=== PATIENT | male | born 1945 | race Caucasian/White ===

== ENCOUNTER 2016-10-21 06:06 | Day surgery (SDC) | payer OTHER ==
[2016-10-13 12:06] VITALS: BMI 34.4
[2016-10-21] MEDS ORDERED: BUPIVACAINE HCL/PF 2.5 MG/ML - 30 ML VIAL IJ ONE (07:03)
[2016-10-21] MEDS ORDERED: LIDOCAINE 1%/EPI 1:100000 (20 ML MULTI DOSE VIAL) ONE (07:03)
[2016-10-21] MEDS ORDERED: MIDAZOLAM HCL 2 MG/2 ML SINGLE DOSE VIAL ONE (07:53)
[2016-10-21] MEDS ORDERED: PROPOFOL 20 ML ONE (07:53)
[2016-10-21] MEDS ORDERED: LIDOCAINE HCL/PF 2% SDV 5ML VIAL ONE (07:55)
--- NOTE | 2016-10-21 07:58 | HP ---
Satellite [facility] - Chief Complaint Chief Complaint: right knee pain - Past Medical History Allergies/Adverse Reactions: Allergies Allergy/AdvReac Type Severity Reaction Status Date / Time No Known Allergies Allergy Verified 10/13/16 11:40 - Current Medications Current Medications: Home Medications Medication Instructions Recorded Gabapentin [Neurontin] 600 mg PO DAILY 10/13/16 Pregabalin [Lyrica -] 150 mg PO TID 10/13/16 Warfarin Sodium [Coumadin] 7 mg PO DAILY 10/13/16 Oxycodone HCl/Acetaminophen 2 tab PO Q8H #40 tab MDD 6 10/21/16 [Percocet 5-325 mg Tablet] Satellite Physical Exam - Physical Examination Vital Signs: Vital Signs Period Temp Pulse Resp BP Sys/Carr Pulse Ox Last 24 Hr 97.9 F 60 18 129/71 97 General Appearance: Well Nourished, Well Developed, Alert & Oriented x3 ENT: Clear Lung: Normal air movement Heart: Regular rate & rhythm Extremities: Other (right knee- + swelling, + ttp, decr rom, nvi MRI + plica, mmt) Neurological: Intact, Alert, Oriented Satellite Impression/Plan - Impression/Plan Impression: right knee internal derangement Operative Procedure: right knee arthroscopy Date to be Performed: 10/21/16
[2016-10-21] MEDS ORDERED: LIDOCAINE 1%/EPI 1:100000 (50 ML MULTI DOSE VIAL) INF ONE (08:14)
[2016-10-21] MEDS ORDERED: DEXAMETHASONE SOD PHOSPHATE 4 MG/1 ML VIAL ONE (08:19)
[2016-10-21] MEDS ORDERED: ONDANSETRON 4 MG/2 ML VIAL ONE ×2 (08:19→09:05)
[2016-10-21] MEDS ORDERED: BUPIVACAINE HCL/PF 0.25% (2.5MG/ML) 10 ML VIAL IJ ONE (08:23)
[2016-10-21] MEDS ORDERED: KETOROLAC TROMETHAMINE 30 MG/1 ML VIAL ONE (08:30)
[2016-10-21] MEDS ORDERED: LACTATED RINGERS SOLUTION 1,000 ML IV SCH (08:45)
[2016-10-21] MEDS ORDERED: PROMETHAZINE HCL 25 MG/1 ML VIAL IVPUSH PRN (08:45)
[2016-10-21] MEDS ORDERED: oxyCODONE HCL 5 MG TABLET PO PRN (08:45)
[2016-10-21] MEDS ORDERED: oxyCODONE HCL 5 MG TABLET ONE (09:56)
--- NOTE | 2016-10-21 10:25 | OP ---
Operative Note - Note: Operative Date: 10/21/16 (blaine) Pre-Operative Diagnosis: right knee internal derangement Operation: right knee arthroscopy with PMM, PLM Post-Operative Diagnosis: Same as Pre-op Surgeon: Hayder Peñaloza Anesthesiologist/SENSITIZED PAPER TESTER: Tereso Hamilton Anesthesia: General, Local Specimens Removed: shavings Estimated Blood Loss (mls): 5 Operative Report Dictated: Yes
[2016-10-21 12:06] VITALS: BP 118/78; PULSE 79; TEMP 98
--- NOTE | 2016-10-21 15:23 | OP ---
DATE OF OPERATION: 10/21/2016 PREOPERATIVE DIAGNOSIS: Internal derangement, right knee. POSTOPERATIVE DIAGNOSIS: Internal derangement, right knee. PROCEDURE: Arthroscopy, right knee, partial medial and lateral meniscectomy. SURGICAL ATTENDING: Hayder Peñaloza MD CLOSURE: Nylon 4-0. COMPLICATIONS: None. CONDITION: To recovery room in stable condition. DESCRIPTION OF OPERATIVE PROCEDURE: Patient taken to the operating room on October 21, 2016. General anesthesia with LMA was administered by the anesthesiologist. Right lower extremity was prepped and draped in the usual sterile fashion. The superolateral, medial lateral, and infrapatellar portal sites were infiltrated with 1% Xylocaine with epinephrine. Superolateral portal was made with a 15 blade followed by blunt trocar. The knee was aspirated, inflated with cocktail of 10 mL of 1% Xylocaine, 10 mL of 0.5% Marcaine, 20 mL of arthroscopic saline. Medial and lateral infrapatellar portals were then made with a 15 blade followed by a blunt trocar. Scope was placed in the lateral infrapatellar portal and up into the suprapatellar pouch. Pouch was visualized to be clean. The medial and lateral gutters were visualized to be clean. The undersurface of the patella and trochlea were visualized to be intact. With valgus stress on the knee, the medial compartment was entered and medial meniscus was visualized, probed, and found to have a complex tear of its posterior horn. This was debrided back to smooth and stable meniscal tissue using meniscal biter and arthroscopic shaver. The medial femoral condyle was found to have some changes as did the tibial plateau which were debrided using the shaver. At 90 degrees, the ACL was visualized, probed and found to be intact. In the figure 4 position, the lateral compartment was entered. Lateral meniscus was found to have a flap tear of its posterior horn. This was debrided back to smooth stable meniscal tissue using meniscal biter and arthroscopic shaver. The lateral femoral condyle was run and found to be intact as was the lateral tibial plateau. The knee was irrigated with copious amounts of irrigation. The portals were closed with 4-0 nylon. Prior to closure, 20 mL of 0.5% Marcaine was infused into the knee for postoperative analgesia. Sterile pressure dressing was placed over the knee and the patient was awakened from anesthesia and transferred to recovery room in stable condition. No complications. Estimated blood loss was negligible. Anthony BHATIA/[id number]
--- NOTE | 2016-10-24 11:37 | PATH ---
Surgical Pathology Report Patient Name: SHANNON KAUR [facility]. Rec. #: [id number] /Age/Gender: 1945 (Age: 71) / M Account: [id number] [facility] Taken: 10/21/2016 Received: 10/21/2016 Reported: 10/24/2016 Physicians: Hayder Peñaloza M.D. Specimen(s) Received RIGHT KNEE SHAVINGS Clinical History Right knee derangement Final Diagnosis KNEE, RIGHT, ARTHROSCOPIC SHAVING: FIBROCARTILAGE WITH MYXOID DEGENERATIVE CHANGES, ALONG WITH PORTIONS OF SYNOVIUM AND HYALINE CARTILAGE. Electronically Signed Madhu Clark M.D. Gross Description Received in formalin, labeled "right knee shavings," is a 4.3 x 3.5 x 0.4 cm. aggregate of you-yellow soft tissue fragments. A sales representative gas service portion is submitted in one cassette. /10/21/2016 saudi/10/21/2016
== END 2016-10-21 12:00 | disposition home or self-care (01) ==
LOC: FASU 06:06
PROVIDERS: ATTEND Orthopaedic Surgery
PROC: 0SBC4ZZ Excision of Right Knee Joint, Percutaneous Endoscopic Approach (ICD-10-PCS; 2016-10-21)
PROC: 0SBC4ZZ Excision of Right Knee Joint, Percutaneous Endoscopic Approach (ICD-10-PCS; principal; 2016-10-21 08:00)
DX: M23.91 Unspecified internal derangement of right knee (principal); M23.221 Derangement of posterior horn of medial meniscus due to old tear or injury, right knee; M23.251 Derangement of posterior horn of lateral meniscus due to old tear or injury, right knee
CPT/HCPCS: 88304-TC; 94760

== ENCOUNTER 2017-05-31 17:00 | Inpatient (IN) | payer OTHER ==
--- NOTE | 2017-05-31 17:09 | PDOC ---
History of Present Illness - General Stated Complaint: BACK PAIN Past History - Past Medical History Allergies/Adverse Reactions: Allergies Allergy/AdvReac Type Severity Reaction Status Date / Time No Known Allergies Allergy Verified 10/13/16 11:40 Home Medications: Ambulatory Orders Gabapentin [Neurontin] 600 mg PO DAILY 10/13/16 Pregabalin [Lyrica -] 150 mg PO TID 10/13/16 Warfarin Sodium [Coumadin] 7 mg PO DAILY 10/13/16 Oxycodone HCl/Acetaminophen [Percocet 5-325 mg Tablet] 2 tab PO Q8H #40 tab MDD 6 10/21/16 Anemia: No Asthma: No Cancer: No Cardiac Disorders: No CVA: No COPD: No CHF: No Dementia: No Diabetes: No GI Disorders: No Disorders: No HTN: No Hypercholesterolemia: No Liver Disease: No Seizures: No Thyroid Disease: No - Surgical History Abdominal Surgery: No Appendectomy: No Cardiac Surgery: No Cholecystectomy: No Lung Surgery: No Neurologic Surgery: No Orthopedic Surgery: Yes (Spinal Fusion with Instumentation 01/2016-developed DVT RLE post op) - Suicide/Smoking/Psychosocial Hx Smoking History: Never smoked Hx Alcohol Use: Yes Drug/Substance Use Hx: No Substance Use Type: Alcohol Hx Substance Use Treatment: No
--- NOTE | 2017-05-31 19:30 | PDOC ---
History of Present Illness - General Chief Complaint: Back Pain Stated Complaint: BACK PAIN Time Seen by Provider: 05/31/17 19:22 - History of Present Illness Initial Comments: 05/31/17 19:29 72 yo M with h/o spinal stensois s/p lumbar and thoracic laminectomy ( 05/26/2016 ) who arrives from outside assisted living facility with back pain. Patient reports mid spasmodic back pain lasting for seconds and aggravated with movement , transfers into and out of bed, and leg raising. Patient reports back pain following fall Monday when attempting transfer from walker to wheelchair and back hit his lower back( sacum) buttocks on chair and then slid onto floor. He has multiple falls following Monday (05/28/2016) and denies head/neck trauma. Has regressed from cane to walker to wheelchair. He endorses increased urinary frequency and one episode of urinary incontinence 24 hours ago. Denies heamturia , flank pain, or stool incontinence. Back pain mildly improved witch oxycodone. On Warfarin for DVT ppx following R leg DVT 1 year ago. + chronic right lower ext neuropathic pain improved following procedure Patient Denies N/V, F/C, CP, SOB, diarrhea, lightheadedness, vertigo. Denies h/o CAD/NV, stent placement, CABG, TIA/CVA. Denies IV drug use. Tobacco cessation 10 years ago. Denies alcohol use this week ( 1 drink per night on average) MRI ( 02/09/2016) Lumbar spinal stenosis s/p laminectomy with multiple screws in place. [facility] Laminectomy Dr. Long. Patient reports multiple normal spinal plain films done at outpatient facility today. . Past History - Past Medical History Allergies/Adverse Reactions: Allergies Allergy/AdvReac Type Severity Reaction Status Date / Time No Known Allergies Allergy Verified 10/13/16 11:40 Home Medications: Ambulatory Orders Pregabalin [Lyrica -] 200 mg PO TID 10/13/16 Warfarin Sodium [Coumadin] 7 mg PO DAILY 10/13/16 Oxycodone HCl/Acetaminophen [Percocet 5-325 mg Tablet] 2 tab PO Q8H #40 tab MDD 6 10/21/16 Cyclobenzaprine HCl [Flexeril 10 mg] 10 mg PO TID 05/31/17 Meloxicam 7.5 mg PO QID 05/31/17 Nortriptyline HCl [Pamelor -] 100 mg PO HS 05/31/17 Anemia: No Asthma: No Cancer: No Cardiac Disorders: No CVA: No COPD: No CHF: No Dementia: No Diabetes: No GI Disorders: No Disorders: No HTN: No Hypercholesterolemia: No Liver Disease: No Seizures: No Thyroid Disease: No - Surgical History Abdominal Surgery: No Appendectomy: No Cardiac Surgery: No Cholecystectomy: No Lung Surgery: No Neurologic Surgery: No Orthopedic Surgery: Yes (Spinal Fusion with Instumentation 01/2016-developed DVT RLE post op) - Suicide/Smoking/Psychosocial Hx Smoking History: Unknown if ever smoked Hx Alcohol Use: No Drug/Substance Use Hx: No Substance Use Type: Alcohol Hx Substance Use Treatment: No Review of Systems - Review of Systems Comments:: 05/31/17 19:28 GENERAL/CONSTITUTIONAL: No fever or chills. No weakness. HEAD, EYES, EARS, NOSE AND THROAT: No change in vision. No ear pain or discharge. No sore throat.- CARDIOVASCULAR: No chest pain or shortness of breath RESPIRATORY: No cough, wheezing, or hemoptysis. GASTROINTESTINAL: No nausea, vomiting, diarrhea or constipation. GENITOURINARY: No dysuria, frequency, or change in urination. MUSCULOSKELETAL: + Back Pain. No joint or muscle swelling or pain. SKIN: No rash NEUROLOGIC: No headache, vertigo, loss of consciousness, or change in strength/ sensation. ENDOCRINE: No increased thirst. No abnormal weight change HEMATOLOGIC/LYMPHATIC: No anemia, easy bleeding, or history of blood clots. ALLERGIC/IMMUNOLOGIC: No hives or skin allergy. *Physical Exam - Vital Signs Last Vital Signs Temp Pulse Resp BP Pulse Ox 98.8 F 81 16 109/61 97 05/31/17 17:19 05/31/17 17:19 05/31/17 17:19 05/31/17 17:19 05/31/17 17:19 - Physical Exam Comments: 05/31/17 19:28 GENERAL: Awake, alert, and fully oriented, in no acute distress HEAD: No signs of trauma, normocephalic, atraumatic EYES: PERRLA, EOMI, sclera anicteric, conjunctiva clear ENT: Hearing grossly normal, nares patent, oropharynx clear without exudates. Moist mucosa NECK: Normal ROM, no JVD, or masses LUNGS: No distress, speaks full sentences, clear to auscultation bilaterally HEART: Regular rate and rhythm, normal S1 and S2, no murmurs, rubs or gallops, peripheral pulses normal and equal bilaterally. EXTREMITIES : LLE w/ increased circumference BTK. Normal range of motion, no edema. No clubbing or cyanosis. NEUROLOGICAL: Cranial nerves II through XII grossly intact. Normal speech, normal gait, no focal sensorimotor deficits. Normal SAMI. Absent dysmetria on FTN. Back: 8 cm mid thoracic incision site, warm, blanching, erythematous, indurated , non fluctuant, non draining, firm and tender. Sutures intact. No dressing applied. SKIN: Warm, Dry, normal turgor, no rashes or lesions noted. ED Treatment Course - LABORATORY CBC & Chemistry Diagram: 05/31/17 20:00 05/31/17 22:00 Medical Decision Making - Medical Decision Making 05/31/17 20:37 72 yo M with h/o spinal stensois s/p lumbar and thoracic laminectomy ( 05/26/2016 ) who arrives from outside assisted living facility with back mid thoracic, spasmodic back pain lasting for seconds and aggravated with movement. Back pain following fall Monday when attempting transfer from walker to wheelchair. Endorses multiple falls following Monday (05/28/2016) and denies head/neck trauma. + Increased urinary frequency and one episode of urinary incontinence 24 hours ago. Denies hematuria, flank pain, or stool incontinence. On Warfarin for DVT ppx following R leg DVT 1 year ago. Denies N/V, F/C, CP, SOB, diarrhea, lightheadedness, vertigo. Denies h/o CAD/NV, stent placement, CABG, TIA/CVA. Denies IV drug use. Tobacco cessation 10 years ago. Denies alcohol use this week ( 1 drink per night on average). MRI ( 02/09/2016) Lumbar spinal stenosis s/p laminectomy with multiple screws in place. [facility] Laminectomy Dr. Long. Patient reports multiple normal spinal plain films done at outpatient facility today. Physical today reveals 8 cm mid thoracic incision site, that appears to be warm, firm, erythematous, and indurated. No active draining. Patient with LLE/RLE swelling BTK. HDS. Urinary symptoms in setting of recent back srugery and trauma concerning for cauda equina, although pt. without urinary retention or neruo deficits on physical exam. Also will obtain imaging to r/o epidural abscess. DDx: UTI, epidural cellulitis/acbcess, cauda equina, DVT left ED Course: CBC, CMP, UA Duplex Vasc LLE, CXR, EKG CT T SPINE W/CONTRAST EKG: NSR with absent STD/PARVEZ, or TWI. Normal interval duration with normal axis. 05/31/17 21:53 CXR: right basilar atelectasis CBC: Unremarkable. UA: Negative 05/31/17 22:13 Valium 10 mg 05/31/17 23:26 CMP: Unremarkable. 06/01/17 02:04 Dilaudid 0.5mg Baclofen Radiology has attempted to send CT to imaging supervisor electronics inspection x 4 times, but imaging supervisor electronics inspection having technical difficulties. Spoke to Maryanne PERSON for admission to med/surg Dr. Fatima. 06/01/17 04:23 CT T SPINE: Postop fluid collection likely seroma. No evidence of abscess or epidural fluid collection. *DC/Admit/Observation/Transfer Diagnosis at time of Disposition: Back pain Qualifiers: Back pain location: thoracic back pain Chronicity: acute Back pain laterality: midline Qualified Code(s): M54.6 - Pain in thoracic spine - Discharge Dispostion Admit: Yes - Referrals Referrals: Ronaldo Sanabria [Primary Care Provider] - - Patient Instructions - Post Discharge Activity
--- NOTE | 2017-05-31 19:41 | PDOC ---
Attending Attestation - HPI HPI: 05/31/17 20:14 Patient is a 72 M with PMHx of spinal stenosis and thoracic laminectomy on who was brought in by EMS from assisted living facility for back pain s/p fall on 05/28/17. Patient states that he fell on his buttox 3 days ago as he was transferring from his walker to his wheelchair. Patient states he has a history of falls. Patient describes his pain as spasmodic and aggravated with movement. Patient states his back pain was improved with oxy. He denies head or neck pain. Patient states he usually ambulates with walker but has regressed to wheelchair. Patient also reports one episode of urinary incontinence as well as urinary frequency but denies any other urinary issues. He denies fever, chills, lightheadedness. Denies history of heart issues. Social Hx; 1 drink daily (denies alcohol use for the past week) <Diana Hurst - Last Filed: 05/31/17 20:14> - Resident Resident Name: Brandon Camarillo - ED Attending Attestation I have performed the following: I have examined & evaluated the patient, The case was reviewed & discussed with the resident, I agree w/resident's findings & plan, Exceptions are as noted - Physicial Exam PE: 05/31/17 20:06 *Physical Exam General Appearance: Yes: Appropriately Dressed. No: Apparent Distress, Intoxicated HEENT: positive: EOMI, MARYJO, Normal ENT Inspection, Normal Voice, TMs Normal, Pharynx Normal. negative: Pale Conjunctivae, Photophobia, Scleral Icterus (R), Scleral Icterus (L) Neck: positive: Trachea midline, Normal Thyroid, Supple. negative: Tender, Rigid, Carotid bruit, Stridor, Lymphadenopathy (R), Lymphadenopathy (L), Thyromegaly Respiratory/Chest: positive: Lungs Clear, Normal Breath Sounds. negative: Chest Tender, Respiratory Distress, Accessory Muscle Use, Labored Respiration, RES, Crackles, Rales, Rhonchi, Stridor, Wheezing, Dullness Cardiovascular: positive: Regular Rhythm, Regular Rate, S1, S2. negative: Edema , JVD, Murmur, Bradycardia, Tachycardia Vascular Pulses: Dorsalis-Pedis (R): 2+, Doralis-Pedis (L): 2+ Gastrointestinal/Abdominal: positive: Normal Bowel Sounds, Flat, Soft. negative : Tender, Organomegaly, Pulsatile Mass, Increased Bowel Sounds, Decreased BS, Distended, Guarding, Rebound, Hernia, Hepatomegaly, Spleenomegaly Lymphatic: negative: Adenopathy, Tenderness Musculoskeletal: positive: Normal Inspection. healing wound to thoracic spine at midline.mildly indurated, slight erythema. negative: CVA Tenderness, Decreased Range of Motion Extremity: positive: Normal Capillary Refill, Normal Inspection, Normal Range of Motion, Pelvis Stable. negative: Tender, Pedal Edema, Swelling, Erythema Integumentary: positive: Normal Color, Dry, Warm. negative: Cyanotic, Erythema , Jaundice, Rash Neurologic: positive: parachute crown sewer II-XII NML intact, Fully Oriented, Alert, Normal Mood/ Affect, Motor Strength 5/5. negative: EOM Palsy, Facial Droop, Sensory Deficit - Medical Decision Making 06/01/17 19:32 Pt was admitted for further medical care. <Osito Hackett - Last Filed: 06/01/17 19:33>
[2017-05-31 20:09] LABS: URINE APPEARANCE CLEAR; URINE BILIRUBIN NEGATIVE (NEGATIVE); URINE BLOOD NEGATIVE (NEGATIVE); URINE COLOR YELLOW; URINE GLUCOSE (UA) NEGATIVE (NEGATIVE); URINE KETONE NEGATIVE (NEGATIVE); URINE LEUK ESTERASE NEGATIVE (NEGATIVE); URINE NITRITE NEGATIVE (NEGATIVE); URINE PROTEIN NEGATIVE (NEGATIVE); URINE UROBILINOGEN NEGATIVE mg/dL (0.2-1.0)
[2017-05-31] MEDS ORDERED: METHOCARBAMOL 500 MG TABLET PO ONE (20:13)
[2017-05-31 20:32] LABS: BASO % 0.6 % (0-2.0); EOS % 1.5 % (0-4.5); HEMATOCRIT 38.6 % (35.4-49); HEMOGLOBIN 13.2 GM/dL (11.7-16.9); LYMPH % 21.3 % (8-40); MCHC 34.3 g/dl (32.0-35.9); MEAN CELL VOLUME 93.4 fl (80-96); MEAN PLT VOLUME 7.5 fl (7.5-11.1); NEUT % 65.6 % (42.8-82.8); PLATELET COUNT 255 K/MM3 (134-434); RBC 4.13 M/mm3 (4.00-5.60); RDW 13.3 % (11.9-15.9); WHITE BLOOD COUNT 6.8 K/mm3 (4.0-10.0)
[2017-05-31] MEDS ORDERED: METHOCARBAMOL 500 MG TABLET ONE (20:39)
[2017-05-31] MEDS ORDERED: diazePAM 5 MG TABLET PO ONE (22:11)
[2017-05-31] MEDS: diazePAM CARPU-JECT 10 MG/2 ML DISP.SYRIN IVPUSH ONE ×2 (22:18→22:38)
[2017-05-31] MEDS ORDERED: diazePAM 5 MG TABLET ONE (22:20)
[2017-05-31 22:45] LABS: INR 1.29 (0.82-1.09); PROTHROMBIN TIME (PATIENT) 14.6 SEC (9.98-11.88)
[2017-05-31 23:11] LABS: ALBUMIN 3.3 g/dl (3.4-5.0); ALK PHOS 80 U/L (45-117); ANION GAP 9 (8-16); BILIRUBIN,TOTAL 0.6 mg/dL (0.2-1.0); BLOOD UREA NITROGEN 15 mg/dL (7-18); CALCIUM 8.3 mg/dL (8.5-10.1); CHLORIDE 100 mmol/L (98-107); CO2 26 mmol/L (21-32); CREATININE 1.1 mg/dL (0.7-1.3); GLUCOSE,RANDOM 116 mg/dL (74-106); POTASSIUM 4.3 mmol/L (3.5-5.1); SGOT/AST 24 U/L (15-37); SGPT/ALT 29 U/L (12-78); SODIUM 135 mmol/L (136-145)
[2017-06-01] MEDS ORDERED: BACLOFEN 10 MG TABLET (FP) PO ONE (00:24)
[2017-06-01] MEDS ORDERED: BACLOFEN 10 MG TABLET (FP) ONE (00:39)
[2017-06-01] MEDS ORDERED: HYDROmorphone HCL CARPU-JECT 1 MG/1 ML DISP.SYRIN IVPUSH ONE (00:55)
[2017-06-01] MEDS ORDERED: HYDROmorphone HCL CARPU-JECT 2 MG/1 ML DISP.SYRIN ONE ×2 (01:59→08:58)
--- NOTE | 2017-06-01 03:51 | HP ---
CHIEF COMPLAINT: Back Pain PCP: Dr. Ronaldo Sanabria HISTORY OF PRESENT ILLNESS: 72 y/o man with a PMHx of Spinal Stenosis, Multiple Lumbar Surgeries. Who presents from an Assisted Living Facility for back pain s/p Laminectomy (05/26/17 , [place]), s/p falls x3. Patient reports having spasms to his back worsened with movement. Patient reports the falls occurred when attempting transfer from walker to wheelchair and back hit his lower back( sacrum) buttocks on the chair and then slid onto a wooden floor. He has had multiple falls following Monday (05/28/2016 ) and denies head/neck trauma. He Has regressed from a cane to walker to wheelchair. Patient reports having an episode of urinary incontinence- now resolved, patient is using the urinal and requesting a bedpan for a bowel movement. Patient denies fever, chills, cough, SOB, dizziness, CP, AP, N/V/D, constipation. ER course was notable for: (1) Chest Xray- R Basilar Atelectasis (2) LLE Doppler - neg DVT (3) Recent Travel: None PAST MEDICAL HISTORY: Spinal Stenosis HLD R- leg DVT PAST SURGICAL HISTORY: s/p Laminectomy 05/26/17 Laminectomy 01 Posterior Spinal Fusion Surgical Reconstruction spinal stenosis R- knee arthroscopy Social History: Smoking: Never Alcohol: None Drugs: None Resides at an Assisted Living Facility Family History: Non-contributory Allergies No Known Allergies Allergy (Verified 10/13/16 11:40) HOME MEDICATIONS: Home Medications Medication Instructions Recorded Pregabalin [Lyrica -] 200 mg PO TID 10/13/16 Warfarin Sodium [Coumadin] 7 mg PO DAILY 10/13/16 Oxycodone HCl/Acetaminophen 2 tab PO Q8H #40 tab MDD 6 10/21/16 [Percocet 5-325 mg Tablet] Cyclobenzaprine HCl [Flexeril 10 10 mg PO TID 05/31/17 mg] Meloxicam 7.5 mg PO QID 05/31/17 Nortriptyline HCl [Pamelor -] 100 mg PO HS 05/31/17 REVIEW OF SYSTEMS CONSTITUTIONAL: Absent: fever, chills, diaphoresis, generalized weakness, malaise, loss of appetite, weight change HEENT: Absent: rhinorrhea, nasal congestion, throat pain, throat swelling, difficulty swallowing, mouth swelling, ear pain, eye pain, visual changes CARDIOVASCULAR: Absent: chest pain, syncope, palpitations, irregular heart rate, lightheadedness , peripheral edema RESPIRATORY: Absent: cough, shortness of breath, dyspnea with exertion, orthopnea, wheezing, stridor, hemoptysis GASTROINTESTINAL: Absent: abdominal pain, abdominal distension, nausea, vomiting, diarrhea, constipation, melena, hematochezia GENITOURINARY: Absent: dysuria, frequency, urgency, hesitancy, hematuria, flank pain, genital pain MUSCULOSKELETAL: back pain Absent: myalgia, arthralgia, joint swelling, neck pain SKIN: Absent: rash, itching, pallor HEMATOLOGIC/IMMUNOLOGIC: Absent: easy bleeding, easy bruising, lymphadenopathy, frequent infections ENDOCRINE: Absent: unexplained weight gain, unexplained weight loss, heat intolerance, cold intolerance NEUROLOGIC: unsteady gait, bladder incontinence Absent: headache, focal weakness or paresthesias, dizziness, seizure, mental status changes, bowel incontinence PSYCHIATRIC: Absent: anxiety, depression, suicidal or homicidal ideation, hallucinations. PHYSICAL EXAMINATION Vital Signs - 24 hr 05/31/17 05/31/17 17:19 19:38 Temperature 98.8 F Pulse Rate 81 Respiratory 16 Rate Blood Pressure 109/61 O2 Sat by Pulse 97 99 Oximetry (%) GENERAL: Awake, alert, and fully oriented, in no acute distress. HEAD: Normal with no signs of trauma. EYES: Pupils equal, round and reactive to light, extraocular movements intact, sclera anicteric, conjunctiva clear. No lid lag. EARS, NOSE, THROAT: Ears normal, nares patent, oropharynx clear without exudates. Dry mucous membranes. NECK: Normal range of motion, supple without lymphadenopathy, JVD, or masses. LUNGS: Breath sounds equal, clear to auscultation bilaterally. No wheezes, and no crackles. No accessory muscle use. HEART: Regular rate and rhythm, normal S1 and S2 without murmur, rub or gallop. ABDOMEN: Soft, nontender, not distended, normoactive bowel sounds, no guarding, no rebound, no masses. No hepatomegaly or splenomegaly. MUSCULOSKELETAL: Full range of motion at all joints. No bony deformities. No CVA tenderness. Lumbar tenderness UPPER EXTREMITIES: 2+ pulses, warm, well-perfused. No cyanosis. No clubbing. No peripheral edema. LOWER EXTREMITIES: 2+ pulses, warm, well-perfused. No calf tenderness. L>R, BTK , peripheral edema. NEUROLOGICAL: Cranial nerves II-XII intact. Normal speech. Gait not observed. PSYCHIATRIC: Cooperative. Good eye contact. Appropriate mood and affect. SKIN: Warm, dry, normal turgor, no rashes. normal capillary refill. 8 cm mid thoracic incision site, warm, blanching, erythematous, indurated, non fluctuant , non draining, firm and tender. Sutures intact. No dressing applied. Laboratory Results - last 24 hr 05/31/17 05/31/17 05/31/17 20:00 20:00 22:00 WBC 6.8 RBC 4.13 Hgb 13.2 Hct 38.6 MCV 93.4 MCH 32.0 MCHC 34.3 RDW 13.3 Plt Count 255 MPV 7.5 Neutrophils % 65.6 Lymphocytes % 21.3 Monocytes % 11.0 H Eosinophils % 1.5 Basophils % 0.6 PT with INR 14.60 H INR 1.29 H Sodium Potassium Chloride Carbon Dioxide Anion Gap BUN Creatinine Creat Clearance w eGFR Random Glucose Calcium Total Bilirubin AST ALT Alkaline Phosphatase Total Protein Albumin Urine Color Yellow Urine Appearance Clear Urine pH 7.0 Ur Specific [place] 1.016 Urine Protein Negative Urine Glucose (UA) Negative Urine Ketones Negative Urine Blood Negative Urine Nitrite Negative Urine Bilirubin Negative Urine Urobilinogen Negative Ur Leukocyte Esterase Negative 05/31/17 22:00 WBC RBC Hgb Hct MCV MCH MCHC RDW Plt Count MPV Neutrophils % Lymphocytes % Monocytes % Eosinophils % Basophils % PT with INR INR Sodium 135 L Potassium 4.3 Chloride 100 Carbon Dioxide 26 Anion Gap 9 BUN 15 Creatinine 1.1 Creat Clearance w eGFR > 60 Random Glucose 116 H Calcium 8.3 L Total Bilirubin 0.6 AST 24 ALT 29 Alkaline Phosphatase 80 Total Protein 7.0 Albumin 3.3 L Urine Color Urine Appearance Urine pH Ur Specific [place] Urine Protein Urine Glucose (UA) Urine Ketones Urine Blood Urine Nitrite Urine Bilirubin Urine Urobilinogen Ur Leukocyte Esterase ASSESSMENT/PLAN: 72 y/o man with a PMHx of: HLD, Spinal Stenosis, Multiple spinal surgeries, DVT R-leg, s/p Laminectomy 05/26/17. Admitted for Intractable Back Pain secondary to Fall, s/p Laminectomy. FEN - Po Fluids - Replete lytes prn - Low Cholesterol Diet Code Status: DNI, Living Will Dispo: Requires Inpatient Care Problem List - Problem (1) Intractable back pain Assessment/Plan: - Likely secondary to abscess vs cellulitis vs Falls - s/p Laminectomy - CT Thoracic Spine- r/o epidural abscess - Dilaudid prn - Continue flexeril - Valium, Robaxin, Dilaudid given in ED - Consider PT for ambulation, gait strengthening - Consider Social Work, Case Management for Short Term Rehab - Consider Pain Management Consult - Fall Precautions - Monitor vitals Code(s): M54.9 - DORSALGIA, UNSPECIFIED (2) S/P lumbar laminectomy Assessment/Plan: - Code(s): Z98.890 - OTHER SPECIFIED POSTPROCEDURAL STATES (3) HLD (hyperlipidemia) Assessment/Plan: - Low Cholesterol Diet Code(s): E78.5 - HYPERLIPIDEMIA, UNSPECIFIED (4) DVT prophylaxis Assessment/Plan: - OOB - SCD- LLE - Verify with Ortho to resume AC Code(s): [id number] - Visit type - Emergency Visit Emergency Visit: Yes ED Registration Date: 05/31/17 Care time: The patient presented to the Emergency Department on the above date and was hospitalized for further evaluation of their emergent condition. - New Patient This patient is new to me today: Yes Date on this admission: 06/01/17 - Critical Care Critical Care patient: No
[2017-06-01] MEDS: CYCLOBENZAPRINE HCL 10 MG TABLET (FP) PO SCH ×3 (07:25→23:04)
[2017-06-01 08:09] LABS: ANION GAP 11 (8-16); BLOOD UREA NITROGEN 16 mg/dL (7-18); CALCIUM 8.7 mg/dL (8.5-10.1); CHLORIDE 102 mmol/L (98-107); CO2 23 mmol/L (21-32); CREATININE 1.1 mg/dL (0.7-1.3); GLUCOSE,RANDOM 128 mg/dL (74-106); POTASSIUM 4.5 mmol/L (3.5-5.1); SODIUM 136 mmol/L (136-145)
[2017-06-01 08:13] LABS: BASO % 0.3 % (0-2.0); EOS % 0.3 % (0-4.5); HEMATOCRIT 40.5 % (35.4-49); HEMOGLOBIN 13.7 GM/dL (11.7-16.9); LYMPH % 10.7 % (8-40); MCH 31.9 pg (25.7-33.7); MCHC 33.9 g/dl (32.0-35.9); MEAN PLT VOLUME 7.3 fl (7.5-11.1); MONO % 11.5 % (3.8-10.2); NEUT % 77.2 % (42.8-82.8); PLATELET COUNT 253 K/MM3 (134-434); RBC 4.31 M/mm3 (4.00-5.60); RDW 13.3 % (11.9-15.9); WHITE BLOOD COUNT 7.8 K/mm3 (4.0-10.0)
--- NOTE | 2017-06-01 10:33 | EKG ---
Test Reason : Blood Pressure : / mmHG Vent. Rate : 071 BPM Atrial Rate : 071 BPM P-R Int : 172 ms QRS Dur : 110 ms QT Int : 406 ms P-R-T Axes : 052 -09 022 degrees QTc Int : 441 ms NORMAL SINUS RHYTHM NORMAL ECG NO PREVIOUS ECGS AVAILABLE Confirmed by CHAVA REECE MD ([id number]) on 06/01/2017 10:33:03 AM Referred By: Confirmed By:CHAVA REECE MD
--- NOTE | 2017-06-01 13:58 | PN ---
Progress Note (short form) - Note Progress Note: HISTORY OF PRESENT ILLNESS: 72 y/o man with a PMHx of Spinal Stenosis, Multiple Lumbar Surgeries. He presents from an Assisted Living Facility for back pain s/p Laminectomy (05/26/17 , [place]), s/p falls x3. Patient reports having back spasms worsened with movement. 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 Pt rates back pain as a 3/10 on pain scale, described as throbbing. Vital Signs Period Temp Pulse Resp BP Sys/Carr Pulse Ox Last 24 Hr 97.9 F-98.9 F 73-96 16-20 109-157/61-86 96-99 HEENT- NL Neck- Supple Lungs- CTAB Heart- RRR Abd- Soft, NT, Pos BS x 4 Skin- 2 surgical sites noted on spine. Lower site healed. Thoracic site has Erythema/ Induration. No warmth. Ext- 1 + pitting edema b/l CBC, BMP 06/01/17 06:20 06/01/17 06:20 Current Medications Generic Name Dose Route Start Last Admin Trade Name Freq PRN Reason Stop Dose Admin Cyclobenzaprine HCl 10 mg 06/01/17 07:00 06/01/17 07:25 Flexeril - PO 10 mg TID AIYANA Administration Hydromorphone HCl 0.5 mg 06/01/17 06:52 Dilaudid Injection - IVPUSH Q6H PRN PAIN LEVEL 6-10 Nortriptyline HCl 100 mg 06/01/17 22:00 Pamelor - PO HS AIYANA Warfarin Sodium 5 mg/ Warfarin 7 mg 06/01/17 18:00 Sodium 2 mg PO DAILY@1800 [facility] Plan # S/P Lumbar and Thoracic Laminectomy Flexeril 10 mg TID Dilaudid injection 0.5 mg q 6 hrs PRN Nortriptyline 100 mg PO q hs Assess Thoracic surgical site # DVT Prophylaxis Warfarin 7 mg QD
[2017-06-01 14:43] VITALS: BMI 35.8
[2017-06-01] MEDS: HYDROmorphone HCL CARPU-JECT 1 MG/1 ML DISP.SYRIN IVPUSH PRN (16:06)
[2017-06-01] MEDS ORDERED: WARFARIN NA 5 MG TABLET (UD) ONE (17:32)
[2017-06-01] MEDS ORDERED: WARFARIN NA 2 MG TABLET (UD) ONE (17:32)
[2017-06-01] MEDS: WARFARIN NA 5 MG, WARFARIN NA 2 MG PO SCH (17:33)
[2017-06-01] MEDS ORDERED: WARFARIN NA 7.5 MG TABLET (FP) PO SCH (18:00)
[2017-06-01] MEDS ORDERED: PT OWN MED DRAWER 7, Y5N ONE (21:32)
[2017-06-01] MEDS ORDERED: NORTRIPTYLINE HCL 50 MG CAPSULE PO SCH (22:00)
[2017-06-01] MEDS: NORTRIPTYLINE HCL 25 MG CAPSULE PO SCH (23:04)
[2017-06-02] MEDS: CYCLOBENZAPRINE HCL 10 MG TABLET (FP) PO SCH ×3 (06:44→22:40)
[2017-06-02 08:44] LABS: BASO % 0.4 % (0-2.0); EOS % 0.1 % (0-4.5); HEMATOCRIT 42.2 % (35.4-49); HEMOGLOBIN 14.2 GM/dL (11.7-16.9); LYMPH % 9.4 % (8-40); MCH 31.4 pg (25.7-33.7); MCHC 33.5 g/dl (32.0-35.9); MEAN CELL VOLUME 93.5 fl (80-96); MEAN PLT VOLUME 7.2 fl (7.5-11.1); MONO % 9.6 % (3.8-10.2); NEUT % 80.5 % (42.8-82.8); PLATELET COUNT 326 K/MM3 (134-434); RBC 4.51 M/mm3 (4.00-5.60); RDW 13.7 % (11.9-15.9); WHITE BLOOD COUNT 10.6 K/mm3 (4.0-10.0)
[2017-06-02 09:04] LABS: INR 1.4 (0.82-1.09); PROTHROMBIN TIME (PATIENT) 15.8 SEC (9.98-11.88)
[2017-06-02 09:05] LABS: BLOOD UREA NITROGEN 25 mg/dL (7-18); CHLORIDE 102 mmol/L (98-107); GLUCOSE,RANDOM 156 mg/dL (74-106); POTASSIUM 4.3 mmol/L (3.5-5.1); SODIUM 138 mmol/L (136-145)
[2017-06-02 09:12] LABS: ANION GAP 13 (8-16); CALCIUM 9.1 mg/dL (8.5-10.1); CO2 23 mmol/L (21-32); CREATININE 2.3 mg/dL (0.7-1.3)
[2017-06-02] MEDS ORDERED: DEXTROSE 5%-0.45% SALINE 1,000 ML IV SCH (11:15)
[2017-06-02] MEDS: HYDROmorphone HCL CARPU-JECT 1 MG/1 ML DISP.SYRIN IVPUSH PRN (11:54)
[2017-06-02] MEDS: TAMSULOSIN HCL 0.4 MG CAP.ER.24H (FP) PO SCH (12:06)
--- NOTE | 2017-06-02 14:22 | PN ---
Progress Note (short form) - Note Progress Note: states having painful urination however u/a clean unstable gait -- states recurrence of neuropathic pain to right LE Vital Signs Period Temp Pulse Resp BP Sys/Carr Pulse Ox Last 24 Hr 98.1 F 84 20-20 158/74 96-96 neck supple heart S1/S2 lungs clear bilat abd obese / soft ?? pelvic distension back examine surgical site mildly erythematous no evidence of infection CBC, BMP 06/02/17 08:18 06/02/17 08:18 # multiple falls will benefit from STR fall precautions reoccuarnce of radiculopathy as per patient neurology consult # elevated renal function dysuria yet u/a negative possible bladder distension straight cath and repeat c/s if large volume will keep spence start flomax # s/p thoracic laminectomy with removal of "collection" post op chronic back pain arrange for PT / STR pain management Problem List - Problems (1) Multiple falls Code(s): R29.6 - REPEATED FALLS (2) S/P lumbar laminectomy Code(s): Z98.890 - OTHER SPECIFIED POSTPROCEDURAL STATES (3) Intractable back pain Code(s): M54.9 - DORSALGIA, UNSPECIFIED (4) DVT prophylaxis Code(s): [id number] - (5) HLD (hyperlipidemia) Code(s): E78.5 - HYPERLIPIDEMIA, UNSPECIFIED (6) Unstable balance Code(s): R26.89 - OTHER ABNORMALITIES OF GAIT AND MOBILITY (7) Obstructive uropathy Code(s): N13.9 - OBSTRUCTIVE AND REFLUX UROPATHY, UNSPECIFIED
[2017-06-02] MEDS: DEXTROSE 5%-0.45% SALINE 1,000 ML IV SCH (15:08)
[2017-06-02] MEDS ORDERED: WARFARIN NA 5 MG TABLET (UD) ONE (18:08)
[2017-06-02] MEDS ORDERED: WARFARIN NA 2 MG TABLET (UD) ONE (18:08)
[2017-06-02] MEDS: WARFARIN NA 5 MG, WARFARIN NA 2 MG PO SCH (18:13)
[2017-06-02] MEDS ORDERED: PT OWN MED DRAWER 7, Y5N ONE (22:38)
[2017-06-02] MEDS: NORTRIPTYLINE HCL 25 MG CAPSULE PO SCH (22:40)
[2017-06-03] MEDS: DEXTROSE 5%-0.45% SALINE 1,000 ML IV SCH ×2 (00:51→14:48)
[2017-06-03] MEDS: CYCLOBENZAPRINE HCL 10 MG TABLET (FP) PO SCH ×3 (06:00→21:25)
[2017-06-03] MEDS: TAMSULOSIN HCL 0.4 MG CAP.ER.24H (FP) PO SCH (08:51)
[2017-06-03 09:21] LABS: INR 1.62 (0.82-1.09); PROTHROMBIN TIME (PATIENT) 18.3 SEC (9.98-11.88)
[2017-06-03] MEDS: HYDROmorphone HCL CARPU-JECT 1 MG/1 ML DISP.SYRIN IVPUSH PRN ×2 (16:32→21:33)
[2017-06-03] MEDS ORDERED: WARFARIN NA 2 MG TABLET (UD) ONE (17:32)
[2017-06-03] MEDS ORDERED: WARFARIN NA 5 MG TABLET (UD) ONE (17:33)
[2017-06-03] MEDS: WARFARIN NA 5 MG, WARFARIN NA 2 MG PO SCH (17:34)
--- NOTE | 2017-06-03 17:35 | PN ---
Progress Note (short form) - Note Progress Note: s/p spence insertion yesterday with 1500cc retention feeling more comfortable started on flomax yesterday no PT today Vital Signs Period Temp Pulse Resp BP Sys/Carr Pulse Ox Last 24 Hr 98.1 F 84 20-20 158/74 96-96 neck supple heart S1/S2 lungs clear bilat abd soft obese back examine surgical site mildly erythematous no evidence of infection ext scd in place no edema CBC, BMP 06/02/17 08:18 06/02/17 08:18 # multiple falls will benefit from STR fall precautions reoccuarnce of radiculopathy as per patient neurology consult # obstructive uropathy spence in place flomax started 06/02 Gu consult # elevated renal function 2/2 obstructive uropathy follow renal function # s/p thoracic laminectomy with removal of "collection" post op chronic back pain arrange for PT / STR pain management Problem List - Problems (1) Multiple falls Code(s): R29.6 - REPEATED FALLS (2) S/P lumbar laminectomy Code(s): Z98.890 - OTHER SPECIFIED POSTPROCEDURAL STATES (3) Intractable back pain Code(s): M54.9 - DORSALGIA, UNSPECIFIED (4) DVT prophylaxis Code(s): [id number] - (5) HLD (hyperlipidemia) Code(s): E78.5 - HYPERLIPIDEMIA, UNSPECIFIED (6) Unstable balance Code(s): R26.89 - OTHER ABNORMALITIES OF GAIT AND MOBILITY (7) Obstructive uropathy Code(s): N13.9 - OBSTRUCTIVE AND REFLUX UROPATHY, UNSPECIFIED
--- NOTE | 2017-06-03 18:08 | CON.NEURO ---
Consult Consult Specialty:: NEUROLOGY- ZOFIA MERCADO - History of Present Illness History of Present Illness: 72 y/o man with a PMHx of Spinal Stenosis, Multiple Lumbar Surgeries. Who presents from an Assisted Living Facility for back pain s/p Laminectomy (05/26/17 , [place]), s/p falls x3. Patient reports having spasms to his back worsened with movement. Patient reports the falls occurred when attempting transfer from walker to wheelchair and back hit his lower back( sacrum) buttocks on the chair and then slid onto a wooden floor. He has had multiple falls following Monday (05/28/2016 ) and denies head/neck trauma. He Has regressed from a cane to walker to wheelchair. Patient reports having an episode of urinary incontinence- now resolved, patient is using the urinal and requesting a bedpan for a bowel movement. Patient denies fever, chills, cough, SOB, dizziness, CP, AP, N/V/D, constipation. Pt. reports right l5/S1 distribution radicular pain since fall leading to admission in addition to local spasms of pain at surgical site. x 2 days reports right leg/back pain has resolved completely. He has had left foot weakness since prior to surgery he says, today also reports some word finding difficulty since last operation"I can't finish sentences".Denies all other neurologic complaints. - Alcohol/Substance Use Hx Alcohol Use: No - Smoking History Smoking history: Unknown if ever smoked Home Medications - Allergies Allergies/Adverse Reactions: Allergies Allergy/AdvReac Type Severity Reaction Status Date / Time No Known Allergies Allergy Verified 10/13/16 11:40 - Home Medications Home Medications: Ambulatory Orders Pregabalin [Lyrica -] 200 mg PO TID 10/13/16 Warfarin Sodium [Coumadin] 7 mg PO DAILY 10/13/16 Oxycodone HCl/Acetaminophen [Percocet 5-325 mg Tablet] 2 tab PO Q8H #40 tab MDD 6 10/21/16 Cyclobenzaprine HCl [Flexeril 10 mg] 10 mg PO TID 05/31/17 Meloxicam 7.5 mg PO QID 05/31/17 Nortriptyline HCl [Pamelor -] 100 mg PO HS 05/31/17 Physical Exam-Neuro Vital Signs: Vital Signs Temperature 98.0 F 06/03/17 14:59 Pulse Rate 84 01/27/18 14:59 Respiratory Rate 20 06/03/17 14:59 Blood Pressure 121/54 06/03/17 14:59 O2 Sat by Pulse Oximetry (%) 96 06/02/17 21:00 Labs: CBC, BMP 06/02/17 08:18 06/02/17 08:18 INR, PTT INR 1.62 (0.82-1.09) H 06/03/17 08:30 - Neuro Exam Level Of Consciousness: Yes: Alert, Oriented to Person, Oriented to Place, Oriented to Time Eyes: Yes: PERRL Speech: Other (+ mild dysfluency of speech) Dominant Hand: Right Mini Mental Exam: Normal Gag: Present DTR's: 0 Left Achilles, 0 Right Achilles, 1+ Right Tricep, 1+ Left Brachioradialis, 1+ Right Brachioradialis, 2+ Left Bicep, 2+ Right Bicep, 2+ Left Tricep Babinski: Absent Response to light touch: Normal Response to pain prick: Normal Response to temperature: Normal Response to vibration: Normal Coordination: Normal: Finger to Nose (Nl F-N) Motor Strength: 4/5: Right Leg (left ankle dorsiflexion is 4/5, rest 5/5), 5/5: Left Arm, Right Arm, Right Leg Gait: Deferred Imaging - Results Cat Scan: Report Reviewed (CT T spine- s/p right T9 laminectomy with superficial soft tissue edema and nonencapsulated fluid, no hematoma in soft tissues, limited view of intraspinal contents due to hard barajas.) Assessment/Plan Pt. s/p laminectomy and falls. The lumbar pain that he had on the right side in L5/S1 distribution has resolved x 2 days, likely was a result of prexisting lumbar spondylosis wotrsened by fall/mechanical injury causing perinerve root edema-it has subsided, would not treat/image unless pain recurs. Can obtain MRI L/S spine with titanium screws if needed. -Dysfluency of speech- ?? mild motor aphasia after anesthesia-there is no other neurologic deficit and it is a mild deficit-if it persists would image brain. Thank you, Apolinar Goldman MD.
[2017-06-03 19:21] LABS: BASO % 0.4 % (0-2.0); HEMATOCRIT 35.3 % (35.4-49); HEMOGLOBIN 11.9 GM/dL (11.7-16.9); LYMPH % 22.8 % (8-40); MCH 31.9 pg (25.7-33.7); MCHC 33.7 g/dl (32.0-35.9); MEAN CELL VOLUME 94.7 fl (80-96); MEAN PLT VOLUME 7.4 fl (7.5-11.1); MONO % 8.8 % (3.8-10.2); PLATELET COUNT 263 K/MM3 (134-434); RBC 3.73 M/mm3 (4.00-5.60); RDW 13.5 % (11.9-15.9); WHITE BLOOD COUNT 6.9 K/mm3 (4.0-10.0)
[2017-06-03 19:56] LABS: ANION GAP 10 (8-16); BLOOD UREA NITROGEN 17 mg/dL (7-18); CALCIUM 8.1 mg/dL (8.5-10.1); CHLORIDE 103 mmol/L (98-107); CO2 24 mmol/L (21-32); CREATININE 1.1 mg/dL (0.7-1.3); GLUCOSE,RANDOM 133 mg/dL (74-106); SODIUM 137 mmol/L (136-145)
[2017-06-03] MEDS ORDERED: PT OWN MED DRAWER 7, Y5N ONE (21:16)
[2017-06-03] MEDS: NORTRIPTYLINE HCL 25 MG CAPSULE PO SCH (21:25)
[2017-06-04] MEDS: CYCLOBENZAPRINE HCL 10 MG TABLET (FP) PO SCH ×3 (05:47→21:12)
[2017-06-04] MEDS: DEXTROSE 5%-0.45% SALINE 1,000 ML IV SCH ×2 (05:47→17:28)
[2017-06-04] MEDS: TAMSULOSIN HCL 0.4 MG CAP.ER.24H (FP) PO SCH (08:15)
--- NOTE | 2017-06-04 14:42 | PN ---
Progress Note (short form) - Note Progress Note: seen and examined in room case discussed with neurology patient reports ward pain / radiculopathy resolved possibly aggravated by urinary obstruction ( retaining 1500cc) Vital Signs Period Temp Pulse Resp BP Sys/Carr Pulse Ox Last 24 Hr 98.1 F 84 20-20 158/74 96-96 neck supple heart S1/S2 lungs clear bilat abd obese/ soft non tender back examine surgical site mildly erythematous no evidence of infection ext no edema CBC, BMP 06/03/17 19:00 06/03/17 19:00 # multiple falls will benefit from STR fall precautions reoccurrence of radiculopathy as per patient now resolved neurology consult appreciated # elevated renal function / resolved after spence continue flomax Urology consult # s/p thoracic laminectomy with removal of "collection" post op chronic back pain arrange for PT / STR pain management Problem List - Problems (1) Multiple falls Code(s): R29.6 - REPEATED FALLS (2) S/P lumbar laminectomy Code(s): Z98.890 - OTHER SPECIFIED POSTPROCEDURAL STATES (3) Intractable back pain Code(s): M54.9 - DORSALGIA, UNSPECIFIED (4) DVT prophylaxis Code(s): [id number] - (5) HLD (hyperlipidemia) Code(s): E78.5 - HYPERLIPIDEMIA, UNSPECIFIED (6) Unstable balance Code(s): R26.89 - OTHER ABNORMALITIES OF GAIT AND MOBILITY (7) Obstructive uropathy Code(s): N13.9 - OBSTRUCTIVE AND REFLUX UROPATHY, UNSPECIFIED
[2017-06-04] MEDS ORDERED: WARFARIN NA 2 MG TABLET (UD) ONE (17:26)
[2017-06-04] MEDS ORDERED: WARFARIN NA 5 MG TABLET (UD) ONE (17:26)
[2017-06-04] MEDS: WARFARIN NA 5 MG, WARFARIN NA 2 MG PO SCH (17:28)
[2017-06-04 17:35] LABS: BASO % 0.8 % (0-2.0); HEMATOCRIT 38.3 % (35.4-49); HEMOGLOBIN 12.9 GM/dL (11.7-16.9); LYMPH % 21.2 % (8-40); MCH 31.6 pg (25.7-33.7); MCHC 33.7 g/dl (32.0-35.9); MEAN CELL VOLUME 93.7 fl (80-96); MEAN PLT VOLUME 7.4 fl (7.5-11.1); MONO % 8.2 % (3.8-10.2); NEUT % 67.8 % (42.8-82.8); PLATELET COUNT 307 K/MM3 (134-434); RBC 4.09 M/mm3 (4.00-5.60); RDW 13.5 % (11.9-15.9); WHITE BLOOD COUNT 7.6 K/mm3 (4.0-10.0)
[2017-06-04 18:03] LABS: ANION GAP 9 (8-16); BLOOD UREA NITROGEN 15 mg/dL (7-18); CALCIUM 8.5 mg/dL (8.5-10.1); CHLORIDE 104 mmol/L (98-107); CO2 24 mmol/L (21-32); CREATININE 0.9 mg/dL (0.7-1.3); GLUCOSE,RANDOM 102 mg/dL (74-106); POTASSIUM 4.3 mmol/L (3.5-5.1); SODIUM 137 mmol/L (136-145)
[2017-06-04] MEDS ORDERED: PT OWN MED DRAWER 7, Y5N ONE (21:04)
[2017-06-04] MEDS: NORTRIPTYLINE HCL 25 MG CAPSULE PO SCH (21:12)
[2017-06-05] MEDS: HYDROmorphone HCL CARPU-JECT 1 MG/1 ML DISP.SYRIN IVPUSH PRN ×2 (04:53→11:45)
[2017-06-05] MEDS: CYCLOBENZAPRINE HCL 10 MG TABLET (FP) PO SCH ×3 (05:27→21:20)
[2017-06-05] MEDS: DEXTROSE 5%-0.45% SALINE 1,000 ML IV SCH ×3 (05:30→21:20)
[2017-06-05] MEDS: TAMSULOSIN HCL 0.4 MG CAP.ER.24H (FP) PO SCH (10:12)
[2017-06-05 11:02] LABS: INR 1.8 (0.82-1.09); PROTHROMBIN TIME (PATIENT) 20.3 SEC (9.98-11.88)
[2017-06-05] MEDS ORDERED: WARFARIN NA 2 MG TABLET (UD) ONE (17:16)
[2017-06-05] MEDS ORDERED: WARFARIN NA 5 MG TABLET (UD) ONE (17:17)
[2017-06-05] MEDS: WARFARIN NA 5 MG, WARFARIN NA 2 MG PO SCH (17:18)
[2017-06-05 17:42] LABS: BASO % 0.3 % (0-2.0); EOS % 1.5 % (0-4.5); HEMATOCRIT 38.1 % (35.4-49); LYMPH % 22.9 % (8-40); MCH 31.8 pg (25.7-33.7); MCHC 34.1 g/dl (32.0-35.9); MEAN CELL VOLUME 93.1 fl (80-96); MEAN PLT VOLUME 7.5 fl (7.5-11.1); MONO % 7.7 % (3.8-10.2); NEUT % 67.6 % (42.8-82.8); PLATELET COUNT 337 K/MM3 (134-434); RBC 4.09 M/mm3 (4.00-5.60); RDW 13.5 % (11.9-15.9); WHITE BLOOD COUNT 7.8 K/mm3 (4.0-10.0)
[2017-06-05 18:23] LABS: ANION GAP 9 (8-16); BLOOD UREA NITROGEN 16 mg/dL (7-18); CALCIUM 8.6 mg/dL (8.5-10.1); CHLORIDE 103 mmol/L (98-107); CO2 24 mmol/L (21-32); CREATININE 1.1 mg/dL (0.7-1.3); GLUCOSE,RANDOM 131 mg/dL (74-106); SODIUM 136 mmol/L (136-145)
--- NOTE | 2017-06-05 18:33 | PN ---
Progress Note (short form) - Note Progress Note: seen and examined in room spence remains in place / comfortable Vital Signs Period Temp Pulse Resp BP Sys/Carr Pulse Ox Last 24 Hr 98.1 F 84 20-20 158/74 96-96 neck supple heart S1/S2 lungs clear bilat abd obese/ soft non tender spence bag with clear urine back examine surgical site mildly erythematous no evidence of infection ext no edema CBC, BMP 06/05/17 17:00 Microbiology 06/02/17 13:45 Urine - Urine - Catheterized Urine Culture - Final NO GROWTH OBTAINED Active Medications Cyclobenzaprine HCl (Flexeril -) 10 mg PO TID [facility] Last Admin: 06/05/17 14:12 Dose: 10 mg Hydromorphone HCl (Dilaudid Injection -) 0.5 mg IVPUSH Q6H PRN PRN Reason: PAIN LEVEL 6-10 Last Admin: 06/05/17 11:45 Dose: 0.5 mg Dextrose/Sodium Chloride (D5-1/2ns -) 1,000 mls @ 75 mls/hr IV ASDIR [facility] Last Admin: 06/05/17 14:09 Dose: Not Given Nortriptyline HCl (Pamelor -) 100 mg PO HS [facility] Last Admin: 06/04/17 21:12 Dose: 100 mg Tamsulosin HCl (Flomax -) 0.4 mg PO DAILY@0830 [facility] Last Admin: 06/05/17 10:12 Dose: 0.4 mg Warfarin Sodium 5 mg/ Warfarin (Sodium 2 mg) 7 mg PO DAILY@1800 [facility] Last Admin: 06/05/17 17:18 Dose: 7 mg # obstructive uropathy spence in place on flomax await consult trial of d/c spence in am # multiple falls will benefit from STR fall precautions reoccurrence of radiculopathy as per patient now resolved neurology consult appreciated # elevated renal function / resolved after spence continue flomax Urology consult # s/p thoracic laminectomy with removal of "collection" post op chronic back pain arrange for PT / STR pain management # Hx of DVT on coumadin follow INR Problem List - Problems (1) Multiple falls Code(s): R29.6 - REPEATED FALLS (2) S/P lumbar laminectomy Code(s): Z98.890 - OTHER SPECIFIED POSTPROCEDURAL STATES (3) Intractable back pain Code(s): M54.9 - DORSALGIA, UNSPECIFIED (4) DVT prophylaxis Code(s): [id number] - (5) HLD (hyperlipidemia) Code(s): E78.5 - HYPERLIPIDEMIA, UNSPECIFIED (6) Unstable balance Code(s): R26.89 - OTHER ABNORMALITIES OF GAIT AND MOBILITY (7) Obstructive uropathy Code(s): N13.9 - OBSTRUCTIVE AND REFLUX UROPATHY, UNSPECIFIED
[2017-06-05] MEDS ORDERED: PT OWN MED DRAWER 7, Y5N ONE (21:19)
[2017-06-05] MEDS: NORTRIPTYLINE HCL 25 MG CAPSULE PO SCH (21:20)
[2017-06-06] MEDS: CYCLOBENZAPRINE HCL 10 MG TABLET (FP) PO SCH ×3 (06:21→22:06)
[2017-06-06] MEDS: TAMSULOSIN HCL 0.4 MG CAP.ER.24H (FP) PO SCH (09:34)
[2017-06-06 10:44] LABS: INR 1.94 (0.82-1.09); PROTHROMBIN TIME (PATIENT) 21.9 SEC (9.98-11.88)
[2017-06-06] MEDS: DEXTROSE 5%-0.45% SALINE 1,000 ML IV SCH ×2 (10:52→13:05)
--- NOTE | 2017-06-06 13:48 | CON.GU ---
Consult Consult Specialty:: Referred by:: Lupe Reason for Consultation:: urinary retention - History of Present Illness Chief Complaint: BpH History of Present Illness: 72 year old male with a fall. He denies any previous history or symptoms. He was admitted after a fall and was noted to be in urinary retention. - History Source History Provided By: Patient, Medical Record Limitations to Obtaining History: No Limitations - Past Medical History Renal/: No: Renal Failure, Renal Inusuff, BPH, Cancer, Hematuria, Hemodialysis , Neurogenic Bladder, Renal Calculi, UTI, Other - Alcohol/Substance Use Hx Alcohol Use: No - Smoking History Smoking history: Unknown if ever smoked Home Medications - Allergies Allergies/Adverse Reactions: Allergies Allergy/AdvReac Type Severity Reaction Status Date / Time No Known Allergies Allergy Verified 10/13/16 11:40 - Home Medications Home Medications: Ambulatory Orders Pregabalin [Lyrica -] 200 mg PO TID 10/13/16 Warfarin Sodium [Coumadin] 7 mg PO DAILY 10/13/16 Oxycodone HCl/Acetaminophen [Percocet 5-325 mg Tablet] 2 tab PO Q8H #40 tab MDD 6 10/21/16 Cyclobenzaprine HCl [Flexeril 10 mg] 10 mg PO TID 05/31/17 Meloxicam 7.5 mg PO QID 05/31/17 Nortriptyline HCl [Pamelor -] 100 mg PO HS 05/31/17 Review of Systems - Review of Systems Genitourinary: reports: Frequency, Incontinence, Pain Physical Exam- Vital Signs: Vital Signs Temperature 98.0 F 06/06/17 08:00 Pulse Rate 75 06/06/17 08:00 Respiratory Rate 20 06/06/17 08:00 Blood Pressure 127/61 06/06/17 08:00 O2 Sat by Pulse Oximetry (%) 95 06/06/17 08:00 Gastrointestinal: Yes: Soft Renal/: Yes: Polyuria. No: Bladder Distention, CVA Tenderness - Left, CVA Tenderness - Right, Hodge Present, Hematuria Kidneys: No: Flank Pain Left, FLank Pain Right Labs: CBC, BMP 06/05/17 17:00 06/05/17 17:00 Problem List - Problems (1) Obstructive uropathy Assessment/Plan: flomax and proscar and trial of void. Follow up for cystoscopy. there may be a neurogenic component as well. will follow Code(s): N13.9 - OBSTRUCTIVE AND REFLUX UROPATHY, UNSPECIFIED
[2017-06-06] MEDS: FINASTERIDE 5 MG TABLET (FP) PO SCH (15:24)
--- NOTE | 2017-06-06 17:45 | PN ---
Progress Note (short form) - Note Progress Note: seen and examined in room sitting in wheelchair spence remains in place / voiding clear urine comfortable Vital Signs Period Temp Pulse Resp BP Sys/Carr Pulse Ox Last 24 Hr 98.1 F 84 20-20 158/74 96-96 neck supple heart S1/S2 lungs clear bilat abd obese/ soft non tender spence bag with clear urine back examine surgical site mildly erythematous no evidence of infection ext no edema CBC, BMP 06/05/17 17:00 06/05/17 17:00 Microbiology 06/02/17 13:45 Urine - Urine - Catheterized Urine Culture - Final NO GROWTH OBTAINED Active Medications Cyclobenzaprine HCl (Flexeril -) 10 mg PO TID [facility] Last Admin: 06/06/17 13:33 Dose: 10 mg Finasteride (Proscar -) 5 mg PO DAILY [facility] Last Admin: 06/06/17 15:24 Dose: 5 mg Hydromorphone HCl (Dilaudid Injection -) 0.5 mg IVPUSH Q6H PRN PRN Reason: PAIN LEVEL 6-10 Last Admin: 06/05/17 11:45 Dose: 0.5 mg Dextrose/Sodium Chloride (D5-1/2ns -) 1,000 mls @ 75 mls/hr IV ASDIR [facility] Last Admin: 06/06/17 13:05 Dose: Not Given Nortriptyline HCl (Pamelor -) 100 mg PO [facility] Last Admin: 06/05/17 21:20 Dose: 100 mg Tamsulosin HCl (Flomax -) 0.4 mg PO DAILY@0830 [facility] Last Admin: 06/06/17 09:34 Dose: 0.4 mg Warfarin Sodium 5 mg/ Warfarin (Sodium 2 mg) 7 mg PO DAILY@1800 [facility] Last Admin: 06/05/17 17:18 Dose: 7 mg # obstructive uropathy spence in place on flomax await consult trial of d/c spence today if voiding freely - cancel consult probable D/C late afternoon or am # multiple falls will benefit from STR fall precautions reoccurrence of radiculopathy as per patient now resolved neurology consult appreciated accepted at [facility] for STR # elevated renal function / resolved after spence continue flomax trial of voiding today d/c spence # s/p thoracic laminectomy with removal of "collection" post op chronic back pain arrange for PT / STR # 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
[2017-06-06] MEDS ORDERED: WARFARIN NA 7.5 MG TABLET (FP) PO SCH (20:00)
[2017-06-06] MEDS: HYDROmorphone HCL 2 MG TABLET PO PRN (20:28)
[2017-06-06] MEDS ORDERED: TAMSULOSIN HCL 0.4 MG CAP.ER.24H (FP) PO ONE (21:18)
[2017-06-06] MEDS ORDERED: PT OWN MED DRAWER 7, Y5N ONE (21:59)
[2017-06-06] MEDS: NORTRIPTYLINE HCL 25 MG CAPSULE PO SCH (22:06)
[2017-06-07] MEDS: CYCLOBENZAPRINE HCL 10 MG TABLET (FP) PO SCH (06:06)
[2017-06-07] MEDS: HYDROmorphone HCL 2 MG TABLET PO PRN (06:09)
[2017-06-07] MEDS ORDERED: TAMSULOSIN HCL 0.4 MG CAP.ER.24H (FP) PO SCH (08:30)
[2017-06-07 09:00] VITALS: BP 120/67; PULSE 81; TEMP 97.8
[2017-06-07] MEDS: FINASTERIDE 5 MG TABLET (FP) PO SCH (09:30)
--- NOTE | 2017-06-07 10:26 | DS ---
Physical Examination Vital Signs: Vital Signs Temperature 97.8 F 06/07/17 08:59 Pulse Rate 81 06/07/17 08:59 Respiratory Rate 20 06/07/17 08:59 Blood Pressure 120/67 06/07/17 08:59 O2 Sat by Pulse Oximetry (%) 96 06/06/17 21:00 Findings/Remarks: Patient is a 72 M with PMHx of spinal stenosis and thoracic laminectomy on who was brought in by EMS from assisted living facility for back pain s/p fall on 05/28/17. Patient states that he fell on his buttox 3 days ago as he was transferring from his walker to his wheelchair. Patient states he has a history of falls. He reported 3 recent falls and reoccurance of right leg radiculopathy. Patient describes his pain as spasmodic and aggravated with movement, has been treated with narcotics with good results. He denies head or neck pain. Patient states he usually ambulates with walker but has regressed to wheelchair. Patient reported episodes of urinary incontinence and frequency at time of admission. Morning after admission was c/o increased right leg pain and "some abdominal discomfort", on exam appeared to have distended bladder -- spence was inserted and 1500cc obtained. He was started on flomax and spence continued, this resulted in resolution of radiculopathy. Trial of voiding was done on day #4 to flomax --unsuccessfully -he had 900cc retention. Spence replace along with increase Flomax and addition of Proscar. He will be discharged with spence and medications, and will be following as out patient. Would consider trial of voiding again in 4-5 days. Patient to be transfered to [facility] for STR. Constitutional: Yes: Well Nourished, No Distress, Calm Eyes: Yes: Conjunctiva Clear, EOM Intact HENT: Yes: Atraumatic, Normocephalic Neck: Yes: Supple, Trachea Midline Cardiovascular: Yes: Regular Rate and Rhythm Respiratory: Yes: Regular, CTA Bilaterally Gastrointestinal: Yes: Normal Bowel Sounds, Soft, Abdomen, Obese ...Rectal Exam: Yes: WNL Renal/: Yes: Spence Present, Other (clear yellow urine in bag urine C/S No Growth) Breast(s): Yes: WNL Musculoskeletal: Yes: Muscle Weakness Extremities: Yes: WNL Edema: No Peripheral Pulses: Left Radial: 2+, Right Radial: 2+, Left Doralis Pedis: 2+, Right Dorsalis Pedis: 2+, Left Femoral: 2+, Right Femoral: 2+ Integumentary: Yes: WNL Wound/Incision: Yes: Clean/Dry, Well Approximated Neurological: Yes: Alert, Oriented Psychiatric: Yes: Alert, Oriented Labs: CBC, BMP 06/05/17 17:00 06/05/17 17:00 Discharge Summary Reason For Visit: INTRACTABLE BACK PAIN Current Active Problems Back pain (Acute) DVT prophylaxis (Acute) HLD (hyperlipidemia) (Acute) Intractable back pain (Acute) Multiple falls (Acute) Obstructive uropathy (Acute) S/P lumbar laminectomy (Acute) Unstable balance (Acute) Hospital Course: continued on Coumadin last INR 1.9 06/06/17 Condition: Good - Instructions Referrals: Ronaldo Sanabria [Primary Care Provider] - [facility] - Home Medications Comprehensive Discharge Medication List: Ambulatory Orders Pregabalin [Lyrica -] 200 mg PO TID 10/13/16 Warfarin Sodium [Coumadin] 7 mg PO DAILY 10/13/16 Cyclobenzaprine HCl [Flexeril 10 mg] 10 mg PO TID 05/31/17 flomax 0.8mg q day proscar 5 mg PO q day
[2017-06-07 10:39] LABS: INR 1.98 (0.82-1.09); PROTHROMBIN TIME (PATIENT) 22.4 SEC (9.98-11.88)
== END 2017-06-07 13:05 | DRG 74 ==
LOC: JER 17:00 → JERBED 06-01 03:48 → UNDOADMIN 06-01 04:05 → J6S 06-01 14:30
PROVIDERS: ADMIT Internal Medicine; ATTEND Family Medicine
DX: S24.8XXA Injury of other specified nerves of thorax, initial encounter (principal); R47.01 Aphasia; G97.82 Other postprocedural complications and disorders of nervous system; E78.5 Hyperlipidemia, unspecified; R29.6 Repeated falls; N13.9 Obstructive and reflux uropathy, unspecified; R33.8 Other retention of urine; W17.89XA Other fall from one level to another, initial encounter; Y93.89 Activity, other specified; Y92.89 Other specified places as the place of occurrence of the external cause; Y99.8 Other external cause status; T81.89XA Other complications of procedures, not elsewhere classified, initial encounter; Y83.8 Other surgical procedures as the cause of abnormal reaction of the patient, or of later complication, without mention of misadventure at the time of the procedure; M54.17 Radiculopathy, lumbosacral region
CPT/HCPCS: 36415; 71045-TC-FY; 72129-TC; 76775-TC; 76856-TC; 80048; 80053; 81003; 85025; 85610; 87086; 93005; 93010; 93971-TC; 97116-GP; 97161-GP; 97164-GP; 99284-25; J0475

== ENCOUNTER 2017-06-13 18:35 | Inpatient (IN) | payer OTHER ==
[2017-06-13 18:49] VITALS: BMI 36.1
--- NOTE | 2017-06-13 19:28 | PDOC ---
History of Present Illness - General History Source: Patient, EMS, Old Records Exam Limitations: No Limitations - History of Present Illness Initial Comments: 06/13/17 19:45 The patient is a 72 year old male brought via EMS from [facility], with a significant past medical history of BPH and DVT, who presents to the emergency department with chills, cough, shaking and nasal congestion since yesterday. He reports that he recently had lumbar back surgery on 05/20/2017, since he has developed a rash on his left side that is painful on certain movements. On presentation the patient currently has a spence catheter. The patient denies chest pain, shortness of breath, headache and dizziness. Denies nausea, vomit, diarrhea and constipation. Denies dysuria, frequency, urgency and hematuria. Allergies: None Past surgical history: Spinal Fusion with Instumentation 01/2016-developed DVT RLE post op Social history: (+) Alcohol. No tobacco or drug use reported <Osito Ramirez - Last Filed: 06/13/17 20:09> <Maryanne Lazcano - Last Filed: 06/14/17 01:24> - General Chief Complaint: SIRS, Suspected/Possible Stated Complaint: WEAKNESS Time Seen by Provider: 06/13/17 18:49 Past History <Osito Ramirez - Last Filed: 06/13/17 20:09> - Past Medical History Anemia: No Asthma: No Cancer: No Cardiac Disorders: No CVA: No COPD: No CHF: No Dementia: No Diabetes: No GI Disorders: No Disorders: No HTN: No Hypercholesterolemia: No Liver Disease: No Seizures: No Thyroid Disease: No Other medical history: BPH DVT - Surgical History Abdominal Surgery: No Appendectomy: No Cardiac Surgery: No Cholecystectomy: No Lung Surgery: No Neurologic Surgery: Yes (lunbar back) Orthopedic Surgery: Yes (Spinal Fusion with Instumentation 01/2016-developed DVT RLE post op) - Suicide/Smoking/Psychosocial Hx Smoking History: Unknown if ever smoked Have you smoked in the past 12 months: No Information on smoking cessation initiated: No Hx Alcohol Use: No Drug/Substance Use Hx: No Substance Use Type: Alcohol Hx Substance Use Treatment: No <Maryanne Lazcano - Last Filed: 06/14/17 01:24> - Past Medical History Allergies/Adverse Reactions: Allergies Allergy/AdvReac Type Severity Reaction Status Date / Time No Known Allergies Allergy Verified 06/13/17 18:45 Home Medications: Ambulatory Orders Pregabalin [Lyrica -] 200 mg PO TID 10/13/16 Cyclobenzaprine HCl [Flexeril 10 mg] 10 mg PO TID 05/31/17 Nortriptyline HCl [Pamelor -] 100 mg PO HS 05/31/17 Finasteride [Proscar -] 5 mg PO DAILY 30 Days #30 tablet 06/07/17 Tamsulosin HCl [Flomax -] 0.8 mg PO DAILY@30 30 Days #30 cap.er.24h 06/07/17 Warfarin Na [Coumadin -] 7 mg PO DAILY@1800 tablet 06/07/17 Warfarin Na [Coumadin -] 7 mg PO DAILY@1800 tablet 06/07/17 Review of Systems - Review of Systems Able to Perform ROS?: Yes Comments:: 06/13/17 19:45 GENERAL/CONSTITUTIONAL: (+) fever and chills (shaking). No weakness. HEAD, EYES, EARS, NOSE AND THROAT: (+) Nasal congestion. No change in vision. No ear pain or discharge. No sore throat. CARDIOVASCULAR: No chest pain or shortness of breath RESPIRATORY: (+) Cough. No wheezing, or hemoptysis. GASTROINTESTINAL: No nausea, vomiting, diarrhea or constipation. GENITOURINARY: No dysuria, frequency, or change in urination. MUSCULOSKELETAL: No joint or muscle swelling or pain. No neck or back pain. SKIN: (+) Left sided rash. NEUROLOGIC: No headache, vertigo, loss of consciousness, or change in strength/ sensation. ENDOCRINE: No increased thirst. No abnormal weight change HEMATOLOGIC/LYMPHATIC: No anemia, easy bleeding, or history of blood clots. ALLERGIC/IMMUNOLOGIC: No hives or skin allergy. <Osito Ramirez - Last Filed: 06/13/17 20:09> *Physical Exam - Vital Signs Last Vital Signs Temp Pulse Resp BP Pulse Ox 103.3 F H 120 H 20 132/96 98 06/13/17 18:45 06/13/17 18:45 06/13/17 18:45 06/13/17 18:45 06/13/17 18:45 - Physical Exam Comments: 06/13/17 19:45 GENERAL: Awake, alert, and fully oriented, in no acute distress HEAD: No signs of trauma, normocephalic, atraumatic EYES: PERRLA, EOMI, sclera anicteric, conjunctiva clear ENT: Auricles normal inspection, hearing grossly normal, nares patent, oropharynx clear without exudates. Moist mucosa NECK: Normal ROM, supple, no lymphadenopathy, JVD, or masses LUNGS: No distress, speaks full sentences, clear to auscultation bilaterally HEART: Regular rate and rhythm, normal S1 and S2, no murmurs, rubs or gallops, peripheral pulses normal and equal bilaterally. ABDOMEN: Soft, nontender, normoactive bowel sounds. No guarding, no rebound. No masses EXTREMITIES : Normal inspection, Normal range of motion, no edema. No clubbing or cyanosis. NEUROLOGICAL: Cranial nerves II through XII grossly intact. Normal speech, no focal sensorimotor deficits SKIN: (+) Midline surgical incision 10 cm on his back, no purelence, no erythema (+) Stage 2 ulcer on buttocks <Osito Ramirez - Last Filed: 06/13/17 20:09> - Vital Signs Last Vital Signs Temp Pulse Resp BP Pulse Ox 103.3 F H 120 H 20 132/96 98 06/13/17 18:45 06/13/17 18:45 06/13/17 18:45 06/13/17 18:45 06/13/17 18:45 <Maryanne Lazcano - Last Filed: 06/14/17 01:24> ED Treatment Course - LABORATORY CBC & Chemistry Diagram: 06/13/17 21:40 06/13/17 21:40 - RADIOLOGY Radiology Studies Ordered: Category Date Time Status CHEST X-RAY PORTABLE* [RAD] Stat Radiology 06/13/17 18:52 Taken <Maryanne Lazcano - Last Filed: 06/14/17 01:24> *DC/Admit/Observation/Transfer - Attestations Scribe Attestion: 06/13/17 19:46 Documentation prepared by Osito Ramirez, acting as medical orderly for Maryanne Lazcano MD <Osito Ramirez - Last Filed: 06/13/17 20:09> - Discharge Dispostion Admit: Yes <Maryanne Lazcano - Last Filed: 06/14/17 01:24> Diagnosis at time of Disposition: Sepsis Qualifiers: Sepsis type: sepsis due to unspecified organism Qualified Code(s): A41.9 - Sepsis, unspecified organism UTI (urinary tract infection) Qualifiers: Urinary tract infection type: site unspecified Hematuria presence: with hematuria Qualified Code(s): N39.0 - Urinary tract infection, site not specified ; R31.9 - Hematuria, unspecified; R31.9 - Hematuria, unspecified - Referrals Referrals: Jeremiah Monk MD [Primary Care Provider] - - Patient Instructions - Post Discharge Activity
[2017-06-13 20:42] LABS: VENOUS PC02 37.8 mmHg (38-52); VENOUS PH 7.42 (7.32-7.42)
[2017-06-13 20:43] LABS: VENOUS PO2 32.7 mmHg (28-48)
[2017-06-13] MEDS ORDERED: ACETAMINOPHEN 1000 MG/100 ML VIAL (NON FORMULARY) IVPB ONE (20:45)
[2017-06-13] MEDS ORDERED: ACETAMINOPHEN INJECTION 100 ML IVPB ONE (20:53)
[2017-06-13 21:16] LABS: INR 2.44 (0.82-1.09); PROTHROMBIN TIME (PATIENT) 27.6 SEC (9.98-11.88)
[2017-06-13 21:17] LABS: BASO % 0.3 % (0-2.0); HEMATOCRIT 42.3 % (35.4-49); HEMOGLOBIN 14.7 GM/dL (11.7-16.9); LYMPH % 3.7 % (8-40); MCHC 34.7 g/dl (32.0-35.9); MEAN CELL VOLUME 92.3 fl (80-96); MEAN PLT VOLUME 7.5 fl (7.5-11.1); PLATELET COUNT 267 K/MM3 (134-434); RBC 4.59 M/mm3 (4.00-5.60); RDW 13.3 % (11.9-15.9)
[2017-06-13 21:51] LABS: URINE APPEARANCE CLOUDY; URINE BILIRUBIN NEGATIVE (NEGATIVE); URINE BLOOD 3+ (NEGATIVE); URINE COLOR YELLOW; URINE GLUCOSE (UA) NEGATIVE (NEGATIVE); URINE KETONE NEGATIVE (NEGATIVE); URINE NITRITE POSITIVE (NEGATIVE); URINE UROBILINOGEN NEGATIVE mg/dL (0.2-1.0)
[2017-06-13 21:52] LABS: URINE LEUK ESTERASE 3+ (NEGATIVE); URINE PROTEIN 2+ (NEGATIVE)
[2017-06-13 21:55] LABS: BASO % 0.1 % (0-2.0); HEMATOCRIT 42.2 % (35.4-49); HEMOGLOBIN 14.2 GM/dL (11.7-16.9); LYMPH % 4.1 % (8-40); MCH 31.5 pg (25.7-33.7); MCHC 33.6 g/dl (32.0-35.9); MEAN CELL VOLUME 93.6 fl (80-96); MEAN PLT VOLUME 7.3 fl (7.5-11.1); NEUT % 86.8 % (42.8-82.8); PLATELET COUNT 288 K/MM3 (134-434); RDW 13.5 % (11.9-15.9); WHITE BLOOD COUNT 14.4 K/mm3 (4.0-10.0)
[2017-06-13 22:12] LABS: URINE BACTERIA RARE /hpf (NONE SEEN); URINE MUCUS RARE
[2017-06-13 22:22] LABS: ALK PHOS 104 U/L (45-117); ANION GAP 14 (8-16); BILIRUBIN,TOTAL 0.5 mg/dL (0.2-1.0); BLOOD UREA NITROGEN 24 mg/dL (7-18); CALCIUM 8.1 mg/dL (8.5-10.1); CHLORIDE 98 mmol/L (98-107); CO2 22 mmol/L (21-32); CREATININE 1.7 mg/dL (0.7-1.3); GLUCOSE,RANDOM 184 mg/dL (74-106); SGPT/ALT 34 U/L (12-78); SODIUM 134 mmol/L (136-145); TOT PROT 7.2 g/dl (6.4-8.2)
[2017-06-13 22:23] LABS: POTASSIUM 4.3 mmol/L (3.5-5.1); SGOT/AST 29 U/L (15-37)
[2017-06-14] MEDS ORDERED: SODIUM CHLORIDE 0.9% 1000 ML INFUS.BAG IV ONE ×4 (00:24→13:35)
[2017-06-14] MEDS ORDERED: ACETAMINOPHEN INJECTION 100 ML IVPB ONE (03:57)
[2017-06-14] MEDS ORDERED: IBUPROFEN 800 MG/8 ML IJ IVPB ONE ×3 (05:33→05:39)
[2017-06-14] MEDS ORDERED: PIPERACIL/TAZOB 3.375 GM 3.375 GM/50 ML PREMIX IVPB ONE (08:04)
[2017-06-14] MEDS ORDERED: VANCOMYCIN 1 GRAM (PRE-DOCKED) 1,000 MG/250 ML BAG IVPB ONE ×2 (08:04→08:05)
[2017-06-14] MEDS ORDERED: PIPERACILLIN/TAZOB 3.375 GM 3.375 GM/50 ML BAG IVPB ONE (08:06)
[2017-06-14] MEDS ORDERED: NOREPINEPHRINE BITARTRATE 4 MG/4 ML ML IV ONE (08:13)
[2017-06-14] MEDS ORDERED: NOREPINEPHRINE BITARTRATE 8,000 MCG in DEXTROSE 5%-WATER - 492 ML IV SCH (08:15)
[2017-06-14] MEDS ORDERED: ACETAMINOPHEN 1000 MG/100 ML VIAL (NON FORMULARY) IVPB PRN ×2 (08:35→08:36)
[2017-06-14] MEDS ORDERED: PIPERACILLIN/TAZOB 3.375 GM 3.375 GM in DEXTROSE 5%-WATER - 100 ML IVPB ONE (08:45)
--- NOTE | 2017-06-14 09:02 | PDOC ---
*Physical Exam - Vital Signs Last Vital Signs Temp Pulse Resp BP Pulse Ox 102.8 F H 77 22 64/51 92 L 06/14/17 06:38 06/14/17 08:54 06/14/17 06:55 06/14/17 08:54 06/14/17 06:55 - Physical Exam Comments: 06/14/17 08:59 gen: awake, hypotensive, diaphoretic, pale heart: +s1s2 reg Lungs: diminished bs b/l bases abd: soft, nt/nd +spence in place ext: mild edema b/l le back: incision site to thoracic spine with purulent drainage, sacral wound - stage 2 ED Treatment Course - LABORATORY CBC & Chemistry Diagram: 06/13/17 21:40 06/13/17 21:40 - ADDITIONAL ORDERS Additional order review: Laboratory Results 06/13/17 06/13/17 06/13/17 21:40 21:00 21:00 PT with INR INR PTT (Actin FS) VBG pH POC VBG pCO2 POC VBG pO2 Mixed VBG HCO3 Sodium 134 L Potassium 4.3 Chloride 98 Carbon Dioxide 22 Anion Gap 14 BUN 24 H D Creatinine 1.7 H D Creat Clearance w eGFR 39.71 Random Glucose 184 H D Lactic Acid Calcium 8.1 L Total Bilirubin 0.5 AST 29 D ALT 34 Alkaline Phosphatase 104 D Creatine Kinase Troponin I Total Protein 7.2 Albumin 3.0 L Urine Color Yellow Urine Appearance Cloudy Urine pH 5.0 D Ur Specific [place] 1.014 Urine Protein 2+ H Urine Glucose (UA) Negative Urine Ketones Negative Urine Blood 3+ H Urine Nitrite Positive Urine Bilirubin Negative Urine Urobilinogen Negative Ur Leukocyte Esterase 3+ H Urine WBC (Auto) 432 Urine RBC (Auto) 124 Urine Bacteria Rare Urine Mucus Rare Blood Type O POSITIVE Antibody Screen Positive H Antibody Identification Anti-E 06/13/17 06/13/17 06/13/17 20:00 20:00 20:00 PT with INR INR PTT (Actin FS) VBG pH 7.42 POC VBG pCO2 37.8 L POC VBG pO2 32.7 Mixed VBG HCO3 24.6 Sodium Cancelled Potassium Cancelled Chloride Cancelled Carbon Dioxide Cancelled Anion Gap Cancelled BUN Cancelled Creatinine Cancelled Creat Clearance w eGFR Cancelled Random Glucose Cancelled Lactic Acid 2.1 H Calcium Cancelled Total Bilirubin Cancelled AST Cancelled ALT Cancelled Alkaline Phosphatase Cancelled Creatine Kinase Cancelled Troponin I Cancelled Total Protein Cancelled Albumin Cancelled Urine Color Urine Appearance Urine pH Ur Specific [place] Urine Protein Urine Glucose (UA) Urine Ketones Urine Blood Urine Nitrite Urine Bilirubin Urine Urobilinogen Ur Leukocyte Esterase Urine WBC (Auto) Urine RBC (Auto) Urine Bacteria Urine Mucus Blood Type Antibody Screen Antibody Identification 06/13/17 20:00 PT with INR 27.60 H INR 2.44 H PTT (Actin FS) 29.0 VBG pH POC VBG pCO2 POC VBG pO2 Mixed VBG HCO3 Sodium Potassium Chloride Carbon Dioxide Anion Gap BUN Creatinine Creat Clearance w eGFR Random Glucose Lactic Acid Calcium Total Bilirubin AST ALT Alkaline Phosphatase Creatine Kinase Troponin I Total Protein Albumin Urine Color Urine Appearance Urine pH Ur Specific [place] Urine Protein Urine Glucose (UA) Urine Ketones Urine Blood Urine Nitrite Urine Bilirubin Urine Urobilinogen Ur Leukocyte Esterase Urine WBC (Auto) Urine RBC (Auto) Urine Bacteria Urine Mucus Blood Type Antibody Screen Antibody Identification 06/13/17 20:00 Influenza Types A,B Antigen (LEONA) - Final Nasopharyngeal Swab - Final 06/13/17 06/13/17 06/13/17 21:40 21:00 20:00 RBC 4.50 4.59 Cancelled MCV 93.6 92.3 Cancelled MCHC 33.6 34.7 Cancelled RDW 13.5 13.3 Cancelled MPV 7.3 L 7.5 Cancelled Neutrophils % 86.8 H 87.0 H D Cancelled Lymphocytes % 4.1 L 3.7 L D Cancelled Monocytes % 9.0 9.0 Cancelled Eosinophils % 0.0 0.0 D Cancelled Basophils % 0.1 0.3 Cancelled - Medications Given in the ED: ED Medications Discontinued Medications Generic Name Dose Route Start Last Admin Trade Name Freq PRN Reason Stop Dose Admin Acetaminophen 1,000 mg 06/13/17 20:45 06/13/17 21:03 Ofirmev Injection - IVPB 06/13/17 20:46 1,000 mg ONCE ONE Administration Levofloxacin 750 mg in 150 mls @ 100 mls/hr 06/14/17 00:06 06/14/17 00:15 Levaquin 750 Mg Premixed Ivpb - IVPB 06/14/17 01:35 100 mls/hr ONCE ONE Administration Ibuprofen 800 mg 06/14/17 05:33 06/14/17 05:45 Caldolor Injection - IVPB 06/14/17 05:34 800 mg ONCE ONE Administration Sodium Chloride 3,837 ml 06/14/17 00:24 06/14/17 00:27 Normal Saline - 30 ml/kg (3837 ml) 06/14/17 00:25 3,837 ml IV Administration ONCE ONE Medical Decision Making - Critical Care Time Total Critical Care Time (minutes): 45 Critical Care Statement: The care of this patient involved high complexity decision making to prevent further life threatening deterioration of the patient 's condition and/or to evaluate & treat vital organ system(s) failure or risk of failure. - Medical Decision Making 06/14/17 09:01 pt with persistent fever MRI ordered central line placed levaphed ordered pt upgraded to ICU Sepsis *DC/Admit/Observation/Transfer Diagnosis at time of Disposition: Sepsis Qualifiers: Sepsis type: sepsis due to unspecified organism Qualified Code(s): A41.9 - Sepsis, unspecified organism UTI (urinary tract infection) Qualifiers: Urinary tract infection type: site unspecified Hematuria presence: with hematuria Qualified Code(s): N39.0 - Urinary tract infection, site not specified - Referrals - Patient Instructions - Post Discharge Activity
[2017-06-14 10:00] LABS: HEMATOCRIT 30.7 % (35.4-49); HEMOGLOBIN 10.2 GM/dL (11.7-16.9); MCHC 33.3 g/dl (32.0-35.9); MEAN PLT VOLUME 7.4 fl (7.5-11.1); PLATELET COUNT 176 K/MM3 (134-434); RDW 13.3 % (11.9-15.9); WHITE BLOOD COUNT 19.9 K/mm3 (4.0-10.0)
[2017-06-14 10:01] LABS: ARTERIAL BLOOD GAS PCO2 32.8 mmHg (35-45); ARTERIAL BLOOD GAS PO2 83.1 mmHg (70-100); ARTERIAL BLOOD GAS pH 7.38 (7.35-7.45)
[2017-06-14 10:02] LABS: ALLENS TEST POSITIVE; ARTERIAL BLD GAS O2 SATURATION 95.5 % (90-98.9); ARTERIAL BLOOD GAS BASE EXCESS -4.6 meq/l (-2-2)
[2017-06-14 10:37] VITALS: TEMP 99.1
[2017-06-14 11:08] LABS: ALBUMIN 2.5 g/dl (3.4-5.0); ALK PHOS 90 U/L (45-117); BILIRUBIN,TOTAL 0.5 mg/dL (0.2-1.0); BLOOD UREA NITROGEN 24 mg/dL (7-18); CREATININE 1.7 mg/dL (0.7-1.3); GLUCOSE,RANDOM 207 mg/dL (74-106); SGOT/AST 34 U/L (15-37); SGPT/ALT 33 U/L (12-78); TOT PROT 5.9 g/dl (6.4-8.2)
[2017-06-14 11:10] LABS: ANION GAP 9 (8-16); CALCIUM 7.1 mg/dL (8.5-10.1); CHLORIDE 106 mmol/L (98-107); CO2 22 mmol/L (21-32); POTASSIUM 3.8 mmol/L (3.5-5.1); SODIUM 137 mmol/L (136-145)
--- NOTE | 2017-06-14 11:28 | EKG ---
Test Reason : Blood Pressure : / mmHG Vent. Rate : 113 BPM Atrial Rate : 113 BPM P-R Int : 156 ms QRS Dur : 096 ms QT Int : 332 ms P-R-T Axes : 062 -80 055 degrees QTc Int : 455 ms SINUS TACHYCARDIA INCOMPLETE RIGHT BUNDLE BRANCH BLOCK LEFT ANTERIOR FASCICULAR BLOCK CANNOT RULE OUT INFERIOR INFARCT (MASKED BY FASCICULAR BLOCK?) , POSSIBLY ACUTE ACUTE ME / STEMI ABNORMAL ECG WHEN COMPARED WITH ECG OF 31-MAY-2017 20:23, VENT. RATE HAS INCREASED BY 42 BPM LEFT ANTERIOR FASCICULAR BLOCK IS NOW PRESENT INCOMPLETE RIGHT BUNDLE BRANCH BLOCK IS NOW PRESENT Confirmed by FELICIA MERCADO, HAY ([id number]) on 06/14/2017 11:27:48 AM Referred By: Confirmed By:HAY DUARTE MD
[2017-06-14 11:36] LABS: PLATELET ESTIMATE ADEQUATE
[2017-06-14] MEDS ORDERED: RAPID SEQUENCE INTUBATION KIT NR ONE (13:16)
[2017-06-14] MEDS ORDERED: fentaNYL CITRATE 250 MCG/5 ML VIAL ONE (13:27)
--- NOTE | 2017-06-14 13:27 | CON.ID ---
Consult Consult Specialty:: infectious disease Referred by:: katelynn Reason for Consultation:: sepsis, gram negative bacteremia - History of Present Illness Chief Complaint: chills, shaking, cough History of Present Illness: 72 year old man admitted from SNF where he was originally admitted s/p laminectomy 05/26 - T9 at [place] he had a fall and was admitted 06/01 to 06/[address] [facility]- he developed urinray retention and was discharged with a spence catheter- He developed chills on Monday- per transfer note didnot inform anyone, Monday evening he had shaking chills and fever to 100.4- he came to ED where he was foundto have fever of 103.3 he was cultured and started on Levaquin for possible UTI, he was fluid resuscitated as well this am he was noted to be lethargic and have fever of 105 with hypotension central line as placed, he was given vancomycin and zosyn and levophed was started he is now awake but extremely sleepy, following commands slowly denies any pain spenec changed in ED just intubated - History Source History Provided By: Patient, Medical Record Limitations to Obtaining History: Clinical Condition - Past Medical History 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 MASTER: Yes: Other (spinal stenosis) Renal/: Yes: BPH, Other (urinary retention) - Past Surgical History Past Surgical History: Yes: Laminectomy (T9 05/26/17) Additional Surgical History: right knee arthroscopy - Alcohol/Substance Use Hx Alcohol Use: No - Smoking History Smoking history: Unknown if ever smoked Have you smoked in the past 12 months: No - Social History Usual Living Arrangement: Alf Home Medications - Allergies Allergies/Adverse Reactions: Allergies Allergy/AdvReac Type Severity Reaction Status Date / Time No Known Allergies Allergy Verified 06/13/17 18:45 - Home Medications Home Medications: Ambulatory Orders Ascorbic Acid [Vitamin C] 500 mg PO DAILY 06/14/17 Cranberry Juice [Thickenup] 237 ml PO DAILY 06/14/17 Multivitamin,Ther and Minerals [Vitamin and Minerals] 1 each PO DAILY 06/14/17 Pregabalin [Lyrica] 100 mg PO DAILY 06/14/17 RX: Acetaminophen 325 mg PO 06/14/17 RX: Cyclobenzaprine HCl 10 mg PO DAILY 06/14/17 RX: Finasteride 5 mg PO DAILY 06/14/17 RX: Warfarin Sodium 6 mg PO DAILY 06/14/17 Tamsulosin HCl [Flomax] 0.4 mg PO DAILY 06/14/17 Warfarin Na [Coumadin] 1 mg PO DAILY 06/14/17 Zinc Sulfate [Zinc-220] 220 mg PO DAILY 06/14/17 Family Disease History - Family Disease History Family History: Unable to Obtain Review of Systems - Review of Systems Constitutional: reports: Chills Physical Exam Vital Signs: Vital Signs Temperature 99.1 F 06/14/17 10:34 Pulse Rate 68 06/14/17 12:08 Respiratory Rate 19 06/14/17 12:08 Blood Pressure 113/59 06/14/17 12:08 O2 Sat by Pulse Oximetry (%) 98 06/14/17 12:08 Constitutional: Yes: Well Nourished, Calm Eyes: Yes: Conjunctiva Clear HENT: Yes: Atraumatic, Normocephalic Neck: Yes: Supple, Trachea Midline, Other Cardiovascular: Yes: Regular Rate and Rhythm Respiratory: Yes: Regular, CTA Bilaterally Gastrointestinal: Yes: Normal Bowel Sounds, Soft ...Rectal Exam: Yes: Deferred Renal/: Yes: Spence Present Extremities: Yes: WNL, Cool Edema: No Wound/Incision: Yes: Other (laminectomy wound with erythema, some purulent drainage noted from midline by ed doc currently not draining) Labs: CBC, BMP 06/14/17 09:50 06/14/17 09:50 Microbiology 06/13/17 20:00 Blood - Peripheral Venous Blood Culture - Preliminary Pending Organism 06/13/17 20:00 Nasopharyngeal Swab Influenza Types A,B Antigen (LEONA) - Final 06/13/17 20:00 Nasopharyngeal Swab - Final Imaging - Results Chest X-ray: Report Reviewed, Image Reviewed Problem List - Problems (1) Sepsis Code(s): A41.9 - SEPSIS, UNSPECIFIED ORGANISM Qualifiers: Sepsis type: sepsis due to unspecified organism Qualified Code(s): A41.9 - Sepsis, unspecified organism (2) UTI (urinary tract infection) Code(s): N39.0 - URINARY TRACT INFECTION, SITE NOT SPECIFIED Qualifiers: Urinary tract infection type: site unspecified Hematuria presence: with hematuria Qualified Code(s): N39.0 - Urinary tract infection, site not specified; R31.9 - Hematuria, unspecified; R31.9 - Hematuria, unspecified Assessment/Plan septic shock multiorgan failure- lungs/kidney gram negative sepsis ?urinary ?laminectomy-wound infection versus deeper surgical infections-?epidural abscess vancomycin/meropenem thoracic spine imaging cultures sent ICU evaluation ivf pressors 45 minutes spent in the care of this critically ill ICU patient d/w ICU attending d/w ED attending
[2017-06-14] MEDS ORDERED: SUCCINYLCHOLINE CHLORIDE 200 MG/10 ML VIAL IVPUSH ONE (13:29)
[2017-06-14] MEDS ORDERED: ETOMIDATE 20 MG/10 ML AMPUL IVPUSH ONE (13:29)
[2017-06-14] MEDS ORDERED: FENTANYL INJECTION 500 MCG in DEXTROSE 5%-WATER - 90 ML IVPB SCH (13:30)
[2017-06-14] MEDS ORDERED: MIDAZOLAM HCL 2 MG/2 ML SINGLE DOSE VIAL IVPUSH ONE (13:37)
[2017-06-14] MEDS ORDERED: MIDAZOLAM HCL 2 MG/2 ML SINGLE DOSE VIAL ONE (13:39)
[2017-06-14] MEDS ORDERED: PROPOFOL 200 MG/20 ML VIAL IVPUSH ONE (13:42)
[2017-06-14] MEDS ORDERED: MEROPENEM 1 GM PUSH 1 GM/20 ML DISP.SYRIN IVPUSH SCH (13:45)
--- NOTE | 2017-06-14 13:45 | PDOC ---
History of Present Illness - General Chief Complaint: SIRS, Suspected/Possible Stated Complaint: WEAKNESS Time Seen by Provider: 06/13/17 18:49 Past History - Past Medical History Allergies/Adverse Reactions: Allergies Allergy/AdvReac Type Severity Reaction Status Date / Time No Known Allergies Allergy Verified 06/13/17 18:45 Home Medications: Ambulatory Orders Acetaminophen 325 mg PO 06/14/17 Ascorbic Acid [Vitamin C] 500 mg PO DAILY 06/14/17 Cranberry Juice [Thickenup] 237 ml PO DAILY 06/14/17 Cyclobenzaprine HCl 10 mg PO DAILY 06/14/17 Finasteride 5 mg PO DAILY 06/14/17 Multivitamin,Ther and Minerals [Vitamin and Minerals] 1 each PO DAILY 06/14/17 Pregabalin [Lyrica] 100 mg PO DAILY 06/14/17 Tamsulosin HCl [Flomax] 0.4 mg PO DAILY 06/14/17 Warfarin Na [Coumadin] 1 mg PO DAILY 06/14/17 Warfarin Sodium 6 mg PO DAILY 06/14/17 Zinc Sulfate [Zinc-220] 220 mg PO DAILY 06/14/17 Anemia: No Asthma: No Cancer: No Cardiac Disorders: No CVA: No COPD: No CHF: No Dementia: No Diabetes: No GI Disorders: No Disorders: No HTN: No Hypercholesterolemia: No Liver Disease: No Seizures: No Thyroid Disease: No Other medical history: BPH DVT - Surgical History Abdominal Surgery: No Appendectomy: No Cardiac Surgery: No Cholecystectomy: No Lung Surgery: No Neurologic Surgery: Yes (lunbar back) Orthopedic Surgery: Yes (Spinal Fusion with Instumentation 01/2016-developed DVT RLE post op) - Immunization History Immunization Up to Date: Yes - Suicide/Smoking/Psychosocial Hx Smoking History: Unknown if ever smoked Have you smoked in the past 12 months: No Information on smoking cessation initiated: No Hx Alcohol Use: No Drug/Substance Use Hx: No Substance Use Type: Alcohol Hx Substance Use Treatment: No *Physical Exam - Vital Signs Last Vital Signs Temp Pulse Resp BP Pulse Ox 99.1 F 63 18 124/61 98 06/14/17 10:34 06/14/17 13:33 06/14/17 13:33 06/14/17 13:33 06/14/17 13:02 Procedures - Intubation Time of Intubation: 13:43 Intubation Method: orotracheal Blade used: Mac Tube Size (Fr): 7.5 Medications: Etomidate, Succinylcholine Tube position @ lip (cm): 24 Tube position confirmed by: Direct visualization, CO2 detector, Breath sounds Breath Sounds after Intubation: equal Intubation Complications: no complications Post Intubation Xray: Yes Progress/Xray Impression: Intubation tube confirmed in place. ED Treatment Course - LABORATORY CBC & Chemistry Diagram: 06/14/17 09:50 06/14/17 09:50 - ADDITIONAL ORDERS Additional order review: Laboratory Results 06/13/17 21:40 Blood Type O POSITIVE 06/13/17 20:00 Blood Culture - Preliminary Blood - Peripheral Venous Pending Organism 06/13/17 20:00 Influenza Types A,B Antigen (LEONA) - Final Nasopharyngeal Swab - Final 06/13/17 06/13/17 06/13/17 21:40 21:00 20:00 RBC 4.50 4.59 Cancelled MCV 93.6 92.3 Cancelled MCHC 33.6 34.7 Cancelled RDW 13.5 13.3 Cancelled MPV 7.3 L 7.5 Cancelled Neutrophils % 86.8 H 87.0 H D Cancelled Lymphocytes % 4.1 L 3.7 L D Cancelled Monocytes % 9.0 9.0 Cancelled Eosinophils % 0.0 0.0 D Cancelled Basophils % 0.1 0.3 Cancelled - Medications Given in the ED: ED Medications Discontinued Medications Generic Name Dose Route Start Last Admin Trade Name Freq PRN Reason Stop Dose Admin Acetaminophen 1,000 mg 06/13/17 20:45 06/13/17 21:03 Ofirmev Injection - IVPB 06/13/17 20:46 1,000 mg ONCE ONE Administration Etomidate 20 mg 06/14/17 13:29 06/14/17 13:29 Amidate - IVPUSH 06/14/17 13:30 20 mg ONCE ONE Administration Fentanyl 50 mcg 06/14/17 13:29 06/14/17 13:32 Sublimaze Injection - IVPUSH 06/14/17 13:30 50 mcg ONCE ONE Administration Levofloxacin 750 mg in 150 mls @ 100 mls/hr 06/14/17 00:06 06/14/17 00:15 Levaquin 750 Mg Premixed Ivpb - IVPB 06/14/17 01:35 100 mls/hr ONCE ONE Administration Piperacillin Sod/Tazobactam 100 mls @ 200 mls/hr 06/14/17 08:45 06/14/17 08: 55 Sod 3.375 gm/ Dextrose IVPB 06/14/17 09:14 200 mls/hr ONCE ONE Administration Ibuprofen 800 mg 06/14/17 05:33 06/14/17 05:45 Caldolor Injection - IVPB 06/14/17 05:34 800 mg ONCE ONE Administration Sodium Chloride 3,837 ml 06/14/17 00:24 06/14/17 00:27 Normal Saline - 30 ml/kg (3837 ml) 06/14/17 00:25 3,837 ml IV Administration ONCE ONE Sodium Chloride 1,000 ml 06/14/17 07:59 06/14/17 07:30 Normal Saline - IV 06/14/17 08:00 1,000 ml ONCE ONE Administration Sodium Chloride 1,000 ml 06/14/17 13:32 06/14/17 13:35 Normal Saline - IV 06/14/17 13:33 1,000 ml ONCE ONE Administration Succinylcholine Chloride 150 mg 06/14/17 13:29 06/14/17 13:31 Quelicin - IVPUSH 06/14/17 13:30 150 mg ONCE ONE Administration Vancomycin HCl 1,000 mg 06/14/17 08:04 06/14/17 09:47 Vancomycin (Pre-Docked) IVPB 06/14/17 08:05 1,000 mg ONCE ONE Administration Protocol *DC/Admit/Observation/Transfer Diagnosis at time of Disposition: Sepsis Qualifiers: Sepsis type: sepsis due to unspecified organism Qualified Code(s): A41.9 - Sepsis, unspecified organism UTI (urinary tract infection) Qualifiers: Urinary tract infection type: site unspecified Hematuria presence: with hematuria Qualified Code(s): N39.0 - Urinary tract infection, site not specified - Referrals - Patient Instructions - Post Discharge Activity
[2017-06-14] MEDS ORDERED: PROPOFOL 1,000,000 MCG/100 ML VIAL ONE (14:25)
[2017-06-14] MEDS ORDERED: PROPOFOL 1,000,000 MCG/100 ML VIAL IVPB SCH (14:30)
--- NOTE | 2017-06-14 15:22 | CONSULT ---
Consult Consult Specialty:: PULMONARY/CCM Referred by:: Dr. Andrade Reason for Consultation:: respiratory failure/septic shock - History of Present Illness Chief Complaint: fever History of Present Illness: 72yo male with h/o BPH, recent thoracic back surgery at [facility] 05/20 with post op course significant for DVT and urinary retention who was discharged to senior care who was admitted with fevers, chills. Found to be septic with positive UA and blood cultures with gram negative bacilli. Given IVF resuscitation but required central line placement and pressors. During ER course , clinically deteriorated requiring intubation. - History Source History Provided By: Medical Record Limitations to Obtaining History: Clinical Condition - Past Medical History BONSAI TENDER: Yes: Other (spinal stenosis) Renal/: Yes: BPH, Other (urinary retention) - Past Surgical History Past Surgical History: Yes: Laminectomy (T9 05/26/17) Additional Surgical History: right knee arthroscopy - Alcohol/Substance Use Hx Alcohol Use: No - Smoking History Smoking history: Unknown if ever smoked Have you smoked in the past 12 months: No - Social History Usual Living Arrangement: [facility] Home Medications - Allergies Allergies/Adverse Reactions: Allergies Allergy/AdvReac Type Severity Reaction Status Date / Time No Known Allergies Allergy Verified 06/13/17 18:45 - Home Medications Home Medications: Ambulatory Orders Acetaminophen 325 mg PO 06/14/17 Ascorbic Acid [Vitamin C] 500 mg PO DAILY 06/14/17 Cranberry Juice [Thickenup] 237 ml PO DAILY 06/14/17 Cyclobenzaprine HCl 10 mg PO DAILY 06/14/17 Finasteride 5 mg PO DAILY 06/14/17 Multivitamin,Ther and Minerals [Vitamin and Minerals] 1 each PO DAILY 06/14/17 Pregabalin [Lyrica] 100 mg PO DAILY 06/14/17 Tamsulosin HCl [Flomax] 0.4 mg PO DAILY 06/14/17 Warfarin Na [Coumadin] 1 mg PO DAILY 06/14/17 Warfarin Sodium 6 mg PO DAILY 06/14/17 Zinc Sulfate [Zinc-220] 220 mg PO DAILY 06/14/17 Review of Systems Unable to obtain ROS, reason: pt intubated Physical Exam Vital Signs: Vital Signs Temperature 99.1 F 06/14/17 10:34 Pulse Rate 68 06/14/17 14:07 Respiratory Rate 26 H 06/14/17 14:07 Blood Pressure 116/59 06/14/17 14:07 O2 Sat by Pulse Oximetry (%) 100 06/14/17 14:07 Constitutional: Yes: Calm Eyes: Yes: Conjunctiva Clear, EOM Intact HENT: Yes: Atraumatic, Normocephalic Neck: Yes: Supple, Trachea Midline Cardiovascular: Yes: Regular Rate and Rhythm Respiratory: Yes: Regular, CTA Bilaterally Gastrointestinal: Yes: Normal Bowel Sounds, Soft. No: Tenderness Edema: No Labs: CBC, BMP 06/14/17 09:50 06/14/17 09:50 Imaging - Results Chest X-ray: Report Reviewed, Image Reviewed (no infiltrates) Assessment/Plan Acute Respiratory Failure UTI/Gram Negative Bacteremia Septic Shock Acute Kidney Injury Lactic Acidosis Recent Thoracic Back Surgery 05/20/17 BPH DVT - broad spectrum antibiotics - f/u cultures - check CVP - IVF to keep CVP 8-12 - trend lactate - monitor urine output, creatinine - titrate pressors to maintain MAP >65 - taper FiO2 to keep SpO2 >90% - contacted neurosurgery service at [facility], agrees to transfer - continue anticoagulation - ICU monitoring critical care time spent in reviewing chart, evaluating patient, discussing with HCP/coordinating transfer and formulating plan 75 min Thank you for this consult Madhu Wakefield MD
--- NOTE | 2017-06-14 15:47 | EKG ---
Test Reason : Blood Pressure : / mmHG Vent. Rate : 068 BPM Atrial Rate : 068 BPM P-R Int : 176 ms QRS Dur : 116 ms QT Int : 432 ms P-R-T Axes : 059 -15 010 degrees QTc Int : 459 ms NORMAL SINUS RHYTHM LOW VOLTAGE QRS BORDERLINE ECG WHEN COMPARED WITH ECG OF 13-JUN-2017 19:03, VENT. RATE HAS DECREASED BY 45 BPM LEFT ANTERIOR FASCICULAR BLOCK IS NO LONGER PRESENT INCOMPLETE RIGHT BUNDLE BRANCH BLOCK IS NO LONGER PRESENT Confirmed by FELICIA MERCADO, HAY ([id number]) on 06/14/2017 3:46:55 PM Referred By: Confirmed By:HAY DUARTE MD
[2017-06-14 17:14] VITALS: BP 141/73; PULSE 59
[2017-06-14] MEDS ORDERED: VANCOMYCIN 1,250 MG in DEXTROSE 5%-WATER - 250 ML IVPB SCH (22:00)
== END 2017-06-14 17:40 | disposition short-term general hospital (02) | DRG 862 ==
LOC: JER 18:35 → JERBED 06-14 01:24
PROVIDERS: ADMIT Family Medicine; ATTEND Family Medicine
PROC: 0BH17EZ Insertion of Endotracheal Airway into Trachea, Via Natural or Artificial Opening (ICD-10-PCS; principal; 2017-06-14)
PROC: 5A1935Z Respiratory Ventilation, Less than 24 Consecutive Hours (ICD-10-PCS; 2017-06-14)
PROC: 05HN33Z Insertion of Infusion Device into Left Internal Jugular Vein, Percutaneous Approach (ICD-10-PCS; 2017-06-14)
DX: T81.4XXA Infection following a procedure, initial encounter (principal); A41.59 Other Gram-negative sepsis; R65.21 Severe sepsis with septic shock; J96.00 Acute respiratory failure, unspecified whether with hypoxia or hypercapnia; E87.2 Acidosis; N39.0 Urinary tract infection, site not specified; N17.9 Acute kidney failure, unspecified; N40.0 Benign prostatic hyperplasia without lower urinary tract symptoms; R33.8 Other retention of urine; M48.04 Spinal stenosis, thoracic region; I95.89 Other hypotension; R00.1 Bradycardia, unspecified; Y83.8 Other surgical procedures as the cause of abnormal reaction of the patient, or of later complication, without mention of misadventure at the time of the procedure; Y92.098 Other place in other non-institutional residence as the place of occurrence of the external cause; Z86.718 Personal history of other venous thrombosis and embolism
CPT/HCPCS: 36415; 36600; 71045-TC-FY; 80053; 81003; 81015; 82550; 82803; 83605; 83735; 84484; 85025; 85610; 85730; 86850; 86870; 86900; 86901; 86902; 87040; 87070; 87086; 87186; 87205; 87804; 93005; 93010; 94002; 99285-25; J0131; J7030

== ENCOUNTER 2018-04-26 01:31 | Inpatient (IN) | payer OTHER ==
[2018-04-26 01:47] VITALS: BMI 31.1
--- NOTE | 2018-04-26 01:48 | PDOC ---
History of Present Illness - General Chief Complaint: SIRS, Suspected/Possible Stated Complaint: FEVER,URINARY PROBLEM Time Seen by Provider: 04/26/18 01:40 - History of Present Illness Initial Comments: 04/26/18 02:36 The patient is a 72 year old male with a history of DVT, UTI, Spinal Fusion who presents for evaluation of possible sepsis from his assisted living facility. The patient reports that he has been managed on an outpatient basis for a urinary tract infection over the past 1 week with burning with urination. He noted worsening fevers and "shaking" today prompting his presentation to the ED for further evaluation. He otherwise denies SOB, chest pain, nausea, vomiting, abdominal pain, or changes with bowel movements. Past History - Past Medical History Allergies/Adverse Reactions: Allergies Allergy/AdvReac Type Severity Reaction Status Date / Time No Known Allergies Allergy Verified 06/13/17 18:45 Home Medications: Ambulatory Orders Pregabalin [Lyrica] 250 mg PO DAILY 06/14/17 Meloxicam 15 mg PO DAILY 04/26/18 Oxycodone HCl/Acetaminophen [Percocet 10-325 mg Tablet] 1 each PO QID 04/26/18 Silodosin [Rapaflo] 8 mg PO DAILY 04/26/18 Anemia: No Asthma: No Cancer: No Cardiac Disorders: No CVA: No COPD: No CHF: No Dementia: No Diabetes: No GI Disorders: No Disorders: No HTN: No Hypercholesterolemia: No Liver Disease: No Seizures: No Thyroid Disease: No - Surgical History Abdominal Surgery: No Appendectomy: No Cardiac Surgery: No Cholecystectomy: No Lung Surgery: No Neurologic Surgery: Yes (lunbar back) Orthopedic Surgery: Yes (Spinal Fusion with Instumentation 01/2016-developed DVT RLE post op) - Immunization History Immunization Up to Date: Yes - Suicide/Smoking/Psychosocial Hx Smoking History: Never smoked Have you smoked in the past 12 months: No Information on smoking cessation initiated: No Hx Alcohol Use: No Drug/Substance Use Hx: No Substance Use Type: Alcohol Hx Substance Use Treatment: No Review of Systems - Review of Systems Comments:: 04/26/18 02:37 Constitutional: Fevers, Chills. No fatigue, malaise HEENT: No Rhinorrhea, nasal congestion, visual changes Cardiovascular: No chest pain, syncope, palpitations, lightheadedness Respiratory: No Cough, SOB, Hemoptysis, Gastrointestinal: No Abdominal pain, Nausea, Vomiting, Constipation, Diarrhea, Melena Genitourinary: Dysuria. No Frequency, Urgency, Hesitancy, Hematuria, Flank pain Musculoskeletal: No Myalgia, arthralgia Skin: No rashes, itching, bruising, pallor Neurologic: No Headache, Dizziness, Numbness, Weakness, or Tingling Psychiatric: No Hallucinations. No SI or HI *Physical Exam - Vital Signs Last Vital Signs Temp Pulse Resp BP Pulse Ox 102.4 F H 90 18 153/74 100 04/26/18 01:42 04/26/18 01:42 04/26/18 01:42 04/26/18 01:42 04/26/18 01:42 - Physical Exam Comments: 04/26/18 02:38 General Appearance: Nourished. Rigors noted on exam. Warm to the touch. In Mild Apparent Distress HEENT: No Pharyngeal Erythema, Tonsillar Exudate, Tonsillar Erythema Neck: No Cervical Lymphadenopathy Respiratory/Chest: Lungs Clear, Normal Breath Sounds. No Crackles, Rales, Rhonchi, Wheezing Cardiovascular: Regular Rhythm, Regular Rate. No Murmur, Gallops, Rubs Gastrointestinal/Abdominal: Normal Bowel Sounds, Soft. No Guarding, Rebound, Tenderness Musculoskeletal: No CVA Tenderness Extremity: 2+ pitting edema in the lower extremities bilaterally. Normal Capillary Refill Integumentary: Normal Color, Dry, Warm Neurologic: Fully Oriented, Alert, Normal Mood/Affect, Normal Response, Moderate Sedation - Procedure Monitoring Vital Signs: Procedure Monitoring Vital Signs Temperature 102.4 F H 04/26/18 01:42 Pulse Rate 90 04/26/18 01:42 Respiratory Rate 18 04/26/18 01:42 Blood Pressure 153/74 04/26/18 01:42 O2 Sat by Pulse Oximetry (%) 100 04/26/18 01:42 ED Treatment Course - LABORATORY CBC & Chemistry Diagram: 04/26/18 02:16 04/26/18 02:16 Medical Decision Making - Medical Decision Making 04/26/18 02:43 The patient is a 72 year old male with a history of DVT, UTI, Spinal Fusion who presents for evaluation of possible sepsis from his assisted living facility. Differential includes but is not limited to: Sepsis, UTI, Infectious, metabolic derangement. Given the patient's history and physical exam, it is likely the patient is septic due to a uti. We will obtain a cbc, cmp, troponin, lactate, ua, urine culture, blood culture, ekg, chest plain film to evaluate further. We will treat with iv fluids, tylenol, vanc, zosyn and continue to monitor and reassess while here in the ED. The patient will likely require admission for further management. 04/26/18 06:05 CBC demonstrates elevated wbc to 14. CMP is unremarkable. Troponin is elevated to 0.08. Lactate is elevated to 3.3. UA demonstrates positive nitrites, positive leuk esterase, with elevated wbc consistent with a UTI. Chest plain film is unremarkable. The patient is likely septic due to a UTI and will require admission for further management. We discussed the case with the admitting team who accepted the patient for admission. *DC/Admit/Observation/Transfer Diagnosis at time of Disposition: Sepsis Qualifiers: Sepsis type: sepsis due to unspecified organism Qualified Code(s): A41.9 - Sepsis, unspecified organism UTI (urinary tract infection) Qualifiers: Urinary tract infection type: site unspecified Hematuria presence: without hematuria Qualified Code(s): N39.0 - Urinary tract infection, site not specified - Discharge Dispostion Condition at time of disposition: Stable Decision to Admit order: Yes - Referrals Referrals: Ronaldo Sanabria [Primary Care Provider] - - Patient Instructions - Post Discharge Activity
[2018-04-26] MEDS ORDERED: SODIUM CHLORIDE 1,000 ML IV STA ×3 (01:49→05:23)
[2018-04-26] MEDS ORDERED: ACETAMINOPHEN 1000 MG/100 ML VIAL (NON FORMULARY) IVPB ONE ×2 (01:49→06:04)
[2018-04-26] MEDS ORDERED: ACETAMINOPHEN INJECTION 100 ML IVPB ONE ×4 (02:19→15:02)
[2018-04-26 03:04] LABS: VENOUS PC02 43.5 mmHg (38-52); VENOUS PH 7.32 (7.32-7.42); VENOUS PO2 32.3 mmHg (28-48)
[2018-04-26 03:26] LABS: BASO % 0.2 % (0-2.0); EOS % 1.4 % (0-4.5); LYMPH % 7.3 % (8-40); MCH 32.9 pg (25.7-33.7); MEAN PLT VOLUME 8.1 fl (7.5-11.1); MONO % 6.5 % (3.8-10.2); NEUT % 84.6 % (42.8-82.8); PLATELET COUNT 177 K/MM3 (134-434); RBC 4.25 M/mm3 (4.00-5.60); RDW 13.4 % (11.9-15.9)
[2018-04-26] MEDS ORDERED: VANCOMYCIN 1,500 MG in DEXTROSE 5%-WATER - 500 ML IVPB ONE (03:29)
[2018-04-26] MEDS ORDERED: PIPERACILLIN/TAZOB 4.5 GM 4.5 GM in DEXTROSE 5%-WATER 100 ML IVPB ONE (03:29)
[2018-04-26 03:39] LABS: INR 1.23 (0.83-1.09); PROTHROMBIN TIME (PATIENT) 14.6 SEC (9.7-13.0)
[2018-04-26 03:41] LABS: ACTIVATED PTT 29.3 SECONDS (25.2-36.5)
[2018-04-26] MEDS ORDERED: VANCOMYCIN 500 MG VIAL (RESTRICTED TO ID ONLY) ONE (03:43)
[2018-04-26] MEDS ORDERED: VANCOMYCIN 1 GRAM (PRE-DOCKED) 1,000 MG/250 ML BAG IVPB ONE (03:44)
[2018-04-26] MEDS ORDERED: PIPERACILLIN/TAZOB 4.5 GM 4.5 GM/100 ML BAG IVPB ONE (03:44)
[2018-04-26 03:53] LABS: ALBUMIN 3.4 g/dl (3.4-5.0); ALK PHOS 104 U/L (45-117); ANION GAP 10 MMOL/L (8-16); BILIRUBIN,TOTAL 0.4 mg/dL (0.2-1); BLOOD UREA NITROGEN 26 mg/dL (7-18); CALCIUM 8.3 mg/dL (8.5-10.1); CHLORIDE 104 mmol/L (98-107); CO2 23 mmol/L (21-32); CREATININE 1.4 mg/dL (0.55-1.3); GLUCOSE,RANDOM 117 mg/dL (74-106); SGOT/AST 26 U/L (15-37); SGPT/ALT 23 U/L (13-61); SODIUM 137 mmol/L (136-145); TOT PROT 6.9 g/dl (6.4-8.2)
--- NOTE | 2018-04-26 04:40 | PDOC ---
Attending Attestation - Resident Resident Name: Kirby Voss - ED Attending Attestation I have performed the following: I have examined & evaluated the patient, The case was reviewed & discussed with the resident, I agree w/resident's findings & plan, Exceptions are as noted - HPI HPI: 05/02/18 19:52 72M from assisted living with c/o dysuria x1week, fevers/chills and "shaking" per facility staff - Physicial Exam PE: 05/02/18 19:53 Agree with exam as documented by resident - Medical Decision Making 05/02/18 19:53 Sepsis work up, hx/pe, vs concerning for sepsis 2/2 infection abx, iv resus, f/u labs, cx likely admit
[2018-04-26 05:35] LABS: URINE APPEARANCE SLCLOUDY; URINE BILIRUBIN NEGATIVE (<2.0 mg/dL); URINE COLOR LTYELLOW; URINE GLUCOSE (UA) NEGATIVE (NEGATIVE); URINE KETONE NEGATIVE (NEGATIVE); URINE LEUK ESTERASE 3+ (NEGATIVE); URINE NITRITE POSITIVE (NEGATIVE); URINE PROTEIN NEGATIVE (NEGATIVE); URINE UROBILINOGEN NEGATIVE mg/dL (0.2-1.0)
[2018-04-26 05:47] LABS: EPI CELLS RARE /HPF (FEW); URINE BACTERIA RARE /hpf (NONE SEEN)
--- NOTE | 2018-04-26 08:16 | HP ---
Admitting History and Physical - Admission History of Present Illness: year old male with a history of DVT, UTI, Spinal Fusion who presents for evaluation of possible sepsis from his assisted living facility. Differential includes but is not limited to: Sepsis, UTI, Infectious, metabolic derangement. Given the patient's history and physical exam, it is likely the patient is septic due to a uti. We will obtain a cbc, cmp, troponin, lactate, ua, urine culture, blood culture, ekg, chest plain film to evaluate further. We will treat with iv fluids, tylenol, vanc, zosyn and continue to monitor and reassess while here in the ED. The patient will likely require admission for further management. History Source: Patient, Family Member, Medical Record, Caregiver Limitations to Obtaining History: Poor Historian - Past Medical History UPPER SHAPER: Yes: Other (spinal stenosis) Renal/: Yes: BPH, Other (urinary retention) Musculoskeletal: Yes: Chronic low back pain, Other (multiple spine surgery ( 5)) - Past Surgical History Past Surgical History: Yes: Laminectomy (T9 05/26/17 total of 5 surgical intervention) - Advance Directives Advance Directives: Yes: Living Will - Smoking History Smoking history: Never smoked Have you smoked in the past 12 months: No - Alcohol/Substance Use Hx Alcohol Use: No History of Substance Use: reports: None - Social History Usual Living Arrangement: Yes: Assisted Living ADL: Support Services History of Recent Travel: No Home Medications - Allergies Allergies/Adverse Reactions: Allergies Allergy/AdvReac Type Severity Reaction Status Date / Time No Known Allergies Allergy Verified 06/13/17 18:45 - Home Medications Home Medications: Ambulatory Orders Pregabalin [Lyrica] 250 mg PO DAILY 06/14/17 Meloxicam 15 mg PO DAILY 04/26/18 Oxycodone HCl/Acetaminophen [Percocet 10-325 mg Tablet] 1 each PO QID 04/26/18 Silodosin [Rapaflo] 8 mg PO DAILY 04/26/18 Review of Systems - Review of Systems Constitutional: reports: Chills, Fever, Weakness Eyes: reports: No Symptoms HENT: reports: No Symptoms Neck: reports: No Symptoms Cardiovascular: reports: No Symptoms. denies: Chest Pain, Palpitations Respiratory: reports: No Symptoms Gastrointestinal: reports: No Symptoms Genitourinary: reports: Dysuria, Frequency Breasts: reports: No Symptoms Reported Musculoskeletal: reports: Back Pain, Muscle Weakness Neurological: reports: Pre-Existing Deficit Endocrine: reports: Increased Thirst Hematology/Lymphatic: reports: No Symptoms Psychiatric: reports: Anxiety Physical Examination Vital Signs: Vital Signs Temperature 101 F H 04/26/18 06:10 Pulse Rate 75 04/26/18 05:51 Respiratory Rate 20 04/26/18 05:51 Blood Pressure 111/57 L 04/26/18 05:51 O2 Sat by Pulse Oximetry (%) 95 04/26/18 05:51 Constitutional: Yes: Well Nourished, No Distress, Obese Eyes: Yes: Conjunctiva Clear, EOM Intact HENT: Yes: Atraumatic, Normocephalic Neck: Yes: Supple, Trachea Midline Cardiovascular: Yes: Regular Rate and Rhythm Respiratory: Yes: Regular, CTA Bilaterally Gastrointestinal: Yes: Normal Bowel Sounds, Soft, Abdomen, Obese. No: Tenderness, Tenderness, Epigastrium, Vomiting ...Rectal Exam: Yes: Deferred Renal/: Yes: WNL Breast(s): Yes: WNL Musculoskeletal: Yes: Back Pain, Muscle Pain, Muscle Weakness (lower extremities ) Extremities: No: Deformity Edema: LLE: Trace, RLE: Trace Peripheral Pulses WNL: Yes Integumentary: Yes: WNL Neurological: Yes: Alert, Oriented, Pre-Existing Deficit, Unsteady Gait Psychiatric: Yes: Alert, Oriented Labs: CBC, BMP 04/26/18 02:16 04/26/18 02:16 Problem List - Problems (1) Sepsis Assessment/Plan: u/a - c/s ID opinion emperic treatment known to have BPH -- followed by Jose MERCADO as out patient recently treated with Cipro BID for 2 weeks resistant Code(s): A41.9 - SEPSIS, UNSPECIFIED ORGANISM Qualifiers: Sepsis type: sepsis due to unspecified organism Qualified Code(s): A41.9 - Sepsis, unspecified organism (2) UTI (urinary tract infection) Assessment/Plan: await c/s results abx per ID Code(s): N39.0 - URINARY TRACT INFECTION, SITE NOT SPECIFIED Qualifiers: Urinary tract infection type: site unspecified Hematuria presence: without hematuria Qualified Code(s): N39.0 - Urinary tract infection, site not specified (3) Obstructive uropathy Code(s): N13.9 - OBSTRUCTIVE AND REFLUX UROPATHY, UNSPECIFIED (4) Radicular pain of both lower extremities Assessment/Plan: chronic s/p multiple surgical intervention radiculopathy - requires w/c most of the day can ambulate with walker short distance Code(s): M54.10 - RADICULOPATHY, SITE UNSPECIFIED (5) Back pain Code(s): M54.9 - DORSALGIA, UNSPECIFIED (6) DVT prophylaxis Code(s): [id number] - (7) S/P lumbar laminectomy Code(s): Z98.890 - OTHER SPECIFIED POSTPROCEDURAL STATES
[2018-04-26] MEDS: DEXTROSE 5%-0.45% SALINE 1,000 ML IV SCH (08:32)
[2018-04-26] MEDS ORDERED: PANTOPRAZOLE SODIUM 40 MG/100 ML BAG IVPB ONE (09:32)
[2018-04-26] MEDS: ACETAMINOPHEN 1000 MG/100 ML VIAL (NON FORMULARY) IVPB PRN ×2 (09:33→15:00)
[2018-04-26] MEDS: PANTOPRAZOLE 40 MG TABLET (FP) PO SCH (09:33)
--- NOTE | 2018-04-26 11:20 | PN ---
Progress Note (short form) - Note Progress Note: 72 y/o male found sleeping. Appears comfortable in ER. Being admitted for UTI not improving in community. Vital Signs Period Temp Pulse Resp BP Sys/Carr Pulse Ox Last 24 Hr 98.2 F-102.4 F 62-90 18-20 110-153/45-74 94-100 CBC, BMP 04/26/18 02:16 04/26/18 02:16 HEENT-Normocephalic Neck-Supple Lungs- CTAB Heart-S1/S2 Abd-Soft, Obese, NT Ext- 3+ B/L pitting edema Active Medications Acetaminophen (Ofirmev Injection -) 1,000 mg IVPB Q6H PRN PRN Reason: PAIN Last Admin: 04/26/18 09:33 Dose: 1,000 mg Dextrose/Sodium Chloride (D5-1/2ns -) 1,000 mls @ 100 mls/hr IV ASDIR AIYANA Last Admin: 04/26/18 08:32 Dose: 100 mls/hr Pantoprazole Sodium (Protonix -) 40 mg PO DAILY AIYANA Last Admin: 04/26/18 09:33 Dose: 40 mg #B/L pitting edema Chest XRAY ordered Lasix 40 mg IV Repeat Lactic acid Repeat BMP # LBP/ S/p lumbar laminectomy Tylenol IV PRN #Sepsis/ Complicated UTI ID consult requested IV fluids Problem List - Problems (1) Sepsis Code(s): A41.9 - SEPSIS, UNSPECIFIED ORGANISM Qualifiers: Sepsis type: sepsis due to unspecified organism Qualified Code(s): A41.9 - Sepsis, unspecified organism (2) UTI (urinary tract infection) Code(s): N39.0 - URINARY TRACT INFECTION, SITE NOT SPECIFIED Qualifiers: Urinary tract infection type: site unspecified Hematuria presence: without hematuria Qualified Code(s): N39.0 - Urinary tract infection, site not specified (3) Back pain Code(s): M54.9 - DORSALGIA, UNSPECIFIED (4) DVT prophylaxis Code(s): [id number] - (5) Intractable back pain Code(s): M54.9 - DORSALGIA, UNSPECIFIED (6) Obstructive uropathy Code(s): N13.9 - OBSTRUCTIVE AND REFLUX UROPATHY, UNSPECIFIED (7) S/P lumbar laminectomy Code(s): Z98.890 - OTHER SPECIFIED POSTPROCEDURAL STATES
[2018-04-26] MEDS ORDERED: FUROSEMIDE 40 MG/4 ML INJECTABLE VIAL IVPUSH ONE (11:45)
--- NOTE | 2018-04-26 12:03 | EKG ---
Test Reason : Blood Pressure : / mmHG Vent. Rate : 095 BPM Atrial Rate : 095 BPM P-R Int : 144 ms QRS Dur : 092 ms QT Int : 340 ms P-R-T Axes : -16 -44 021 degrees QTc Int : 427 ms POOR DATA QUALITY, INTERPRETATION MAY BE ADVERSELY AFFECTED NORMAL SINUS RHYTHM LEFT AXIS DEVIATION LOW VOLTAGE QRS ABNORMAL ECG WHEN COMPARED WITH ECG OF 14-JUN-2017 13:00, QRS DURATION HAS DECREASED Confirmed by CHAVA REECE MD ([id number]) on 04/26/2018 12:02:47 PM Referred By: Confirmed By:CHAVA REECE MD
[2018-04-26] MEDS ORDERED: FUROSEMIDE 40 MG/4 ML INJECTABLE VIAL ONE (12:24)
--- NOTE | 2018-04-26 17:14 | CON.ID ---
Consult Consult Specialty:: infectious disease Referred by:: dr pace Reason for Consultation:: sepsis - History of Present Illness Chief Complaint: acute onset of fever and chills with shaking last night History of Present Illness: 72 yo lives in a senior home on treatment for uti with cipro- dr crawford is his urologise and dr pal his PMD he had increased frequency- has had iurinary ncontinence and wears a diaper for last two months also notes he was told he has urinary retention by urologist no cough no vomiting normal BM given voanc zosyn overnight now feels better elevated lactic acid improved still quite fatidgued has no appetite last episode of uti was in june when he had a pansensitive ecoli in urine and blood- he became septic and was intubated and strted on pressors and transferred to [facility] where he had recent back surgery in May 2017- he tells me the back was fine and he was treated for sepsis due to UTI he has not had another episode until now nonambulatory uses a wheelchair - History Source History Provided By: Patient, Medical Record - Past Medical History 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: Peripheral Neuropathy, Other (spinal stenosis) Renal/: Yes: BPH, Other (urinary retention) - Past Surgical History Past Surgical History: Yes: Laminectomy (T9 05/26/17) Additional Surgical History: 5 back surgeries - Alcohol/Substance Use Hx Alcohol Use: No - Smoking History Smoking history: Never smoked Have you smoked in the past 12 months: No - Social History Usual Living Arrangement: Assisted ADL: Support Services 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 Place of : [facility] History of Recent Travel: No Home Medications - Allergies Allergies/Adverse Reactions: Allergies Allergy/AdvReac Type Severity Reaction Status Date / Time No Known Allergies Allergy Verified 06/13/17 18:45 - Home Medications Home Medications: Ambulatory Orders Pregabalin [Lyrica] 250 mg PO DAILY 06/14/17 Meloxicam 15 mg PO DAILY 04/26/18 Oxycodone HCl/Acetaminophen [Percocet 10-325 mg Tablet] 1 each PO QID 04/26/18 Silodosin [Rapaflo] 8 mg PO DAILY 04/26/18 Family Disease History - Family Disease History Family History: Denies Review of Systems - Review of Systems Constitutional: reports: Chills, Fever, Lethargy, Loss of Appetite Eyes: reports: No Symptoms HENT: reports: No Symptoms Neck: reports: No Symptoms Cardiovascular: reports: No Symptoms Respiratory: reports: No Symptoms Gastrointestinal: reports: No Symptoms Genitourinary: reports: Frequency. denies: Flank Pain Musculoskeletal: reports: Other (chronic leg edema) Physical Exam Vital Signs: Vital Signs Temperature 98.4 F 04/26/18 13:00 Pulse Rate 62 04/26/18 09:24 Respiratory Rate 18 04/26/18 09:24 Blood Pressure 110/45 L 04/26/18 09:24 O2 Sat by Pulse Oximetry (%) 94 L 04/26/18 09:24 Constitutional: Yes: Well Nourished, No Distress, Calm, Obese Eyes: Yes: Conjunctiva Clear HENT: Yes: Atraumatic, Normocephalic Neck: Yes: Supple, Trachea Midline Cardiovascular: Yes: Regular Rate and Rhythm Respiratory: Yes: Regular, CTA Bilaterally Gastrointestinal: Yes: Normal Bowel Sounds, Soft ...Rectal Exam: Yes: Deferred Renal/: No: CVA Tenderness - Left, CVA Tenderness - Right Edema: LLE: Trace, RLE: Trace Integumentary: Yes: WNL Wound/Incision: Yes: Other (back incision well healed) Psychiatric: Yes: Alert, Oriented Labs: CBC, BMP 04/26/18 02:16 04/26/18 02:16 Problem List - Problems (1) Sepsis Code(s): A41.9 - SEPSIS, UNSPECIFIED ORGANISM Qualifiers: Sepsis type: sepsis due to unspecified organism Qualified Code(s): A41.9 - Sepsis, unspecified organism (2) UTI (urinary tract infection) Code(s): N39.0 - URINARY TRACT INFECTION, SITE NOT SPECIFIED Qualifiers: Urinary tract infection type: site unspecified Hematuria presence: without hematuria Qualified Code(s): N39.0 - Urinary tract infection, site not specified (3) Renal insufficiency Code(s): N28.9 - DISORDER OF KIDNEY AND URETER, UNSPECIFIED Assessment/Plan continue zosyn check vanco trough in am f/ cultures renal/bladder sonogram consider urology evaluation adjust antibiotics for renal insufficiency continue iv hydration
[2018-04-26] MEDS: PIPERACILLIN/TAZOB 3.375 GM 3.375 GM in DEXTROSE 5%-WATER - 50 ML IVPB SCH (20:33)
[2018-04-26 21:15] LABS: ANION GAP 7 MMOL/L (8-16); BLOOD UREA NITROGEN 23 mg/dL (7-18); CALCIUM 7.9 mg/dL (8.5-10.1); CHLORIDE 111 mmol/L (98-107); CO2 24 mmol/L (21-32); CREATININE 1.3 mg/dL (0.55-1.3); GLUCOSE,RANDOM 118 mg/dL (74-106); POTASSIUM 3.9 mmol/L (3.5-5.1); SODIUM 142 mmol/L (136-145)
[2018-04-26] MEDS ORDERED: PIPERACILLIN/TAZOB 3.375 GM 3.375 GM/50 ML BAG IVPB ONE (23:20)
[2018-04-27] MEDS ORDERED: PIPERACILLIN/TAZOBACTAM 3.375 GM VIAL IVPB ONE ×3 (01:29→17:41)
[2018-04-27] MEDS ORDERED: DEXTROSE 5%-WATER - 50 ML IVPB ONE ×3 (01:29→17:41)
[2018-04-27] MEDS: PIPERACILLIN/TAZOB 3.375 GM 3.375 GM in DEXTROSE 5%-WATER - 50 ML IVPB SCH ×3 (02:19→17:45)
[2018-04-27 07:20] LABS: HEMATOCRIT 37.5 % (35.4-49); HEMOGLOBIN 13.3 GM/dL (11.7-16.9); MCHC 35.4 g/dl (32.0-35.9); MEAN CELL VOLUME 93.1 fl (80-96); MEAN PLT VOLUME 8.1 fl (7.5-11.1); PLATELET COUNT 174 K/MM3 (134-434); RBC 4.03 M/mm3 (4.00-5.60); RDW 12.9 % (11.9-15.9); WHITE BLOOD COUNT 9.3 K/mm3 (4.0-10.0)
[2018-04-27 07:50] LABS: ALBUMIN 3.1 g/dl (3.4-5.0); ALK PHOS 87 U/L (45-117); ANION GAP 6 MMOL/L (8-16); BILIRUBIN,TOTAL 0.6 mg/dL (0.2-1); BLOOD UREA NITROGEN 18 mg/dL (7-18); CALCIUM 8.6 mg/dL (8.5-10.1); CHLORIDE 112 mmol/L (98-107); CO2 26 mmol/L (21-32); CREATININE 1.2 mg/dL (0.55-1.3); GLUCOSE,RANDOM 118 mg/dL (74-106); SGOT/AST 25 U/L (15-37); SGPT/ALT 21 U/L (13-61); SODIUM 144 mmol/L (136-145); TOT PROT 6.3 g/dl (6.4-8.2)
[2018-04-27] MEDS: PANTOPRAZOLE 40 MG TABLET (FP) PO SCH (11:06)
[2018-04-27] MEDS: DEXTROSE 5%-0.45% SALINE 1,000 ML IV SCH (11:06)
--- NOTE | 2018-04-27 11:12 | PN ---
Progress Note (short form) - Note Progress Note: 72 y/o male found alert and oriented x 3. States that he has pain in B/L LEs and sometimes has spasms.Denies SOB. Vital Signs Period Temp Pulse Resp BP Sys/Carr Pulse Ox Last 24 Hr 98.1 F-98.4 F 54-60 18-24 94-126/32-56 95-97 CBC, BMP 04/27/18 06:28 04/27/18 06:28 HEENT-Normocephalic Neck-Supple Lungs-CTAB Heart-S1/S2 Abd- Soft, NT Ext- B/L LE edema present but improved Active Medications Acetaminophen (Ofirmev Injection -) 1,000 mg IVPB Q6H PRN PRN Reason: PAIN Last Admin: 04/26/18 15:00 Dose: 1,000 mg Baclofen (Lioresal -) 10 mg PO ONCE ONE Stop: 04/27/18 11:16 Dextrose/Sodium Chloride (D5-1/2ns -) 1,000 mls @ 100 mls/hr IV ASDIR AIYANA Last Admin: 04/27/18 11:06 Dose: 100 mls/hr Piperacillin Sod/Tazobactam (Sod 3.375 gm/ Dextrose) 50 mls @ 100 mls/hr IVPB Q8H-IV AIYANA; Protocol Last Admin: 04/27/18 11:06 Dose: 100 mls/hr Pantoprazole Sodium (Protonix -) 40 mg PO DAILY AIYANA Last Admin: 04/27/18 11:06 Dose: 40 mg Pregabalin (Lyrica -) 200 mg PO TID AIYANA #B/L pitting edema- improved Chest XRAY shows atelactic changes Trend Lactic acid- now 2.9 Repeat BMP # LBP/ S/p lumbar laminectomy Baclofen 10 mg daily Lyrica TID #Sepsis/ Complicated UTI WBC ct now 9.3 Renal US shows Cystitis vs urinary bladder outlet obstruction ID consult appreciated IV antibiotics per ID Cultures pending Urology consult requested Problem List - Problems (1) Sepsis Code(s): A41.9 - SEPSIS, UNSPECIFIED ORGANISM Qualifiers: Sepsis type: sepsis due to unspecified organism Qualified Code(s): A41.9 - Sepsis, unspecified organism (2) UTI (urinary tract infection) Code(s): N39.0 - URINARY TRACT INFECTION, SITE NOT SPECIFIED Qualifiers: Urinary tract infection type: site unspecified Hematuria presence: without hematuria Qualified Code(s): N39.0 - Urinary tract infection, site not specified (3) Back pain Code(s): M54.9 - DORSALGIA, UNSPECIFIED (4) DVT prophylaxis Code(s): [id number] - (5) Intractable back pain Code(s): M54.9 - DORSALGIA, UNSPECIFIED (6) Obstructive uropathy Code(s): N13.9 - OBSTRUCTIVE AND REFLUX UROPATHY, UNSPECIFIED (7) S/P lumbar laminectomy Code(s): Z98.890 - OTHER SPECIFIED POSTPROCEDURAL STATES
[2018-04-27] MEDS ORDERED: BACLOFEN 10 MG TABLET (FP) PO ONE (11:15)
--- NOTE | 2018-04-27 13:05 | PN ---
Progress Note (short form) - Note Progress Note: feels improved much more alert no fevers or chills Vital Signs Period Temp Pulse Resp BP Sys/Carr Pulse Ox Last 24 Hr 98.1 F-98.4 F 54-60 18-24 94-126/32-56 95-97 cor-rrr lungs clear abd soft,nt ext trace edema bilaterally CBC, BMP 04/27/18 06:28 04/27/18 06:28 Microbiology 04/26/18 08:30 Urine - Urine - Catheterized Urine Culture - Preliminary Lactose Fermenting Neg Bacilli 04/26/18 02:16 Blood - Peripheral Venous Blood Culture - Preliminary NO GROWTH OBTAINED AFTER 24 HOURS, INCUBATION TO CONTINUE FOR 4 DAYS. 04/26/18 02:16 Blood - Peripheral Venous Blood Culture - Preliminary NO GROWTH OBTAINED AFTER 24 HOURS, INCUBATION TO CONTINUE FOR 4 DAYS. bladder/renal sono reviewed Current Medications Acetaminophen (Ofirmev Injection -) 1,000 mg IVPB Q6H PRN PRN Reason: PAIN Last Admin: 04/26/18 15:00 Dose: 1,000 mg Dextrose/Sodium Chloride (D5-1/2ns -) 1,000 mls @ 100 mls/hr IV ASDIR AIYANA Last Admin: 04/27/18 11:06 Dose: 100 mls/hr Piperacillin Sod/Tazobactam (Sod 3.375 gm/ Dextrose) 50 mls @ 100 mls/hr IVPB Q8H-IV AIYANA; Protocol Last Admin: 04/27/18 11:06 Dose: 100 mls/hr Pantoprazole Sodium (Protonix -) 40 mg PO DAILY AIYANA Last Admin: 04/27/18 11:06 Dose: 40 mg Pregabalin (Lyrica -) 200 mg PO TID AIYANA a/p UTI fevers resolved continue zosyn urology consult hopefully switch to orals when culture is back Problem List - Problems (1) Sepsis Code(s): A41.9 - SEPSIS, UNSPECIFIED ORGANISM Qualifiers: Sepsis type: sepsis due to unspecified organism Qualified Code(s): A41.9 - Sepsis, unspecified organism (2) UTI (urinary tract infection) Code(s): N39.0 - URINARY TRACT INFECTION, SITE NOT SPECIFIED Qualifiers: Urinary tract infection type: site unspecified Hematuria presence: without hematuria Qualified Code(s): N39.0 - Urinary tract infection, site not specified (3) Renal insufficiency Code(s): N28.9 - DISORDER OF KIDNEY AND URETER, UNSPECIFIED
[2018-04-27] MEDS: PREGABALIN 100 MG CAPSULE PO SCH ×2 (13:35→20:59)
[2018-04-27] MEDS ORDERED: IBUPROFEN 400 MG TABLET (FP) PO PRN (15:11)
--- NOTE | 2018-04-27 15:15 | CON.CARD ---
Consult Consult Specialty:: Cardiology Referred by:: Lupe Reason for Consultation:: abnormal EKG - History of Present Illness Chief Complaint: UTI History of Present Illness: 72M h/o DVT, UTI, spinal fusion p/w posible sepsis from assisted living facility. Noted to have leukocytosis, trop 0.08->0.07. UA c/w UTI. Received IV abx. Noted to have lower extremity edema, yesterday received lasix 40 mg IV x 1. Feels better today, no dyspnea, chest pain, palps, dizziness, lightheadedness or edema currently. 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 History of Recent Travel: No Home Medications - Allergies Allergies/Adverse Reactions: Allergies Allergy/AdvReac Type Severity Reaction Status Date / Time No Known Allergies Allergy Verified 06/13/17 18:45 - Home Medications Home Medications: Ambulatory Orders Pregabalin [Lyrica] 250 mg PO DAILY 06/14/17 Meloxicam 15 mg PO DAILY 04/26/18 Oxycodone HCl/Acetaminophen [Percocet 10-325 mg Tablet] 1 each PO QID 04/26/18 Silodosin [Rapaflo] 8 mg PO DAILY 04/26/18 Family Disease History - Family Disease History Family History: Unremarkable Review of Systems - Review of Systems Constitutional: reports: No Symptoms Eyes: reports: No Symptoms HENT: reports: No Symptoms Neck: reports: No Symptoms Cardiovascular: reports: No Symptoms Respiratory: reports: No Symptoms Gastrointestinal: reports: No Symptoms Genitourinary: reports: No Symptoms Musculoskeletal: reports: No Symptoms Integumentary: reports: No Symptoms Neurological: reports: No Symptoms Endocrine: reports: No Symptoms Hematology/Lymphatic: reports: No Symptoms Psychiatric: reports: No Symptoms Vital Signs: Vital Signs Temperature 98.7 F 04/27/18 14:00 Pulse Rate 56 L 04/27/18 14:00 Respiratory Rate 20 04/27/18 14:00 Blood Pressure 143/99 04/27/18 14:00 O2 Sat by Pulse Oximetry (%) 95 04/27/18 09:00 Constitutional: Yes: Well Nourished, No Distress, Calm Eyes: Yes: Conjunctiva Clear, EOM Intact HENT: Yes: Atraumatic, Normocephalic Neck: Yes: Supple, Trachea Midline Respiratory: Yes: Regular, CTA Bilaterally Gastrointestinal: Yes: Normal Bowel Sounds, Soft Cardiovascular: Yes: Regular Rate and Rhythm JVD: No Carotid Bruit: No Heart Sounds: Yes: S1, S2 Musculoskeletal: No: Back Pain Extremities: No: Cold Edema: No Peripheral Pulses WNL: No Peripheral Pulses: 2+ Left Carotid, 2+ Right Carotid, 2+ Left Doralis Pedis, 2+ Right Dorsalis Pedis Integumentary: No: Jaundice Neurological: Yes: Alert, Oriented Psychiatric: Yes: Alert, Oriented - Other Data Labs, Other Data: CBC, BMP 04/27/18 06:28 04/27/18 06:28 INR, PTT INR 1.23 (0.83-1.09) H 04/26/18 02:16 Assessment/Plan EKG: sinus, low voltage, LAD echo 04/2018 EF 50-55%, RV nl size and function, LA borderline dilated, tr MR, mild AR Abnormal EKG - similar compared to prior however on more recent EKG QRS narrower and there is significant artifact - echo unremarkable, no further cardiac testing at this point Sepsis, UTI - abx per ID s/p laminectomy, low back pain - manage per primary
--- NOTE | 2018-04-27 15:56 | ECHO ---
Name: SHANNON KAUR Exam:Adult Echocardiogram Study Date: 04/27/2018 03:23 PM Age: 72 yrs Reason For Study: Abnormal Ekg Height: 77 in Weight: 230 lb BSA: 2.4 m2 MMode/2D Measurements & Calculations IVSd: 2.2 cm LA dimension: 3.9 cm LVIDd: 5.5 cm LVIDs: 3.4 cm LVPWd: 1.0 cm EDV(Teich): 147.3 ml LVOT diam: 2.3 cm ESV(Teich): 48.6 ml Doppler Measurements & Calculations MV E max ryley: 80.5 cm/sec AI P1/2t: 526.8 msec MV A max ryley: 76.2 cm/sec MV E/A: 1.1 AI max ryley: 360.5 cm/sec Med Peak E' Ryley: 10.3 cm/sec AI max P.0 mmHg Med E/e': 7.8 Lat Peak E' Ryley: 9.9 cm/sec AI dec slope: 200.5 cm/sec2 Lat E/e': 8.1 Left Ventricle Ejection Fraction = 50-55%. Left Ventricular Filling pattern is normal for age. Right Ventricle The right ventricle is normal in size and function. Atria The left atrium is borderline dilated. Mitral Valve The mitral valve is normal in structure and function. There is no mitral valve stenosis. There is tra ce mitral regurgitation. Tricuspid Valve The tricuspid valve is normal in structure and function. There is trace tricuspid regurgitation. Aortic Valve The aortic valve opens well. No hemodynamically significant valvular aortic stenosis. Mild aortic regurgitation. Pulmonic Valve The pulmonic valve is not well seen, but is grossly normal. There is no pulmonic valvular stenosis. T here is no pulmonic valvular regurgitation. Great Vessels The aortic root is normal size. Pericardium/Pleura There is no pericardial effusion. Interpretation Summary Ejection Fraction = 50-55%. The right ventricle is normal in size and function. The left atrium is borderline dilated. There is trace mitral regurgitation. Mild aortic regurgitation. There is no pericardial effusion. MD Mullins *Lexii 04/27/2018 03:55 PM
[2018-04-28] MEDS ORDERED: PIPERACILLIN/TAZOBACTAM 3.375 GM VIAL IVPB ONE ×2 (01:06→08:04)
[2018-04-28] MEDS ORDERED: DEXTROSE 5%-WATER - 50 ML IVPB ONE ×2 (01:06→08:04)
[2018-04-28] MEDS: PIPERACILLIN/TAZOB 3.375 GM 3.375 GM in DEXTROSE 5%-WATER - 50 ML IVPB SCH ×2 (02:00→09:50)
[2018-04-28] MEDS: PREGABALIN 100 MG CAPSULE PO SCH ×2 (05:08→14:07)
[2018-04-28 05:21] VITALS: TEMP 97.9
[2018-04-28 08:07] LABS: BASO % 0.4 % (0-2.0); EOS % 1.5 % (0-4.5); HEMATOCRIT 37.9 % (35.4-49); HEMOGLOBIN 12.7 GM/dL (11.7-16.9); LYMPH % 18.8 % (8-40); MCH 31.6 pg (25.7-33.7); MCHC 33.6 g/dl (32.0-35.9); MEAN CELL VOLUME 94.2 fl (80-96); MEAN PLT VOLUME 8.1 fl (7.5-11.1); MONO % 9.6 % (3.8-10.2); NEUT % 69.7 % (42.8-82.8); PLATELET COUNT 157 K/MM3 (134-434); RBC 4.02 M/mm3 (4.00-5.60); WHITE BLOOD COUNT 5.8 K/mm3 (4.0-10.0)
[2018-04-28 08:54] LABS: ALBUMIN 3.1 g/dl (3.4-5.0); ALK PHOS 82 U/L (45-117); ANION GAP 9 MMOL/L (8-16); BILIRUBIN,TOTAL 0.6 mg/dL (0.2-1); BLOOD UREA NITROGEN 12 mg/dL (7-18); CALCIUM 8.6 mg/dL (8.5-10.1); CHLORIDE 108 mmol/L (98-107); CO2 23 mmol/L (21-32); CREATININE 1.1 mg/dL (0.55-1.3); GLUCOSE,RANDOM 122 mg/dL (74-106); POTASSIUM 3.8 mmol/L (3.5-5.1); SGOT/AST 24 U/L (15-37); SGPT/ALT 21 U/L (13-61); SODIUM 139 mmol/L (136-145); TOT PROT 6.5 g/dl (6.4-8.2)
[2018-04-28] MEDS: PANTOPRAZOLE 40 MG TABLET (FP) PO SCH (09:50)
[2018-04-28] MEDS: DEXTROSE 5%-0.45% SALINE 1,000 ML IV SCH (09:50)
--- NOTE | 2018-04-28 11:31 | PN ---
Progress Note, Physician History of Present Illness: Awake, alert Seated in bed No complaints Deneis dysuria/ hematuria No fever/ chills - Current Medication List Current Medications: Active Medications Acetaminophen (Ofirmev Injection -) 1,000 mg IVPB Q6H PRN PRN Reason: PAIN 1-3 Last Admin: 04/26/18 15:00 Dose: 1,000 mg Dextrose/Sodium Chloride (D5-1/2ns -) 1,000 mls @ 100 mls/hr IV ASDIR AIYANA Last Admin: 04/28/18 09:50 Dose: 100 mls/hr Piperacillin Sod/Tazobactam (Sod 3.375 gm/ Dextrose) 50 mls @ 100 mls/hr IVPB Q8H-IV AIYANA; Protocol Last Admin: 04/28/18 09:50 Dose: 100 mls/hr Ibuprofen (Motrin -) 400 mg PO Q6H PRN PRN Reason: PAIN 4-6 Pantoprazole Sodium (Protonix -) 40 mg PO DAILY AIYANA Last Admin: 04/28/18 09:50 Dose: 40 mg Pregabalin (Lyrica -) 200 mg PO TID AIYANA Last Admin: 04/28/18 05:08 Dose: 200 mg - Objective Vital Signs: Vital Signs Temperature 97.9 F 04/28/18 05:00 Pulse Rate 50 L 04/28/18 05:00 Respiratory Rate 20 04/28/18 05:00 Blood Pressure 124/67 04/28/18 05:00 O2 Sat by Pulse Oximetry (%) 95 04/27/18 21:00 Constitutional: Yes: No Distress Eyes: Yes: Conjunctiva Clear Cardiovascular: Yes: Regular Rate and Rhythm, S1, S2 Respiratory: Yes: CTA Bilaterally Gastrointestinal: Yes: Normal Bowel Sounds, Soft. No: Tenderness Edema: Yes Labs: CBC, BMP 04/28/18 05:50 04/28/18 05:50 INR, PTT INR 1.23 (0.83-1.09) H 04/26/18 02:16 Assessment/Plan E coli UTI Fever/ leukocytosis- resolved Substitute keflex 500mg po bid x7d
--- NOTE | 2018-04-28 11:50 | DS ---
Physical Examination Vital Signs: Vital Signs Temperature 97.9 F 04/28/18 05:00 Pulse Rate 50 L 04/28/18 05:00 Respiratory Rate 20 04/28/18 05:00 Blood Pressure 124/67 04/28/18 05:00 O2 Sat by Pulse Oximetry (%) 95 04/27/18 21:00 Findings/Remarks: year old male with a history of DVT, UTI, Spinal Fusion who presents for evaluation of possible sepsis from his assisted living facility. Differential includes but is not limited to: Sepsis, UTI, Infectious, metabolic derangement. Given the patient's history and physical exam, it is likely the patient is septic due to a uti. We will obtain a cbc, cmp, troponin, lactate, ua, urine culture, blood culture, ekg, chest plain film to evaluate further. We will treat with iv fluids, tylenol, vanc, zosyn and continue to monitor and reassess while here in the ED. The patient will likely require admission for further management. History Source: Patient, Family Member, Medical R #Sepsis/ Complicated UTI c/w urinary bladder outlet obstruction ID consult -completed IV will follow out patient with Keflex 500 bid for 7 days Urology consult out patient #B/L pitting edema-on admission edema improved CXR no HF / atelectasis at bases # LBP/ S/p lumbar and thoracic laminectomy total of 5 surgeries continue Baclofen 10 mg daily Lyrica TID Constitutional: Yes: Well Nourished, No Distress, Calm, Obese Eyes: Yes: Conjunctiva Clear, EOM Intact HENT: Yes: Atraumatic, Normocephalic Neck: Yes: Supple, Trachea Midline Cardiovascular: Yes: Regular Rate and Rhythm Respiratory: Yes: Regular, Diminished (at bases). No: Accessory Muscle Use, Cough, Dullness, Mechanically Ventilated, On Nasal O2 Gastrointestinal: Yes: Abdomen, Obese ...Rectal Exam: Yes: Deferred Renal/: Yes: WNL Breast(s): Yes: WNL Musculoskeletal: Yes: Muscle Weakness (lower extremities) Extremities: No: Deformity Edema: Yes Edema: LLE: 1+, RLE: 1+ Peripheral Pulses WNL: Yes Integumentary: Yes: WNL Neurological: Yes: Pre-Existing Deficit, Unsteady Gait Psychiatric: Yes: Alert, Oriented Labs: CBC, BMP 04/28/18 05:50 04/28/18 05:50 Discharge Summary Reason For Visit: UTI SEPSIS Current Active Problems Radicular pain of both lower extremities (Acute) Renal insufficiency (Acute) Sepsis (Acute) UTI (urinary tract infection) (Acute) Condition: Improved - Instructions Referrals: Ronaldo Sanabria [Primary Care Provider] - Disposition: HOME - Home Medications Comprehensive Discharge Medication List: Ambulatory Orders Pregabalin [Lyrica] 250 mg PO DAILY 06/14/17 Meloxicam 15 mg PO DAILY 04/26/18 Oxycodone HCl/Acetaminophen [Percocet 10-325 mg Tablet] 1 each PO QID 04/26/18 Silodosin [Rapaflo] 8 mg PO DAILY 04/26/18 keflex 500 BID for 7 days follow up with urology Dr Garcia follow up with Neurosurgery @ [facility]
[2018-04-28] MEDS ORDERED: CEPHALEXIN MONOHYDRATE 500 MG CAPSULE (UD) PO SCH (12:00)
[2018-04-28 12:25] VITALS: BP 113/74; PULSE 58
--- NOTE | 2018-04-28 12:25 | PN ---
Progress Note (short form) - Note Progress Note: Consult Consult Specialty:: Cardiology Referred by:: Lupe Reason for Consultation:: abnormal EKG - History of Present Illness Chief Complaint: UTI s: feels better today, wants to go home. no chest pain, palps, dizziness, lightheadedness Vital Signs: Vital Signs Period Temp Pulse Resp BP Sys/Carr Pulse Ox Last 24 Hr 97.7 F-98.7 F 50-59 17-20 123-143/63-99 95 Constitutional: Yes: Well Nourished, No Distress, Calm Eyes: Yes: Conjunctiva Clear, EOM Intact HENT: Yes: Atraumatic, Normocephalic Neck: Yes: Supple, Trachea Midline Respiratory: Yes: Regular, CTA Bilaterally Gastrointestinal: Yes: Normal Bowel Sounds, Soft Cardiovascular: Yes: Regular Rate and Rhythm JVD: No Carotid Bruit: No Heart Sounds: Yes: S1, S2 Musculoskeletal: No: Back Pain Extremities: No: Cold Edema: No Peripheral Pulses WNL: Yes Peripheral Pulses: 2+ Left Carotid, 2+ Right Carotid, 2+ Left Doralis Pedis, 2+ Right Dorsalis Pedis Integumentary: No: Jaundice Neurological: Yes: Alert, Oriented Psychiatric: Yes: Alert, Oriented Assessment/Plan EKG: sinus, low voltage, LAD echo 04/2018 EF 50-55%, RV nl size and function, LA borderline dilated, tr MR, mild AR tele: sinus, PVCs Abnormal EKG - similar compared to prior however on more recent EKG QRS narrower and there is significant artifact - echo unremarkable, no further cardiac testing Sepsis, UTI - abx per ID, primary s/p laminectomy, low back pain - manage per primary
== END 2018-04-28 17:31 | disposition home or self-care (01) | DRG 872 ==
LOC: JER 01:31 → JERBED 05:49 → J4W 04-27 01:03
PROVIDERS: ADMIT Family Medicine; ATTEND Family Medicine
DX: A41.9 Sepsis, unspecified organism (principal); N39.0 Urinary tract infection, site not specified; J98.11 Atelectasis; N28.9 Disorder of kidney and ureter, unspecified; N40.1 Benign prostatic hyperplasia with lower urinary tract symptoms; R33.8 Other retention of urine; M54.5 Low back pain; M48.00 Spinal stenosis, site unspecified; E66.9 Obesity, unspecified; Z68.27 Body mass index [BMI] 27.0-27.9, adult; N13.9 Obstructive and reflux uropathy, unspecified; D72.829 Elevated white blood cell count, unspecified; G62.9 Polyneuropathy, unspecified; R94.31 Abnormal electrocardiogram [ECG] [EKG]; B96.20 Unspecified Escherichia coli [E. coli] as the cause of diseases classified elsewhere; R26.81 Unsteadiness on feet; Z98.890 Other specified postprocedural states; Z86.718 Personal history of other venous thrombosis and embolism
CPT/HCPCS: 36415; 71045-TC-FY; 76775-TC; 76856-TC; 80048; 80053; 81003; 81015; 82803; 83605; 84484; 85025; 85027; 85610; 85730; 87040; 87086; 87186; 93005; 93010; 93306-TC; 97161-GP; 99285-25; G0480; J0131; J7030

== ENCOUNTER 2018-06-06 16:20 | Inpatient (IN) | payer OTHER ==
--- NOTE | 2018-06-06 17:01 | PDOC ---
History of Present Illness - General Chief Complaint: Urinary Problem Stated Complaint: REF BY DOCTOR - History of Present Illness Initial Comments: The pt is a 73M w/ a history of spinal stenosis s/p surgery x5, chronic LLE weakness/decreased sensation, urinary incontinence, and UTIs presents for evaluation of a UTI for the last 4-5 weeks that has been refractory to outpatient antibiotics. Denies dysuria/hematuria. The patient does not recall the most recent antibiotic that he was taking. Reports fever yesterday, Tm 102. Denies fever today. Urology: Dr. Garcia PCP: Dr. Sanabria 06/06/18 17:16 Past History - Past Medical History Allergies/Adverse Reactions: Allergies Allergy/AdvReac Type Severity Reaction Status Date / Time No Known Allergies Allergy Verified 06/06/18 16:38 Home Medications: Ambulatory Orders Pregabalin [Lyrica] 250 mg PO DAILY 06/14/17 Oxycodone HCl/Acetaminophen [Percocet 10-325 mg Tablet] 1 each PO QID 04/26/18 Anemia: No Asthma: No Cancer: No Cardiac Disorders: No CVA: No COPD: No CHF: No Dementia: No Diabetes: No GI Disorders: No Disorders: No HTN: No Hypercholesterolemia: No Liver Disease: No Seizures: No Thyroid Disease: No - Surgical History Abdominal Surgery: No Appendectomy: No Cardiac Surgery: No Cholecystectomy: No Lung Surgery: No Neurologic Surgery: Yes (lumbar back) Orthopedic Surgery: Yes (Spinal Fusion with Instumentation 01/2016-developed DVT RLE post op) - Immunization History Td Vaccination: No TDAP Vaccination: No Immunization Up to Date: Yes - Suicide/Smoking/Psychosocial Hx Smoking History: Never smoked Have you smoked in the past 12 months: No Information on smoking cessation initiated: No Hx Alcohol Use: No Drug/Substance Use Hx: No Substance Use Type: Alcohol Hx Substance Use Treatment: No Review of Systems - Review of Systems Able to Perform ROS?: Yes Comments:: GENERAL/CONSTITUTIONAL: No weakness HEAD, EYES, EARS, NOSE AND THROAT: No change in vision. No ear pain or discharge. No sore throat CARDIOVASCULAR: No chest pain or shortness of breath RESPIRATORY: Denies cough, hemoptysis GASTROINTESTINAL: No nausea, vomiting, diarrhea or constipation GENITOURINARY: per HPI MUSCULOSKELETAL: +chronic pain SKIN: Chronic LLE foot wound w/o recent change NEUROLOGIC: No headache, vertigo, loss of consciousness, or change in strength/ sensation ENDOCRINE: No increased thirst. No abnormal weight change HEMATOLOGIC/LYMPHATIC: No anemia, easy bleeding, or history of blood clots ALLERGIC/IMMUNOLOGIC: No hives or skin allergy 06/06/18 17:01 Is the patient limited Korean proficient: No *Physical Exam - Vital Signs Last Vital Signs Temp Pulse Resp BP Pulse Ox 62 16 112/62 100 06/06/18 16:30 06/06/18 16:30 06/06/18 16:30 06/06/18 16:30 - Physical Exam Comments: GENERAL: Awake, alert, and fully oriented, in no acute distress HEAD: No signs of trauma, normocephalic, atraumatic EYES: PERRLA, EOMI, sclera anicteric, conjunctiva clear ENT: Hearing grossly normal, nares patent, oropharynx clear without exudates. Moist mucosa LUNGS: No distress, speaks full sentences, clear to auscultation bilaterally HEART: Regular rate and rhythm, normal S1 and S2, no murmurs appreciated, peripheral pulses normal and equal bilaterally ABDOMEN: Soft, nontender, normoactive bowel sounds. No guarding, no rebound. No masses EXTREMITIES : LLE weakness (4/5), otherwise BUE/RLE 5/5 strength NEUROLOGICAL: Cranial nerves II through XII grossly intact. Normal speech, LLE decreased sensation to light touch SKIN: Warm, Dry 06/06/18 17:01 Moderate Sedation - Procedure Monitoring Vital Signs: Procedure Monitoring Vital Signs Temperature Pulse Rate 62 06/06/18 16:30 Respiratory Rate 16 06/06/18 16:30 Blood Pressure 112/62 06/06/18 16:30 O2 Sat by Pulse Oximetry (%) 100 06/06/18 16:30 ED Treatment Course - LABORATORY CBC & Chemistry Diagram: 06/07/18 07:00 06/07/18 07:00 Medical Decision Making - Medical Decision Making The pt is a 73M w/ a history of spinal stenosis s/p surgery, urinary incontinence, and recurrent UTIs who presents for evaluation of UTI which failed outpatient therapy ED Course CMP, CBC, UA, UCx ECG CXR 06/06/18 17:18 Leukocytosis to 14 Lytes wnl No anemia No SILVIA LFTs wnl UA w/ evidence of UTI -Will give Rocephin 1g IV 06/06/18 18:26 Dispo: Admit for IV abx *DC/Admit/Observation/Transfer Diagnosis at time of Disposition: S/P lumbar laminectomy UTI (urinary tract infection) Qualifiers: Urinary tract infection type: site unspecified Hematuria presence: without hematuria Qualified Code(s): N39.0 - Urinary tract infection, site not specified - Discharge Dispostion Condition at time of disposition: Good Decision to Admit order: Yes - Referrals - Patient Instructions - Post Discharge Activity
--- NOTE | 2018-06-06 17:14 | PDOC ---
Attending Attestation - HPI HPI: 06/06/18 17:23 The patient is a 73 year old male, with a significant past medical history of UTI and incontinence, who presents to the emergency department with complaint of chronic UTI for a few weeks with a fever yesterday. He states his urine continues to have infection despite antibiotics and presents for broad spectrum Abx. The patient denies chest pain, shortness of breath, headache and dizziness. The patient denies fever, chills, nausea, vomit, diarrhea and constipation. The patient denies hematuria. Allergies: NKDA PCP - Dr. Perez Urology - Dr. Garcia - Physicial Exam PE: 06/06/18 17:23 GENERAL: The patient is in no acute distress. HEAD: Normal with no signs of trauma. EYES: PERRLA, EOMI, sclera anicteric, conjunctiva clear. ENT: Ears normal, nares patent, oropharynx clear without exudates. Moist mucous membranes. NECK: Normal range of motion, supple without lymphadenopathy, JVD, or masses. LUNGS: Breath sounds equal, clear to auscultation bilaterally. No wheezes, and no crackles. HEART:Regular rate and rhythm, normal S1 and S2 without murmur, rub or gallop. ABDOMEN: Soft, nontender, normoactive bowel sounds. No guarding, no rebound. No masses palpable. EXTREMITIES: Normal range of motion, no edema. No clubbing or cyanosis. No erythema, or tenderness. NEUROLOGICAL: Cranial nerves II through XII grossly intact. Normal speech. No focal neurological deficits. MUSCULOSKELETAL: Back non-tender to palpation, no CVA tenderness SKIN: Warm, Dry, normal turgor, no rashes or lesions noted. - Medical Decision Making 06/06/18 17:24 Documentation prepared by Lory Zhao, acting as medical driver for Danya Birch MD <Lory Zhao - Last Filed: 06/06/18 17:23> - Resident Resident Name: Terrance Wilson - ED Attending Attestation I have performed the following: I have examined & evaluated the patient, The case was reviewed & discussed with the resident, I agree w/resident's findings & plan, Exceptions are as noted - Medical Decision Making 06/06/18 18:26 EKG - Twelve-lead EKG was performed and reviewed by me. There is normal sinus rhythm with a normal rate. The axis is normal. The intervals are normal. There are no ST or T wave abnormalities. Impression: Normal twelve-lead EKG 73 yo M presenting for admission Pt has been giving urine every week for the past month to be assessed by his Urologist with adjustments in his antibiotics Pt reports temp 102 this morning Currently feels well Labs reveal parker sensitive urine from Apr 2018 06/06/18 18:29 Laboratory Tests 06/06/18 06/06/18 06/06/18 17:30 17:30 17:50 WBC 14.8 H Hgb 13.6 Hct 39.6 Plt Count 214 D BUN 18 Creatinine 1.3 Urine Blood 1+ H Urine Nitrite Positive Ur Leukocyte Esterase 3+ H Urine WBC (Auto) 902 Urine RBC (Auto) 19 Urine Yeast Many Ceftriaxone ordered (E coli was sensitive to this previously) Will plan to admit <Danya Birch - Last Filed: 06/07/18 14:54>
[2018-06-06 17:58] LABS: BASO % 0.3 % (0-2.0); EOS % 0.3 % (0-4.5); HEMATOCRIT 39.6 % (35.4-49); HEMOGLOBIN 13.6 GM/dL (11.7-16.9); LYMPH % 13.1 % (8-40); MCH 32.7 pg (25.7-33.7); MCHC 34.3 g/dl (32.0-35.9); MEAN CELL VOLUME 95.4 fl (80-96); MEAN PLT VOLUME 7.7 fl (7.5-11.1); NEUT % 76.3 % (42.8-82.8); PLATELET COUNT 214 K/MM3 (134-434); RBC 4.15 M/mm3 (4.00-5.60); RDW 13.3 % (11.9-15.9); WHITE BLOOD COUNT 14.8 K/mm3 (4.0-10.0)
[2018-06-06 18:20] LABS: URINE APPEARANCE TURBID; URINE BILIRUBIN NEGATIVE (<2.0 mg/dL); URINE COLOR YELLOW; URINE GLUCOSE (UA) NEGATIVE (NEGATIVE); URINE KETONE NEGATIVE (NEGATIVE); URINE LEUK ESTERASE 3+ (NEGATIVE); URINE NITRITE POSITIVE (NEGATIVE); URINE PROTEIN 2+ (NEGATIVE); URINE UROBILINOGEN NEGATIVE mg/dL (0.2-1.0)
[2018-06-06 18:23] LABS: ALBUMIN 3.3 g/dl (3.4-5.0); ALK PHOS 93 U/L (45-117); ANION GAP 10 MMOL/L (8-16); BILIRUBIN,TOTAL 0.7 mg/dL (0.2-1); BLOOD UREA NITROGEN 18 mg/dL (7-18); CALCIUM 8.6 mg/dL (8.5-10.1); CHLORIDE 103 mmol/L (98-107); CO2 24 mmol/L (21-32); CREATININE 1.3 mg/dL (0.55-1.3); GLUCOSE,RANDOM 111 mg/dL (74-106); SGOT/AST 23 U/L (15-37); SGPT/ALT 28 U/L (13-61); SODIUM 138 mmol/L (136-145); TOT PROT 7.5 g/dl (6.4-8.2)
[2018-06-06 18:23] LABS: YEAST MANY
[2018-06-06] MEDS ORDERED: CEFTRIAXONE 1 GM/50 ML BAG ONE (18:52)
[2018-06-06] MEDS ORDERED: PANTOPRAZOLE 40 MG TABLET (FP) PO ONE (19:12)
[2018-06-06] MEDS ORDERED: PANTOPRAZOLE 40 MG TABLET (FP) ONE (19:39)
[2018-06-06] MEDS ORDERED: oxyCODONE HCL 5 MG TABLET ONE (19:40)
[2018-06-06] MEDS: oxyCODONE HCL 5 MG TABLET PO PRN (19:50)
[2018-06-06] MEDS ORDERED: PREGABALIN 50 MG CAPSULE ONE (19:51)
[2018-06-06] MEDS ORDERED: PREGABALIN 100 MG CAPSULE ONE (19:52)
[2018-06-06] MEDS: PREGABALIN PO SCH (19:54)
[2018-06-06] MEDS: NAPROXEN 500 MG TABLET (FP) PO SCH ×2 (21:42→23:23)
[2018-06-06] MEDS: DOCUSATE SODIUM 100 MG CAPSULE (FP) PO SCH (21:42)
[2018-06-07 01:10] VITALS: BMI 36.3
[2018-06-07] MEDS: oxyCODONE HCL 5 MG TABLET PO PRN (03:09)
[2018-06-07] MEDS ORDERED: PT OWN MED DRAWER 7, Y5N ONE ×4 (06:43→22:40)
[2018-06-07 08:19] LABS: HEMATOCRIT 35.3 % (35.4-49); HEMOGLOBIN 12.3 GM/dL (11.7-16.9); MCH 32.4 pg (25.7-33.7); MCHC 34.9 g/dl (32.0-35.9); MEAN PLT VOLUME 7.9 fl (7.5-11.1); PLATELET COUNT 210 K/MM3 (134-434); RDW 13.1 % (11.9-15.9); WHITE BLOOD COUNT 8.6 K/mm3 (4.0-10.0)
[2018-06-07 08:30] LABS: ANION GAP 6 MMOL/L (8-16); BLOOD UREA NITROGEN 19 mg/dL (7-18); CALCIUM 8.4 mg/dL (8.5-10.1); CHLORIDE 106 mmol/L (98-107); CO2 26 mmol/L (21-32); CREATININE 1.2 mg/dL (0.55-1.3); GLUCOSE,RANDOM 99 mg/dL (74-106); POTASSIUM 3.9 mmol/L (3.5-5.1); SODIUM 138 mmol/L (136-145)
[2018-06-07] MEDS ORDERED: PREGABALIN 100 MG CAPSULE ONE ×2 (09:37→09:42)
[2018-06-07] MEDS ORDERED: PREGABALIN 50 MG CAPSULE ONE ×2 (09:37→09:42)
[2018-06-07] MEDS: DOCUSATE SODIUM 100 MG CAPSULE (FP) PO SCH ×2 (09:52→22:48)
[2018-06-07] MEDS: NAPROXEN 500 MG TABLET (FP) PO SCH ×2 (09:52→22:48)
[2018-06-07] MEDS: TAMSULOSIN HCL 0.4 MG CAP PO SCH (09:52)
[2018-06-07] MEDS: PREGABALIN PO SCH (09:52)
[2018-06-07] MEDS: POLYETHYLENE GLYCOL 3350 119 GM BTL PO SCH (09:53)
[2018-06-07] MEDS ORDERED: PREGABALIN 100 MG CAPSULE PO SCH (10:00)
[2018-06-07] MEDS ORDERED: PATIENT'S OWN MEDICATION (NON-FORMULARY) (Silodosin [Rapaflo] 8 MG) PO SCH (10:00)
--- NOTE | 2018-06-07 11:40 | HP ---
Admitting History and Physical - Primary Care Physician PCP: Bessy Andrade I - Admission History Source: Patient Limitations to Obtaining History: No Limitations - Past Medical History DERMATOLOGIST: Yes: Other (spinal stenosis) Renal/: Yes: BPH, Other (urinary retention) Musculoskeletal: Yes: Chronic low back pain, Other (multiple spine surgery ( 5)) - Past Surgical History Past Surgical History: Yes: Laminectomy (T9 05/26/17 total of 5 surgical intervention) - Advance Directives Advance Directives: Yes: Living Will - Smoking History Smoking history: Never smoked Have you smoked in the past 12 months: No - Alcohol/Substance Use Hx Alcohol Use: No History of Substance Use: reports: None - Social History ADL: Support Services 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 History of Recent Travel: No Home Medications - Allergies Allergies/Adverse Reactions: Allergies Allergy/AdvReac Type Severity Reaction Status Date / Time No Known Allergies Allergy Verified 06/06/18 16:38 - Home Medications Home Medications: Ambulatory Orders Pregabalin [Lyrica] 250 mg PO DAILY 06/14/17 Oxycodone HCl/Acetaminophen [Percocet 10-325 mg Tablet] 1 each PO QID 04/26/18 Review of Systems - Review of Systems Constitutional: reports: No Symptoms Eyes: reports: No Symptoms HENT: reports: No Symptoms Neck: reports: No Symptoms Cardiovascular: reports: No Symptoms Respiratory: reports: No Symptoms Gastrointestinal: reports: Other (obese) Genitourinary: reports: Dysuria Breasts: reports: No Symptoms Reported Musculoskeletal: reports: Back Pain Integumentary: reports: No Symptoms Neurological: reports: No Symptoms Endocrine: reports: No Symptoms Hematology/Lymphatic: reports: No Symptoms Physical Examination Vital Signs: Vital Signs Temperature 98.1 F 06/07/18 06:00 Pulse Rate 53 L 06/07/18 06:00 Respiratory Rate 17 06/06/18 21:00 Blood Pressure 96/59 L 06/07/18 06:00 O2 Sat by Pulse Oximetry (%) 94 L 06/06/18 21:00 Constitutional: Yes: Well Nourished, Calm Eyes: Yes: Conjunctiva Clear HENT: Yes: Atraumatic, Normocephalic Neck: Yes: Supple, Trachea Midline Cardiovascular: Yes: Regular Rate and Rhythm Respiratory: Yes: Regular, CTA Bilaterally Gastrointestinal: Yes: Normal Bowel Sounds, Abdomen, Obese ...Rectal Exam: Yes: Deferred Renal/: Yes: WNL Breast(s): Yes: WNL Musculoskeletal: Yes: Back Pain Extremities: Yes: WNL Edema: No Peripheral Pulses WNL: Yes Integumentary: Yes: WNL Neurological: Yes: Alert, Oriented ...Motor Strength: WNL Psychiatric: Yes: Alert, Oriented Labs: CBC, BMP 06/07/18 07:00 06/07/18 07:00 Problem List - Problems (1) UTI (urinary tract infection) Code(s): N39.0 - URINARY TRACT INFECTION, SITE NOT SPECIFIED Qualifiers: Urinary tract infection type: site unspecified Hematuria presence: without hematuria Qualified Code(s): N39.0 - Urinary tract infection, site not specified Assessment/Plan 73 y/o male found sitting in bed. Ax O X 3. PMHx includes multiple spinal surgeries. Admitted for broad spectrum antibiotics for recurrent utis. ID consult pending.
--- NOTE | 2018-06-07 14:15 | EKG ---
Test Reason : Blood Pressure : / mmHG Vent. Rate : 068 BPM Atrial Rate : 068 BPM P-R Int : 174 ms QRS Dur : 098 ms QT Int : 396 ms P-R-T Axes : 029 002 038 degrees QTc Int : 421 ms NORMAL SINUS RHYTHM NORMAL ECG WHEN COMPARED WITH ECG OF 26-APR-2018 02:17, QRS AXIS SHIFTED RIGHT Confirmed by CHAVA REECE MD ([id number]) on 06/07/2018 2:14:41 PM Referred By: Confirmed By:CHAVA REECE MD
--- NOTE | 2018-06-07 14:58 | PN ---
Progress Note (short form) - Note Progress Note: ID consult dictated imp/reccd fever suspected recurrent UTI continue ceftriaxone f/u cultures urology consult Problem List - Problems (1) Fever Code(s): R50.9 - FEVER, UNSPECIFIED (2) UTI (urinary tract infection) Code(s): N39.0 - URINARY TRACT INFECTION, SITE NOT SPECIFIED Qualifiers: Urinary tract infection type: site unspecified Hematuria presence: without hematuria Qualified Code(s): N39.0 - Urinary tract infection, site not specified
[2018-06-07] MEDS ORDERED: CEFTRIAXONE 1 GM in DEXTROSE 5%-WATER - 50 ML IVPB SCH (15:00)
--- NOTE | 2018-06-07 15:27 | CONS ---
INFECTIOUS DISEASE CONSULTATION DATE OF CONSULTATION: DATE OF DICTATION: 06/07/2018 REQUESTING PHYSICIAN: Bessy Andrade MD This is a 73-year-old man. 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 He was last in the hospital on April 26, 2018, when he was admitted with fevers and chills, and he was found to have an E. coli UTI. He reports that since his discharge then he has been on at least another 2 cycles of antibiotics given to him by his urologist. He has no idea what he is taking. He reports last night he had fever of 102 and was sent to the emergency room for evaluation and admitted. He reports chronic urinary incontinence. He denies dysuria. He wears a diaper. He is followed by Dr. Garcia who he has not seen since April. He is non-ambulatory and uses a walker. PAST MEDICAL HISTORY: Notable for peripheral neuropathy, spinal stenosis, BPH, urinary retention, E. coli UTI with E. coli urosepsis bacteremia which he had in May 2017. PAST SURGICAL HISTORY: Notable for a laminectomy and he has had 5 back surgeries. SOCIAL HISTORY: He lives at a shelter community for [facility]. There is no history of cigarette or substance use. ALLERGIES: He has no known drug allergies. MEDICATIONS AT HOME: Include Lyrica and Percocet. He recently finished a course of oral antibiotics over the weekend. He has no idea what he took. FAMILY HISTORY: Noncontributory. REVIEW OF SYSTEMS: He denies back pain or suprapubic pain. He has no dysuria or hematuria. PHYSICAL EXAMINATION: Vital Signs: T-max was 102 at home, here 100. Current temperature is 98.1. Pulse of 53, blood pressure 96/59, respiratory rate is 17, saturating 94% on room air. He weighs 139 kg. HEENT: He is normocephalic. His eyes are anicteric. Neck: Supple. Lungs: Clear to auscultation. Heart: Regular rate and rhythm. Abdomen: Soft, nontender. He has no suprapubic or CVA tenderness. Extremities: Without edema. LABORATORY DATA: White count yesterday was 14.8, today is 8.6; hemoglobin 12.3; platelets are 210. BUN is 19 and creatinine 1.2. Urinalysis has 3+ leukocyte esterase with 900 white cells. Last known culture is from April 26, in which he grew an E. coli. That was resistant to levofloxacin and ampicillin. Chest x-ray was done in the emergency room and showed no acute disease. Prior admission in April, he had a renal and bladder ultrasound that was notable for mild diffuse thickening of the urinary bladder and minimal fullness of the left renal pelvicalyceal system and the prostate was not visualized. In summary, this is a 73-year-old man with fever, probable urinary tract infection. Seems to have responded to ceftriaxone with normalization of his white count and resolution of fever. Would continue at this time. Would await urology evaluation by Dr. Garcia given the fact that the patient reports he has had repeated urinary tract infections since his discharge home. Further recommendations to follow. Anthony [id number] MTDD
[2018-06-07] MEDS ORDERED: cefTRIAXone SODIUM 1 GM VIAL ONE (18:01)
[2018-06-07] MEDS ORDERED: DEXTROSE 5%-WATER - 50 ML IVPB ONE (18:01)
[2018-06-07] MEDS ORDERED: CEFTRIAXONE 1,000 MG in DEXTROSE 5%-WATER - 50 ML IVPB ONE (18:31)
[2018-06-08] MEDS: oxyCODONE HCL 5 MG TABLET PO PRN ×2 (00:56→22:23)
[2018-06-08 07:22] LABS: BASO % 0.4 % (0-2.0); EOS % 1.4 % (0-4.5); HEMATOCRIT 37.4 % (35.4-49); HEMOGLOBIN 12.9 GM/dL (11.7-16.9); LYMPH % 15.9 % (8-40); MCH 32.1 pg (25.7-33.7); MCHC 34.4 g/dl (32.0-35.9); MEAN CELL VOLUME 93.3 fl (80-96); MEAN PLT VOLUME 7.6 fl (7.5-11.1); MONO % 10.1 % (3.8-10.2); NEUT % 72.2 % (42.8-82.8); PLATELET COUNT 245 K/MM3 (134-434); RBC 4.01 M/mm3 (4.00-5.60); RDW 13.5 % (11.9-15.9); WHITE BLOOD COUNT 7.4 K/mm3 (4.0-10.0)
[2018-06-08 07:50] LABS: ANION GAP 8 MMOL/L (8-16); BLOOD UREA NITROGEN 20 mg/dL (7-18); CALCIUM 8.5 mg/dL (8.5-10.1); CHLORIDE 108 mmol/L (98-107); CO2 24 mmol/L (21-32); GLUCOSE,RANDOM 110 mg/dL (74-106); POTASSIUM 4.2 mmol/L (3.5-5.1); SODIUM 140 mmol/L (136-145)
--- NOTE | 2018-06-08 09:44 | PN ---
Progress Note (short form) - Note Progress Note: no complaints other then incontinence Vital Signs Period Temp Pulse Resp BP Sys/Carr Pulse Ox Last 24 Hr 97.6 F-98.0 F 60-62 20-20 117-123/58-66 94 cor-rrr lungs clear abd soft,nt ext no edema CBC, BMP 06/08/18 06:10 06/08/18 06:10 Microbiology 06/06/18 17:50 Urine - Urine Clean Catch Urine Culture - Preliminary Presumptive Ps Aeruginosa Group D Strep Or Entero Coccus 06/06/18 18:03 Blood - Peripheral Venous Blood Culture - Preliminary NO GROWTH OBTAINED AFTER 24 HOURS, INCUBATION TO CONTINUE FOR 4 DAYS. 06/06/18 17:30 Blood - Peripheral Venous Blood Culture - Preliminary NO GROWTH OBTAINED AFTER 24 HOURS, INCUBATION TO CONTINUE FOR 4 DAYS. a/p fever resolved suspected recurrent UTI switch to zosyn f/u cultures d/w urology for ct scan abd/pelvis Problem List - Problems (1) Fever Code(s): R50.9 - FEVER, UNSPECIFIED (2) UTI (urinary tract infection) Code(s): N39.0 - URINARY TRACT INFECTION, SITE NOT SPECIFIED Qualifiers: Urinary tract infection type: site unspecified Hematuria presence: without hematuria Qualified Code(s): N39.0 - Urinary tract infection, site not specified
[2018-06-08] MEDS ORDERED: PREGABALIN 100 MG CAPSULE ONE (09:48)
[2018-06-08] MEDS ORDERED: PREGABALIN 50 MG CAPSULE ONE (09:48)
[2018-06-08] MEDS ORDERED: PIPERACILLIN/TAZOBACTAM 4.5 GM VIAL IVPB ONE ×2 (09:49→17:46)
[2018-06-08] MEDS ORDERED: DEXTROSE 5%-WATER 100 ML IVPB ONE ×2 (09:49→17:47)
--- NOTE | 2018-06-08 10:05 | CON.GU ---
Consult Consult Specialty:: Referred by:: medicine Reason for Consultation:: recurrent UTI, incontinence - History of Present Illness Chief Complaint: recurrent UTI, incontinence History of Present Illness: 73 year old male who lives in an assisted living home who has been suffering from recurrent UTIs. He has a history of a neurogenic bladder secondary to multiple back surgeries. 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 Cystoscopy at the time revealed mucopurulent urine. 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: Other (spinal stenosis) Renal/: Yes: BPH, Neurogenic Bladder, UTI, Other (urinary retention) Musculoskeletal: Yes: Chronic low back pain, Other (multiple spine surgery ( 5)) - Past Surgical History Past Surgical History: Yes: Laminectomy (T9 05/26/17 total of 5 surgical intervention) - Alcohol/Substance Use Hx Alcohol Use: No History of Substance Use: reports: None - Smoking History Smoking history: Never smoked Have you smoked in the past 12 months: No - Social History Usual Living Arrangement: Skilled Nursing ADL: Support Services 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 denies: Dysuria, Flank Pain Physical Exam- Vital Signs: Vital Signs Temperature 97.6 F 06/08/18 05:00 Pulse Rate 60 06/08/18 05:00 Respiratory Rate 20 06/07/18 21:00 Blood Pressure 123/66 06/08/18 05:00 O2 Sat by Pulse Oximetry (%) 94 L 06/07/18 21:00 Gastrointestinal: Yes: Soft Renal/: Yes: Incontinence. No: Bladder Distention, CVA Tenderness - Left, CVA Tenderness - Right, Hodge Present Labs: CBC, BMP 06/08/18 06:10 06/08/18 06:10 Problem List - Problems (1) Neurogenic bladder Code(s): N31.9 - NEUROMUSCULAR DYSFUNCTION OF BLADDER, UNSPECIFIED (2) UTI (urinary tract infection) Assessment/Plan: CT scan ordered to rule out intraabdomnial pathology If negative would consider a TURP. Although he is not obstructed, the prostate may be harboring bacteria and reinfecting his urine if there is no other source identified. vesicare for UUI Code(s): N39.0 - URINARY TRACT INFECTION, SITE NOT SPECIFIED Qualifiers: Urinary tract infection type: site unspecified Hematuria presence: without hematuria Qualified Code(s): N39.0 - Urinary tract infection, site not specified
[2018-06-08] MEDS: POLYETHYLENE GLYCOL 3350 119 GM BTL PO SCH ×2 (10:10→12:02)
[2018-06-08] MEDS: PREGABALIN PO SCH (10:10)
[2018-06-08] MEDS: DOCUSATE SODIUM 100 MG CAPSULE (FP) PO SCH ×3 (10:10→21:18)
[2018-06-08] MEDS: PIPERACILLIN/TAZOB 4.5 GM 4.5 GM in DEXTROSE 5%-WATER 100 ML IVPB SCH ×2 (10:10→17:50)
[2018-06-08] MEDS: NAPROXEN 500 MG TABLET (FP) PO SCH ×2 (10:10→21:18)
[2018-06-08] MEDS: TAMSULOSIN HCL 0.4 MG CAP PO SCH (10:10)
--- NOTE | 2018-06-08 10:45 | PN ---
Progress Note (short form) - Note Progress Note: 73 y/o male found sitting in bed, reading. Appears comfortable. Denies pain and burning on urination. States no BM yet. Vital Signs Period Temp Pulse Resp BP Sys/Carr Pulse Ox Last 24 Hr 97.6 F-98.0 F 60-62 20-20 117-123/58-66 94 CBC, BMP 06/08/18 06:10 06/08/18 06:10 HEENT- Normocephalic Neck-supple Lungs-CTAB Heart- S1/S2 Abd- obese, soft, nt - Urine yellow and clear Ext- No LE edema Active Medications Docusate Sodium (Colace -) 100 mg PO BID [facility] Last Admin: 06/08/18 10:10 Dose: Not Given Piperacillin Sod/Tazobactam (Sod 4.5 gm/ Dextrose) 100 mls @ 200 mls/hr IVPB Q8H-IV AIYANA; Protocol Last Admin: 06/08/18 10:10 Dose: 200 mls/hr Naproxen (Naprosyn -) 500 mg PO BID [facility] Last Admin: 06/08/18 10:10 Dose: 500 mg Oxycodone HCl (Roxicodone -) 10 mg PO Q6H PRN PRN Reason: PAIN LEVEL 6-10 Last Admin: 06/08/18 00:56 Dose: 10 mg Polyethylene Glycol (Miralax (For Daily Use) -) 17 gm PO DAILY [facility] Last Admin: 06/08/18 10:10 Dose: Not Given Pregabalin 200 mg/ Pregabalin (50 mg) 250 mg PO DAILY [facility] Last Admin: 06/08/18 10:10 Dose: 250 mg Solifenacin (Vesicare -) 10 mg PO DAILY [facility] Tamsulosin HCl (Flomax -) 0.8 mg PO DAILY@0830 [facility] Last Admin: 06/08/18 10:10 Dose: 0.8 mg #UTI Urology/ ID consults appreciated Continue IV antibiotics per ID Vesicare started CT scan of abdomen/ bladder to r/o intraabdominal pathology IF CT neg, consider TURP #Back pain Controlled Cont oxycodone/Naproxen Trend renal #Constipation Cont colace/miralax Increase fluid intake Problem List - Problems (1) UTI (urinary tract infection) Code(s): N39.0 - URINARY TRACT INFECTION, SITE NOT SPECIFIED Qualifiers: Urinary tract infection type: site unspecified Hematuria presence: without hematuria Qualified Code(s): N39.0 - Urinary tract infection, site not specified Problem List - Problems (1) UTI (urinary tract infection) Code(s): N39.0 - URINARY TRACT INFECTION, SITE NOT SPECIFIED Qualifiers: Urinary tract infection type: site unspecified Hematuria presence: without hematuria Qualified Code(s): N39.0 - Urinary tract infection, site not specified
[2018-06-08] MEDS: SOLIFENACIN SUCCINATE 5 MG TAB (FP) PO SCH (10:47)
[2018-06-08] MEDS ORDERED: PT OWN MED DRAWER 7, Y5N ONE (20:59)
[2018-06-09] MEDS ORDERED: PIPERACILLIN/TAZOBACTAM 4.5 GM VIAL IVPB ONE ×3 (00:54→17:02)
[2018-06-09] MEDS ORDERED: DEXTROSE 5%-WATER 100 ML IVPB ONE ×3 (00:54→17:02)
[2018-06-09] MEDS: PIPERACILLIN/TAZOB 4.5 GM 4.5 GM in DEXTROSE 5%-WATER 100 ML IVPB SCH ×3 (01:08→17:39)
[2018-06-09] MEDS: TAMSULOSIN HCL 0.4 MG CAP PO SCH (09:07)
[2018-06-09] MEDS ORDERED: PREGABALIN 50 MG CAPSULE ONE (09:16)
[2018-06-09] MEDS ORDERED: PREGABALIN 100 MG CAPSULE ONE (09:16)
[2018-06-09] MEDS: DOCUSATE SODIUM 100 MG CAPSULE (FP) PO SCH ×2 (09:19→21:32)
[2018-06-09] MEDS: PREGABALIN PO SCH (09:19)
[2018-06-09] MEDS: SOLIFENACIN SUCCINATE 5 MG TAB (FP) PO SCH (09:19)
[2018-06-09] MEDS ORDERED: PT OWN MED DRAWER 7, Y5N ONE ×2 (09:21→21:18)
[2018-06-09] MEDS: POLYETHYLENE GLYCOL 3350 119 GM BTL PO SCH ×3 (09:21→21:32)
[2018-06-09] MEDS: NAPROXEN 500 MG TABLET (FP) PO SCH ×2 (09:22→21:32)
[2018-06-09 09:23] LABS: BASO % 0.4 % (0-2.0); EOS % 1.7 % (0-4.5); HEMATOCRIT 38.9 % (35.4-49); HEMOGLOBIN 13.3 GM/dL (11.7-16.9); LYMPH % 18.2 % (8-40); MCH 31.9 pg (25.7-33.7); MCHC 34.2 g/dl (32.0-35.9); MEAN CELL VOLUME 93.3 fl (80-96); MEAN PLT VOLUME 7.6 fl (7.5-11.1); MONO % 5.9 % (3.8-10.2); NEUT % 73.8 % (42.8-82.8); PLATELET COUNT 272 K/MM3 (134-434); RBC 4.17 M/mm3 (4.00-5.60); RDW 13.3 % (11.9-15.9); WHITE BLOOD COUNT 7.2 K/mm3 (4.0-10.0)
[2018-06-09 10:06] LABS: ANION GAP 9 MMOL/L (8-16); BLOOD UREA NITROGEN 17 mg/dL (7-18); CALCIUM 8.8 mg/dL (8.5-10.1); CHLORIDE 105 mmol/L (98-107); CO2 25 mmol/L (21-32); CREATININE 1.1 mg/dL (0.55-1.3); GLUCOSE,RANDOM 160 mg/dL (74-106); POTASSIUM 4.3 mmol/L (3.5-5.1); SODIUM 140 mmol/L (136-145)
--- NOTE | 2018-06-09 11:31 | PN ---
Progress Note (short form) - Note Progress Note: Ct is without pathology. will discuss plan for TURP this upcoming week,. Problem List - Problems (1) Neurogenic bladder Code(s): N31.9 - NEUROMUSCULAR DYSFUNCTION OF BLADDER, UNSPECIFIED (2) UTI (urinary tract infection) Code(s): N39.0 - URINARY TRACT INFECTION, SITE NOT SPECIFIED Qualifiers: Urinary tract infection type: site unspecified Hematuria presence: without hematuria Qualified Code(s): N39.0 - Urinary tract infection, site not specified
[2018-06-09] MEDS ORDERED: MAGNESIUM CITRATE 300 ML BOTTLE PO ONE (16:00)
--- NOTE | 2018-06-09 21:59 | PN ---
Progress Note (short form) - Note Progress Note: sitting up in bed c/o of constipation voiding freely Vital Signs Period Temp Pulse Resp BP Sys/Carr Pulse Ox Last 24 Hr 97.3 F-97.9 F 60-69 18-20 109-124/49-65 94 neck supple heart s1/S2 lungs clear bilat abd soft / obese/ nontender ext no edema CBC, BMP 06/09/18 07:45 06/09/18 07:45 Microbiology 06/06/18 18:03 Blood - Peripheral Venous Blood Culture - Preliminary NO GROWTH OBTAINED AFTER 72 HOURS, INCUBATION TO CONTINUE FOR 2 DAYS. 06/06/18 17:30 Blood - Peripheral Venous Blood Culture - Preliminary NO GROWTH OBTAINED AFTER 72 HOURS, INCUBATION TO CONTINUE FOR 2 DAYS. 06/06/18 17:50 Urine - Urine Clean Catch Urine Culture - Final Pseudomonas Aeruginosa Enterococcus Faecalis Active Medications Docusate Sodium (Colace -) 100 mg PO BID [facility] Last Admin: 06/09/18 21:32 Dose: 100 mg Piperacillin Sod/Tazobactam (Sod 4.5 gm/ Dextrose) 100 mls @ 200 mls/hr IVPB Q8H-IV AIYANA; Protocol Last Admin: 06/09/18 17:39 Dose: 200 mls/hr Naproxen (Naprosyn -) 500 mg PO BID [facility] Last Admin: 06/09/18 21:32 Dose: 500 mg Oxycodone HCl (Roxicodone -) 10 mg PO Q6H PRN PRN Reason: PAIN LEVEL 6-10 Last Admin: 06/08/18 22:23 Dose: 10 mg Polyethylene Glycol (Miralax (For Daily Use) -) 17 gm PO BID [facility] Last Admin: 06/09/18 21:32 Dose: 17 grams Pregabalin 200 mg/ Pregabalin (50 mg) 250 mg PO DAILY [facility] Last Admin: 06/09/18 09:19 Dose: 250 mg Solifenacin (Vesicare -) 10 mg PO DAILY [facility] Last Admin: 06/09/18 09:19 Dose: 10 mg Tamsulosin HCl (Flomax -) 0.8 mg PO DAILY@0830 [facility] Last Admin: 06/09/18 09:07 Dose: 0.8 mg #recurrent UTI prostatitis ? recommendation for TURP will discuss with ID length of ABX tx patient requesting to go home and return for TURP
[2018-06-10] MEDS ORDERED: PIPERACILLIN/TAZOBACTAM 4.5 GM VIAL IVPB ONE ×2 (01:37→08:39)
[2018-06-10] MEDS ORDERED: DEXTROSE 5%-WATER 100 ML IVPB ONE ×2 (01:38→08:39)
[2018-06-10] MEDS: PIPERACILLIN/TAZOB 4.5 GM 4.5 GM in DEXTROSE 5%-WATER 100 ML IVPB SCH ×2 (01:48→09:03)
[2018-06-10] MEDS ORDERED: PREGABALIN 100 MG CAPSULE ONE (08:37)
[2018-06-10] MEDS ORDERED: PREGABALIN 50 MG CAPSULE ONE (08:37)
[2018-06-10 08:49] LABS: ANION GAP 7 MMOL/L (8-16); BLOOD UREA NITROGEN 16 mg/dL (7-18); CALCIUM 8.7 mg/dL (8.5-10.1); CHLORIDE 105 mmol/L (98-107); CO2 27 mmol/L (21-32); CREATININE 1.1 mg/dL (0.55-1.3); GLUCOSE,RANDOM 109 mg/dL (74-106); POTASSIUM 4.2 mmol/L (3.5-5.1); SODIUM 139 mmol/L (136-145)
[2018-06-10] MEDS: SOLIFENACIN SUCCINATE 5 MG TAB (FP) PO SCH (09:02)
[2018-06-10] MEDS: TAMSULOSIN HCL 0.4 MG CAP PO SCH (09:02)
[2018-06-10] MEDS: DOCUSATE SODIUM 100 MG CAPSULE (FP) PO SCH (09:02)
[2018-06-10] MEDS: PREGABALIN PO SCH (09:03)
[2018-06-10] MEDS: POLYETHYLENE GLYCOL 3350 119 GM BTL PO SCH (09:03)
[2018-06-10] MEDS ORDERED: PT OWN MED DRAWER 7, Y5N ONE (09:08)
[2018-06-10] MEDS: NAPROXEN 500 MG TABLET (FP) PO SCH (09:09)
--- NOTE | 2018-06-10 11:48 | PN ---
Progress Note (short form) - Note Progress Note: feels much improved Vital Signs Period Temp Pulse Resp BP Sys/Carr Pulse Ox Last 24 Hr 97.3 F-98.4 F 57-68 18-20 111-136/49-68 94 cor-rrr lungs clear abd soft,nt ext no edema CBC, BMP 06/09/18 07:45 06/10/18 07:00 Microbiology 06/06/18 18:03 Blood - Peripheral Venous Blood Culture - Preliminary NO GROWTH OBTAINED AFTER 72 HOURS, INCUBATION TO CONTINUE FOR 2 DAYS. 06/06/18 17:30 Blood - Peripheral Venous Blood Culture - Preliminary NO GROWTH OBTAINED AFTER 72 HOURS, INCUBATION TO CONTINUE FOR 2 DAYS. 06/06/18 17:50 Urine - Urine Clean Catch Urine Culture - Final Pseudomonas Aeruginosa Enterococcus Faecalis ct scan unremarkable a/p fever resolved suspected recurrent UTI continue zosyn repeat urine culture today plan for TURP Problem List - Problems (1) Fever Code(s): R50.9 - FEVER, UNSPECIFIED (2) UTI (urinary tract infection) Code(s): N39.0 - URINARY TRACT INFECTION, SITE NOT SPECIFIED Qualifiers: Urinary tract infection type: site unspecified Hematuria presence: without hematuria Qualified Code(s): N39.0 - Urinary tract infection, site not specified
--- NOTE | 2018-06-10 13:10 | DS ---
Physical Examination Vital Signs: Vital Signs Temperature 98.1 F 06/10/18 08:59 Pulse Rate 58 L 06/10/18 08:59 Respiratory Rate 18 06/10/18 08:59 Blood Pressure 127/68 06/10/18 08:59 O2 Sat by Pulse Oximetry (%) 94 L 06/10/18 09:00 Findings/Remarks: The patient is a 73 year old male, with a significant past medical history of UTI and incontinence, who presents to the emergency department with complaint of chronic UTI for a few weeks with a fever yesterday. He states his urine continues to have infection despite antibiotics and presents for broad spectrum Abx. The patient denies chest pain, shortness of breath, headache and dizziness. The patient denies fever, chills, nausea, vomit, diarrhea and constipation. The patient denies hematuria. patient cultured and treated with IV abx (Zosyn) during hospital stay.. culture repeated day of discharge. discussed care with ID will need additional 7 days of PO abx . Can proceed with TURP as out patient if C/S for today is clean, otherwise will repeat cultures as out patient. Constitutional: Yes: Well Nourished, No Distress, Calm Eyes: Yes: Conjunctiva Clear, EOM Intact HENT: Yes: Atraumatic, Normocephalic Neck: Yes: Supple, Trachea Midline Cardiovascular: Yes: Regular Rate and Rhythm Respiratory: Yes: Regular, CTA Bilaterally Gastrointestinal: Yes: Normal Bowel Sounds, Soft, Abdomen, Obese ...Rectal Exam: Yes: Deferred Renal/: Yes: WNL Breast(s): Yes: WNL Musculoskeletal: Yes: WNL, Muscle Weakness (lower extremeties) Extremities: Yes: WNL Edema: No Peripheral Pulses WNL: Yes Integumentary: Yes: WNL Neurological: Yes: Pre-Existing Deficit, Weakness (lower extremities) Psychiatric: Yes: Alert, Oriented Labs: CBC, BMP 06/09/18 07:45 06/10/18 07:00 Discharge Summary Reason For Visit: UTI/RADICULAR PAIN OF BOTH LOWER EXTREMITIES Current Active Problems Fever (Acute) Neurogenic bladder (Acute) S/P lumbar laminectomy (Acute) UTI (urinary tract infection) (Acute) Condition: Good - Instructions Referrals: Ronaldo Sanabria [Primary Care Provider] - Disposition: HOME - Home Medications Comprehensive Discharge Medication List: Ambulatory Orders Pregabalin [Lyrica] 250 mg PO DAILY 06/14/17 Oxycodone HCl/Acetaminophen [Percocet 10-325 mg Tablet] 1 each PO QID 04/26/18
[2018-06-10] MEDS ORDERED: AMOXICILLIN 250 MG CAPSULE PO ONE (14:15)
[2018-06-10] MEDS ORDERED: CIPROFLOXACIN 500 MG TABLET (RESTRICTED TO ID) PO ONE (14:15)
[2018-06-10 14:57] VITALS: BP 116/68; PULSE 74; TEMP 97.4
[2018-06-10] MEDS ORDERED: CIPROFLOXACIN 500 MG TABLET (RESTRICTED TO ID) PO SCH (22:00)
[2018-06-10] MEDS ORDERED: AMOXICILLIN 250 MG CAPSULE PO SCH (22:00)
== END 2018-06-10 16:41 | disposition home or self-care (01) | DRG 690 ==
LOC: JER 16:20 → JERBED 18:29 → J6S 19:58
PROVIDERS: ADMIT Family Medicine; ATTEND Family Medicine
DX: N39.0 Urinary tract infection, site not specified (principal); R50.9 Fever, unspecified; N31.9 Neuromuscular dysfunction of bladder, unspecified; N39.498 Other specified urinary incontinence; M54.9 Dorsalgia, unspecified; K59.00 Constipation, unspecified
CPT/HCPCS: 36415; 71045-TC-FY; 74176-TC; 80048; 80053; 81003; 81015; 85025; 85027; 87040; 87086; 87186; 93005; 93010; 97161-GP; 99283-25

== ENCOUNTER 2018-06-29 09:47 | Inpatient (IN) | payer OTHER ==
--- NOTE | 2018-06-29 09:55 | PDOC ---
Attending Attestation - HPI HPI: 06/29/18 12:50 The patient is a 73-year-old male with a past medical history significant for Recurrent UTIs, spinal stenosis and hx of DVT presents to the emergency department via EMS from [facility] with a fever. The patient presents with several days of fever, which worsened earlier today. The patient reports he was having symptoms of body ache, shivering, and diaphoresis, associated with decreased appetite. Denies chest pain, SOB, nausea, vomiting. The patient was seen at the ER on 06/06/2018 and was admitted to the ER for UTI. The patient was cultured and treated with IV Zosyn and discharged on 06/10/2018. The patient states hes scheduled for a TURP with the urologist on July 06. Allergies: NKDA PCP: Dr. Perez. - Physicial Exam PE: 06/29/18 12:41 GENERAL: Awake and alert. The patient is in no acute distress. HEAD: Normal with no signs of trauma. EYES: PERRLA, EOMI, sclera anicteric, conjunctiva clear. ENT: Ears normal, nares patent, oropharynx clear without exudates. Moist mucous membranes. NECK: Normal range of motion, supple without lymphadenopathy, JVD, or masses. LUNGS: Breath sounds equal, clear to auscultation bilaterally. No wheezes, and no crackles. HEART:Regular rate and rhythm, normal S1 and S2 without murmur, rub or gallop. ABDOMEN:No abdominal tenderness. Soft, nontender. No guarding, no rebound. No masses palpable. EXTREMITIES: Normal range of motion, no edema. No clubbing or cyanosis. No erythema, or tenderness. NEUROLOGICAL: +answering all questions. Cranial nerves II through XII grossly intact. Normal speech. No focal neurological deficits. MUSCULOSKELETAL: Back nontender to palpation, no CVA tenderness SKIN: Warm, Dry, normal turgor, no rashes or lesions noted. - Medical Decision Making 06/29/18 12:41 Documentation prepared by Pat Mcgregor, acting as biomedical field service engineer for Danya Birch MD. <Pat Mcgregor - Last Filed: 06/29/18 12:50> - Resident Resident Name: Feng Carr - ED Attending Attestation I have performed the following: I have examined & evaluated the patient, The case was reviewed & discussed with the resident, I agree w/resident's findings & plan, Exceptions are as noted - Medical Decision Making 73 yo F who presents to the ER with a complaint of fevers H/o UTI/prostatis Pt has no complaints of nausea, vomiting, diarrhea 06/29/18 10:09 EKG: Twelve-lead EKG was performed and reviewed by me. There is normal sinus rhythm with a normal rate of 74 bpm. The axis is normal. The intervals are normal. There are no ST elevation or depression. T wave abnormalities. Impression: Normal twelve-lead EKG 06/29/18 12:51 Laboratory Tests 06/29/18 06/29/18 06/29/18 09:54 10:09 10:09 WBC 7.4 Hgb 12.9 Hct 37.0 Plt Count 170 D INR 1.52 H BUN Creatinine Lactic Acid 1.5 Creatine Kinase CK-MB (CK-2) Troponin I Urine Blood Urine Nitrite Ur Leukocyte Esterase Urine WBC (Auto) Urine RBC (Auto) Influenza A (Rapid) Influenza B (Rapid) 06/29/18 06/29/18 06/29/18 10:09 10:12 11:00 WBC Hgb Hct Plt Count INR BUN 15 Creatinine 1.5 H Lactic Acid Creatine Kinase 82 CK-MB (CK-2) < 1.0 Troponin I 0.03 Urine Blood 1+ H Urine Nitrite Positive Ur Leukocyte Esterase 3+ H Urine WBC (Auto) 263 Urine RBC (Auto) 2 Influenza A (Rapid) Negative Influenza B (Rapid) Negative Will admit to Dr Shalom Carolina for UTI ID consulted <Danya Birch - Last Filed: 06/30/18 08:28>
[2018-06-29] MEDS ORDERED: ACETAMINOPHEN 1000 MG/100 ML VIAL (NON FORMULARY) IVPB ONE (10:03)
[2018-06-29] MEDS ORDERED: SODIUM CHLORIDE 0.9% 1000 ML INFUS.BAG IV ONE (10:07)
[2018-06-29] MEDS ORDERED: ACETAMINOPHEN INJECTION 100 ML IVPB ONE (10:15)
[2018-06-29 10:23] LABS: BASO % 0.4 % (0-2.0); EOS % 0.2 % (0-4.5); HEMOGLOBIN 12.9 GM/dL (11.7-16.9); LYMPH % 9.1 % (8-40); MCH 32.2 pg (25.7-33.7); MEAN PLT VOLUME 7.9 fl (7.5-11.1); MONO % 10.8 % (3.8-10.2); NEUT % 79.5 % (42.8-82.8); PLATELET COUNT 170 K/MM3 (134-434); RBC 4.01 M/mm3 (4.00-5.60); RDW 13.6 % (11.9-15.9); WHITE BLOOD COUNT 7.4 K/mm3 (4.0-10.0)
[2018-06-29] MEDS ORDERED: SODIUM CHLORIDE 0.9% 500 ML INFUS.BAG IV ONE (10:25)
[2018-06-29 10:35] LABS: VENOUS PH 7.48 (7.32-7.42)
[2018-06-29 10:37] LABS: INR 1.52 (0.83-1.09)
[2018-06-29 10:40] LABS: ACTIVATED PTT 34.9 SECONDS (25.2-36.5)
[2018-06-29 10:53] LABS: ALBUMIN 3.2 g/dl (3.4-5.0); ALK PHOS 86 U/L (45-117); ANION GAP 9 MMOL/L (8-16); BILIRUBIN,TOTAL 0.8 mg/dL (0.2-1); BLOOD UREA NITROGEN 15 mg/dL (7-18); CALCIUM 8.5 mg/dL (8.5-10.1); CHLORIDE 104 mmol/L (98-107); CO2 22 mmol/L (21-32); CREATININE 1.5 mg/dL (0.55-1.3); GLUCOSE,RANDOM 127 mg/dL (74-106); SGOT/AST 16 U/L (15-37); SGPT/ALT 18 U/L (13-61); SODIUM 134 mmol/L (136-145); TOT PROT 7.1 g/dl (6.4-8.2)
--- NOTE | 2018-06-29 11:10 | PDOC ---
History of Present Illness - General Chief Complaint: SIRS, Suspected/Possible Stated Complaint: FEVER Time Seen by Provider: 06/29/18 10:00 History Source: Patient Exam Limitations: No Limitations - History of Present Illness Initial Comments: 06/29/18 11:04 The patient is a 73M with a PMH of UTI, urinary incontinence, and chronic LBP who presents to the ER with complaints of fever x 3 days. The patient states that he noticed a fever that was intermittent for 3-4 days. He denies dysuria but states this "feels like my past UTI's". He is unsure of why he has recurrent UTI's. He denies CP, SOB, nausea, vomiting, numbness, tingling, weakness. He admits to abdominal pressure in his suprapubic abdomen for 3-4 days as well. Past History - Past Medical History Allergies/Adverse Reactions: Allergies Allergy/AdvReac Type Severity Reaction Status Date / Time No Known Allergies Allergy Verified 06/29/18 09:50 Home Medications: Ambulatory Orders Pregabalin [Lyrica] 250 mg PO Q8H 06/14/17 Oxycodone HCl/Acetaminophen [Percocet 10-325 mg Tablet] 1 each PO QID 04/26/18 Solifenacin Succinate [Vesicare -] 10 mg PO DAILY 30 Days #30 tab 06/10/18 Tamsulosin HCl [Flomax -] 0.4 mg PO DAILY@0830 06/29/18 Anemia: No Asthma: No Cancer: No Cardiac Disorders: No CVA: No COPD: No CHF: No Dementia: No Diabetes: No GI Disorders: No Disorders: Yes (uti) HTN: No Hypercholesterolemia: No Liver Disease: No Seizures: No Thyroid Disease: No - Surgical History Abdominal Surgery: No Appendectomy: No Cardiac Surgery: No Cholecystectomy: No Lung Surgery: No Neurologic Surgery: Yes (lumbar back) Orthopedic Surgery: Yes (Spinal Fusion with Instumentation 01/2016-developed DVT RLE post op) - Immunization History Td Vaccination: No TDAP Vaccination: No Immunization Up to Date: Yes - Suicide/Smoking/Psychosocial Hx Smoking History: Never smoked Have you smoked in the past 12 months: No Information on smoking cessation initiated: No Hx Alcohol Use: No Drug/Substance Use Hx: No Substance Use Type: Alcohol Hx Substance Use Treatment: No Review of Systems - Review of Systems Able to Perform ROS?: Yes Comments:: 06/29/18 11:06 GENERAL/CONSTITUTIONAL: Positive for fever. No chills. No weakness. HEAD, EYES, EARS, NOSE AND THROAT: No change in vision. No ear pain or discharge. No sore throat. CARDIOVASCULAR: No chest pain, palpitations, or lightheadedness. RESPIRATORY: No cough, wheezing, shortness of breath, or hemoptysis. GASTROINTESTINAL: Positive for abdominal pain. No nausea, vomiting, diarrhea, or constipation. GENITOURINARY: No dysuria, frequency, hematuria, or change in urination. MUSCULOSKELETAL: No joint or muscle swelling or pain. No neck or back pain. SKIN: No rash or lesions. NEUROLOGIC: No headache, numbness, tingling, focal weakness, loss of consciousness, or change in strength/sensation. Is the patient limited Senegalese proficient: No *Physical Exam - Vital Signs Last Vital Signs Temp Pulse Resp BP Pulse Ox 103.4 F H 80 16 116/54 L 91 L 06/29/18 09:48 06/29/18 09:48 06/29/18 09:48 06/29/18 09:48 06/29/18 09:48 - Physical Exam Comments: 06/29/18 11:07 GENERAL: Well developed, well nourished. Awake and alert. No acute distress. HEENT: Normocephalic, atraumatic. Hearing grossly normal. Moist mucous membranes. PERRLA, EOMI. No conjunctival pallor. NECK: Supple. Full ROM. No JVD. CARDIOVASCULAR: Regular rate and rhythm. No murmurs, rubs, or gallops. PULMONARY: No evidence of respiratory distress. Lungs clear to auscultation bilaterally. No wheezing, rales or rhonchi. ABDOMINAL: Soft. Non-tender. Non-distended. No rebound or guarding. GENITOURINARY: L CVA tenderness. MUSCULOSKELETAL: Normal range of motion at all joints. No bony deformities or tenderness. EXTREMITIES: No cyanosis. No clubbing. No edema. No calf tenderness or swelling. SKIN: Warm and dry. Normal capillary refill. No rashes. No jaundice. NEUROLOGICAL: Alert, awake, appropriate. Cranial nerves 2-12 grossly intact. Normal speech. Gait is normal without ataxia. PSYCHIATRIC: Cooperative. Good eye contact. Appropriate mood and affect. Moderate Sedation - Procedure Monitoring Vital Signs: Procedure Monitoring Vital Signs Temperature 103.4 F H 06/29/18 09:48 Pulse Rate 80 06/29/18 09:48 Respiratory Rate 16 06/29/18 09:48 Blood Pressure 116/54 L 06/29/18 09:48 O2 Sat by Pulse Oximetry (%) 91 L 06/29/18 09:48 ED Treatment Course - LABORATORY CBC & Chemistry Diagram: 06/29/18 10:09 06/29/18 10:09 - ADDITIONAL ORDERS Additional order review: Laboratory Results 06/29/18 06/29/18 06/29/18 10:09 10:09 10:09 PT with INR 18.00 H INR 1.52 H PTT (Actin FS) 34.9 VBG pH 7.48 H D POC VBG pCO2 29.0 L D POC VBG pO2 103.0 H D Mixed VBG HCO3 21.4 Sodium 134 L Potassium 4.0 Chloride 104 Carbon Dioxide 22 Anion Gap 9 BUN 15 Creatinine 1.5 H Creat Clearance w eGFR 45.75 Random Glucose 127 H Lactic Acid Calcium 8.5 Total Bilirubin 0.8 AST 16 ALT 18 Alkaline Phosphatase 86 Creatine Kinase 82 CK-MB (CK-2) < 1.0 Troponin I 0.03 Total Protein 7.1 Albumin 3.2 L 06/29/18 09:54 PT with INR INR PTT (Actin FS) VBG pH POC VBG pCO2 POC VBG pO2 Mixed VBG HCO3 Sodium Potassium Chloride Carbon Dioxide Anion Gap BUN Creatinine Creat Clearance w eGFR Random Glucose Lactic Acid 1.5 Calcium Total Bilirubin AST ALT Alkaline Phosphatase Creatine Kinase CK-MB (CK-2) Troponin I Total Protein Albumin 06/29/18 10:09 RBC 4.01 MCV 92.0 MCHC 35.0 RDW 13.6 MPV 7.9 Neutrophils % 79.5 Lymphocytes % 9.1 D Monocytes % 10.8 H D Eosinophils % 0.2 D Basophils % 0.4 - Medications Given in the ED: ED Medications Discontinued Medications Generic Name Dose Route Start Last Admin Trade Name Freq PRN Reason Stop Dose Admin Acetaminophen 1,000 mg 06/29/18 10:03 06/29/18 10:26 Ofirmev Injection - IVPB 06/29/18 10:04 1,000 mg ONCE ONE Administration Sodium Chloride 500 ml 06/29/18 10:07 06/29/18 10:20 Normal Saline - IV 06/29/18 10:08 500 ml ONCE ONE Administration Medical Decision Making - Medical Decision Making 06/29/18 11:08 The patient is a 73M with a PMH of recurrent UTI's who presents to the ER with fever x 3 days concerning for repeat UTI. Last culture was negative but pt has hx of pseudomonos and E coli in urine. CBC WNL. CMP show Cr of 1.5, up from 1.1 2 weeks ago concerning for SILVIA. Will hydrate pt. Pending UA. 06/29/18 11:58 UA indicates UTI. Case d/w Dr. Herring who recommends starting with zosyn. Zosyn ordered. Will admit. 06/29/18 12:[address] Rausch for admission. *DC/Admit/Observation/Transfer Diagnosis at time of Disposition: Systemic inflammatory response syndrome (SIRS) UTI (urinary tract infection) Qualifiers: Urinary tract infection type: site unspecified Hematuria presence: without hematuria Qualified Code(s): N39.0 - Urinary tract infection, site not specified - Discharge Dispostion Condition at time of disposition: Guarded Decision to Admit order: Yes - Referrals Referrals: Ronaldo Sanabria [Primary Care Provider] - - Patient Instructions - Post Discharge Activity
[2018-06-29 11:42] LABS: URINE APPEARANCE CLOUDY; URINE BILIRUBIN NEGATIVE (<2.0 mg/dL); URINE COLOR YELLOW; URINE GLUCOSE (UA) NEGATIVE (NEGATIVE); URINE KETONE NEGATIVE (NEGATIVE); URINE LEUK ESTERASE 3+ (NEGATIVE); URINE NITRITE POSITIVE (NEGATIVE); URINE PROTEIN 1+ (NEGATIVE); URINE UROBILINOGEN NEGATIVE mg/dL (0.2-1.0)
[2018-06-29] MEDS ORDERED: PIPERACILLIN/TAZOB 4.5 GM 4.5 GM in DEXTROSE 5%-WATER 100 ML IVPB ONE (11:57)
[2018-06-29] MEDS ORDERED: PIPERACILLIN/TAZOB 4.5 GM 4.5 GM/100 ML BAG IVPB ONE (11:58)
[2018-06-29 12:20] LABS: URINE BACTERIA RARE /hpf (NONE SEEN); URINE MUCUS RARE
--- NOTE | 2018-06-29 12:59 | PN ---
Progress Note (short form) - Note Progress Note: ID consult dictated imp/reccd 73 yo man with history of recurrent UTI discharged on 2/3 on po cipro and amox for UTI plan was outpt f/u with urology for TURP he finished the po antiibotics urology f/u scheduled for July over the last several days he started feeling feverish with poor appetite no nausea or vomiting no chest pain no flank or suprapubic pain +urinary incontinence (chronic problem) wears a diaper fever pyuria emelyn suspect recurrent UTI would continue zosyn f/u cultures f/u labs urology consult Problem List - Problems (1) Fever Code(s): R50.9 - FEVER, UNSPECIFIED (2) UTI (urinary tract infection) Code(s): N39.0 - URINARY TRACT INFECTION, SITE NOT SPECIFIED Qualifiers: Urinary tract infection type: site unspecified Hematuria presence: without hematuria Qualified Code(s): N39.0 - Urinary tract infection, site not specified (3) Renal insufficiency Code(s): N28.9 - DISORDER OF KIDNEY AND URETER, UNSPECIFIED
--- NOTE | 2018-06-29 13:56 | CONS ---
DATE OF CONSULTATION: 06/29/2018 HISTORY: This is a 73-year-old man that I know from prior admissions. He was most recently in the hospital on May, discharged on May 10 with recurrent urinary tract infection. At that time he grew Enterococcus and Pseudomonas in his urine. He was discharged on ciprofloxacin and amoxicillin. He was seen by Urology during that admission. He had a CAT scan of the abdomen and pelvis and he was felt to most likely need a TURP and the plans were this was to be done as an outpatient. Unfortunately, he completed his oral antibiotics. Over the course of the last several days he has had recurrent fevers and chills, had a poor appetite and has not really been eating. There has been no nausea, vomiting, no diarrhea. He has no dysuria. He has chronic urinary incontinence and wears a diaper. He denies any flank pain or suprapubic pain. He is nonambulatory. He uses a walker and he lives in a [facility]. PAST MEDICAL HISTORY: Peripheral neuropathy, spinal stenosis, BPH, urinary retention, E. coli UTI with E. coli bacteremia in May 2017. SURGICAL HISTORY: Lumbar laminectomy. He has had 5 back surgeries. 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 No cigarette or substance abuse. ALLERGIES: He has no known drug allergies. MEDICATIONS: His current medications at home include Lyrica, Percocet, Flomax and Vesicare. REVIEW OF SYSTEMS: Is notable for the fevers and chills, which he reports he has had for the last 72 hours. He denies any chest pain, shortness of breath, or cough. He denies any shortness of breath. PHYSICAL EXAMINATION: General: On physical exam he is awake and alert. Vitals: T max is 103.4, currently 98.4; pulse of 80, blood pressure 100/50, respiratory rate is 18. He is saturating 96% on room air. HEENT: He is normocephalic. His eyes are anicteric. Neck: Supple. Lungs: Clear to auscultation. Heart: Regular rate and rhythm. Abdomen: Soft and nontender. He has no CVA or suprapubic pain. LABORATORY DATA: White count is 7.4, hemoglobin 12.9, platelets are 170. BUN is 15 and creatinine 1.5 with normal LFTs. Urinalysis: He has 3+ leukocyte esterase, white cells. Influenza screen is negative. A chest x-ray done in the emergency room revealed some atelectasis at the left base. There was no acute infiltrate. In summary, this is a 73-year-old man with history of recurrent urinary tract infection now has fever, pyuria and acute kidney injury most likely on the basis of fever and poor oral intake. He had a recent CAT scan of his abdomen and pelvis that showed no obstruction, but did show a thickened bladder and large prostate, suspicious for chronic outlet obstruction. I suspect his fevers most likely are due to urinary tract infection. I would continue Zosyn. He received IV fluids in the ER. Follow up with cultures and labs. I would obtain a Urology consult as well. Further recommendations to follow. MARY JANE WOOD M.D. VERONIKA/[id number]
[2018-06-29] MEDS ORDERED: ACETAMINOPHEN 325 MG TABLET (FP) PO PRN ×2 (18:39→18:51)
[2018-06-29] MEDS ORDERED: PREGABALIN 100 MG CAPSULE PO SCH (18:45)
[2018-06-29] MEDS ORDERED: DEXTROSE 5%-WATER 100 ML IVPB ONE (19:11)
[2018-06-29] MEDS ORDERED: PIPERACILLIN/TAZOBACTAM 4.5 GM VIAL IVPB ONE (19:11)
[2018-06-29] MEDS ORDERED: PREGABALIN 50 MG CAPSULE ONE (19:19)
[2018-06-29] MEDS ORDERED: PREGABALIN 100 MG CAPSULE ONE (19:20)
[2018-06-29] MEDS: PREGABALIN PO SCH (19:21)
[2018-06-29] MEDS: oxyCODONE HCL 5 MG TABLET PO PRN (19:21)
[2018-06-29] MEDS: DEXTROSE 5%-0.45% SALINE 1,000 ML IV SCH (19:21)
[2018-06-29] MEDS: PIPERACILLIN/TAZOB 4.5 GM 4.5 GM in DEXTROSE 5%-WATER 100 ML IVPB SCH (19:22)
--- NOTE | 2018-06-29 19:49 | PN ---
Progress Note (short form) - Note Progress Note: pt admitted with UTI will schedule for TURP once infection is cleared during this admission if possible.
[2018-06-29] MEDS: HEPARIN NA (PORCINE) 5,000 UNITS/ML 1ML VIAL SQ SCH (21:28)
[2018-06-29 21:40] VITALS: BMI 35.8
[2018-06-30] MEDS ORDERED: PIPERACILLIN/TAZOBACTAM 4.5 GM VIAL IVPB ONE ×3 (00:20→17:28)
[2018-06-30] MEDS ORDERED: DEXTROSE 5%-WATER 100 ML IVPB ONE ×3 (00:21→17:28)
--- NOTE | 2018-06-30 00:40 | HP ---
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 (spinal stenosis) Renal/: Yes: BPH, Neurogenic Bladder, UTI, Other (urinary retention) Musculoskeletal: Yes: Chronic low back pain, Other (multiple spine surgery ( 5)) - Past Surgical History Past Surgical History: Yes: Laminectomy (T9 05/26/17 total of 5 surgical intervention) - Advance Directives Advance Directives: Yes: Living Will, Health Care Proxy - Smoking History Smoking history: Never smoked Have you smoked in the past 12 months: No - Alcohol/Substance Use Hx Alcohol Use: No History of Substance Use: reports: None - Social History ADL: Support Services 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 History of Recent Travel: No Home Medications - Allergies Allergies/Adverse Reactions: Allergies Allergy/AdvReac Type Severity Reaction Status Date / Time No Known Allergies Allergy Verified 06/29/18 09:50 - Home Medications Home Medications: Ambulatory Orders Pregabalin [Lyrica] 250 mg PO Q8H 06/14/17 Oxycodone HCl/Acetaminophen [Percocet 10-325 mg Tablet] 1 each PO QID 04/26/18 Solifenacin Succinate [Vesicare -] 10 mg PO DAILY 30 Days #30 tab 06/10/18 Tamsulosin HCl [Flomax -] 0.4 mg PO DAILY@0830 06/29/18 Physical Examination Vital Signs: Vital Signs Temperature 98.4 F 06/29/18 19:01 Pulse Rate 86 06/29/18 19:01 Respiratory Rate 18 06/29/18 19:01 Blood Pressure 120/99 06/29/18 19:01 O2 Sat by Pulse Oximetry (%) 91 L 06/29/18 09:48 Labs: CBC, BMP 06/29/18 10:09 06/29/18 10:09
[2018-06-30] MEDS: PIPERACILLIN/TAZOB 4.5 GM 4.5 GM in DEXTROSE 5%-WATER 100 ML IVPB SCH ×3 (01:48→17:44)
[2018-06-30] MEDS ORDERED: PREGABALIN 50 MG CAPSULE ONE ×4 (05:17→20:45)
[2018-06-30] MEDS ORDERED: PREGABALIN 100 MG CAPSULE ONE ×3 (05:17→20:45)
[2018-06-30] MEDS: PREGABALIN PO SCH ×3 (05:23→22:11)
[2018-06-30] MEDS: oxyCODONE HCL 5 MG TABLET PO PRN ×2 (06:11→17:49)
[2018-06-30] MEDS: ACETAMINOPHEN 325 MG TABLET (FP) PO PRN ×2 (06:18→17:50)
[2018-06-30 07:58] LABS: BASO % 0.2 % (0-2.0); EOS % 0.6 % (0-4.5); LYMPH % 16.6 % (8-40); MCH 32.4 pg (25.7-33.7); MCHC 35.2 g/dl (32.0-35.9); MEAN CELL VOLUME 92.1 fl (80-96); MEAN PLT VOLUME 7.9 fl (7.5-11.1); MONO % 15.4 % (3.8-10.2); NEUT % 67.2 % (42.8-82.8); PLATELET COUNT 158 K/MM3 (134-434); RBC 3.69 M/mm3 (4.00-5.60); RDW 13.6 % (11.9-15.9); WHITE BLOOD COUNT 5.2 K/mm3 (4.0-10.0)
[2018-06-30 08:28] LABS: ALBUMIN 2.8 g/dl (3.4-5.0); ALK PHOS 74 U/L (45-117); ANION GAP 8 MMOL/L (8-16); BILIRUBIN,TOTAL 0.5 mg/dL (0.2-1); BLOOD UREA NITROGEN 14 mg/dL (7-18); CALCIUM 8.2 mg/dL (8.5-10.1); CHLORIDE 102 mmol/L (98-107); CO2 25 mmol/L (21-32); CREATININE 1.4 mg/dL (0.55-1.3); GLUCOSE,RANDOM 118 mg/dL (74-106); POTASSIUM 3.7 mmol/L (3.5-5.1); SGOT/AST 17 U/L (15-37); SGPT/ALT 22 U/L (13-61); SODIUM 135 mmol/L (136-145); TOT PROT 6.6 g/dl (6.4-8.2)
[2018-06-30] MEDS: TAMSULOSIN HCL 0.4 MG CAP PO SCH (08:46)
[2018-06-30] MEDS: DEXTROSE 5%-0.45% SALINE 1,000 ML IV SCH ×3 (10:00→22:12)
[2018-06-30] MEDS: HEPARIN NA (PORCINE) 5,000 UNITS/ML 1ML VIAL SQ SCH ×2 (11:02→22:11)
[2018-06-30] MEDS ORDERED: PREGABALIN PO ONE (15:15)
--- NOTE | 2018-06-30 22:08 | EKG ---
Test Reason : Blood Pressure : / mmHG Vent. Rate : 074 BPM Atrial Rate : 074 BPM P-R Int : 170 ms QRS Dur : 104 ms QT Int : 382 ms P-R-T Axes : 053 -03 051 degrees QTc Int : 424 ms NORMAL SINUS RHYTHM NORMAL ECG WHEN COMPARED WITH ECG OF 06-JUN-2018 18:20, NO SIGNIFICANT CHANGE WAS FOUND Confirmed by HALIE COREAS MD ([id number]) on 06/30/2018 10:08:08 PM Referred By: Confirmed By:HALIE COREAS MD
[2018-07-01] MEDS ORDERED: DEXTROSE 5%-WATER 100 ML IVPB ONE ×4 (00:23→17:57)
[2018-07-01] MEDS ORDERED: PIPERACILLIN/TAZOBACTAM 4.5 GM VIAL IVPB ONE ×3 (00:23→16:56)
[2018-07-01] MEDS: PIPERACILLIN/TAZOB 4.5 GM 4.5 GM in DEXTROSE 5%-WATER 100 ML IVPB SCH ×3 (01:20→17:30)
[2018-07-01] MEDS ORDERED: PREGABALIN 50 MG CAPSULE ONE ×3 (04:26→21:12)
[2018-07-01] MEDS ORDERED: PREGABALIN 100 MG CAPSULE ONE ×3 (04:26→21:13)
[2018-07-01] MEDS: PREGABALIN PO SCH ×3 (05:22→21:21)
[2018-07-01] MEDS: TAMSULOSIN HCL 0.4 MG CAP PO SCH (09:35)
[2018-07-01] MEDS: HEPARIN NA (PORCINE) 5,000 UNITS/ML 1ML VIAL SQ SCH ×2 (09:37→21:21)
[2018-07-01] MEDS: DOCUSATE SODIUM 100 MG CAPSULE (FP) PO SCH ×2 (13:30→21:21)
[2018-07-01] MEDS: DEXTROSE 5%-0.45% SALINE 1,000 ML IV SCH ×2 (16:29→18:57)
--- NOTE | 2018-07-01 17:48 | PN ---
Progress Note, Physician History of Present Illness: NO COMPLAINTS DENIES DYSURIA NO C/O FEVER/ CHILLS BC (-) URINE C/S E COLI - Current Medication List Current Medications: Active Medications Acetaminophen (Tylenol -) 650 mg PO Q6H PRN PRN Reason: FEVER Acetaminophen (Tylenol -) 325 mg PO Q6H PRN PRN Reason: PAIN SCALE 7-10 Last Admin: 06/30/18 17:50 Dose: 325 mg Docusate Sodium (Colace -) 100 mg PO TID [facility] Last Admin: 07/01/18 13:30 Dose: Not Given Heparin Sodium (Porcine) (Heparin -) 5,000 unit SQ BID [facility] Last Admin: 07/01/18 09:37 Dose: 5,000 unit Piperacillin Sod/Tazobactam (Sod 4.5 gm/ Dextrose) 100 mls @ 200 mls/hr IVPB Q8H-IV [facility]; Protocol Last Admin: 07/01/18 17:30 Dose: 200 mls/hr Dextrose/Sodium Chloride (D5-1/2ns -) 1,000 mls @ 75 mls/hr IV ASDIR [facility] Last Admin: 07/01/18 16:29 Dose: 75 mls/hr Oxycodone HCl (Roxicodone -) 10 mg PO Q6H PRN PRN Reason: PAIN SCALE 7-10 Last Admin: 06/30/18 17:49 Dose: 10 mg Pregabalin 200 mg/ Pregabalin (50 mg) 250 mg PO TID [facility] Last Admin: 07/01/18 13:30 Dose: 250 mg Tamsulosin HCl (Flomax -) 0.4 mg PO DAILY@0830 [facility] Last Admin: 07/01/18 09:35 Dose: 0.4 mg - Objective Vital Signs: Vital Signs Temperature 98.4 F 07/01/18 14:22 Pulse Rate 57 L 07/01/18 14:22 Respiratory Rate 18 07/01/18 14:22 Blood Pressure 121/56 L 07/01/18 14:22 O2 Sat by Pulse Oximetry (%) 91 L 06/29/18 09:48 Constitutional: Yes: Obese Cardiovascular: Yes: Regular Rate and Rhythm, S1, S2 Respiratory: Yes: CTA Bilaterally Gastrointestinal: Yes: Normal Bowel Sounds, Soft. No: Tenderness Labs: CBC, BMP 06/30/18 06:30 06/30/18 06:30 INR, PTT INR 1.52 (0.83-1.09) H 06/29/18 10:09 Assessment/Plan RECURRENT UTI FEVER-IMPROVED LACTIC ACIDOSIS AZOTEMIA SUBSTITUTE CEFTRIAXONE
[2018-07-01] MEDS: CEFTRIAXONE 2 GM in DEXTROSE 5%-WATER 100 ML IVPB SCH (18:24)
--- NOTE | 2018-07-01 19:20 | PN ---
Progress Note (short form) - Note Progress Note: The patient is a 73-year-old male with a past medical history significant for Recurrent UTIs, spinal stenosis and hx of DVT presents to the emergency department via EMS from [facility] with a fever. The patient presents\ed with several days of fever. The patient reports having symptoms of body ache, shivering, and diaphoresis, associated with decreased appetite. trace edea The patient was seen at the ER on 06/06/2018 and was admitted to the ER for UTI. The patient was cultured and treated with IV Zosyn and discharged on 06/10/2018. The patient states hes scheduled for a TURP with the urologist on July 06. Admitted and found to have E.coli -urine / Blood c/s neg followed by ID and possible schedule for TURP during current hospitalization voicing no complaints no recent fever chart reviewed Vital Signs Period Temp Pulse Resp BP Sys/Carr Pulse Ox Last 24 Hr 97 F-98.4 F 52-58 18-18 113-121/50-63 neck supple heart S1/S2 lungs clear bilat abd obese soft ext no edema CBC, BMP 06/30/18 06:30 06/30/18 06:30 Microbiology 06/29/18 10:20 Blood - Peripheral Venous Blood Culture - Preliminary NO GROWTH OBTAINED AFTER 48 HOURS, INCUBATION TO CONTINUE FOR 3 DAYS. 06/29/18 11:00 Urine - Urine Clean Catch Urine Culture - Final Escherichia Coli 06/29/18 10:00 Blood - Peripheral Venous Blood Culture - Preliminary NO GROWTH OBTAINED AFTER 48 HOURS, INCUBATION TO CONTINUE FOR 3 DAYS. Active Medications Acetaminophen (Tylenol -) 650 mg PO Q6H PRN PRN Reason: FEVER Acetaminophen (Tylenol -) 325 mg PO Q6H PRN PRN Reason: PAIN SCALE 7-10 Last Admin: 06/30/18 17:50 Dose: 325 mg Docusate Sodium (Colace -) 100 mg PO TID [facility] Last Admin: 07/01/18 13:30 Dose: Not Given Heparin Sodium (Porcine) (Heparin -) 5,000 unit SQ BID [facility] Last Admin: 07/01/18 09:37 Dose: 5,000 unit Dextrose/Sodium Chloride (D5-1/2ns -) 1,000 mls @ 75 mls/hr IV ASDIR [facility] Last Admin: 07/01/18 18:57 Dose: Not Given Ceftriaxone Sodium 2 gm/ (Dextrose) 100 mls @ 200 mls/hr IVPB DAILY [facility]; Protocol Last Admin: 07/01/18 18:24 Dose: 200 mls/hr Oxycodone HCl (Roxicodone -) 10 mg PO Q6H PRN PRN Reason: PAIN SCALE 7-10 Last Admin: 06/30/18 17:49 Dose: 10 mg Pregabalin 200 mg/ Pregabalin (50 mg) 250 mg PO TID [facility] Last Admin: 07/01/18 13:30 Dose: 250 mg Tamsulosin HCl (Flomax -) 0.4 mg PO DAILY@0830 [facility] Last Admin: 07/01/18 09:35 Dose: 0.4 mg # recurrent UTI c/s - e.coli -- > cefriaxone blood c/s negative appreciate ID # azotemia no hx of CKD 2/2 to obstructive uropathy vs CKD IVF trend renal function # BPH appreciate follow up continue ABX / flomax possible TURP during hosp stay # chronic LBP continue pain meds / pregabalin
[2018-07-02] MEDS: oxyCODONE HCL 5 MG TABLET PO PRN (00:33)
[2018-07-02] MEDS: DOCUSATE SODIUM 100 MG CAPSULE (FP) PO SCH ×3 (05:46→23:38)
[2018-07-02] MEDS ORDERED: PREGABALIN 50 MG CAPSULE ONE ×3 (06:03→20:29)
[2018-07-02] MEDS ORDERED: PREGABALIN 100 MG CAPSULE ONE ×3 (06:04→20:29)
[2018-07-02] MEDS: DEXTROSE 5%-0.45% SALINE 1,000 ML IV SCH (06:08)
[2018-07-02] MEDS: PREGABALIN PO SCH ×3 (06:08→23:38)
[2018-07-02 07:17] LABS: BASO % 0.4 % (0-2.0); EOS % 1.9 % (0-4.5); HEMATOCRIT 36.5 % (35.4-49); HEMOGLOBIN 12.7 GM/dL (11.7-16.9); LYMPH % 38.2 % (8-40); MCH 31.8 pg (25.7-33.7); MCHC 34.7 g/dl (32.0-35.9); MEAN CELL VOLUME 91.9 fl (80-96); MEAN PLT VOLUME 7.8 fl (7.5-11.1); MONO % 13.7 % (3.8-10.2); NEUT % 45.8 % (42.8-82.8); PLATELET COUNT 181 K/MM3 (134-434); RBC 3.97 M/mm3 (4.00-5.60); RDW 13.5 % (11.9-15.9); WHITE BLOOD COUNT 3.6 K/mm3 (4.0-10.0)
[2018-07-02 07:34] LABS: ANION GAP 6 MMOL/L (8-16); BLOOD UREA NITROGEN 11 mg/dL (7-18); CALCIUM 8.8 mg/dL (8.5-10.1); CHLORIDE 107 mmol/L (98-107); CO2 26 mmol/L (21-32); CREATININE 1.2 mg/dL (0.55-1.3); GLUCOSE,RANDOM 115 mg/dL (74-106); SODIUM 138 mmol/L (136-145)
[2018-07-02] MEDS ORDERED: DEXTROSE 5%-WATER 100 ML IVPB ONE (10:42)
[2018-07-02] MEDS: HEPARIN NA (PORCINE) 5,000 UNITS/ML 1ML VIAL SQ SCH ×2 (10:47→23:38)
[2018-07-02] MEDS: TAMSULOSIN HCL 0.4 MG CAP PO SCH (10:47)
[2018-07-02] MEDS: CEFTRIAXONE 2 GM in DEXTROSE 5%-WATER 100 ML IVPB SCH (10:47)
--- NOTE | 2018-07-02 14:39 | PN ---
Progress Note (short form) - Note Progress Note: no more fevers chronic incontinence- diaper Vital Signs Period Temp Pulse Resp BP Sys/Carr Pulse Ox Last 24 Hr 97.5 F 52-60 18-20 92-117/54-68 cor-rrr lungs decreased bs at bases abd soft,nt ext no edema CBC, BMP 07/02/18 06:05 07/02/18 06:05 Microbiology 06/29/18 10:20 Blood - Peripheral Venous Blood Culture - Preliminary NO GROWTH OBTAINED AFTER 72 HOURS, INCUBATION TO CONTINUE FOR 2 DAYS. 06/29/18 10:00 Blood - Peripheral Venous Blood Culture - Preliminary NO GROWTH OBTAINED AFTER 72 HOURS, INCUBATION TO CONTINUE FOR 2 DAYS. 06/29/18 11:00 Urine - Urine Clean Catch Urine Culture - Final Escherichia Coli a/p recurrent UTI BPH continue rocephin day #3 antibiotics urology f/u noted for TURP Problem List - Problems (1) Fever Code(s): R50.9 - FEVER, UNSPECIFIED (2) UTI (urinary tract infection) Code(s): N39.0 - URINARY TRACT INFECTION, SITE NOT SPECIFIED Qualifiers: Urinary tract infection type: site unspecified Hematuria presence: without hematuria Qualified Code(s): N39.0 - Urinary tract infection, site not specified (3) Renal insufficiency Code(s): N28.9 - DISORDER OF KIDNEY AND URETER, UNSPECIFIED
--- NOTE | 2018-07-02 19:26 | FALL ---
Fall Exam - Event Witnessed fall: No Location of Fall: Bathroom Fall from: Toilet - Pre-Fall Mental Status: Alert Current Medications: Current Medications Generic Name Dose Route Start Last Admin Trade Name Ping PRN Reason Stop Dose Admin Acetaminophen 650 mg 06/29/18 18:39 Tylenol - PO Q6H PRN FEVER Acetaminophen 325 mg 06/30/18 06:15 06/30/18 17:50 Tylenol - PO 325 mg Q6H PRN Administration PAIN SCALE 7-10 Docusate Sodium 100 mg 07/01/18 14:00 07/02/18 13:30 Colace - PO Not Given TID AIYANA Heparin Sodium (Porcine) 5,000 unit 06/29/18 22:00 07/02/18 10:47 Heparin - SQ 5,000 unit BID AIYANA Administration Dextrose/Sodium Chloride 1,000 mls @ 75 mls/hr 06/29/18 18:45 07/02/18 06:08 D5-1/2ns - IV 75 mls/hr ASDIR AIYANA Administration Ceftriaxone Sodium 2 gm/ 100 mls @ 200 mls/hr 07/01/18 18:00 07/02/18 10:47 Dextrose IVPB 200 mls/hr DAILY AIYANA Administration Protocol Pregabalin 200 mg/ Pregabalin 250 mg 06/29/18 19:30 07/02/18 13:31 50 mg PO 250 mg TID AIYANA Administration Tamsulosin HCl 0.4 mg 06/30/18 08:30 07/02/18 10:47 Flomax - PO 0.4 mg DAILY@0830 AIYANA Administration - Post-Fall Patient Outcome: No Injury Exam Findings: Awake, alert, oriented. CN II-XII intact. Motor 5/5, Sensation intact. Treatment: None Vital Signs: Vital Signs Temperature 97.5 F L 07/02/18 06:00 Pulse Rate 60 07/02/18 10:45 Respiratory Rate 18 07/02/18 10:45 Blood Pressure 110/54 L 07/02/18 10:45 O2 Sat by Pulse Oximetry (%) 91 L 06/29/18 09:48 LOC Post-Fall: Awake, Alert, Oriented Identify factors for HIGH RISK for Head Injury: Pt on anticoagulant (Heparin 5000u sq bid)
--- NOTE | 2018-07-02 23:00 | PN ---
Progress Note (short form) - Note Progress Note: comfortable afebrile Vital Signs Period Temp Pulse Resp BP Sys/Carr Pulse Ox Last 24 Hr 97.5 F 52-60 18-20 92-117/54-62 neck supple heart S1/S2 lungs clear bilat abd obese soft ext no edema CBC, BMP 07/02/18 06:05 07/02/18 06:05 CBC, BMP 06/30/18 06:30 06/30/18 06:30 Microbiology 06/29/18 10:20 Blood - Peripheral Venous Blood Culture - Preliminary NO GROWTH OBTAINED AFTER 72 HOURS, INCUBATION TO CONTINUE FOR 2 DAYS. 06/29/18 10:00 Blood - Peripheral Venous Blood Culture - Preliminary NO GROWTH OBTAINED AFTER 72 HOURS, INCUBATION TO CONTINUE FOR 2 DAYS. 06/29/18 11:00 Urine - Urine Clean Catch Urine Culture - Final Escherichia Coli Active Medications Acetaminophen (Tylenol -) 650 mg PO Q6H PRN PRN Reason: FEVER Acetaminophen (Tylenol -) 325 mg PO Q6H PRN PRN Reason: PAIN SCALE 7-10 Last Admin: 06/30/18 17:50 Dose: 325 mg Docusate Sodium (Colace -) 100 mg PO TID [facility] Last Admin: 07/02/18 13:30 Dose: Not Given Heparin Sodium (Porcine) (Heparin -) 5,000 unit SQ BID [facility] Last Admin: 07/02/18 10:47 Dose: 5,000 unit Dextrose/Sodium Chloride (D5-1/2ns -) 1,000 mls @ 75 mls/hr IV ASDIR [facility] Last Admin: 07/02/18 06:08 Dose: 75 mls/hr Ceftriaxone Sodium 2 gm/ (Dextrose) 100 mls @ 200 mls/hr IVPB DAILY [facility]; Protocol Last Admin: 07/02/18 10:47 Dose: 200 mls/hr Pregabalin 200 mg/ Pregabalin (50 mg) 250 mg PO TID [facility] Last Admin: 07/02/18 13:31 Dose: 250 mg Tamsulosin HCl (Flomax -) 0.4 mg PO DAILY@0830 [facility] Last Admin: 07/02/18 10:47 Dose: 0.4 mg # recurrent UTI c/s - e.coli -- > cefriaxone blood c/s negative appreciate ID # azotemia - improved no hx of CKD 2/2 to obstructive uropathy most likely IVF # BPH appreciate follow up continue ABX / flomax possible TURP during hosp stay # chronic LBP continue pain meds / pregabalin
[2018-07-03] MEDS ORDERED: PREGABALIN 50 MG CAPSULE ONE ×3 (05:58→22:34)
[2018-07-03] MEDS ORDERED: PREGABALIN 100 MG CAPSULE ONE ×3 (05:59→22:35)
[2018-07-03] MEDS: DOCUSATE SODIUM 100 MG CAPSULE (FP) PO SCH ×3 (06:01→22:44)
[2018-07-03] MEDS: PREGABALIN PO SCH ×3 (06:01→22:44)
[2018-07-03 07:40] LABS: BASO % 0.4 % (0-2.0); EOS % 2.4 % (0-4.5); HEMOGLOBIN 12.7 GM/dL (11.7-16.9); LYMPH % 33.8 % (8-40); MCH 32.1 pg (25.7-33.7); MCHC 35.3 g/dl (32.0-35.9); MEAN PLT VOLUME 7.7 fl (7.5-11.1); NEUT % 54.4 % (42.8-82.8); PLATELET COUNT 198 K/MM3 (134-434); RBC 3.96 M/mm3 (4.00-5.60); RDW 13.4 % (11.9-15.9); WHITE BLOOD COUNT 4.2 K/mm3 (4.0-10.0)
[2018-07-03 08:09] LABS: ANION GAP 6 MMOL/L (8-16); BLOOD UREA NITROGEN 13 mg/dL (7-18); CALCIUM 8.3 mg/dL (8.5-10.1); CHLORIDE 108 mmol/L (98-107); CO2 27 mmol/L (21-32); CREATININE 1.2 mg/dL (0.55-1.3); GLUCOSE,RANDOM 110 mg/dL (74-106); POTASSIUM 4.1 mmol/L (3.5-5.1); SODIUM 141 mmol/L (136-145)
[2018-07-03] MEDS ORDERED: DEXTROSE 5%-WATER 100 ML IVPB ONE (08:29)
[2018-07-03] MEDS: CEFTRIAXONE 2 GM in DEXTROSE 5%-WATER 100 ML IVPB SCH (10:51)
[2018-07-03] MEDS: TAMSULOSIN HCL 0.4 MG CAP PO SCH (10:52)
[2018-07-03] MEDS: HEPARIN NA (PORCINE) 5,000 UNITS/ML 1ML VIAL SQ SCH ×2 (10:52→22:44)
[2018-07-03] MEDS: DEXTROSE 5%-0.45% SALINE 1,000 ML IV SCH ×2 (10:54→19:42)
--- NOTE | 2018-07-03 11:08 | CONSULT ---
Consult - text type - Consultation Consultation Note: 73 yo male w long hx BPH w recurrent secondary utis and sepsis Cultures now negative Discussed TURP during hospital stay will schedule when OR time available this week
--- NOTE | 2018-07-03 13:32 | PN ---
Progress Note (short form) - Note Progress Note: comfortable afebrile Vital Signs Period Temp Pulse Resp BP Sys/Carr Pulse Ox Last 24 Hr 97.5 F 52-60 18-20 92-117/54-62 neck supple heart S1/S2 lungs clear bilat abd obese soft ext no edema CBC, BMP 07/03/18 06:35 07/03/18 06:35 CBC, BMP 07/02/18 06:05 07/02/18 06:05 CBC, BMP 06/30/18 06:30 06/30/18 06:30 Microbiology 06/29/18 10:20 Blood - Peripheral Venous Blood Culture - Preliminary NO GROWTH OBTAINED AFTER 96 HOURS, INCUBATION TO CONTINUE FOR 1 DAYS. 06/29/18 10:00 Blood - Peripheral Venous Blood Culture - Preliminary NO GROWTH OBTAINED AFTER 96 HOURS, INCUBATION TO CONTINUE FOR 1 DAYS. 06/29/18 11:00 Urine - Urine Clean Catch Urine Culture - Final Escherichia Coli Active Medications Acetaminophen (Tylenol -) 650 mg PO Q6H PRN PRN Reason: FEVER Acetaminophen (Tylenol -) 325 mg PO Q6H PRN PRN Reason: PAIN SCALE 7-10 Last Admin: 06/30/18 17:50 Dose: 325 mg Docusate Sodium (Colace -) 100 mg PO TID [facility] Last Admin: 07/03/18 06:01 Dose: 100 mg Heparin Sodium (Porcine) (Heparin -) 5,000 unit SQ BID [facility] Last Admin: 07/03/18 10:52 Dose: 5,000 unit Dextrose/Sodium Chloride (D5-1/2ns -) 1,000 mls @ 75 mls/hr IV ASDIR [facility] Last Admin: 07/03/18 10:54 Dose: 75 mls/hr Ceftriaxone Sodium 2 gm/ (Dextrose) 100 mls @ 200 mls/hr IVPB DAILY [facility]; Protocol Last Admin: 07/03/18 10:51 Dose: 200 mls/hr Pregabalin 200 mg/ Pregabalin (50 mg) 250 mg PO TID [facility] Last Admin: 07/03/18 06:01 Dose: 250 mg Tamsulosin HCl (Flomax -) 0.4 mg PO DAILY@0830 [facility] Last Admin: 07/03/18 10:52 Dose: 0.4 mg # recurrent UTI c/s - e.coli -- > cefriaxone blood c/s negative appreciate ID # azotemia - improved no hx of CKD 2/2 to obstructive uropathy most likely IVF # BPH appreciate follow up continue ABX / flomax TURP during hosp stay # chronic LBP continue pain meds / pregabalin Physical therapy
[2018-07-04] MEDS: DEXTROSE 5%-0.45% SALINE 1,000 ML IV SCH ×2 (03:41→17:04)
[2018-07-04] MEDS: DOCUSATE SODIUM 100 MG CAPSULE (FP) PO SCH ×3 (06:08→22:09)
[2018-07-04] MEDS ORDERED: PREGABALIN 50 MG CAPSULE ONE ×3 (06:17→20:55)
[2018-07-04] MEDS ORDERED: PREGABALIN 100 MG CAPSULE ONE ×3 (06:18→20:55)
[2018-07-04] MEDS: PREGABALIN PO SCH ×3 (06:20→22:09)
[2018-07-04 07:50] LABS: INR 1.36 (0.83-1.09); PROTHROMBIN TIME (PATIENT) 16.1 SEC (9.7-13.0)
[2018-07-04] MEDS ORDERED: DEXTROSE 5%-WATER 100 ML IVPB ONE (11:18)
[2018-07-04] MEDS: CEFTRIAXONE 2 GM in DEXTROSE 5%-WATER 100 ML IVPB SCH (11:21)
[2018-07-04] MEDS: TAMSULOSIN HCL 0.4 MG CAP PO SCH ×2 (11:21→11:23)
[2018-07-04] MEDS: HEPARIN NA (PORCINE) 5,000 UNITS/ML 1ML VIAL SQ SCH (11:24)
--- NOTE | 2018-07-04 19:40 | PN ---
Progress Note (short form) - Note Progress Note: comfortable afebrile NPO -- awaiting possible OR today Vital Signs Period Temp Pulse Resp BP Sys/Carr Pulse Ox Last 24 Hr 97.2 F-97.8 F 53-66 20-20 98-129/48-63 97 neck supple heart S1/S2 lungs clear bilat abd obese soft ext no edema CBC, BMP 07/03/18 06:35 07/03/18 06:35 CBC, BMP 07/02/18 06:05 07/02/18 06:05 CBC, BMP 06/30/18 06:30 06/30/18 06:30 Microbiology 06/29/18 10:20 Blood - Peripheral Venous Blood Culture - Final NO GROWTH AFTER 5 DAYS INCUBATION 06/29/18 10:00 Blood - Peripheral Venous Blood Culture - Final NO GROWTH AFTER 5 DAYS INCUBATION 06/29/18 11:00 Urine - Urine Clean Catch Urine Culture - Final Escherichia Coli Active Medications Acetaminophen (Tylenol -) 650 mg PO Q6H PRN PRN Reason: FEVER Acetaminophen (Tylenol -) 325 mg PO Q6H PRN PRN Reason: PAIN SCALE 7-10 Last Admin: 06/30/18 17:50 Dose: 325 mg Docusate Sodium (Colace -) 100 mg PO TID [facility] Last Admin: 07/04/18 14:05 Dose: 100 mg Dextrose/Sodium Chloride (D5-1/2ns -) 1,000 mls @ 75 mls/hr IV ASDIR [facility] Last Admin: 07/04/18 17:04 Dose: 75 mls/hr Ceftriaxone Sodium 2 gm/ (Dextrose) 100 mls @ 200 mls/hr IVPB DAILY [facility]; Protocol Last Admin: 07/04/18 11:21 Dose: 200 mls/hr Pregabalin 200 mg/ Pregabalin (50 mg) 250 mg PO TID [facility] Last Admin: 07/04/18 14:05 Dose: 250 mg Tamsulosin HCl (Flomax -) 0.4 mg PO DAILY@0830 [facility] Last Admin: 07/04/18 11:23 Dose: 0.4 mg # BPH appreciate follow up continue ABX / flomax possible TURP today # recurrent UTI c/s - e.coli -- > cefriaxone blood c/s negative appreciate ID # azotemia - improved no hx of CKD 2/2 to obstructive uropathy most likely IVF # chronic LBP continue pain meds / pregabalin
[2018-07-05] MEDS: DOCUSATE SODIUM 100 MG CAPSULE (FP) PO SCH ×3 (05:29→21:43)
[2018-07-05] MEDS: PREGABALIN PO SCH ×4 (05:30→21:43)
[2018-07-05] MEDS ORDERED: PREGABALIN 50 MG CAPSULE ONE ×2 (08:24→21:31)
[2018-07-05] MEDS ORDERED: PREGABALIN 100 MG CAPSULE ONE ×2 (08:25→21:31)
[2018-07-05] MEDS: TAMSULOSIN HCL 0.4 MG CAP PO SCH (10:37)
[2018-07-05] MEDS ORDERED: DEXTROSE 5%-WATER 100 ML IVPB ONE (10:40)
[2018-07-05] MEDS: CEFTRIAXONE 2 GM in DEXTROSE 5%-WATER 100 ML IVPB SCH (10:41)
--- NOTE | 2018-07-05 11:20 | PN ---
Progress Note (short form) - Note Progress Note: 73 y/o male found sitting in bed. Hx of recurrent UTIs. Concerned regarding when surgery will take place. Vital Signs Period Temp Pulse Resp BP Sys/Carr Pulse Ox Last 24 Hr 97.5 F-97.8 F 52-60 18-20 94-133/47-67 98 CBC, BMP 07/03/18 06:35 07/03/18 06:35 HEENT- NL Neck- Supple Lungs-CTAB Heart- S1/S2 Abd- Soft, NT Ext- No LE edema Active Medications Acetaminophen (Tylenol -) 650 mg PO Q6H PRN PRN Reason: FEVER Acetaminophen (Tylenol -) 325 mg PO Q6H PRN PRN Reason: PAIN SCALE 7-10 Last Admin: 06/30/18 17:50 Dose: 325 mg Docusate Sodium (Colace -) 100 mg PO TID [facility] Last Admin: 07/05/18 05:29 Dose: Not Given Dextrose/Sodium Chloride (D5-1/2ns -) 1,000 mls @ 75 mls/hr IV ASDIR [facility] Last Admin: 07/04/18 17:04 Dose: 75 mls/hr Ceftriaxone Sodium 2 gm/ (Dextrose) 100 mls @ 200 mls/hr IVPB DAILY [facility]; Protocol Last Admin: 07/05/18 10:41 Dose: 200 mls/hr Pregabalin 200 mg/ Pregabalin (50 mg) 250 mg PO TID [facility] Last Admin: 07/05/18 08:26 Dose: 250 mg Tamsulosin HCl (Flomax -) 0.4 mg PO DAILY@0830 [facility] Last Admin: 07/05/18 10:37 Dose: Not Given # BPH continue ABX / flomax TURP sched today # recurrent UTI c/s - e.coli -- > cefriaxone blood c/s negative # azotemia - improved no hx of CKD 2/2 to obstructive uropathy most likely cont IVF # chronic LBP continue pain meds / pregabalin
[2018-07-05] MEDS ORDERED: MIDAZOLAM HCL 2 MG/2 ML SINGLE DOSE VIAL ONE (12:00)
--- NOTE | 2018-07-05 13:26 | OP ---
Operative Note - Note: Operative Date: 07/05/18 Pre-Operative Diagnosis: UTI BPH incomplete voiding Operation: Bipolar TURP Findings: BPH Post-Operative Diagnosis: Same as Pre-op Surgeon: Samy Garcia MD. Anesthesia: Spinal Estimated Blood Loss (mls): 50 Operative Report Dictated: Yes
[2018-07-05] MEDS ORDERED: ceFAZolin SODIUM 1 GM VIAL IVPB ONE (13:30)
[2018-07-05] MEDS ORDERED: ONDANSETRON 4 MG/2 ML VIAL IVPUSH PRN (14:16)
[2018-07-06] MEDS: LACTATED RINGERS SOLUTION 1,000 ML IV SCH ×2 (00:45→15:19)
[2018-07-06] MEDS ORDERED: PREGABALIN 50 MG CAPSULE ONE ×3 (05:13→21:53)
[2018-07-06] MEDS ORDERED: PREGABALIN 100 MG CAPSULE ONE ×3 (05:14→21:53)
[2018-07-06] MEDS: PREGABALIN PO SCH ×3 (05:22→22:02)
[2018-07-06] MEDS: DOCUSATE SODIUM 100 MG CAPSULE (FP) PO SCH ×3 (05:23→22:02)
[2018-07-06 07:48] LABS: BASO % 0.4 % (0-2.0); EOS % 1.7 % (0-4.5); HEMATOCRIT 36.8 % (35.4-49); HEMOGLOBIN 12.7 GM/dL (11.7-16.9); LYMPH % 20.5 % (8-40); MCH 31.7 pg (25.7-33.7); MCHC 34.6 g/dl (32.0-35.9); MEAN CELL VOLUME 91.7 fl (80-96); MEAN PLT VOLUME 7.6 fl (7.5-11.1); MONO % 5.4 % (3.8-10.2); PLATELET COUNT 269 K/MM3 (134-434); RBC 4.02 M/mm3 (4.00-5.60); RDW 13.4 % (11.9-15.9); WHITE BLOOD COUNT 9.2 K/mm3 (4.0-10.0)
[2018-07-06 08:23] LABS: ANION GAP 8 MMOL/L (8-16); BLOOD UREA NITROGEN 15 mg/dL (7-18); CALCIUM 8.7 mg/dL (8.5-10.1); CHLORIDE 107 mmol/L (98-107); CO2 25 mmol/L (21-32); GLUCOSE,RANDOM 94 mg/dL (74-106); SODIUM 139 mmol/L (136-145)
[2018-07-06] MEDS: TAMSULOSIN HCL 0.4 MG CAP PO SCH (08:53)
[2018-07-06] MEDS ORDERED: DEXTROSE 5%-WATER 100 ML IVPB ONE (09:51)
--- NOTE | 2018-07-06 10:14 | PN ---
Progress Note (short form) - Note Progress Note: 73 y/o male s/p TURP yesterday. Found sitting in bed, appears comfortable. No c/ o pain or discomfort. Hodge in place. Vital Signs Period Temp Pulse Resp BP Sys/Carr Pulse Ox Last 24 Hr 97.1 F-99.0 F 49-60 16-20 105-133/50-72 95-100 CBC, BMP 07/06/18 06:20 07/06/18 06:20 HEENT- NL Neck-Supple Lungs- CTAB Heart- S1/S2 Abd- Soft, nt Ext- No LE edema Active Medications Acetaminophen (Tylenol -) 650 mg PO Q6H PRN PRN Reason: FEVER Last Admin: 07/06/18 04:35 Dose: 650 mg Acetaminophen (Tylenol -) 325 mg PO Q6H PRN PRN Reason: PAIN SCALE 7-10 Last Admin: 06/30/18 17:50 Dose: 325 mg Docusate Sodium (Colace -) 100 mg PO TID [facility] Last Admin: 07/06/18 05:23 Dose: Not Given Dextrose/Sodium Chloride (D5-1/2ns -) 1,000 mls @ 75 mls/hr IV ASDIR [facility] Last Admin: 07/04/18 17:04 Dose: 75 mls/hr Ceftriaxone Sodium 2 gm/ (Dextrose) 100 mls @ 200 mls/hr IVPB DAILY [facility]; Protocol Last Admin: 07/05/18 10:41 Dose: 200 mls/hr Lactated Ringer's (Lactated Ringers Solution) 1,000 mls @ 75 mls/hr IV ASDIR [facility] Last Admin: 07/06/18 00:45 Dose: 75 mls/hr Ondansetron HCl (Zofran Injection) 4 mg IVPUSH Q6H PRN PRN Reason: NAUSEA AND/OR VOMITING Pregabalin 200 mg/ Pregabalin (50 mg) 250 mg PO TID [facility] Last Admin: 07/06/18 05:22 Dose: 250 mg Tamsulosin HCl (Flomax -) 0.4 mg PO DAILY@0830 [facility] Last Admin: 07/05/18 10:37 Dose: Not Given # BPH S/P TURP yest Hodge to be dc'd Urine yellow and clear # recurrent UTI IV antibiotics per ID blood c/s negative # chronic LBP continue pain meds / pregabalin
[2018-07-06] MEDS: CEFTRIAXONE 2 GM in DEXTROSE 5%-WATER 100 ML IVPB SCH (10:53)
[2018-07-07] MEDS ORDERED: PREGABALIN 50 MG CAPSULE ONE ×3 (05:06→21:28)
[2018-07-07] MEDS ORDERED: PREGABALIN 100 MG CAPSULE ONE ×3 (05:07→21:29)
[2018-07-07] MEDS: PREGABALIN PO SCH ×3 (05:21→21:31)
[2018-07-07] MEDS: DOCUSATE SODIUM 100 MG CAPSULE (FP) PO SCH ×3 (05:22→21:31)
[2018-07-07] MEDS ORDERED: DEXTROSE 5%-WATER 100 ML IVPB ONE (11:16)
[2018-07-07] MEDS: CEFTRIAXONE 2 GM in DEXTROSE 5%-WATER 100 ML IVPB SCH (12:14)
[2018-07-07] MEDS: TAMSULOSIN HCL 0.4 MG CAP PO SCH (12:15)
[2018-07-07] MEDS: DEXTROSE 5%-0.45% SALINE 1,000 ML IV SCH ×2 (12:27)
[2018-07-07] MEDS: LACTATED RINGERS SOLUTION 1,000 ML IV SCH (15:04)
--- NOTE | 2018-07-07 18:28 | PN ---
Progress Note (short form) - Note Progress Note: comfortable afebrile s/p TURP spence removed yesterday per nursing voiding freely - no c/o Vital Signs Period Temp Pulse Resp BP Sys/Carr Pulse Ox Last 24 Hr 97.2 F-97.8 F 53-66 20-20 98-129/48-63 97 neck supple heart S1/S2 lungs clear bilat abd obese soft / no pelvic fullness or discomfort on exam ext no edema CBC, BMP 07/06/18 06:20 07/06/18 06:20 CBC, BMP 07/03/18 06:35 07/03/18 06:35 CBC, BMP 06/30/18 06:30 06/30/18 06:30 Microbiology 06/29/18 10:20 Blood - Peripheral Venous Blood Culture - Final NO GROWTH AFTER 5 DAYS INCUBATION 06/29/18 10:00 Blood - Peripheral Venous Blood Culture - Final NO GROWTH AFTER 5 DAYS INCUBATION 06/29/18 11:00 Urine - Urine Clean Catch Urine Culture - Final Escherichia Coli Active Medications Acetaminophen (Tylenol -) 650 mg PO Q6H PRN PRN Reason: FEVER Last Admin: 07/06/18 04:35 Dose: 650 mg Acetaminophen (Tylenol -) 325 mg PO Q6H PRN PRN Reason: PAIN SCALE 7-10 Last Admin: 06/30/18 17:50 Dose: 325 mg Docusate Sodium (Colace -) 100 mg PO TID [facility] Last Admin: 07/07/18 15:04 Dose: Not Given Dextrose/Sodium Chloride (D5-1/2ns -) 1,000 mls @ 75 mls/hr IV ASDIR [facility] Last Admin: 07/07/18 12:27 Dose: 75 mls/hr Ceftriaxone Sodium 2 gm/ (Dextrose) 100 mls @ 200 mls/hr IVPB DAILY [facility]; Protocol Last Admin: 07/07/18 12:14 Dose: 200 mls/hr Lactated Ringer's (Lactated Ringers Solution) 1,000 mls @ 75 mls/hr IV ASDIR [facility] Last Admin: 07/07/18 15:04 Dose: Not Given Ondansetron HCl (Zofran Injection) 4 mg IVPUSH Q6H PRN PRN Reason: NAUSEA AND/OR VOMITING Pregabalin 200 mg/ Pregabalin (50 mg) 250 mg PO TID [facility] Last Admin: 07/07/18 15:05 Dose: 250 mg Tamsulosin HCl (Flomax -) 0.4 mg PO DAILY@0830 [facility] Last Admin: 07/07/18 12:15 Dose: 0.4 mg # BPH s/p TURP 07/05 spence d/c 07/06 voiding freely # recurrent UTI c/s - e.coli -- >treated with cefriaxone blood c/s negative # azotemia - -- normalized no hx of CKD 2/2 to obstructive uropathy # chronic LBP continue pain meds / pregabalin arrange for d/c in am to [facility] for STR
[2018-07-07] MEDS: POLYETHYLENE GLYCOL 3350 119 GM BTL PO SCH (21:31)
[2018-07-08] MEDS: DOCUSATE SODIUM 100 MG CAPSULE (FP) PO SCH (05:49)
[2018-07-08] MEDS ORDERED: PREGABALIN 50 MG CAPSULE ONE (05:52)
[2018-07-08] MEDS ORDERED: PREGABALIN 100 MG CAPSULE ONE (05:53)
[2018-07-08] MEDS: PREGABALIN PO SCH (06:08)
[2018-07-08] MEDS ORDERED: DEXTROSE 5%-WATER 100 ML IVPB ONE (08:55)
[2018-07-08] MEDS: POLYETHYLENE GLYCOL 3350 119 GM BTL PO SCH (09:44)
[2018-07-08] MEDS: CEFTRIAXONE 2 GM in DEXTROSE 5%-WATER 100 ML IVPB SCH (09:44)
[2018-07-08] MEDS: TAMSULOSIN HCL 0.4 MG CAP PO SCH (09:45)
[2018-07-08 11:24] VITALS: BP 135/75; PULSE 69; TEMP 98
--- NOTE | 2018-07-08 11:38 | DS ---
Physical Examination Vital Signs: Vital Signs Temperature 98 F 07/08/18 10:00 Pulse Rate 69 07/08/18 10:00 Respiratory Rate 20 07/08/18 10:00 Blood Pressure 135/75 07/08/18 10:00 O2 Sat by Pulse Oximetry (%) 96 07/08/18 09:00 Findings/Remarks: 73M with a PMH of recurrent UTI, bph, urinary incontinence, and chronic LBP who presented to ER with complaints of fever x 3 days. The patient states that he noticed a fever that was intermittent for 3-4 days prior to arrival at ER. He denies dysuria but states this "feels like my past UTI's". Patiet was admitted and treated with ABX -- He underwent TURP on 07/05/18 / spence was removed on 07/06 and has been voiding freely since. Patient has not had difficulty voiding / fever or chills since admission . Arrangements in place for STR at [facility]-- to be d/c'd on 07/08/2018 HCP informed Constitutional: Yes: Well Nourished, No Distress, Calm, Obese Eyes: Yes: WNL, Conjunctiva Clear HENT: Yes: WNL, Atraumatic, Normocephalic Neck: Yes: Supple, Trachea Midline Cardiovascular: Yes: Regular Rate and Rhythm Respiratory: Yes: Regular, CTA Bilaterally Gastrointestinal: Yes: Normal Bowel Sounds, Abdomen, Obese. No: Distention, Palpable Mass, Tenderness ...Rectal Exam: Yes: Deferred Renal/: Yes: WNL. No: Bladder Distention, Spence Present Breast(s): Yes: WNL Musculoskeletal: Yes: WNL Extremities: Yes: WNL Edema: No Peripheral Pulses WNL: Yes Integumentary: Yes: WNL Neurological: Yes: Alert, Oriented, Confusion, Pre-Existing Deficit ...Motor Strength: LLE, RLE (decreased motor strenght) Psychiatric: Yes: WNL, Alert, Oriented Labs: CBC, BMP 07/06/18 06:20 07/06/18 06:20 Discharge Summary Reason For Visit: UTI,SYTEMIC INFLAMATORY RESONSE SYNDROME Current Active Problems Systemic inflammatory response syndrome (SIRS) (Acute) UTI (urinary tract infection) (Acute) Condition: Improved - Instructions Referrals: Ronaldo Sanabria [Primary Care Provider] - Disposition: ALF FACILITY - Home Medications Comprehensive Discharge Medication List: Ambulatory Orders Pregabalin [Lyrica] 250 mg PO Q8H 06/14/17 Oxycodone HCl/Acetaminophen [Percocet 10-325 mg Tablet] 1 each PO QID 04/26/18 Solifenacin Succinate [Vesicare -] 10 mg PO DAILY 30 Days #30 tab 06/10/18 Tamsulosin HCl [Flomax -] 0.4 mg PO DAILY@0830 06/29/18 Acetaminophen [Tylenol .Regular Strength -] 325 mg PO Q6H PRN tablet 07/07/18 Acetaminophen [Tylenol .Regular Strength -] 650 mg PO Q6H PRN tablet 07/07/18 Docusate Sodium [Colace -] 100 mg PO TID capsule 07/07/18 Polyethylene Glycol 3350 [Miralax 119 gm Btl -] 17 gm PO DAILY bottle 07/07/18 Pregabalin [Lyrica -] 250 mg PO TID 7 Days #21 capsule MDD 750 07/07/18 Pregabalin [Lyrica -] 250 mg PO TID 7 Days #42 capsule MDD 750 07/07/18
--- NOTE | 2018-07-09 16:11 | PATH ---
Surgical Pathology Report Patient Name: SHANNON KAUR Med. Rec. #: [id number] /Age/Gender: 1945 (Age: 73) / M Account: [id number] Location: [address] [place] [address] Taken: 07/05/2018 Received: 07/06/2018 Reported: 07/09/2018 Physicians: Samy Garcia M.D. PHYSICIAN EMERGENCY DEPT Specimen(s) Received PROSTATE CHIPS Clinical History UTI, inflammatory response syndrome Final Diagnosis PROSTATE CHIPS, TRANSURETHRAL RESECTION OF PROSTATE: BENIGN PROSTATE GLANDS AND SMOOTH MUSCLE FRAGMENTS SHOWING FOCAL MILD ACUTE INFLAMMATION. SEPARATE UROTHELIAL MUCOSA WITH ACUTE AND CHRONIC INFLAMMATION AND CYSTITIS GLANDULARIS. Electronically Signed Douglas Peguero M.D. Gross Description Received in formalin labeled "prostate chips," is a 1 g, 2.5 x 2.0 x 0.3 cm aggregate of you, irregular, firm to rubbery portions of tissue, consistent with prostate chips. The specimen is entirely submitted in 2 cassettes. /07/06/2018 [facility]07/06/2018
--- NOTE | 2018-08-02 13:07 | OP ---
DATE OF OPERATION: 07/05/2018 SURGEON: Samy Garcia MD PREOPERATIVE DIAGNOSIS: Benign prostatic hypertrophy. POSTOPERATIVE DIAGNOSIS: Benign prostatic hypertrophy. PROCEDURE: Transurethral resection of the prostate. HISTORY: This is a very pleasant 73-year-old gentleman with multiple medical problems including spinal surgeries and had previous resections. Patient recently had urinary tract infections due to not emptying, although he has been incontinent requiring 5 pads per day. After discussing treatment options, the patient elected to undergo the above stated procedure. Risks and benefits of treatment and alternative treatments were discussed in detail. All questions were answered. BRIEF OPERATIVE NOTE: Patient was brought to the operating room, placed in supine position. The bladder was trabeculated and somewhat dilated. There was apical and lateral residual prostate tissue, which was resected using a resector loop. The base was then fulgurated. There was no evidence of active bleeding. A 20-K[place] Hodge was placed to straight drainage. Patient tolerated the procedure well and was transferred to the recovery room in stable and satisfactory condition. SAMY GARCIA M.D. [facility]YR[place]/[id number]
== END 2018-07-08 12:20 | DRG 666 ==
LOC: JER 09:47 → JERBED 12:01 → J5S 13:13
PROVIDERS: ADMIT Internal Medicine; ATTEND Internal Medicine
PROC: 0V508ZZ Destruction of Prostate, Via Natural or Artificial Opening Endoscopic (ICD-10-PCS; 2018-07-05)
PROC: 0VB08ZZ Excision of Prostate, Via Natural or Artificial Opening Endoscopic (ICD-10-PCS; principal; 2018-07-05 12:30)
DX: N39.0 Urinary tract infection, site not specified (principal); E87.2 Acidosis; B96.20 Unspecified Escherichia coli [E. coli] as the cause of diseases classified elsewhere; N40.0 Benign prostatic hyperplasia without lower urinary tract symptoms; N28.9 Disorder of kidney and ureter, unspecified; N31.9 Neuromuscular dysfunction of bladder, unspecified; M48.00 Spinal stenosis, site unspecified; M54.5 Low back pain; E66.9 Obesity, unspecified; Z68.35 Body mass index [BMI] 35.0-35.9, adult; Z86.718 Personal history of other venous thrombosis and embolism
CPT/HCPCS: 36415; 71045-TC-FY; 80048; 80053; 81003; 81015; 82550; 82553; 82803; 83605; 84484; 85025; 85610; 85730; 87040; 87086; 87186; 87804; 88305-TC; 93005; 93010; 94760; 97116-GP; 97161-GP; 99284-25; J0131; J1644; J7030

== ENCOUNTER 2018-12-17 12:22 | Emergency (ER) | payer OTHER ==
[2018-12-17 12:36] VITALS: BP 112/54; PULSE 65; TEMP 98; BMI 35.8
--- NOTE | 2018-12-17 13:09 | PDOC ---
History of Present Illness - General History Source: Patient Exam Limitations: No Limitations - History of Present Illness Initial Comments: 73 year old male with PMH BPH s/p TURP, multiple UTIs, suprapubic catheter placement (12/12/18), chronic low back pain, spinal stenosis, HLD presented to ED for redness/discharge from suprapubic catheter site x3 days. Pt denied nausea /vomiting/diarrhea. Pt admitted to mild abdominal pain at the site of the suprapubic catheter. Urology: Dr. Whitfield PCP: Daniele <Rosanne Mattson - Last Filed: 12/17/18 15:08> <Anju Jennings - Last Filed: 12/17/18 15:40> - General Chief Complaint: Wound Stated Complaint: SUPRA CATHETER Time Seen by Provider: 12/17/18 13:09 Past History - Past Medical History Anemia: No Asthma: No Cancer: No Cardiac Disorders: No CVA: No COPD: No CHF: No Dementia: No Diabetes: No GI Disorders: No Disorders: Yes (uti) HTN: No Hypercholesterolemia: No Liver Disease: No Seizures: No Thyroid Disease: No - Surgical History Abdominal Surgery: No Appendectomy: No Cardiac Surgery: No Cholecystectomy: No Lung Surgery: No Neurologic Surgery: Yes (x 5) Orthopedic Surgery: Yes (Spinal Fusion with Instumentation 01/2016- DVT RLE post op) - Immunization History Td Vaccination: No TDAP Vaccination: No Immunization Up to Date: Yes - Suicide/Smoking/Psychosocial Hx Smoking History: Never smoked Have you smoked in the past 12 months: No Hx Alcohol Use: No Drug/Substance Use Hx: No Substance Use Type: Alcohol Hx Substance Use Treatment: No <Rosanne Mattson - Last Filed: 12/17/18 15:08> <Anju Jennings - Last Filed: 12/17/18 15:40> - Past Medical History Allergies/Adverse Reactions: Allergies Allergy/AdvReac Type Severity Reaction Status Date / Time No Known Allergies Allergy Verified 06/29/18 09:50 Home Medications: Ambulatory Orders Pregabalin [Lyrica] 250 mg PO Q8H 06/14/17 Acetaminophen [Tylenol .Regular Strength -] 650 mg PO Q6H PRN tablet 07/07/18 Cephalexin [Keflex] 500 mg PO QID 7 Days #28 capsule 12/17/18 Review of Systems - Review of Systems Able to Perform ROS?: Yes Comments:: General: denied fever, chills, generalized weakness. HEENT: denied sore throat, rhinorrhea, ear pain. Cardiovascular: denied chest pain, palpitations, syncope, diaphoresis. Respiratory: denied shortness of breath, cough, sputum production, hemoptysis. Gastrointestinal: admitted to abdominal pain. denied nausea, vomiting, diarrhea , constipation, blood in stool. Genitourinary: denied dysuria, increased urinary frequency, hematuria, urinary incontinence, flank pain. Back: denied back pain. Musculoskeletal: denied joint pain, muscle pain, joint swelling. Neurological: denied headache, dizziness, numbness, tingling, weakness. Integumentary: denied rash, laceration, abrasion. Hematologic/Lymphatic: denied bruising or bleeding. Skin: admitted to erythema, discharge from wound. <Rosanne Mattson - Last Filed: 12/17/18 15:08> *Physical Exam - Vital Signs Last Vital Signs Temp Pulse Resp BP Pulse Ox 98 F 65 17 112/54 L 96 12/17/18 12:33 12/17/18 12:33 12/17/18 12:33 12/17/18 12:33 12/17/18 12:33 - Physical Exam Comments: Constitutional: Well-nourished, Well-developed, appearing stated age. HEENT: head is normocephalic, atraumatic. EOMI. PERRLA. no posterior pharyngeal erythema.no tonsillar swelling or exudates bilaterally. uvula midline. no peritonsillar swelling, tenderness or abscess. no jaw tenderness or misalignment. Neck: supple. Full ROM. Cardiovascular: regular heart rhythm. no murmurs. no pericardial friction rub. Respiratory: clear to auscultation bilaterally. no crackles, rhonchi or wheezing. no stridor. Gastrointestinal: soft, nontender. suprapubic catheter in place with surrounding erythema, mild induration, no fluctuance, no discharge noted. normal bowel sounds. no rebound, guarding, masses. Extremities: peripheral pulses intact. no lower extremity edema. Neurological: CN 2-12 grossly intact. moves all four extremities. Psych: awake, alert, oriented x3. follows commands. answers questions appropriately. <Rosanne Mattson - Last Filed: 12/17/18 15:08> - Vital Signs Last Vital Signs Temp Pulse Resp BP Pulse Ox 98 F 65 17 112/54 L 96 12/17/18 12:33 12/17/18 12:33 12/17/18 12:33 12/17/18 12:33 12/17/18 12:33 <Anju Jennings - Last Filed: 12/17/18 15:40> ED Treatment Course - LABORATORY CBC & Chemistry Diagram: 12/17/18 13:56 12/17/18 13:56 <Rosanne Mattson - Last Filed: 12/17/18 15:08> - LABORATORY CBC & Chemistry Diagram: 12/17/18 13:56 12/17/18 13:56 - ADDITIONAL ORDERS Additional order review: Laboratory Results 12/17/18 12/17/18 12/17/18 14:01 13:56 13:56 PT with INR 14.80 H INR 1.25 H PTT (Actin FS) 35.1 Sodium 140 Potassium 4.2 Chloride 107 Carbon Dioxide 23 Anion Gap 9 BUN 15.9 Creatinine 1.1 Est GFR (CKD-EPI)AfAm 76.24 Est GFR (CKD-EPI)NonAf 65.78 Random Glucose 89 Calcium 9.0 Total Bilirubin 0.5 AST 24 ALT 20 Alkaline Phosphatase 101 Total Protein 7.5 Albumin 3.4 Urine Color Yellow Urine Appearance Cloudy Urine pH 5.5 D Ur Specific [place] 1.022 Urine Protein 3+ H Urine Glucose (UA) Negative Urine Ketones Negative Urine Blood 3+ H Urine Nitrite Positive H Urine Bilirubin Negative Urine Urobilinogen 0.2 Ur Leukocyte Esterase 2+ H Urine WBC (Auto) 192 Urine RBC (Auto) 161 Urine Casts (Auto) 1 U Epithel Cells (Auto) 4.4 Urine Bacteria (Auto) 3248.2 12/17/18 13:56 RBC 4.27 MCV 92.3 MCHC 34.1 RDW 13.7 MPV 7.9 Neutrophils % 56.7 D Lymphocytes % 31.8 D Monocytes % 8.9 Eosinophils % 2.1 Basophils % 0.5 - Medications Given in the ED: ED Medications Discontinued Medications Generic Name Dose Route Start Last Admin Trade Name Freq PRN Reason Stop Dose Admin Cephalexin HCl 500 mg 12/17/18 14:39 12/17/18 14:58 Keflex - PO 12/17/18 14:40 500 mg ONCE ONE Administration <Anju Jennings - Last Filed: 12/17/18 15:40> Medical Decision Making - Medical Decision Making 12/17/18 13:23 73 year old male with above PMH presented to ED for redness to suprapubic catheter site x3 days. Physical examination significant for local cellulitis. Initial Vital Signs Temp Pulse Resp BP Pulse Ox 98 F 65 17 112/54 L 96 12/17/18 12:33 12/17/18 12:33 12/17/18 12:33 12/17/18 12:33 12/17/18 12:33 Afebrile. No tachycardia. No tachypnea. Mild diastolic hypotension. No hypoxia on room air. Labs ordered: CBC, CMP, UA/UC Imaging ordered: none Medications ordered: none 12/17/18 13:50 Dr. Whitfield paged. 12/17/18 13:[address] Whitfield about the case, he agreed with the plan for outpatient antibiotics if normal labs. Pending labs. 12/17/18 14:38 Urine Test Results Urine Color Yellow 12/17/18 14:01 Urine Appearance Cloudy 12/17/18 14:01 Urine pH 5.5 (5.0-8.0) D 12/17/18 14:01 Ur Specific [place] 1.022 (1.010-1.035) 12/17/18 14:01 Urine Protein 3+ (NEGATIVE) H 12/17/18 14:01 Urine Glucose (UA) Negative (NEGATIVE) 12/17/18 14:01 Urine Ketones Negative (NEGATIVE) 12/17/18 14:01 Urine Blood 3+ (NEGATIVE) H 12/17/18 14:01 Urine Nitrite Positive (NEGATIVE) H 12/17/18 14:01 Urine Bilirubin Negative (NEGATIVE) 12/17/18 14:01 Ur Leukocyte Esterase 2+ (NEGATIVE) H 12/17/18 14:01 UTI Medications ordered: Keflex 500 mg PO once 12/17/18 15:08 CMP Sodium 140 mmol/L (136-145) 12/17/18 13:56 Potassium 4.2 mmol/L (3.5-5.1) 12/17/18 13:56 Chloride 107 mmol/L (98-107) 12/17/18 13:56 Carbon Dioxide 23 mmol/L (21-32) 12/17/18 13:56 Anion Gap 9 MMOL/L (8-16) 12/17/18 13:56 BUN 15.9 mg/dL (7-18) 12/17/18 13:56 Creatinine 1.1 mg/dL (0.55-1.3) 12/17/18 13:56 Est GFR (CKD-EPI)AfAm 76.24 12/17/18 13:56 Est GFR (CKD-EPI)NonAf 65.78 12/17/18 13:56 Random Glucose 89 mg/dL (74-106) 12/17/18 13:56 Calcium 9.0 mg/dL (8.5-10.1) 12/17/18 13:56 Total Bilirubin 0.5 mg/dL (0.2-1) 12/17/18 13:56 AST 24 U/L (15-37) 12/17/18 13:56 ALT 20 U/L (13-61) 12/17/18 13:56 Alkaline Phosphatase 101 U/L (45-117) 12/17/18 13:56 Total Protein 7.5 g/dl (6.4-8.2) 12/17/18 13:56 Albumin 3.4 g/dl (3.4-5.0) 12/17/18 13:56 No electrolyte abnormalities. No SILVIA. No transaminitis. Pt informed of results and need for F/U with /PCP. Pt expressed understanding and agreed with plan for care. Pt discharged. <Rosanne Mattson - Last Filed: 12/17/18 15:08> *DC/Admit/Observation/Transfer - Discharge Dispostion Decision to Admit order: No <Rosanne Mattson - Last Filed: 12/17/18 15:08> <Anju Jennings - Last Filed: 12/17/18 15:40> Diagnosis at time of Disposition: Cellulitis, UTI (urinary tract infection), Presence of suprapubic catheter - Discharge Dispostion Disposition: HOME Condition at time of disposition: Stable - Prescriptions Prescriptions: Cephalexin [Keflex] 500 mg PO QID 7 Days #28 capsule - Patient Instructions Printed Discharge Instructions: How to Care for a Suprapubic Catheter, DI for Cellulitis -- Adult, DI for Urinary Tract Infection (UTI) Additional Instructions: You likely have a cellulitis - or infection of the skin. Your urine analysis also revealed a urinary tract infection. I spoke with Dr. De Luna about your condition. We recommend you follow up with Dr. De Luna within 3 days. Your care is not complete until you follow up. Follow up with your primary care doctor within 3 days. Your care is not complete until you follow up. Take all prescriptions as prescribed. Do not stop taking any medications without talking to your primary care doctor. Take a probiotic over the counter to help prevent antibiotic associated diarrhea. Return to the Emergency Department for increasing redness, discharge from wound , chest pain, shortness of breath, fever, vomiting, or any other new, worsening or concerning symptoms.
[2018-12-17 14:31] LABS: EPI CELLS 4.4 /HPF (0-5/HPF); HYALINE CASTS 1 /lpf (0-8); PH,URINE 5.5 (5.0-8.0); URINE APPEARANCE CLOUDY; URINE BACTERIA 3248.2 /hpf (NEGATIVE); URINE BILIRUBIN NEGATIVE (NEGATIVE); URINE COLOR YELLOW; URINE GLUCOSE (UA) NEGATIVE (NEGATIVE); URINE KETONE NEGATIVE (NEGATIVE); URINE LEUK ESTERASE 2+ (NEGATIVE); URINE NITRITE POSITIVE (NEGATIVE); URINE PROTEIN 3+ (NEGATIVE); URINE RBC 161 /hpf (0-4); URINE UROBILINOGEN 0.2 mg/dL (0.2-1.0); URINE WBC 192 /hpf (0-5)
[2018-12-17 14:32] LABS: BASO % 0.5 % (0-2.0); EOS % 2.1 % (0-4.5); HEMATOCRIT 39.4 % (35.4-49); HEMOGLOBIN 13.4 GM/dL (11.7-16.9); LYMPH % 31.8 % (8-40); MCH 31.5 pg (25.7-33.7); MCHC 34.1 g/dl (32.0-35.9); MEAN CELL VOLUME 92.3 fl (80-96); MEAN PLT VOLUME 7.9 fl (7.5-11.1); MONO % 8.9 % (3.8-10.2); NEUT % 56.7 % (42.8-82.8); PLATELET COUNT 256 K/MM3 (134-434); RBC 4.27 M/mm3 (4.00-5.60); RDW 13.7 % (11.9-15.9); WHITE BLOOD COUNT 7.7 K/mm3 (4.0-10.0)
[2018-12-17] MEDS ORDERED: CEPHALEXIN MONOHYDRATE 500 MG CAPSULE (UD) PO ONE (14:39)
[2018-12-17 14:47] LABS: ACTIVATED PTT 35.1 SECONDS (25.2-36.5)
[2018-12-17] MEDS ORDERED: CEPHALEXIN MONOHYDRATE 500 MG CAPSULE (UD) ONE (14:54)
[2018-12-17 15:00] LABS: ALBUMIN 3.4 g/dl (3.4-5.0); BILIRUBIN,TOTAL 0.5 mg/dL (0.2-1); BLOOD UREA NITROGEN 15.9 mg/dL (7-18); CREATININE 1.1 mg/dL (0.55-1.3); POTASSIUM 4.2 mmol/L (3.5-5.1); TOT PROT 7.5 g/dl (6.4-8.2)
[2018-12-17 15:07] LABS: INR 1.25 (0.83-1.09); PROTHROMBIN TIME (PATIENT) 14.8 SEC (9.7-13.0)
--- NOTE | 2018-12-17 15:40 | PDOC ---
Documentation entered by Ruslan Quintanilla SCRIBE, acting as scribe for Anju Jennings MD. Anju Jennings MD: This documentation has been prepared by the Socorro vazquez Elijah, SCRIBE, under my direction and personally reviewed by me in its entirety. I confirm that the documentation accurately reflects all work, treatment, procedures, and medical decision making performed by me. Attending Attestation - Resident Resident Name: Rosanne Mattson - ED Attending Attestation I have performed the following: I have examined & evaluated the patient, The case was reviewed & discussed with the resident, I agree w/resident's findings & plan, Exceptions are as noted - HPI HPI: 12/17/18 15:12 Patient is a 73 year old male with a significant past medical history of BPH s/ p TURP, multiple UTIs, suprapubic catheter placement (12/12/18), chronic low back pain, spinal stenosis, HLD who presents to the ED with redness by the site of his Suprapubic catheter lasting for x3 days. Denies Fever, chills, nausea, vomiting, dizziness, weakness/numbness, abd pain, cp/sob Allergies: NKA PCP: Dr. Sanabria Urology: Dr. Whitfield - Physicial Exam PE: 12/17/18 15:14 GENERAL: Awake, alert, and fully oriented, in no acute distress. HEAD: No signs of trauma EYES: PERRLA, EOMI, sclera anicteric, conjunctiva clear ENT: Auricles normal inspection, hearing grossly normal, nares patent, oropharynx clear without exudates. Moist mucosa NECK: Nontender, no stepoffs, Normal ROM, supple, no lymphadenopathy, JVD, or masses LUNGS: Breath sounds equal, clear to auscultation bilaterally. No wheezes, and no crackles HEART: Regular rate and rhythm, normal S1 and S2, no murmurs, rubs or gallops ABDOMEN: Soft, nontender, normoactive bowel sounds. No guarding, no rebound. No masses EXTREMITIES: Normal range of motion, no edema. No clubbing or cyanosis. No cords, erythema, or tenderness NEUROLOGICAL: Cranial nerves II through XII intact. 5/5 strength and sensation in all extremities, Normal speech, normal gait, normal cerebellar function SKIN: +2x2 area erythema around suprapubic catheter, mild induration, no fluctuance, no discharge or bleeding - Medical Decision Making 12/17/18 15:31 73yo M presents to the ED with erythema around the site of suprapubic catheter MIld induration, no fluctuance consistent with early cellulitis No systemic signs of infection Labs with no white count, all wnl UA dirty, but pt likely colonized, no suprapubic pain, UCx pending will hold off tx until then Will treat cellulitis with keflex REturn precautions discussed Case was discussed with pt's urologist who placed the catheter last week, he agrees with the plan I discussed the physical exam findings, ancillary test results and final diagnoses with the patient. I answered all of the patient's questions. The patient was satisfied with the care received and felt comfortable with the discharge plan and treatment plan. The patient will call their primary care physician within 24 hours to arrange follow-up and will return to the Emergency Department with any new, persistent or worsening symptoms.
== END 2018-12-17 15:32 | disposition home or self-care (01) ==
LOC: JER 12:22
DX: Z46.6 Encounter for fitting and adjustment of urinary device (principal); Z96.0 Presence of urogenital implants; L03.90 Cellulitis, unspecified; N39.0 Urinary tract infection, site not specified
CPT/HCPCS: 36415; 80053; 81003; 85025; 85610; 85730; 87086; 87186; 99283-25

== ENCOUNTER 2018-12-24 12:10 | Emergency (ER) | payer OTHER ==
[2018-12-24 12:17] VITALS: TEMP 98.5; BMI 33.7
--- NOTE | 2018-12-24 12:18 | PDOC ---
Rapid Medical Evaluation Time Seen by Provider: 12/24/18 12:15 Medical Evaluation: Allergies Allergy/AdvReac Type Severity Reaction Status Date / Time No Known Allergies Allergy Verified 06/29/18 09:50 12/24/18 12:16 CC: "I pulled my SPT out accidentally. PE: No focal findings. Orders: nothing Patient will proceed to ED for continued evaluation. Discharge Disposition - Diagnosis Encounter for care or replacement of suprapubic tube - Referrals - Patient Instructions - Post Discharge Activity
--- NOTE | 2018-12-24 15:01 | PDOC ---
Attending Attestation - Resident Resident Name: Mukesh Hernandez - ED Attending Attestation I have performed the following: I have examined & evaluated the patient, The case was reviewed & discussed with the resident, I agree w/resident's findings & plan, Exceptions are as noted - HPI HPI: 12/24/18 15:02 Mr. De Luna is a 73 yo M h/o recurrent UTI, bph s/p TURP (07/05/18), urinary incontinence, and chronic LBP, s/p placement of suprapubic cathether on 2018 Pt apparently went to the bathroom today and as he pulled his pants down, and accidentally removed his cathether The patient states that he noticed a fever that was intermittent for 3-4 days prior to arrival at ER. He is concerned about a possible UTI - Physicial Exam PE: 12/24/18 15:10 GENERAL: Awake, alert, and fully oriented, in no acute distress. LUNGS: Breath sounds equal, clear to auscultation bilaterally. HEART: Regular rate and rhythm ABDOMEN: Soft, nontender, normoactive bowel sounds. EXTREMITIES: Normal range of motion, no edema. NEUROLOGICAL: Cranial nerves II through XII intact. 5/5 strength and sensation in all extremities, Normal speech, normal gait, normal cerebellar function SKIN: Suprapubic catheter out, mild induration, no bleeding noted - Medical Decision Making 12/24/18 15:11 call placed to pt Urologist as this patient He requests that a spence cathether be placed until the patient can be seen The patient family member called the Urologist office The patient can be seen today at [address] spence Will discharge *DC/Admit/Observation/Transfer Diagnosis at time of Disposition: Encounter for care or replacement of suprapubic tube - Discharge Dispostion Disposition: HOME Condition at time of disposition: Stable Decision to Admit order: No - Referrals - Patient Instructions Printed Discharge Instructions: How to Care for a Suprapubic Catheter - Post Discharge Activity
--- NOTE | 2018-12-24 15:22 | PDOC ---
History of Present Illness - General Chief Complaint: Urinary Catheter Problem Stated Complaint: Catheter Problem Time Seen by Provider: 12/24/18 12:15 - History of Present Illness Initial Comments: 12/26/18 16:29 73 yo M hx of urinary retention with suprapubic catheter, presenting after pulling out his catheter unintentionally, He was recently treated for UTI and surrounding skin infection around the catheter site. Treatment almost complete and symptoms have improved. He denies any fevers, chill, flank pain, abdominal pain, penile discharge, Past History - Past Medical History Allergies/Adverse Reactions: Allergies Allergy/AdvReac Type Severity Reaction Status Date / Time No Known Allergies Allergy Verified 12/24/18 12:16 Home Medications: Ambulatory Orders Pregabalin [Lyrica] 250 mg PO Q8H 06/14/17 Acetaminophen [Tylenol .Regular Strength -] 650 mg PO Q6H PRN tablet 07/07/18 Cephalexin [Keflex] 500 mg PO QID 7 Days #28 capsule 12/17/18 Anemia: No Asthma: No Cancer: No Cardiac Disorders: No CVA: No COPD: No CHF: No Dementia: No Diabetes: No GI Disorders: No Disorders: Yes (uti) HTN: No Hypercholesterolemia: No Liver Disease: No Seizures: No Thyroid Disease: No - Surgical History Abdominal Surgery: No Appendectomy: No Cardiac Surgery: No Cholecystectomy: No Lung Surgery: No Neurologic Surgery: Yes (x 5) Orthopedic Surgery: Yes (Spinal Fusion with Instumentation 01/2016- DVT RLE post op) - Immunization History Td Vaccination: No TDAP Vaccination: No Immunization Up to Date: Yes - Suicide/Smoking/Psychosocial Hx Smoking History: Never smoked Have you smoked in the past 12 months: No Hx Alcohol Use: Yes Drug/Substance Use Hx: No Substance Use Type: Alcohol Hx Substance Use Treatment: No Review of Systems - Review of Systems Constitutional: No: Chills, Fever HEENTM: No: Eye Pain, Tearing Respiratory: No: Cough, Shortness of Breath Cardiac (ROS): No: Chest Pain ABD/GI: No: Nausea, Vomiting : Yes: Symptoms Reported Musculoskeletal: Yes: Back Pain Integumentary: No: Change in Color Neurological: No: Headache *Physical Exam - Vital Signs Last Vital Signs Temp Pulse Resp BP Pulse Ox 98.5 F 68 18 99/48 L 98 12/24/18 12:13 12/24/18 12:13 12/24/18 12:13 12/24/18 12:13 12/24/18 12:13 - Physical Exam General Appearance: Yes: Nourished, Appropriately Dressed. No: Apparent Distress HEENT: positive: EOMI, Normal Voice. negative: Scleral Icterus (R), Scleral Icterus (L) Neck: positive: Trachea midline, Supple Respiratory/Chest: positive: Lungs Clear, Normal Breath Sounds. negative: Chest Tender, Respiratory Distress, Accessory Muscle Use Cardiovascular: positive: Regular Rhythm, Regular Rate, S1, S2. negative: JVD Vascular Pulses: Dorsalis-Pedis (R): 2+, Doralis-Pedis (L): 2+ Gastrointestinal/Abdominal: positive: Normal Bowel Sounds, Soft, Protuberent, Other (resolving erythema around catheter insertion site, tube still in place) Musculoskeletal: positive: Normal Inspection. negative: CVA Tenderness Extremity: positive: Normal Capillary Refill, Normal Inspection, Normal Range of Motion Integumentary: positive: Normal Color, Dry, Warm, Other Neurologic: positive: Fully Oriented, Alert, Normal Mood/Affect, Normal Response Medical Decision Making - Medical Decision Making 12/24/18 15:19 73 y/o M hx of urinary retention presenting after mistakenly pulling out his catheter. Pts Urologist Dr. Whitfield contacted and advised placement of spence catheter with f/up at his office. PT able to get an appointment today to see him so pt will be discharged from hospital to follow up with him at his office. 12/26/18 16:32 *DC/Admit/Observation/Transfer Diagnosis at time of Disposition: Encounter for care or replacement of suprapubic tube - Discharge Dispostion Disposition: HOME Condition at time of disposition: Stable Decision to Admit order: No - Referrals - Patient Instructions Printed Discharge Instructions: How to Care for a Suprapubic Catheter Additional Instructions: You were seen in the ER today after pulling out your suprapubic urinary catheter. A spence catheter was inserted at your Urologist Dr. Whitfield's instruction. You are on the way to your urologist office after leaving the ER. Make sure you keep that appointment Return to the ER if you experience fever, chills, swelling at the site or any urinary symptoms that worsen. - Post Discharge Activity
[2018-12-24 15:34] VITALS: BP 118/60; PULSE 89
== END 2018-12-24 15:36 | disposition home or self-care (01) ==
LOC: JER 12:10
PROC: 0T9B70Z Drainage of Bladder with Drainage Device, Via Natural or Artificial Opening (ICD-10-PCS; principal; 2018-12-24)
DX: T83.028A Displacement of other urinary catheter, initial encounter (principal); N40.0 Benign prostatic hyperplasia without lower urinary tract symptoms; M54.5 Low back pain; G89.29 Other chronic pain; Z87.440 Personal history of urinary (tract) infections; Y73.1 Therapeutic (nonsurgical) and rehabilitative gastroenterology and urology devices associated with adverse incidents; Y92.002 Bathroom of unspecified non-institutional (private) residence as the place of occurrence of the external cause
CPT/HCPCS: 51702; 99282-25

== ENCOUNTER 2021-04-09 20:29 | Emergency (ER) | payer OTHER ==
[2021-04-09 20:37] VITALS: BMI 35.5
[2021-04-09] MEDS ORDERED: CEPHALEXIN MONOHYDRATE 500 MG CAPSULE (UD) PO ONE (22:57)
[2021-04-09] MEDS ORDERED: CEPHALEXIN MONOHYDRATE 500 MG CAPSULE (UD) ONE (23:08)
[2021-04-09 23:10] LABS: EPI CELLS 1 /uL (0-25.1); HYALINE CASTS 2 /uL (0-3.1); PH,URINE >= 9.0 (5.0-8.0); URINE APPEARANCE TURBID; URINE BACTERIA >9,000 /uL (0-1359); URINE BILIRUBIN NEGATIVE (NEGATIVE); URINE COLOR YELLOW; URINE GLUCOSE (UA) NEGATIVE (NEGATIVE); URINE KETONE NEGATIVE (NEGATIVE); URINE LEUK ESTERASE 2+ (NEGATIVE); URINE NITRITE POSITIVE (NEGATIVE); URINE PROTEIN 2+ (NEGATIVE); URINE RBC 103 /uL (0-23.9); URINE WBC 544 /uL (0-25.8)
[2021-04-10 07:50] VITALS: BP 121/47; PULSE 70; TEMP 98.1
[2021-04-10] MEDS ORDERED: PREGABALIN 50 MG CAPSULE PO ONE (07:55)
[2021-04-10] MEDS ORDERED: PREGABALIN 100 MG CAPSULE ONE (07:58)
[2021-04-10] MEDS ORDERED: PREGABALIN 50 MG CAPSULE ONE (07:58)
== END 2021-04-10 10:00 | disposition home or self-care (01) ==
LOC: JER 20:29
DX: T83.098A Other mechanical complication of other urinary catheter, initial encounter (principal)
CPT/HCPCS: 81003; 87086; 87186; 99283-25

== ENCOUNTER 2021-06-08 04:11 | Inpatient (IN) | payer OTHER ==
[2021-06-07 18:26] VITALS: BMI 35.5
[2021-06-08] MEDS ORDERED: LIDOCAINE 1%/EPI 1:100000 (20 ML MULTI DOSE VIAL) IJ ONE ×2 (07:41→09:20)
[2021-06-08] MEDS ORDERED: ceFAZolin 2 GRAM PREMIX BAG IVPB ONE ×2 (07:42→09:25)
[2021-06-08] MEDS ORDERED: THROMBIN (BOVINE) 5,000 UNIT VIAL TP ONE ×2 (07:42→09:40)
[2021-06-08] MEDS ORDERED: VANCOMYCIN 1 GM in D5W (PRE-DOCKED) 1,000 MG/250 ML IVPB ONE ×2 (07:42→09:25)
[2021-06-08] MEDS ORDERED: GENTAMICIN SO4 80 MG/2 ML VIAL IVPB ONE ×2 (07:43→09:50)
[2021-06-08] MEDS ORDERED: HYDROGEN PEROXIDE 473 ML PO ONE ×2 (07:44→09:54)
[2021-06-08] MEDS ORDERED: BUPIVACAINE LIPOSOME/PF (EXPAREL) 266 MG/20 ML VIAL NR ONE ×2 (07:44→15:05)
[2021-06-08] MEDS ORDERED: BUPIVACAINE HCL/PF 0.5% (5MG/ML) 10 ML VIAL IJ ONE ×2 (07:45→15:05)
[2021-06-08] MEDS ORDERED: ADENOSINE 6 MG/2 ML VIAL IVPUSH ONE (08:29)
[2021-06-08] MEDS ORDERED: SUCCINYLCHOLINE CHLORIDE 200 MG/10 ML SYRINGE ONE (08:31)
[2021-06-08] MEDS ORDERED: ROCURONIUM BROMIDE 50 MG/5 ML SYRINGE ONE ×3 (08:31→11:09)
[2021-06-08] MEDS ORDERED: MIDAZOLAM HCL 2 MG/2 ML SINGLE DOSE VIAL ONE (08:31)
[2021-06-08] MEDS ORDERED: PROPOFOL 20 ML ONE ×2 (08:31)
[2021-06-08] MEDS ORDERED: fentaNYL CITRATE 250 MCG/5 ML VIAL ONE (08:32)
[2021-06-08] MEDS ORDERED: THROMBIN (BOVINE) 20,000 UNIT VIAL TP ONE (09:21)
[2021-06-08] MEDS: ceFAZolin 2 GRAM PREMIX BAG IVPB ONE ×2 (09:25→17:45)
[2021-06-08] MEDS ORDERED: VANCOMYCIN 1 GM in NS (PRE-DOCKED) 1,000 MG/250 ML IVPB ONE ×2 (09:54→12:00)
[2021-06-08] MEDS ORDERED: HYDROmorphone HCl 2 MG/ML VIAL ONE (10:37)
[2021-06-08] MEDS ORDERED: ceFAZolin SODIUM 1 GM VIAL IVPB ONE (12:30)
[2021-06-08] MEDS ORDERED: NEOSTIGMINE METHYLSULFATE 0.5 MG/1 ML - 10 ML MDV ONE (15:09)
[2021-06-08] MEDS ORDERED: GLYCOPYRROLATE 0.2 MG/1 ML VIAL ONE (15:09)
[2021-06-08] MEDS ORDERED: diphenhydrAMINE HCL 25 MG CAPSULE (FP) PO PRN (15:44)
[2021-06-08] MEDS ORDERED: ONDANSETRON 4 MG/2 ML VIAL IVPUSH PRN (15:44)
[2021-06-08] MEDS ORDERED: PREGABALIN 100 MG CAPSULE PO SCH (15:45)
[2021-06-08] MEDS ORDERED: LACTATED RINGERS SOLUTION 1,000 ML/1,000 ML INFUS.BAG IV SCH (15:45)
[2021-06-08] MEDS ORDERED: DEXAMETHASONE SOD PHOSPHATE 4 MG/1 ML VIAL IVPUSH PRN (16:26)
[2021-06-08] MEDS ORDERED: HYDROmorphone *PCA* 10MG/50ML DISP.SYRIN PCA SCH (16:30)
[2021-06-08] MEDS: CEFAZOLIN 2 GM in SODIUM CHLORIDE 100 ML IVPB SCH ×2 (17:45)
[2021-06-08] MEDS ORDERED: HYDROmorphone *PCA* 10MG/50ML DISP.SYRIN ONE (17:56)
[2021-06-08] MEDS ORDERED: CEFAZOLIN 1 GM/D5W 1 GM/50 ML BAG IVPB SCH (18:00)
[2021-06-08] MEDS ORDERED: PREGABALIN 50 MG CAPSULE ONE (21:59)
[2021-06-08] MEDS ORDERED: PREGABALIN 100 MG CAPSULE ONE (21:59)
[2021-06-08] MEDS: DOCUSATE SODIUM 100 MG CAPSULE (FP) PO SCH (22:05)
[2021-06-08] MEDS: PREGABALIN PO SCH (22:05)
[2021-06-09] MEDS ORDERED: PREGABALIN 100 MG CAPSULE ONE ×3 (05:29→23:05)
[2021-06-09] MEDS ORDERED: PREGABALIN 50 MG CAPSULE ONE ×3 (05:29→23:05)
[2021-06-09] MEDS: PREGABALIN PO SCH ×3 (05:31→22:06)
[2021-06-09] MEDS: DOCUSATE SODIUM 100 MG CAPSULE (FP) PO SCH ×3 (05:31→22:06)
[2021-06-09] MEDS: LACTATED RINGERS SOLUTION 1,000 ML IV SCH ×3 (05:34→20:37)
[2021-06-09] MEDS ORDERED: oxyCODONE HCL 5 MG TABLET PO PRN (08:40)
[2021-06-09 08:57] LABS: HEMATOCRIT 34.5 % (35.4-49); HEMOGLOBIN 11.7 GM/dL (11.7-16.9); MCH 32.6 pg (25.7-33.7); MCHC 33.9 g/dl (32.0-35.9); MEAN CELL VOLUME 96.3 fl (80-96); MEAN PLT VOLUME 7.4 fl (7.5-11.1); PLATELET COUNT 218 10^3/uL (134-434); RBC 3.58 M/mm3 (4.00-5.60); RDW 13.3 % (11.9-15.9); WHITE BLOOD COUNT 11.1 K/mm3 (4.0-10.0)
[2021-06-09] MEDS: HEPARIN NA (PORCINE) 5,000 UNITS/ML 1ML VIAL SQ SCH ×2 (09:21→17:05)
[2021-06-09 09:22] LABS: CALCIUM 8.5 mg/dL (8.5-10.1)
[2021-06-09 09:32] LABS: BLOOD UREA NITROGEN 14.6 mg/dL (7-18)
[2021-06-09] MEDS: FUROSEMIDE 40 MG TABLET (FP) PO SCH (10:30)
[2021-06-09] MEDS: BACITRACIN 15 GM TUBE TOPICAL OINTMENT TP SCH (10:50)
[2021-06-09] MEDS: FOLIC ACID 1 MG TABLET (FP) PO SCH (10:51)
[2021-06-09] MEDS: PANTOPRAZOLE 40 MG TABLET PO SCH (10:51)
[2021-06-09] MEDS: FERROUS SO4 325 MG TABLET (FP) PO SCH (10:51)
[2021-06-09 11:00] LABS: ANISOCYTOSIS 0; HELMET CELLS 0; HOWELL-JOLLY BODIES 0; MACROCYTOSIS 0; OVALOCYTE 0; PLATELET ESTIMATE NORMAL; ROULEAU 0; SICKELED CELLS 0; TARGET CELLS 0; TEAR DROP CELLS 0; TOXIC GRANULATION 0
[2021-06-09 11:02] LABS: MAGNESIUM 2.1 mg/dL (1.8-2.4)
[2021-06-09 11:05] LABS: ALBUMIN 2.8 g/dl (3.4-5.0)
[2021-06-09 11:08] LABS: BILIRUBIN,TOTAL 0.6 mg/dL (0.2-1)
[2021-06-09] MEDS: oxyCODONE HCL 5 MG TABLET PO PRN ×3 (13:30→22:03)
[2021-06-09] MEDS: ACETAMINOPHEN 325 MG TABLET (FP) PO PRN ×2 (18:09→23:08)
[2021-06-09] MEDS: AZTREONAM 1 GM in DEXTROSE 5%-WATER - 50 ML IVPB SCH (19:57)
[2021-06-09] MEDS ORDERED: AZTREONAM 1 GM VIAL (RESTRICTED TO ID) ONE (20:22)
[2021-06-09] MEDS ORDERED: DEXTROSE 5%-WATER - 50 ML IVPB ONE (20:23)
[2021-06-10] MEDS: HEPARIN NA (PORCINE) 5,000 UNITS/ML 1ML VIAL SQ SCH ×3 (00:10→15:42)
[2021-06-10] MEDS ORDERED: AZTREONAM 1 GM VIAL (RESTRICTED TO ID) ONE ×3 (03:41→18:28)
[2021-06-10] MEDS ORDERED: DEXTROSE 5%-WATER - 50 ML IVPB ONE ×3 (03:41→18:29)
[2021-06-10] MEDS: oxyCODONE HCL 5 MG TABLET PO PRN ×5 (03:47→21:33)
[2021-06-10] MEDS: AZTREONAM 1 GM in DEXTROSE 5%-WATER - 50 ML IVPB SCH ×3 (04:24→18:31)
[2021-06-10] MEDS ORDERED: PREGABALIN 100 MG CAPSULE ONE ×3 (06:41→20:48)
[2021-06-10] MEDS ORDERED: PREGABALIN 50 MG CAPSULE ONE ×3 (06:41→20:48)
[2021-06-10] MEDS: ACETAMINOPHEN 325 MG TABLET (FP) PO PRN (06:44)
[2021-06-10] MEDS: DOCUSATE SODIUM 100 MG CAPSULE (FP) PO SCH ×3 (06:45→21:33)
[2021-06-10] MEDS: PREGABALIN PO SCH ×3 (06:45→21:32)
[2021-06-10 09:11] LABS: BASO % 0.3 % (0-2.0); EOS % 0.3 % (0-4.5); HEMATOCRIT 28.1 % (35.4-49); HEMOGLOBIN 9.7 GM/dL (11.7-16.9); LYMPH % 16.6 % (8-40); MCH 33.3 pg (25.7-33.7); MCHC 34.5 g/dl (32.0-35.9); MEAN CELL VOLUME 96.4 fl (80-96); MEAN PLT VOLUME 7.3 fl (7.5-11.1); MONO % 12.7 % (3.8-10.2); NEUT % 70.1 % (42.8-82.8); PLATELET COUNT 155 10^3/uL (134-434); RBC 2.91 M/mm3 (4.00-5.60); RDW 13.5 % (11.9-15.9)
[2021-06-10 10:01] LABS: ALBUMIN 2.3 g/dl (3.4-5.0); CALCIUM 7.7 mg/dL (8.5-10.1)
[2021-06-10 10:02] LABS: MAGNESIUM 2.2 mg/dL (1.8-2.4)
[2021-06-10 10:06] LABS: TOT PROT 5.3 g/dl (6.4-8.2)
[2021-06-10 10:33] LABS: BILIRUBIN,TOTAL 0.8 mg/dL (0.2-1)
[2021-06-10] MEDS: FUROSEMIDE 40 MG TABLET (FP) PO SCH (10:34)
[2021-06-10] MEDS: PANTOPRAZOLE 40 MG TABLET PO SCH (10:34)
[2021-06-10] MEDS: FOLIC ACID 1 MG TABLET (FP) PO SCH (10:34)
[2021-06-10] MEDS: BACITRACIN 15 GM TUBE TOPICAL OINTMENT TP SCH (10:34)
[2021-06-10] MEDS: FERROUS SO4 325 MG TABLET (FP) PO SCH (10:34)
[2021-06-10] MEDS ORDERED: MAGNESIUM HYDROX 2400MG/30ML ORAL SUSPENSION 30 ML CUP PO SCH (14:46)
[2021-06-10] MEDS: MAGNESIUM HYDROX 2400MG/30ML ORAL SUSPENSION 30 ML CUP PO SCH (15:55)
[2021-06-11] MEDS: HEPARIN NA (PORCINE) 5,000 UNITS/ML 1ML VIAL SQ SCH ×3 (00:31→21:49)
[2021-06-11] MEDS ORDERED: DEXTROSE 5%-WATER - 50 ML IVPB ONE ×3 (01:32→19:05)
[2021-06-11] MEDS ORDERED: AZTREONAM 1 GM VIAL (RESTRICTED TO ID) ONE ×3 (01:32→19:05)
[2021-06-11] MEDS: AZTREONAM 1 GM in DEXTROSE 5%-WATER - 50 ML IVPB SCH ×3 (02:30→19:07)
[2021-06-11] MEDS: oxyCODONE HCL 5 MG TABLET PO PRN ×5 (02:35→19:52)
[2021-06-11] MEDS ORDERED: PREGABALIN 100 MG CAPSULE ONE ×3 (05:00→21:46)
[2021-06-11] MEDS ORDERED: PREGABALIN 50 MG CAPSULE ONE ×3 (05:00→21:46)
[2021-06-11] MEDS: DOCUSATE SODIUM 100 MG CAPSULE (FP) PO SCH (05:03)
[2021-06-11] MEDS: PREGABALIN PO SCH ×3 (05:03→21:48)
[2021-06-11 08:59] LABS: BASO % 0.3 % (0-2.0); EOS % 0.4 % (0-4.5); HEMATOCRIT 29.3 % (35.4-49); HEMOGLOBIN 10.1 GM/dL (11.7-16.9); LYMPH % 15.8 % (8-40); MCH 33.2 pg (25.7-33.7); MCHC 34.6 g/dl (32.0-35.9); MEAN CELL VOLUME 96.1 fl (80-96); MEAN PLT VOLUME 7.3 fl (7.5-11.1); MONO % 9.8 % (3.8-10.2); NEUT % 73.7 % (42.8-82.8); PLATELET COUNT 166 10^3/uL (134-434); RBC 3.05 M/mm3 (4.00-5.60); RDW 13.2 % (11.9-15.9); WHITE BLOOD COUNT 7.8 K/mm3 (4.0-10.0)
[2021-06-11] MEDS: FUROSEMIDE 40 MG TABLET (FP) PO SCH (09:06)
[2021-06-11] MEDS: MAGNESIUM HYDROX 2400MG/30ML ORAL SUSPENSION 30 ML CUP PO SCH (09:06)
[2021-06-11] MEDS: PANTOPRAZOLE 40 MG TABLET PO SCH (09:06)
[2021-06-11] MEDS: FERROUS SO4 325 MG TABLET (FP) PO SCH (09:06)
[2021-06-11] MEDS: FOLIC ACID 1 MG TABLET (FP) PO SCH (09:07)
[2021-06-11] MEDS: BACITRACIN 15 GM TUBE TOPICAL OINTMENT TP SCH (09:07)
[2021-06-11 09:36] LABS: ERYTHROCYTE SEDIMENTATION RATE 109 mm/hr (0-20)
[2021-06-11] MEDS ORDERED: MAGNESIUM HYDROX 2400MG/30ML ORAL SUSPENSION 30 ML CUP PO SCH (10:00)
[2021-06-11 10:50] LABS: ALBUMIN 2.5 g/dl (3.4-5.0); BILIRUBIN,TOTAL 0.5 mg/dL (0.2-1); BLOOD UREA NITROGEN 13.7 mg/dL (7-18); CALCIUM 8.5 mg/dL (8.5-10.1); CREATININE 0.9 mg/dL (0.55-1.3); TOT PROT 5.8 g/dl (6.4-8.2)
[2021-06-11] MEDS ORDERED: IRON SUCROSE INJECTION 300 MG in SODIUM CHLORIDE 235 ML IVPB ONE (11:00)
[2021-06-11] MEDS ORDERED: CYANOCOBALAMIN (VITAMIN B-12) 1000 MCG/1 ML VIAL IM ONE (12:04)
[2021-06-12] MEDS: oxyCODONE HCL 5 MG TABLET PO PRN ×6 (00:01→20:07)
[2021-06-12] MEDS ORDERED: AZTREONAM 1 GM VIAL (RESTRICTED TO ID) ONE ×3 (03:38→19:28)
[2021-06-12] MEDS ORDERED: DEXTROSE 5%-WATER - 50 ML IVPB ONE ×3 (03:39→19:28)
[2021-06-12] MEDS: AZTREONAM 1 GM in DEXTROSE 5%-WATER - 50 ML IVPB SCH ×3 (03:51→19:33)
[2021-06-12] MEDS ORDERED: PREGABALIN 50 MG CAPSULE ONE ×3 (05:41→20:47)
[2021-06-12] MEDS ORDERED: PREGABALIN 100 MG CAPSULE ONE ×3 (05:41→20:47)
[2021-06-12] MEDS: PREGABALIN PO SCH ×3 (05:46→21:13)
[2021-06-12 09:09] LABS: BASO % 0.4 % (0-2.0); EOS % 0.8 % (0-4.5); HEMATOCRIT 28.4 % (35.4-49); HEMOGLOBIN 9.9 GM/dL (11.7-16.9); LYMPH % 15.9 % (8-40); MCH 33.1 pg (25.7-33.7); MCHC 34.7 g/dl (32.0-35.9); MEAN CELL VOLUME 95.4 fl (80-96); MEAN PLT VOLUME 7.8 fl (7.5-11.1); MONO % 10.7 % (3.8-10.2); NEUT % 72.2 % (42.8-82.8); PLATELET COUNT 200 10^3/uL (134-434); RBC 2.98 M/mm3 (4.00-5.60); RDW 13.3 % (11.9-15.9); WHITE BLOOD COUNT 6.9 K/mm3 (4.0-10.0)
[2021-06-12] MEDS ORDERED: oxyCODONE HCL 5 MG TABLET ONE (09:47)
[2021-06-12] MEDS: HEPARIN NA (PORCINE) 5,000 UNITS/ML 1ML VIAL SQ SCH ×2 (09:48→21:14)
[2021-06-12] MEDS: MAGNESIUM HYDROX 2400MG/30ML ORAL SUSPENSION 30 ML CUP PO SCH (09:48)
[2021-06-12] MEDS: BACITRACIN 15 GM TUBE TOPICAL OINTMENT TP SCH (09:48)
[2021-06-12] MEDS: FUROSEMIDE 40 MG TABLET (FP) PO SCH (09:48)
[2021-06-12] MEDS: CYANOCOBALAMIN (VITAMIN B-12) 1000 MCG/1 ML VIAL IM SCH (09:49)
[2021-06-12] MEDS: PANTOPRAZOLE 40 MG TABLET PO SCH (09:49)
[2021-06-12] MEDS ORDERED: oxyCODONE HCL 5 MG TABLET PO PRN (09:53)
[2021-06-13] MEDS ORDERED: DEXTROSE 5%-WATER - 50 ML IVPB ONE ×2 (02:08→11:55)
[2021-06-13] MEDS ORDERED: AZTREONAM 1 GM VIAL (RESTRICTED TO ID) ONE ×2 (02:08→11:55)
[2021-06-13] MEDS: AZTREONAM 1 GM in DEXTROSE 5%-WATER - 50 ML IVPB SCH ×2 (02:42→12:32)
[2021-06-13] MEDS: oxyCODONE HCL 5 MG TABLET PO PRN ×5 (02:48→22:56)
[2021-06-13] MEDS ORDERED: PREGABALIN 50 MG CAPSULE ONE ×3 (05:55→21:29)
[2021-06-13] MEDS ORDERED: PREGABALIN 100 MG CAPSULE ONE ×3 (05:55→21:29)
[2021-06-13] MEDS: PREGABALIN PO SCH ×3 (06:04→22:56)
[2021-06-13 09:13] LABS: BASO % 0.5 % (0-2.0); EOS % 1.1 % (0-4.5); HEMATOCRIT 29.3 % (35.4-49); HEMOGLOBIN 10.3 GM/dL (11.7-16.9); LYMPH % 15.7 % (8-40); MCH 33.7 pg (25.7-33.7); MCHC 35.3 g/dl (32.0-35.9); MEAN CELL VOLUME 95.6 fl (80-96); MEAN PLT VOLUME 7.4 fl (7.5-11.1); MONO % 10.9 % (3.8-10.2); NEUT % 71.8 % (42.8-82.8); PLATELET COUNT 234 10^3/uL (134-434); RBC 3.07 M/mm3 (4.00-5.60); RDW 13.5 % (11.9-15.9); WHITE BLOOD COUNT 6.7 K/mm3 (4.0-10.0)
[2021-06-13] MEDS: CYANOCOBALAMIN (VITAMIN B-12) 1000 MCG/1 ML VIAL IM SCH (09:24)
[2021-06-13] MEDS: HEPARIN NA (PORCINE) 5,000 UNITS/ML 1ML VIAL SQ SCH ×2 (09:24→22:55)
[2021-06-13] MEDS: FUROSEMIDE 40 MG TABLET (FP) PO SCH (09:25)
[2021-06-13] MEDS: PANTOPRAZOLE 40 MG TABLET PO SCH (09:25)
[2021-06-13] MEDS: BACITRACIN 15 GM TUBE TOPICAL OINTMENT TP SCH (09:25)
[2021-06-14] MEDS ORDERED: PREGABALIN 50 MG CAPSULE ONE ×2 (06:01→14:47)
[2021-06-14] MEDS ORDERED: PREGABALIN 100 MG CAPSULE ONE ×2 (06:02→14:48)
[2021-06-14] MEDS: PREGABALIN PO SCH ×3 (06:41→14:51)
[2021-06-14] MEDS: oxyCODONE HCL 5 MG TABLET PO PRN ×3 (06:43→14:50)
[2021-06-14] MEDS ORDERED: MINERAL OIL ENEMA 133 ML ENEMA RC ONE (08:44)
[2021-06-14] MEDS ORDERED: POLYETHYLENE GLYCOL (HEALTHYLAX) 3350 17 GM PACKET PO SCH (10:00)
[2021-06-14] MEDS ORDERED: CYANOCOBALAMIN 1,000 MCG TABLET (FP) PO SCH (10:00)
[2021-06-14] MEDS: BACITRACIN 15 GM TUBE TOPICAL OINTMENT TP SCH (10:40)
[2021-06-14] MEDS: HEPARIN NA (PORCINE) 5,000 UNITS/ML 1ML VIAL SQ SCH (10:40)
[2021-06-14] MEDS: PANTOPRAZOLE 40 MG TABLET PO SCH (10:40)
[2021-06-14] MEDS: FUROSEMIDE 40 MG TABLET (FP) PO SCH (10:40)
[2021-06-14 14:55] VITALS: BP 105/56; PULSE 67; TEMP 97.4
== END 2021-06-14 17:51 | DRG 458 ==
LOC: J2C 04:11 → J8W 20:33
PROVIDERS: ADMIT Neurological Surgery; ATTEND Internal Medicine
PROC: 0RGA071 Fusion of Thoracolumbar Vertebral Joint with Autologous Tissue Substitute, Posterior Approach, Posterior Column, Open Approach (ICD-10-PCS; 2021-06-08)
PROC: 0SG1071 Fusion of 2 or more Lumbar Vertebral Joints with Autologous Tissue Substitute, Posterior Approach, Posterior Column, Open Approach (ICD-10-PCS; 2021-06-08)
PROC: 0SG3071 Fusion of Lumbosacral Joint with Autologous Tissue Substitute, Posterior Approach, Posterior Column, Open Approach (ICD-10-PCS; 2021-06-08)
PROC: 0RB90ZZ Excision of Thoracic Vertebral Disc, Open Approach (ICD-10-PCS; 2021-06-08)
PROC: 0SB40ZZ Excision of Lumbosacral Disc, Open Approach (ICD-10-PCS; 2021-06-08)
PROC: 00QT0ZZ Repair Spinal Meninges, Open Approach (ICD-10-PCS; 2021-06-08)
PROC: 01NB0ZZ Release Lumbar Nerve, Open Approach (ICD-10-PCS; 2021-06-08)
PROC: 01N80ZZ Release Thoracic Nerve, Open Approach (ICD-10-PCS; 2021-06-08)
PROC: 4A11X4G Monitoring of Peripheral Nervous Electrical Activity, Intraoperative, External Approach (ICD-10-PCS; 2021-06-08)
PROC: 0RG7071 Fusion of 2 to 7 Thoracic Vertebral Joints with Autologous Tissue Substitute, Posterior Approach, Posterior Column, Open Approach (ICD-10-PCS; principal; 2021-06-08 08:00)
DX: M41.86 Other forms of scoliosis, lumbar region (principal); M48.062 Spinal stenosis, lumbar region with neurogenic claudication; N31.9 Neuromuscular dysfunction of bladder, unspecified; M48.04 Spinal stenosis, thoracic region; M47.815 Spondylosis without myelopathy or radiculopathy, thoracolumbar region; M54.10 Radiculopathy, site unspecified; L27.0 Generalized skin eruption due to drugs and medicaments taken internally; T36.1X5A Adverse effect of cephalosporins and other beta-lactam antibiotics, initial encounter; D72.829 Elevated white blood cell count, unspecified; E66.9 Obesity, unspecified; Z68.35 Body mass index [BMI] 35.0-35.9, adult; R26.81 Unsteadiness on feet; E53.8 Deficiency of other specified B group vitamins; R50.9 Fever, unspecified; R29.6 Repeated falls; R60.0 Localized edema; R26.89 Other abnormalities of gait and mobility; G96.198 Other disorders of meninges, not elsewhere classified
CPT/HCPCS: 36415; 72128-TC; 72131-TC; 76000-TC-FY; 80048; 80053; 82607; 82728; 83540; 83550; 83735; 85025; 85027; 85651; 86850; 86870; 86900; 86901; 86902; 86922; 87040; 93005; 93010; 94760; 97116-GP; 97161-GP; C9803-CS; J1644; J1756; U0003; U0005

== ENCOUNTER 2021-07-27 17:35 | Inpatient (IN) | payer OTHER ==
[2021-07-27] MEDS ORDERED: ACETAMINOPHEN 1000 MG/100 ML BAG IVPB ONE (18:03)
[2021-07-27] MEDS ORDERED: SODIUM CHLORIDE 0.9% 500 ML INFUS.BAG IV ONE (18:03)
[2021-07-27] MEDS ORDERED: PIPERACILLIN/TAZOB 4.5 GM 4.5 GM in DEXTROSE 5%-WATER 100 ML IVPB ONE (18:04)
[2021-07-27] MEDS ORDERED: VANCOMYCIN 1 GM in D5W (PRE-DOCKED) 1,000 MG/250 ML IVPB ONE (18:04)
[2021-07-27] MEDS ORDERED: VANCOMYCIN 1 GRAM (PRE-DOCKED) 1,000 MG/250 ML BAG IVPB ONE (18:24)
[2021-07-27] MEDS ORDERED: PIPERACILLIN/TAZOB 4.5 GM 4.5 GM/100 ML BAG IVPB ONE (18:24)
[2021-07-27] MEDS ORDERED: ACETAMINOPHEN INJECTION 100 ML IVPB ONE (18:24)
[2021-07-27] MEDS ORDERED: CEFTRIAXONE 2,000 MG in DEXTROSE 5%-WATER - 50 ML IVPB ONE (18:37)
[2021-07-27 18:50] LABS: HEMOGLOBIN 11.8 GM/dL (11.7-16.9); MCH 32.1 pg (25.7-33.7); MCHC 33.6 g/dl (32.0-35.9); MEAN CELL VOLUME 95.6 fl (80-96); MEAN PLT VOLUME 7.9 fl (7.5-11.1); PLATELET COUNT 229 10^3/uL (134-434); RBC 3.67 M/mm3 (4.00-5.60); RDW 14.2 % (11.9-15.9)
[2021-07-27 18:52] LABS: INR 1.81 (0.83-1.09); PROTHROMBIN TIME (PATIENT) 20.9 SEC (9.7-13.0)
[2021-07-27 18:55] LABS: ACTIVATED PTT 32.1 SECONDS (25.2-36.5)
[2021-07-27] MEDS ORDERED: CEFTRIAXONE 2 GM/100 ML BAG IVPB ONE (19:00)
[2021-07-27 19:06] LABS: CALCIUM 8.7 mg/dL (8.5-10.1)
[2021-07-27 19:07] LABS: ALBUMIN 2.6 g/dl (3.4-5.0); BLOOD UREA NITROGEN 27.6 mg/dL (7-18)
[2021-07-27 19:10] LABS: CREATININE 1.5 mg/dL (0.55-1.3)
[2021-07-27 19:11] LABS: BILIRUBIN,TOTAL 0.4 mg/dL (0.2-1); TOT PROT 7.7 g/dl (6.4-8.2)
[2021-07-27 19:13] LABS: LACTIC ACID 3.2 mmol/L (0.4-2.0)
[2021-07-27 21:58] LABS: EPI CELLS 0 /uL (0-25.1); HYALINE CASTS 1 /uL (0-3.1); PH,URINE 5.5 (5.0-8.0); URINE APPEARANCE TURBID; URINE BACTERIA >9,000 /uL (0-1359); URINE BILIRUBIN NEGATIVE (NEGATIVE); URINE COLOR ORANGE; URINE GLUCOSE (UA) NEGATIVE (NEGATIVE); URINE KETONE NEGATIVE (NEGATIVE); URINE LEUK ESTERASE 3+ (NEGATIVE); URINE NITRITE POSITIVE (NEGATIVE); URINE PROTEIN 2+ (NEGATIVE); URINE WBC 4479 /uL (0-25.8)
[2021-07-27 22:26] LABS: LACTIC ACID 5.7 mmol/L (0.4-2.0)
[2021-07-27] MEDS ORDERED: oxyCODONE HCL 5 MG TABLET PO ONE (22:27)
[2021-07-27] MEDS ORDERED: PREGABALIN 100 MG CAPSULE PO SCH (22:30)
[2021-07-27] MEDS ORDERED: D5-1/2NS+10 MEQ KCL - 10 MEQ/1,000 ML INFUS.BAG IV SCH (22:45)
[2021-07-27] MEDS ORDERED: PANTOPRAZOLE 40 MG TABLET ONE (22:47)
[2021-07-27] MEDS ORDERED: PREGABALIN 50 MG CAPSULE ONE (22:47)
[2021-07-27] MEDS ORDERED: oxyCODONE HCL 5 MG TABLET ONE (22:48)
[2021-07-27] MEDS ORDERED: HEPARIN NA (PORCINE) 5,000 UNITS/ML 1ML VIAL ONE (22:48)
[2021-07-27] MEDS ORDERED: PREGABALIN 100 MG CAPSULE ONE (22:48)
[2021-07-27] MEDS ORDERED: PANTOPRAZOLE 40 MG TABLET PO ONE (22:50)
[2021-07-27] MEDS: PREGABALIN PO SCH (23:02)
[2021-07-27] MEDS: HEPARIN NA (PORCINE) 5,000 UNITS/ML 1ML VIAL SQ SCH (23:02)
[2021-07-27 23:44] LABS: URINE RBC 6816 /uL (0-23.9)
[2021-07-28] MEDS: MUPIROCIN 2% TOPICAL OINTMENT 22 GM TUBE TP SCH ×3 (00:59→22:04)
[2021-07-28] MEDS ORDERED: D5-1/2NS+10 MEQ KCL - 10 MEQ/1,000 ML INFUS.BAG IV SCH (03:00)
[2021-07-28] MEDS ORDERED: HEPARIN NA (PORCINE) 5,000 UNITS/ML 1ML VIAL ONE (06:05)
[2021-07-28] MEDS ORDERED: PREGABALIN 100 MG CAPSULE ONE ×4 (06:05→20:06)
[2021-07-28] MEDS ORDERED: PREGABALIN 50 MG CAPSULE ONE ×4 (06:05→20:06)
[2021-07-28] MEDS: HEPARIN NA (PORCINE) 5,000 UNITS/ML 1ML VIAL SQ SCH ×3 (06:16→22:04)
[2021-07-28] MEDS: PREGABALIN PO SCH ×3 (06:17→22:06)
[2021-07-28] MEDS ORDERED: ACETAMINOPHEN 325 MG TABLET (FP) ONE (06:21)
[2021-07-28] MEDS: ACETAMINOPHEN 325 MG TABLET (FP) PO PRN (06:28)
[2021-07-28] MEDS: INSULIN SLIDING SCALE (NOVOLOG) 1 VIAL SQ SCH ×3 (06:28→17:32)
[2021-07-28 06:42] LABS: BASO % 0.1 % (0-2.0); HEMOGLOBIN 11.2 GM/dL (11.7-16.9); LYMPH % 4.9 % (8-40); MCH 31.9 pg (25.7-33.7); MEAN CELL VOLUME 96.7 fl (80-96); MEAN PLT VOLUME 7.5 fl (7.5-11.1); MONO % 5.2 % (3.8-10.2); NEUT % 89.8 % (42.8-82.8); PLATELET COUNT 175 10^3/uL (134-434); RBC 3.52 M/mm3 (4.00-5.60); RDW 14.1 % (11.9-15.9); WHITE BLOOD COUNT 11.4 K/mm3 (4.0-10.0)
[2021-07-28 07:03] LABS: CALCIUM 8.2 mg/dL (8.5-10.1)
[2021-07-28 07:06] LABS: CREATININE 1.4 mg/dL (0.55-1.3)
[2021-07-28 07:08] LABS: LACTIC ACID 5.8 mmol/L (0.4-2.0)
[2021-07-28] MEDS ORDERED: PANTOPRAZOLE 40 MG TABLET ONE (08:48)
[2021-07-28] MEDS ORDERED: oxyCODONE HCL 5 MG TABLET ONE ×2 (08:53→13:31)
[2021-07-28] MEDS: PANTOPRAZOLE 40 MG TABLET PO SCH (09:14)
[2021-07-28] MEDS: CYANOCOBALAMIN 1,000 MCG TABLET (FP) PO SCH (09:15)
[2021-07-28] MEDS: oxyCODONE HCL 5 MG TABLET PO PRN ×3 (09:15→22:53)
[2021-07-28] MEDS ORDERED: POTASSIUM CHLORIDE 10 MEQ in DEXTROSE 5%-NORMAL SALINE 1,000 ML IVPB SCH (09:30)
[2021-07-28] MEDS ORDERED: FUROSEMIDE 40 MG TABLET (FP) PO SCH (10:00)
[2021-07-28] MEDS: POLYETHYLENE GLYCOL (HEALTHYLAX) 3350 17 GM PACKET PO SCH (10:30)
[2021-07-28] MEDS ORDERED: PIPERACILLIN/TAZOB 4.5 GM 4.5 GM/100 ML BAG IVPB ONE (11:46)
[2021-07-28] MEDS ORDERED: SODIUM CHLORIDE 1,000 ML IV STA ×2 (11:47→20:15)
[2021-07-28] MEDS ORDERED: PIPERACILLIN/TAZOB 4.5 GM 4.5 GM in DEXTROSE 5%-WATER 100 ML IVPB SCH (12:00)
[2021-07-28] MEDS ORDERED: ACETAMINOPHEN 500 MG TABLET (FP) PO ONE (12:21)
[2021-07-28] MEDS ORDERED: SODIUM CHLORIDE 1,000 ML IV SCH (12:50)
[2021-07-28] MEDS ORDERED: VANCOMYCIN 2,000 MG in DEXTROSE 5%-WATER - 500 ML IVPB ONE (13:00)
[2021-07-28 13:06] LABS: CALCIUM 7.6 mg/dL (8.5-10.1)
[2021-07-28 13:07] LABS: BLOOD UREA NITROGEN 19.6 mg/dL (7-18); MAGNESIUM 2.1 mg/dL (1.8-2.4)
[2021-07-28 13:10] LABS: PHOSPHOROUS 2.7 mg/dL (2.5-4.9)
[2021-07-28 13:12] LABS: BILIRUBIN,TOTAL 0.2 mg/dL (0.2-1); TOT PROT 5.9 g/dl (6.4-8.2)
[2021-07-28 13:13] LABS: ALBUMIN 1.8 g/dl (3.4-5.0)
[2021-07-28] MEDS ORDERED: VANCOMYCIN 1 GRAM (PRE-DOCKED) 2,000 MG/500 ML BAG IVPB ONE (13:19)
[2021-07-28 13:51] LABS: LACTIC ACID 3.5 mmol/L (0.4-2.0)
[2021-07-28] MEDS ORDERED: SODIUM CHLORIDE 0.9% 500 ML INFUS.BAG IV ONE ×3 (15:30→19:02)
[2021-07-28 15:42] VITALS: BMI 34.7
[2021-07-28] MEDS ORDERED: DEXTROSE 5%-WATER - 50 ML IVPB ONE ×2 (17:46→20:05)
[2021-07-28] MEDS ORDERED: PIPERACILLIN/TAZOBACTAM 3.375 GM VIAL IVPB ONE ×2 (17:46→20:05)
[2021-07-28] MEDS: PIPERACILLIN/TAZOB 3.375 GM 3.375 GM in DEXTROSE 5%-WATER - 50 ML IVPB SCH (17:58)
[2021-07-28] MEDS ORDERED: LIDOCAINE 5% TOPICAL PATCH TP ONE (19:02)
[2021-07-28] MEDS: SODIUM CHLORIDE 1,000 ML IV SCH (22:04)
[2021-07-28] MEDS: LIDOCAINE PATCH REMOVAL MC SCH (22:05)
[2021-07-29] MEDS: PIPERACILLIN/TAZOB 3.375 GM 3.375 GM in DEXTROSE 5%-WATER - 50 ML IVPB SCH ×3 (02:00→17:22)
[2021-07-29] MEDS: SODIUM CHLORIDE 1,000 ML IV SCH ×4 (04:15→21:33)
[2021-07-29] MEDS: PREGABALIN PO SCH ×3 (05:58→21:34)
[2021-07-29] MEDS: HEPARIN NA (PORCINE) 5,000 UNITS/ML 1ML VIAL SQ SCH ×3 (05:58→21:33)
[2021-07-29] MEDS: oxyCODONE HCL 5 MG TABLET PO PRN ×4 (05:59→19:50)
[2021-07-29] MEDS: INSULIN SLIDING SCALE (NOVOLOG) 1 VIAL SQ SCH ×3 (06:00→16:04)
[2021-07-29 07:12] LABS: BASO % 0.4 % (0-2.0); EOS % 0.9 % (0-4.5); HEMATOCRIT 29.2 % (35.4-49); HEMOGLOBIN 10.1 GM/dL (11.7-16.9); LYMPH % 15.4 % (8-40); MCH 33.2 pg (25.7-33.7); MCHC 34.5 g/dl (32.0-35.9); MEAN CELL VOLUME 96.1 fl (80-96); MEAN PLT VOLUME 7.6 fl (7.5-11.1); MONO % 10.9 % (3.8-10.2); NEUT % 72.4 % (42.8-82.8); PLATELET COUNT 123 10^3/uL (134-434); RBC 3.04 M/mm3 (4.00-5.60); RDW 14.2 % (11.9-15.9); WHITE BLOOD COUNT 6.5 K/mm3 (4.0-10.0)
[2021-07-29 07:27] LABS: CALCIUM 7.7 mg/dL (8.5-10.1)
[2021-07-29 07:28] LABS: ALBUMIN 1.6 g/dl (3.4-5.0); BLOOD UREA NITROGEN 12.1 mg/dL (7-18); MAGNESIUM 2.3 mg/dL (1.8-2.4)
[2021-07-29 07:31] LABS: CREATININE 0.9 mg/dL (0.55-1.3); PHOSPHOROUS 2.3 mg/dL (2.5-4.9)
[2021-07-29 07:32] LABS: TOT PROT 5.7 g/dl (6.4-8.2)
[2021-07-29 07:33] LABS: BILIRUBIN,TOTAL 0.3 mg/dL (0.2-1)
[2021-07-29 07:55] LABS: LACTIC ACID 2.2 mmol/L (0.4-2.0)
[2021-07-29] MEDS ORDERED: POTASSIUM PHOSPHATE 30 MM in SODIUM CHLORIDE 250 ML IVPB ONE (09:00)
[2021-07-29] MEDS ORDERED: PIPERACILLIN/TAZOBACTAM 3.375 GM VIAL IVPB ONE ×3 (09:57→19:49)
[2021-07-29] MEDS ORDERED: DEXTROSE 5%-WATER - 50 ML IVPB ONE ×3 (09:57→19:50)
[2021-07-29] MEDS: PANTOPRAZOLE 40 MG TABLET PO SCH (10:20)
[2021-07-29] MEDS: POLYETHYLENE GLYCOL (HEALTHYLAX) 3350 17 GM PACKET PO SCH (10:22)
[2021-07-29] MEDS: MUPIROCIN 2% TOPICAL OINTMENT 22 GM TUBE TP SCH ×2 (10:22→21:33)
[2021-07-29] MEDS: ACETAMINOPHEN 325 MG TABLET (FP) PO PRN (12:40)
[2021-07-29] MEDS: CYANOCOBALAMIN 1,000 MCG TABLET (FP) PO SCH (12:42)
[2021-07-29] MEDS ORDERED: PREGABALIN 50 MG CAPSULE ONE ×2 (14:55→19:49)
[2021-07-29] MEDS ORDERED: PREGABALIN 100 MG CAPSULE ONE ×2 (14:55→19:49)
[2021-07-29] MEDS: VANCOMYCIN PREMIX 1.5 GM 1,500 MG/300 ML BAG IVPB SCH (15:56)
[2021-07-29] MEDS ORDERED: NOREPINEPHRINE D5W PREMIX 16,000 MCG/500 ML BAG IVPB SCH (16:15)
[2021-07-29] MEDS: AMINO ACIDS/PROTEIN HYDROLYS 30 ML LIQUID.PKT PO SCH (17:22)
[2021-07-29] MEDS: DEXTROSE 5% IVPB SCH (17:23)
[2021-07-29] MEDS: WATER IVPB SCH (17:23)
[2021-07-29] MEDS: NOREPINEPHRINE BITARTRATE IVPB SCH (17:23)
[2021-07-29] MEDS: ASCORBIC ACID 250 MG TABLET (FP) PO SCH (21:34)
[2021-07-29] MEDS: LIDOCAINE PATCH REMOVAL MC SCH (21:35)
[2021-07-30] MEDS: ACETAMINOPHEN 325 MG TABLET (FP) PO PRN ×2 (00:20→09:21)
[2021-07-30] MEDS: PIPERACILLIN/TAZOB 3.375 GM 3.375 GM in DEXTROSE 5%-WATER - 50 ML IVPB SCH ×3 (01:37→18:07)
[2021-07-30] MEDS: VANCOMYCIN PREMIX 1.5 GM 1,500 MG/300 ML BAG IVPB SCH ×2 (02:00→14:00)
[2021-07-30] MEDS ORDERED: PREGABALIN 50 MG CAPSULE ONE ×3 (05:41→21:10)
[2021-07-30] MEDS ORDERED: PREGABALIN 100 MG CAPSULE ONE ×3 (05:41→21:11)
[2021-07-30] MEDS: HEPARIN NA (PORCINE) 5,000 UNITS/ML 1ML VIAL SQ SCH ×3 (06:29→21:22)
[2021-07-30] MEDS: PREGABALIN PO SCH ×3 (06:30→21:23)
[2021-07-30] MEDS: oxyCODONE HCL 5 MG TABLET PO PRN ×4 (06:31→19:38)
[2021-07-30] MEDS: INSULIN SLIDING SCALE (NOVOLOG) 1 VIAL SQ SCH ×3 (06:31→16:27)
[2021-07-30] MEDS: SODIUM CHLORIDE 1,000 ML IV SCH ×3 (06:32→20:35)
[2021-07-30 07:11] LABS: HEMATOCRIT 30.3 % (35.4-49); HEMOGLOBIN 10.5 GM/dL (11.7-16.9); MCH 32.9 pg (25.7-33.7); MCHC 34.8 g/dl (32.0-35.9); MEAN CELL VOLUME 94.7 fl (80-96); MEAN PLT VOLUME 7.8 fl (7.5-11.1); PLATELET COUNT 181 10^3/uL (134-434); WHITE BLOOD COUNT 8.9 K/mm3 (4.0-10.0)
[2021-07-30 07:23] LABS: ALBUMIN 1.7 g/dl (3.4-5.0); BLOOD UREA NITROGEN 8.7 mg/dL (7-18); CALCIUM 7.9 mg/dL (8.5-10.1)
[2021-07-30 07:25] LABS: CREATININE 0.8 mg/dL (0.55-1.3)
[2021-07-30 07:26] LABS: PHOSPHOROUS 3.2 mg/dL (2.5-4.9)
[2021-07-30 07:27] LABS: BILIRUBIN,TOTAL 0.3 mg/dL (0.2-1); TOT PROT 5.9 g/dl (6.4-8.2)
[2021-07-30] MEDS ORDERED: PIPERACILLIN/TAZOBACTAM 3.375 GM VIAL IVPB ONE ×3 (09:08→21:12)
[2021-07-30] MEDS ORDERED: DEXTROSE 5%-WATER - 50 ML IVPB ONE ×3 (09:08→21:12)
[2021-07-30] MEDS: AMINO ACIDS/PROTEIN HYDROLYS 30 ML LIQUID.PKT PO SCH ×3 (09:11→18:07)
[2021-07-30] MEDS: ZINC SULFATE 220 MG CAPSULE (FP) PO SCH (09:13)
[2021-07-30] MEDS: ASCORBIC ACID 250 MG TABLET (FP) PO SCH ×2 (09:13→21:23)
[2021-07-30] MEDS: POLYETHYLENE GLYCOL (HEALTHYLAX) 3350 17 GM PACKET PO SCH (09:13)
[2021-07-30] MEDS: PANTOPRAZOLE 40 MG TABLET PO SCH (09:13)
[2021-07-30] MEDS: CYANOCOBALAMIN 1,000 MCG TABLET (FP) PO SCH (09:13)
[2021-07-30] MEDS: MUPIROCIN 2% TOPICAL OINTMENT 22 GM TUBE TP SCH ×2 (09:24→21:22)
[2021-07-30] MEDS ORDERED: LORazepam 2 MG/ML SDV VIAL IVPUSH ONE (09:28)
[2021-07-30 10:59] LABS: ANISOCYTOSIS 2+; MACROCYTOSIS 0
[2021-07-30] MEDS: WATER IVPB SCH (12:11)
[2021-07-30] MEDS: DEXTROSE 5% IVPB SCH (12:11)
[2021-07-30] MEDS: NOREPINEPHRINE BITARTRATE IVPB SCH (12:11)
[2021-07-30] MEDS: CHOLECALCIFEROL (VIT D3) 5000 UNITS (125 MCG) CAP PO SCH (13:48)
[2021-07-30] MEDS: VITAMIN A 10,000 UNITS (3000 MCG) CAPSULE PO SCH (13:49)
[2021-07-30] MEDS: COLLAGENASE CLOSTRIDIUM HIST. 30 GRAMS TUBE TP SCH (16:03)
[2021-07-30] MEDS: LIDOCAINE PATCH REMOVAL MC SCH (21:22)
[2021-07-31] MEDS: PIPERACILLIN/TAZOB 3.375 GM 3.375 GM in DEXTROSE 5%-WATER - 50 ML IVPB SCH ×3 (01:53→17:24)
[2021-07-31] MEDS ORDERED: PREGABALIN 100 MG CAPSULE ONE ×3 (01:56→21:16)
[2021-07-31] MEDS ORDERED: PREGABALIN 50 MG CAPSULE ONE ×3 (01:56→21:16)
[2021-07-31] MEDS: VANCOMYCIN PREMIX 1.5 GM 1,500 MG/300 ML BAG IVPB SCH ×2 (03:19→14:26)
[2021-07-31] MEDS: HEPARIN NA (PORCINE) 5,000 UNITS/ML 1ML VIAL SQ SCH ×3 (06:19→21:23)
[2021-07-31] MEDS: oxyCODONE HCL 5 MG TABLET PO PRN ×4 (06:20→17:25)
[2021-07-31] MEDS: PREGABALIN PO SCH ×3 (06:20→21:23)
[2021-07-31] MEDS: INSULIN SLIDING SCALE (NOVOLOG) 1 VIAL SQ SCH ×3 (06:20→17:24)
[2021-07-31 06:37] LABS: BASO % 0.3 % (0-2.0); EOS % 0.9 % (0-4.5); HEMATOCRIT 31.4 % (35.4-49); HEMOGLOBIN 10.6 GM/dL (11.7-16.9); LYMPH % 15.7 % (8-40); MCH 31.9 pg (25.7-33.7); MCHC 33.7 g/dl (32.0-35.9); MEAN CELL VOLUME 94.5 fl (80-96); MEAN PLT VOLUME 7.9 fl (7.5-11.1); MONO % 9.3 % (3.8-10.2); NEUT % 73.8 % (42.8-82.8); PLATELET COUNT 189 10^3/uL (134-434); RBC 3.32 M/mm3 (4.00-5.60); RDW 14.4 % (11.9-15.9); WHITE BLOOD COUNT 9.3 K/mm3 (4.0-10.0)
[2021-07-31 06:56] LABS: ALBUMIN 1.6 g/dl (3.4-5.0); BLOOD UREA NITROGEN 6.3 mg/dL (7-18); CALCIUM 7.9 mg/dL (8.5-10.1); MAGNESIUM 1.8 mg/dL (1.8-2.4)
[2021-07-31 06:59] LABS: CREATININE 0.7 mg/dL (0.55-1.3); PHOSPHOROUS 2.4 mg/dL (2.5-4.9)
[2021-07-31 07:00] LABS: BILIRUBIN,TOTAL 0.4 mg/dL (0.2-1); TOT PROT 5.9 g/dl (6.4-8.2)
[2021-07-31] MEDS ORDERED: POTASSIUM PHOSPHATE 30 MM in SODIUM CHLORIDE 250 ML IVPB ONE (08:16)
[2021-07-31] MEDS ORDERED: POTASSIUM CHLORIDE TABS 20 MEQ TABLET.ER (FP) PO ONE ×2 (08:30→22:00)
[2021-07-31] MEDS ORDERED: KCL 10 MEQ IVPB 10 MEQ/100 ML INFUS.BAG IVPB SCH (08:30)
[2021-07-31] MEDS ORDERED: DEXTROSE 5%-WATER - 50 ML IVPB ONE ×2 (10:16→17:13)
[2021-07-31] MEDS ORDERED: PIPERACILLIN/TAZOBACTAM 3.375 GM VIAL IVPB ONE ×2 (10:16→17:12)
[2021-07-31] MEDS: NAPH,MB-DB/K PH,MBDB POWDER PACKET PO SCH ×2 (10:23→21:24)
[2021-07-31] MEDS: PANTOPRAZOLE 40 MG TABLET PO SCH (10:24)
[2021-07-31] MEDS: ZINC SULFATE 220 MG CAPSULE (FP) PO SCH (10:25)
[2021-07-31] MEDS: AMINO ACIDS/PROTEIN HYDROLYS 30 ML LIQUID.PKT PO SCH ×3 (10:25→17:29)
[2021-07-31] MEDS: ASCORBIC ACID 250 MG TABLET (FP) PO SCH ×2 (10:25→21:23)
[2021-07-31] MEDS: POLYETHYLENE GLYCOL (HEALTHYLAX) 3350 17 GM PACKET PO SCH (10:25)
[2021-07-31] MEDS: CYANOCOBALAMIN 1,000 MCG TABLET (FP) PO SCH (10:26)
[2021-07-31] MEDS: CHOLECALCIFEROL (VIT D3) 5000 UNITS (125 MCG) CAP PO SCH (10:26)
[2021-07-31] MEDS: VITAMIN A 10,000 UNITS (3000 MCG) CAPSULE PO SCH (10:26)
[2021-07-31] MEDS: MUPIROCIN 2% TOPICAL OINTMENT 22 GM TUBE TP SCH ×2 (10:30→21:26)
[2021-07-31] MEDS: SODIUM CHLORIDE 1,000 ML IV SCH ×2 (12:17→22:10)
[2021-07-31] MEDS: COLLAGENASE CLOSTRIDIUM HIST. 30 GRAMS TUBE TP SCH (12:17)
[2021-07-31] MEDS: MIDODRINE HCL 5 MG TABLET PO SCH ×2 (14:12→17:28)
[2021-07-31] MEDS: DOPAMINE 400 MG/D5W - 400,000 MCG/250 ML INFUS.BAG IVPB SCH (18:29)
[2021-07-31] MEDS: LIDOCAINE PATCH REMOVAL MC SCH (22:54)
[2021-08-01] MEDS: oxyCODONE HCL 5 MG TABLET PO PRN ×5 (00:22→22:57)
[2021-08-01] MEDS ORDERED: PIPERACILLIN/TAZOBACTAM 3.375 GM VIAL IVPB ONE ×3 (01:25→18:03)
[2021-08-01] MEDS ORDERED: DEXTROSE 5%-WATER - 50 ML IVPB ONE ×3 (01:26→18:03)
[2021-08-01] MEDS: PIPERACILLIN/TAZOB 3.375 GM 3.375 GM in DEXTROSE 5%-WATER - 50 ML IVPB SCH ×3 (01:41→18:17)
[2021-08-01] MEDS: VANCOMYCIN PREMIX 1.5 GM 1,500 MG/300 ML BAG IVPB SCH ×2 (04:13→14:30)
[2021-08-01] MEDS: DOPAMINE 400 MG/D5W - 400,000 MCG/250 ML INFUS.BAG IVPB SCH ×3 (04:50→21:55)
[2021-08-01] MEDS ORDERED: PREGABALIN 100 MG CAPSULE ONE ×3 (06:00→21:08)
[2021-08-01] MEDS ORDERED: PREGABALIN 50 MG CAPSULE ONE ×3 (06:00→21:08)
[2021-08-01] MEDS: INSULIN SLIDING SCALE (NOVOLOG) 1 VIAL SQ SCH ×3 (06:05→17:38)
[2021-08-01] MEDS: HEPARIN NA (PORCINE) 5,000 UNITS/ML 1ML VIAL SQ SCH ×3 (06:07→21:18)
[2021-08-01] MEDS: PREGABALIN PO SCH ×3 (06:07→21:18)
[2021-08-01 06:50] LABS: BASO % 0.2 % (0-2.0); EOS % 0.7 % (0-4.5); HEMATOCRIT 31.8 % (35.4-49); HEMOGLOBIN 10.9 GM/dL (11.7-16.9); LYMPH % 20.9 % (8-40); MCH 32.2 pg (25.7-33.7); MCHC 34.4 g/dl (32.0-35.9); MEAN CELL VOLUME 93.6 fl (80-96); MEAN PLT VOLUME 7.4 fl (7.5-11.1); MONO % 9.5 % (3.8-10.2); NEUT % 68.7 % (42.8-82.8); PLATELET COUNT 201 10^3/uL (134-434); RDW 14.3 % (11.9-15.9); WHITE BLOOD COUNT 8.9 K/mm3 (4.0-10.0)
[2021-08-01 07:07] LABS: BLOOD UREA NITROGEN 5.7 mg/dL (7-18)
[2021-08-01 07:12] LABS: CREATININE 0.8 mg/dL (0.55-1.3)
[2021-08-01] MEDS: ZINC SULFATE 220 MG CAPSULE (FP) PO SCH (09:12)
[2021-08-01] MEDS: ASCORBIC ACID 250 MG TABLET (FP) PO SCH ×2 (09:12→21:18)
[2021-08-01] MEDS: MIDODRINE HCL 5 MG TABLET PO SCH ×3 (09:13→18:16)
[2021-08-01] MEDS: PANTOPRAZOLE 40 MG TABLET PO SCH (09:18)
[2021-08-01] MEDS: POLYETHYLENE GLYCOL (HEALTHYLAX) 3350 17 GM PACKET PO SCH (09:18)
[2021-08-01] MEDS: AMINO ACIDS/PROTEIN HYDROLYS 30 ML LIQUID.PKT PO SCH ×3 (09:19→18:17)
[2021-08-01] MEDS: CYANOCOBALAMIN 1,000 MCG TABLET (FP) PO SCH (09:20)
[2021-08-01] MEDS: VITAMIN A 10,000 UNITS (3000 MCG) CAPSULE PO SCH (09:20)
[2021-08-01] MEDS: CHOLECALCIFEROL (VIT D3) 5000 UNITS (125 MCG) CAP PO SCH (09:20)
[2021-08-01] MEDS: COLLAGENASE CLOSTRIDIUM HIST. 30 GRAMS TUBE TP SCH (09:47)
[2021-08-01] MEDS: MUPIROCIN 2% TOPICAL OINTMENT 22 GM TUBE TP SCH ×2 (09:47→21:20)
[2021-08-01] MEDS: FUROSEMIDE INJECTION 100 MG in DEXTROSE 5%-WATER - 90 ML IVPB SCH (14:33)
[2021-08-01] MEDS: LIDOCAINE PATCH REMOVAL MC SCH (21:18)
[2021-08-02] MEDS ORDERED: DEXTROSE 5%-WATER - 50 ML IVPB ONE ×3 (01:50→17:28)
[2021-08-02] MEDS ORDERED: PIPERACILLIN/TAZOBACTAM 3.375 GM VIAL IVPB ONE ×3 (01:50→17:28)
[2021-08-02] MEDS: PIPERACILLIN/TAZOB 3.375 GM 3.375 GM in DEXTROSE 5%-WATER - 50 ML IVPB SCH ×3 (01:57→17:34)
[2021-08-02] MEDS: VANCOMYCIN PREMIX 1.5 GM 1,500 MG/300 ML BAG IVPB SCH (02:57)
[2021-08-02] MEDS ORDERED: PREGABALIN 100 MG CAPSULE ONE ×2 (06:10→21:43)
[2021-08-02] MEDS ORDERED: PREGABALIN 50 MG CAPSULE ONE ×2 (06:10→21:42)
[2021-08-02] MEDS: PREGABALIN PO SCH ×3 (06:18→22:15)
[2021-08-02] MEDS: HEPARIN NA (PORCINE) 5,000 UNITS/ML 1ML VIAL SQ SCH ×3 (06:19→22:15)
[2021-08-02] MEDS: INSULIN SLIDING SCALE (NOVOLOG) 1 VIAL SQ SCH ×3 (06:22→17:34)
[2021-08-02] MEDS: oxyCODONE HCL 5 MG TABLET PO PRN ×3 (06:59→22:16)
[2021-08-02] MEDS: FUROSEMIDE INJECTION 100 MG in DEXTROSE 5%-WATER - 90 ML IVPB SCH (07:01)
[2021-08-02 07:48] LABS: BASO % 0.2 % (0-2.0); EOS % 1.4 % (0-4.5); HEMATOCRIT 32.8 % (35.4-49); HEMOGLOBIN 11.5 GM/dL (11.7-16.9); LYMPH % 22.1 % (8-40); MCH 32.6 pg (25.7-33.7); MCHC 35.2 g/dl (32.0-35.9); MEAN CELL VOLUME 92.7 fl (80-96); MEAN PLT VOLUME 7.4 fl (7.5-11.1); NEUT % 69.3 % (42.8-82.8); PLATELET COUNT 220 10^3/uL (134-434); RBC 3.54 M/mm3 (4.00-5.60); RDW 13.9 % (11.9-15.9); WHITE BLOOD COUNT 9.3 K/mm3 (4.0-10.0)
[2021-08-02 08:09] LABS: BLOOD UREA NITROGEN 11.4 mg/dL (7-18); CALCIUM 8.4 mg/dL (8.5-10.1)
[2021-08-02 08:12] LABS: CREATININE 0.8 mg/dL (0.55-1.3)
[2021-08-02] MEDS: AMINO ACIDS/PROTEIN HYDROLYS 30 ML LIQUID.PKT PO SCH ×3 (09:06→17:35)
[2021-08-02] MEDS: ZINC SULFATE 220 MG CAPSULE (FP) PO SCH (09:07)
[2021-08-02] MEDS: COLLAGENASE CLOSTRIDIUM HIST. 30 GRAMS TUBE TP SCH (09:07)
[2021-08-02] MEDS: KCL 10 MEQ IVPB 10 MEQ/100 ML INFUS.BAG IVPB SCH ×3 (09:07→13:10)
[2021-08-02] MEDS: POLYETHYLENE GLYCOL (HEALTHYLAX) 3350 17 GM PACKET PO SCH (09:07)
[2021-08-02] MEDS: ASCORBIC ACID 250 MG TABLET (FP) PO SCH ×2 (09:07→22:15)
[2021-08-02] MEDS: MIDODRINE HCL 5 MG TABLET PO SCH ×3 (09:07→17:59)
[2021-08-02] MEDS: PANTOPRAZOLE 40 MG TABLET PO SCH (09:07)
[2021-08-02] MEDS: VITAMIN A 10,000 UNITS (3000 MCG) CAPSULE PO SCH (09:12)
[2021-08-02] MEDS: CYANOCOBALAMIN 1,000 MCG TABLET (FP) PO SCH (09:13)
[2021-08-02] MEDS: CHOLECALCIFEROL (VIT D3) 5000 UNITS (125 MCG) CAP PO SCH (09:13)
[2021-08-02] MEDS: MUPIROCIN 2% TOPICAL OINTMENT 22 GM TUBE TP SCH ×2 (09:15→22:14)
[2021-08-02] MEDS ORDERED: KCL 10 MEQ IVPB 10 MEQ/100 ML INFUS.BAG IVPB SCH (09:15)
[2021-08-02] MEDS ORDERED: LIDOCAINE HCL 1%, 10 MG/ML (20ML VIAL) ONE (09:32)
[2021-08-02] MEDS ORDERED: BUPIVACAINE HCL/PF 0.5% (5MG/ML) 10 ML VIAL ONE (09:32)
[2021-08-02] MEDS: ACETAMINOPHEN 325 MG TABLET (FP) PO PRN ×2 (09:59→22:16)
[2021-08-02] MEDS ORDERED: MIDAZOLAM HCL 2 MG/2 ML SINGLE DOSE VIAL ONE ×2 (10:40)
[2021-08-02] MEDS ORDERED: KETAMINE HCL 200 MG/20 ML VIAL ONE (10:40)
[2021-08-02] MEDS ORDERED: ETOMIDATE 20 MG/10 ML AMPUL IVPUSH ONE (11:11)
[2021-08-02] MEDS ORDERED: ROCURONIUM BROMIDE 50 MG/5 ML SYRINGE ONE (11:20)
[2021-08-02] MEDS ORDERED: NEOSTIGMINE METHYLSULFATE 0.5 MG/ML - 10 ML MDV ONE (12:07)
[2021-08-02] MEDS ORDERED: GLYCOPYRROLATE 0.2 MG/1 ML VIAL ONE (12:07)
[2021-08-02] MEDS ORDERED: NOREPINEPHRINE BITARTRATE 16,000 MCG in SODIUM CHLORIDE 484 ML IV SCH (12:45)
[2021-08-02] MEDS: LIDOCAINE PATCH REMOVAL MC SCH (22:15)
[2021-08-03] MEDS ORDERED: PIPERACILLIN/TAZOBACTAM 3.375 GM VIAL IVPB ONE ×3 (00:22→17:03)
[2021-08-03] MEDS ORDERED: DEXTROSE 5%-WATER - 50 ML IVPB ONE ×3 (00:23→17:03)
[2021-08-03] MEDS: PIPERACILLIN/TAZOB 3.375 GM 3.375 GM in DEXTROSE 5%-WATER - 50 ML IVPB SCH ×3 (01:10→17:11)
[2021-08-03] MEDS: oxyCODONE HCL 5 MG TABLET PO PRN ×3 (01:45→21:28)
[2021-08-03] MEDS: INSULIN SLIDING SCALE (NOVOLOG) 1 VIAL SQ SCH ×3 (06:28→17:16)
[2021-08-03] MEDS ORDERED: PREGABALIN 50 MG CAPSULE ONE ×3 (06:49→21:24)
[2021-08-03] MEDS ORDERED: PREGABALIN 100 MG CAPSULE ONE ×3 (06:50→21:24)
[2021-08-03] MEDS: HEPARIN NA (PORCINE) 5,000 UNITS/ML 1ML VIAL SQ SCH ×3 (07:00→21:27)
[2021-08-03] MEDS: PREGABALIN PO SCH ×3 (07:00→21:28)
[2021-08-03 07:34] LABS: BLOOD UREA NITROGEN 11.2 mg/dL (7-18); MAGNESIUM 1.9 mg/dL (1.8-2.4)
[2021-08-03 07:37] LABS: CREATININE 0.8 mg/dL (0.55-1.3); PHOSPHOROUS 3.7 mg/dL (2.5-4.9)
[2021-08-03 07:41] LABS: BASO % 0.3 % (0-2.0); EOS % 0.8 % (0-4.5); HEMATOCRIT 29.8 % (35.4-49); HEMOGLOBIN 10.5 GM/dL (11.7-16.9); LYMPH % 16.4 % (8-40); MCHC 35.3 g/dl (32.0-35.9); MEAN CELL VOLUME 93.4 fl (80-96); MEAN PLT VOLUME 7.7 fl (7.5-11.1); MONO % 6.6 % (3.8-10.2); NEUT % 75.9 % (42.8-82.8); PLATELET COUNT 260 10^3/uL (134-434); RBC 3.19 M/mm3 (4.00-5.60); RDW 14.2 % (11.9-15.9); WHITE BLOOD COUNT 8.4 K/mm3 (4.0-10.0)
[2021-08-03] MEDS: AMINO ACIDS/PROTEIN HYDROLYS 30 ML LIQUID.PKT PO SCH ×3 (09:27→17:11)
[2021-08-03] MEDS: POLYETHYLENE GLYCOL (HEALTHYLAX) 3350 17 GM PACKET PO SCH (09:27)
[2021-08-03] MEDS: ZINC SULFATE 220 MG CAPSULE (FP) PO SCH (09:28)
[2021-08-03] MEDS: PANTOPRAZOLE 40 MG TABLET PO SCH (09:28)
[2021-08-03] MEDS: MIDODRINE HCL 5 MG TABLET PO SCH ×3 (09:28→17:11)
[2021-08-03] MEDS: CHOLECALCIFEROL (VIT D3) 5000 UNITS (125 MCG) CAP PO SCH (09:28)
[2021-08-03] MEDS: CYANOCOBALAMIN 1,000 MCG TABLET (FP) PO SCH (09:28)
[2021-08-03] MEDS: MUPIROCIN 2% TOPICAL OINTMENT 22 GM TUBE TP SCH ×2 (09:29→21:27)
[2021-08-03] MEDS: VITAMIN A 10,000 UNITS (3000 MCG) CAPSULE PO SCH (09:29)
[2021-08-03] MEDS: ASCORBIC ACID 250 MG TABLET (FP) PO SCH ×2 (09:29→21:28)
[2021-08-03] MEDS: COLLAGENASE CLOSTRIDIUM HIST. 30 GRAMS TUBE TP SCH (09:29)
[2021-08-03] MEDS: VANCOMYCIN PREMIX 1.5 GM 1,500 MG/300 ML BAG IVPB SCH (15:50)
[2021-08-03] MEDS ORDERED: VANCOMYCIN 500 MG in SODIUM CHLORIDE 100 ML IVPB ONE (17:30)
[2021-08-03] MEDS: NOREPINEPHRINE BITARTRATE 16,000 MCG in SODIUM CHLORIDE 484 ML IV SCH (19:00)
[2021-08-03] MEDS ORDERED: SODIUM CHLORIDE 500 ML IV STA (21:23)
[2021-08-03] MEDS: LIDOCAINE PATCH REMOVAL MC SCH (21:28)
[2021-08-04] MEDS ORDERED: SODIUM CHLORIDE 500 ML IV STA (00:10)
[2021-08-04] MEDS ORDERED: DEXTROSE 5%-WATER - 50 ML IVPB ONE ×2 (03:21→09:34)
[2021-08-04] MEDS ORDERED: PIPERACILLIN/TAZOBACTAM 3.375 GM VIAL IVPB ONE ×2 (03:21→09:34)
[2021-08-04] MEDS: VANCOMYCIN PREMIX 1.5 GM 1,500 MG/300 ML BAG IVPB SCH ×2 (03:23→15:27)
[2021-08-04] MEDS: PIPERACILLIN/TAZOB 3.375 GM 3.375 GM in DEXTROSE 5%-WATER - 50 ML IVPB SCH ×2 (05:00→09:36)
[2021-08-04] MEDS ORDERED: PREGABALIN 50 MG CAPSULE ONE ×3 (05:36→21:08)
[2021-08-04] MEDS ORDERED: PREGABALIN 100 MG CAPSULE ONE ×3 (05:36→21:08)
[2021-08-04] MEDS: PREGABALIN PO SCH ×3 (05:41→21:12)
[2021-08-04] MEDS: HEPARIN NA (PORCINE) 5,000 UNITS/ML 1ML VIAL SQ SCH ×3 (05:41→21:12)
[2021-08-04] MEDS: INSULIN SLIDING SCALE (NOVOLOG) 1 VIAL SQ SCH ×3 (06:07→17:17)
[2021-08-04 06:41] LABS: BASO % 0.4 % (0-2.0); EOS % 1.4 % (0-4.5); HEMATOCRIT 28.3 % (35.4-49); HEMOGLOBIN 9.8 GM/dL (11.7-16.9); MCH 32.3 pg (25.7-33.7); MCHC 34.7 g/dl (32.0-35.9); MEAN PLT VOLUME 7.4 fl (7.5-11.1); MONO % 8.3 % (3.8-10.2); NEUT % 71.9 % (42.8-82.8); PLATELET COUNT 253 10^3/uL (134-434); RBC 3.04 M/mm3 (4.00-5.60); RDW 14.3 % (11.9-15.9); WHITE BLOOD COUNT 8.6 K/mm3 (4.0-10.0)
[2021-08-04 07:03] LABS: ALBUMIN 1.8 g/dl (3.4-5.0)
[2021-08-04 07:04] LABS: BLOOD UREA NITROGEN 11.7 mg/dL (7-18); MAGNESIUM 2.2 mg/dL (1.8-2.4)
[2021-08-04 07:06] LABS: CREATININE 0.8 mg/dL (0.55-1.3); PHOSPHOROUS 2.5 mg/dL (2.5-4.9)
[2021-08-04 07:08] LABS: BILIRUBIN,TOTAL 0.3 mg/dL (0.2-1); TOT PROT 6.2 g/dl (6.4-8.2)
[2021-08-04] MEDS: AMINO ACIDS/PROTEIN HYDROLYS 30 ML LIQUID.PKT PO SCH ×3 (09:35→17:14)
[2021-08-04] MEDS: PANTOPRAZOLE 40 MG TABLET PO SCH (09:36)
[2021-08-04] MEDS: POLYETHYLENE GLYCOL (HEALTHYLAX) 3350 17 GM PACKET PO SCH (09:36)
[2021-08-04] MEDS: MIDODRINE HCL 5 MG TABLET PO SCH ×3 (09:36→17:13)
[2021-08-04] MEDS: ZINC SULFATE 220 MG CAPSULE (FP) PO SCH (09:36)
[2021-08-04] MEDS: ASCORBIC ACID 250 MG TABLET (FP) PO SCH ×2 (09:36→21:12)
[2021-08-04] MEDS: CYANOCOBALAMIN 1,000 MCG TABLET (FP) PO SCH (09:40)
[2021-08-04] MEDS: VITAMIN A 10,000 UNITS (3000 MCG) CAPSULE PO SCH (09:46)
[2021-08-04] MEDS: COLLAGENASE CLOSTRIDIUM HIST. 30 GRAMS TUBE TP SCH (09:46)
[2021-08-04] MEDS: MUPIROCIN 2% TOPICAL OINTMENT 22 GM TUBE TP SCH ×2 (09:46→21:12)
[2021-08-04] MEDS: CHOLECALCIFEROL (VIT D3) 5000 UNITS (125 MCG) CAP PO SCH (09:46)
[2021-08-04] MEDS: oxyCODONE HCL 5 MG TABLET PO PRN ×2 (09:49→17:14)
[2021-08-04] MEDS: SODIUM CHLORIDE 1,000 ML IV SCH (10:45)
[2021-08-04] MEDS: NOREPINEPHRINE BITARTRATE 16,000 MCG in SODIUM CHLORIDE 484 ML IV SCH (20:46)
[2021-08-04] MEDS: ACETAMINOPHEN 325 MG TABLET (FP) PO PRN (21:13)
[2021-08-05] MEDS ORDERED: PREGABALIN 50 MG CAPSULE ONE ×3 (05:16→20:53)
[2021-08-05] MEDS ORDERED: PREGABALIN 100 MG CAPSULE ONE ×3 (05:16→20:53)
[2021-08-05] MEDS: HEPARIN NA (PORCINE) 5,000 UNITS/ML 1ML VIAL SQ SCH ×3 (05:21→21:18)
[2021-08-05] MEDS: PREGABALIN PO SCH ×3 (05:21→21:18)
[2021-08-05] MEDS: ACETAMINOPHEN 325 MG TABLET (FP) PO PRN (05:45)
[2021-08-05] MEDS: INSULIN SLIDING SCALE (NOVOLOG) 1 VIAL SQ SCH ×3 (06:01→16:45)
[2021-08-05 07:06] LABS: BASO % 0.4 % (0-2.0); HEMOGLOBIN 9.4 GM/dL (11.7-16.9); LYMPH % 28.4 % (8-40); MCH 31.8 pg (25.7-33.7); MCHC 33.5 g/dl (32.0-35.9); MEAN PLT VOLUME 7.8 fl (7.5-11.1); NEUT % 62.2 % (42.8-82.8); PLATELET COUNT 233 10^3/uL (134-434); RBC 2.94 M/mm3 (4.00-5.60); RDW 14.5 % (11.9-15.9); WHITE BLOOD COUNT 6.6 K/mm3 (4.0-10.0)
[2021-08-05 07:19] LABS: CALCIUM 8.2 mg/dL (8.5-10.1)
[2021-08-05 07:20] LABS: BLOOD UREA NITROGEN 14.5 mg/dL (7-18); MAGNESIUM 2.4 mg/dL (1.8-2.4)
[2021-08-05 07:23] LABS: CREATININE 0.7 mg/dL (0.55-1.3); PHOSPHOROUS 2.6 mg/dL (2.5-4.9)
[2021-08-05] MEDS: AMINO ACIDS/PROTEIN HYDROLYS 30 ML LIQUID.PKT PO SCH ×3 (09:00→18:39)
[2021-08-05] MEDS: VITAMIN A 10,000 UNITS (3000 MCG) CAPSULE PO SCH (09:00)
[2021-08-05] MEDS: ZINC SULFATE 220 MG CAPSULE (FP) PO SCH (09:01)
[2021-08-05] MEDS: MIDODRINE HCL 5 MG TABLET PO SCH ×3 (09:01→18:39)
[2021-08-05] MEDS: PANTOPRAZOLE 40 MG TABLET PO SCH (09:01)
[2021-08-05] MEDS: POLYETHYLENE GLYCOL (HEALTHYLAX) 3350 17 GM PACKET PO SCH (09:01)
[2021-08-05] MEDS: CHOLECALCIFEROL (VIT D3) 5000 UNITS (125 MCG) CAP PO SCH (09:02)
[2021-08-05] MEDS: CYANOCOBALAMIN 1,000 MCG TABLET (FP) PO SCH (09:02)
[2021-08-05] MEDS: ASCORBIC ACID 250 MG TABLET (FP) PO SCH ×2 (09:02→21:18)
[2021-08-05] MEDS: oxyCODONE HCL 5 MG TABLET PO PRN ×3 (09:02→21:19)
[2021-08-05] MEDS: COLLAGENASE CLOSTRIDIUM HIST. 30 GRAMS TUBE TP SCH (09:04)
[2021-08-05] MEDS: MUPIROCIN 2% TOPICAL OINTMENT 22 GM TUBE TP SCH ×2 (09:13→21:48)
[2021-08-05] MEDS: VANCOMYCIN PREMIX 1.5 GM 1,500 MG/300 ML BAG IVPB SCH ×2 (10:15→21:48)
[2021-08-05] MEDS ORDERED: IRON SUCROSE INJECTION 300 MG in SODIUM CHLORIDE 235 ML IVPB ONE (11:00)
[2021-08-05] MEDS: SODIUM CHLORIDE 1,000 ML IV SCH ×2 (11:30)
[2021-08-05 12:29] LABS: N-TERMINAL BNP 669.4 pg/ml (5-450)
[2021-08-05] MEDS: NOREPINEPHRINE BITARTRATE 16,000 MCG in SODIUM CHLORIDE 484 ML IV SCH (21:48)
[2021-08-06] MEDS ORDERED: PREGABALIN 50 MG CAPSULE ONE ×3 (05:14→20:47)
[2021-08-06] MEDS ORDERED: PREGABALIN 100 MG CAPSULE ONE ×3 (05:15→20:47)
[2021-08-06] MEDS: SODIUM CHLORIDE 1,000 ML IV SCH ×2 (05:39→11:40)
[2021-08-06] MEDS: HEPARIN NA (PORCINE) 5,000 UNITS/ML 1ML VIAL SQ SCH ×3 (05:39→21:41)
[2021-08-06] MEDS: PREGABALIN PO SCH ×3 (05:40→21:41)
[2021-08-06] MEDS: INSULIN SLIDING SCALE (NOVOLOG) 1 VIAL SQ SCH ×3 (06:15→17:22)
[2021-08-06 08:10] LABS: BASO % 0.2 % (0-2.0); EOS % 0.9 % (0-4.5); HEMATOCRIT 26.8 % (35.4-49); HEMOGLOBIN 9.1 GM/dL (11.7-16.9); MCH 32.1 pg (25.7-33.7); MCHC 33.8 g/dl (32.0-35.9); MEAN CELL VOLUME 94.9 fl (80-96); MEAN PLT VOLUME 7.8 fl (7.5-11.1); NEUT % 65.9 % (42.8-82.8); PLATELET COUNT 216 10^3/uL (134-434); RBC 2.82 M/mm3 (4.00-5.60); RDW 14.3 % (11.9-15.9); WHITE BLOOD COUNT 6.6 K/mm3 (4.0-10.0)
[2021-08-06 08:22] LABS: CALCIUM 8.1 mg/dL (8.5-10.1)
[2021-08-06 08:23] LABS: BLOOD UREA NITROGEN 14.1 mg/dL (7-18)
[2021-08-06 08:25] LABS: PHOSPHOROUS 2.2 mg/dL (2.5-4.9)
[2021-08-06 08:26] LABS: CREATININE 0.7 mg/dL (0.55-1.3); MAGNESIUM 2.2 mg/dL (1.8-2.4)
[2021-08-06] MEDS: AMINO ACIDS/PROTEIN HYDROLYS 30 ML LIQUID.PKT PO SCH ×3 (08:39→17:22)
[2021-08-06] MEDS: POLYETHYLENE GLYCOL (HEALTHYLAX) 3350 17 GM PACKET PO SCH (09:18)
[2021-08-06] MEDS: ZINC SULFATE 220 MG CAPSULE (FP) PO SCH (09:18)
[2021-08-06] MEDS: MIDODRINE HCL 5 MG TABLET PO SCH ×3 (09:18→17:22)
[2021-08-06] MEDS: VITAMIN A 10,000 UNITS (3000 MCG) CAPSULE PO SCH (09:18)
[2021-08-06] MEDS: PANTOPRAZOLE 40 MG TABLET PO SCH (09:19)
[2021-08-06] MEDS: CYANOCOBALAMIN 1,000 MCG TABLET (FP) PO SCH (09:19)
[2021-08-06] MEDS: ASCORBIC ACID 250 MG TABLET (FP) PO SCH ×2 (09:19→21:41)
[2021-08-06] MEDS: CHOLECALCIFEROL (VIT D3) 5000 UNITS (125 MCG) CAP PO SCH (09:19)
[2021-08-06] MEDS: MUPIROCIN 2% TOPICAL OINTMENT 22 GM TUBE TP SCH ×2 (09:20→21:41)
[2021-08-06] MEDS: COLLAGENASE CLOSTRIDIUM HIST. 30 GRAMS TUBE TP SCH (09:21)
[2021-08-06] MEDS ORDERED: POTASSIUM PHOSPHATE 30 MM in SODIUM CHLORIDE 250 ML IVPB ONE (10:27)
[2021-08-06] MEDS: oxyCODONE HCL 5 MG TABLET PO PRN (11:56)
[2021-08-06] MEDS: VANCOMYCIN PREMIX 1.5 GM 1,500 MG/300 ML BAG IVPB SCH (16:19)
[2021-08-07] MEDS: NOREPINEPHRINE BITARTRATE 16,000 MCG in SODIUM CHLORIDE 484 ML IV SCH (03:44)
[2021-08-07] MEDS: VANCOMYCIN PREMIX 1.5 GM 1,500 MG/300 ML BAG IVPB SCH ×2 (03:44→14:59)
[2021-08-07] MEDS ORDERED: PREGABALIN 100 MG CAPSULE ONE ×3 (05:55→20:26)
[2021-08-07] MEDS ORDERED: PREGABALIN 50 MG CAPSULE ONE ×3 (05:55→20:25)
[2021-08-07] MEDS: PREGABALIN PO SCH ×3 (06:05→21:20)
[2021-08-07] MEDS: HEPARIN NA (PORCINE) 5,000 UNITS/ML 1ML VIAL SQ SCH ×3 (06:05→21:20)
[2021-08-07] MEDS: INSULIN SLIDING SCALE (NOVOLOG) 1 VIAL SQ SCH ×4 (06:06→17:33)
[2021-08-07] MEDS: SODIUM CHLORIDE 1,000 ML IV SCH ×2 (06:29→09:51)
[2021-08-07] MEDS: oxyCODONE HCL 5 MG TABLET PO PRN ×2 (06:30→19:52)
[2021-08-07 07:00] LABS: BASO % 0.2 % (0-2.0); EOS % 0.9 % (0-4.5); HEMOGLOBIN 9.5 GM/dL (11.7-16.9); MCHC 35.1 g/dl (32.0-35.9); MEAN CELL VOLUME 93.9 fl (80-96); MEAN PLT VOLUME 7.7 fl (7.5-11.1); MONO % 8.5 % (3.8-10.2); NEUT % 66.4 % (42.8-82.8); PLATELET COUNT 233 10^3/uL (134-434); RBC 2.87 M/mm3 (4.00-5.60); RDW 14.1 % (11.9-15.9); WHITE BLOOD COUNT 6.2 K/mm3 (4.0-10.0)
[2021-08-07 07:13] LABS: ALBUMIN 1.8 g/dl (3.4-5.0); BLOOD UREA NITROGEN 13.4 mg/dL (7-18); MAGNESIUM 2.1 mg/dL (1.8-2.4)
[2021-08-07 07:16] LABS: PHOSPHOROUS 2.5 mg/dL (2.5-4.9)
[2021-08-07 07:17] LABS: CREATININE 0.7 mg/dL (0.55-1.3)
[2021-08-07 07:18] LABS: BILIRUBIN,TOTAL 0.3 mg/dL (0.2-1); TOT PROT 6.6 g/dl (6.4-8.2)
[2021-08-07] MEDS: CYANOCOBALAMIN 1,000 MCG TABLET (FP) PO SCH (09:50)
[2021-08-07] MEDS: MIDODRINE HCL 5 MG TABLET PO SCH ×3 (09:50→17:33)
[2021-08-07] MEDS: COLLAGENASE CLOSTRIDIUM HIST. 30 GRAMS TUBE TP SCH (09:50)
[2021-08-07] MEDS: ASCORBIC ACID 250 MG TABLET (FP) PO SCH ×2 (09:50→21:19)
[2021-08-07] MEDS: MUPIROCIN 2% TOPICAL OINTMENT 22 GM TUBE TP SCH ×2 (09:50→21:20)
[2021-08-07] MEDS: POLYETHYLENE GLYCOL (HEALTHYLAX) 3350 17 GM PACKET PO SCH (09:50)
[2021-08-07] MEDS: ZINC SULFATE 220 MG CAPSULE (FP) PO SCH (09:50)
[2021-08-07] MEDS: PANTOPRAZOLE 40 MG TABLET PO SCH (09:50)
[2021-08-07] MEDS: VITAMIN A 10,000 UNITS (3000 MCG) CAPSULE PO SCH (09:50)
[2021-08-07] MEDS: AMINO ACIDS/PROTEIN HYDROLYS 30 ML LIQUID.PKT PO SCH ×3 (09:50→17:25)
[2021-08-07] MEDS: CHOLECALCIFEROL (VIT D3) 5000 UNITS (125 MCG) CAP PO SCH (09:51)
[2021-08-08] MEDS: NOREPINEPHRINE BITARTRATE 16,000 MCG in SODIUM CHLORIDE 484 ML IV SCH (02:19)
[2021-08-08] MEDS: VANCOMYCIN PREMIX 1.5 GM 1,500 MG/300 ML BAG IVPB SCH ×2 (02:21→14:57)
[2021-08-08] MEDS ORDERED: PREGABALIN 100 MG CAPSULE ONE ×3 (06:08→21:02)
[2021-08-08] MEDS ORDERED: PREGABALIN 50 MG CAPSULE ONE ×3 (06:08→21:02)
[2021-08-08] MEDS: HEPARIN NA (PORCINE) 5,000 UNITS/ML 1ML VIAL SQ SCH ×3 (06:13→21:15)
[2021-08-08] MEDS: PREGABALIN PO SCH ×3 (06:13→21:15)
[2021-08-08] MEDS: INSULIN SLIDING SCALE (NOVOLOG) 1 VIAL SQ SCH ×3 (06:14→17:18)
[2021-08-08 08:10] LABS: BASO % 0.6 % (0-2.0); EOS % 0.7 % (0-4.5); HEMATOCRIT 27.6 % (35.4-49); HEMOGLOBIN 9.4 GM/dL (11.7-16.9); LYMPH % 23.5 % (8-40); MCH 32.3 pg (25.7-33.7); MCHC 34.2 g/dl (32.0-35.9); MEAN CELL VOLUME 94.4 fl (80-96); MEAN PLT VOLUME 8.1 fl (7.5-11.1); MONO % 9.9 % (3.8-10.2); NEUT % 65.3 % (42.8-82.8); PLATELET COUNT 247 10^3/uL (134-434); RBC 2.92 M/mm3 (4.00-5.60); RDW 14.8 % (11.9-15.9); WHITE BLOOD COUNT 5.7 K/mm3 (4.0-10.0)
[2021-08-08 08:11] LABS: CALCIUM 8.3 mg/dL (8.5-10.1)
[2021-08-08 08:12] LABS: BLOOD UREA NITROGEN 13.2 mg/dL (7-18)
[2021-08-08 08:17] LABS: CREATININE 0.8 mg/dL (0.55-1.3)
[2021-08-08] MEDS: AMINO ACIDS/PROTEIN HYDROLYS 30 ML LIQUID.PKT PO SCH ×3 (09:24→17:50)
[2021-08-08] MEDS: CHOLECALCIFEROL (VIT D3) 5000 UNITS (125 MCG) CAP PO SCH (09:25)
[2021-08-08] MEDS: POLYETHYLENE GLYCOL (HEALTHYLAX) 3350 17 GM PACKET PO SCH (09:25)
[2021-08-08] MEDS: PANTOPRAZOLE 40 MG TABLET PO SCH (09:25)
[2021-08-08] MEDS: ZINC SULFATE 220 MG CAPSULE (FP) PO SCH (09:25)
[2021-08-08] MEDS: MIDODRINE HCL 5 MG TABLET PO SCH ×3 (09:25→17:51)
[2021-08-08] MEDS: CYANOCOBALAMIN 1,000 MCG TABLET (FP) PO SCH (09:25)
[2021-08-08] MEDS: ASCORBIC ACID 250 MG TABLET (FP) PO SCH ×2 (09:25→21:15)
[2021-08-08] MEDS: VITAMIN A 10,000 UNITS (3000 MCG) CAPSULE PO SCH (09:26)
[2021-08-08] MEDS: COLLAGENASE CLOSTRIDIUM HIST. 30 GRAMS TUBE TP SCH (09:28)
[2021-08-08] MEDS: MUPIROCIN 2% TOPICAL OINTMENT 22 GM TUBE TP SCH ×2 (09:28→21:15)
[2021-08-08] MEDS: SODIUM CHLORIDE 1,000 ML IV SCH (11:04)
[2021-08-08] MEDS: ACETAMINOPHEN 325 MG TABLET (FP) PO PRN (13:41)
[2021-08-09] MEDS: NOREPINEPHRINE BITARTRATE 16,000 MCG in SODIUM CHLORIDE 484 ML IV SCH (02:00)
[2021-08-09] MEDS: VANCOMYCIN PREMIX 1.5 GM 1,500 MG/300 ML BAG IVPB SCH (02:30)
[2021-08-09] MEDS: SODIUM CHLORIDE 1,000 ML IV SCH (02:34)
[2021-08-09] MEDS: PREGABALIN PO SCH ×3 (05:44→22:08)
[2021-08-09] MEDS: HEPARIN NA (PORCINE) 5,000 UNITS/ML 1ML VIAL SQ SCH ×3 (05:44→22:07)
[2021-08-09] MEDS: INSULIN SLIDING SCALE (NOVOLOG) 1 VIAL SQ SCH ×3 (06:09→16:41)
[2021-08-09] MEDS ORDERED: PREGABALIN 50 MG CAPSULE ONE ×3 (06:42→20:52)
[2021-08-09] MEDS ORDERED: PREGABALIN 100 MG CAPSULE ONE ×3 (06:42→20:52)
[2021-08-09 07:48] LABS: BASO % 0.3 % (0-2.0); EOS % 0.6 % (0-4.5); HEMATOCRIT 29.4 % (35.4-49); HEMOGLOBIN 10.2 GM/dL (11.7-16.9); LYMPH % 21.3 % (8-40); MCH 32.8 pg (25.7-33.7); MCHC 34.5 g/dl (32.0-35.9); MEAN CELL VOLUME 95.1 fl (80-96); MEAN PLT VOLUME 7.9 fl (7.5-11.1); MONO % 8.9 % (3.8-10.2); NEUT % 68.9 % (42.8-82.8); PLATELET COUNT 251 10^3/uL (134-434); RDW 15.3 % (11.9-15.9); WHITE BLOOD COUNT 5.9 K/mm3 (4.0-10.0)
[2021-08-09 07:57] LABS: CHLORIDE 110 mmol/L (98-107); SODIUM 142 mmol/L (136-145)
[2021-08-09 07:59] LABS: ANION GAP 8 MMOL/L (8-16); BLOOD UREA NITROGEN 16.2 mg/dL (7-18); CALCIUM 8.8 mg/dL (8.5-10.1); CO2 23 mmol/L (21-32)
[2021-08-09 08:00] LABS: GLUCOSE,RANDOM 126 mg/dL (74-106)
[2021-08-09 08:03] LABS: CREATININE 0.8 mg/dL (0.55-1.3)
[2021-08-09] MEDS: AMINO ACIDS/PROTEIN HYDROLYS 30 ML LIQUID.PKT PO SCH ×3 (09:00→16:45)
[2021-08-09] MEDS: ZINC SULFATE 220 MG CAPSULE (FP) PO SCH (09:48)
[2021-08-09] MEDS: POLYETHYLENE GLYCOL (HEALTHYLAX) 3350 17 GM PACKET PO SCH (09:48)
[2021-08-09] MEDS: MIDODRINE HCL 5 MG TABLET PO SCH ×3 (09:48→22:07)
[2021-08-09] MEDS: PANTOPRAZOLE 40 MG TABLET PO SCH (09:48)
[2021-08-09] MEDS: VITAMIN A 10,000 UNITS (3000 MCG) CAPSULE PO SCH (09:48)
[2021-08-09] MEDS: MUPIROCIN 2% TOPICAL OINTMENT 22 GM TUBE TP SCH ×2 (09:49→22:07)
[2021-08-09] MEDS: ASCORBIC ACID 250 MG TABLET (FP) PO SCH ×2 (09:49→22:08)
[2021-08-09] MEDS: COLLAGENASE CLOSTRIDIUM HIST. 30 GRAMS TUBE TP SCH (09:49)
[2021-08-09] MEDS: CYANOCOBALAMIN 1,000 MCG TABLET (FP) PO SCH (09:49)
[2021-08-09] MEDS: CHOLECALCIFEROL (VIT D3) 5000 UNITS (125 MCG) CAP PO SCH (09:49)
[2021-08-09] MEDS ORDERED: LACTATED RINGERS SOLUTION 500 ML/500 ML INFUS.BAG IV ONE (10:47)
[2021-08-09] MEDS: LACTATED RINGERS SOLUTION 1,000 ML/1,000 ML INFUS.BAG IV SCH (11:39)
[2021-08-10] MEDS: NOREPINEPHRINE BITARTRATE 16,000 MCG in SODIUM CHLORIDE 484 ML IV SCH (01:30)
[2021-08-10] MEDS ORDERED: PREGABALIN 50 MG CAPSULE ONE ×3 (05:11→20:25)
[2021-08-10] MEDS ORDERED: PREGABALIN 100 MG CAPSULE ONE ×3 (05:11→20:25)
[2021-08-10] MEDS: HEPARIN NA (PORCINE) 5,000 UNITS/ML 1ML VIAL SQ SCH ×3 (05:20→21:08)
[2021-08-10] MEDS: MIDODRINE HCL 5 MG TABLET PO SCH ×3 (05:20→21:10)
[2021-08-10] MEDS: PREGABALIN PO SCH ×3 (05:20→21:08)
[2021-08-10] MEDS: INSULIN SLIDING SCALE (NOVOLOG) 1 VIAL SQ SCH ×3 (06:18→16:57)
[2021-08-10 06:48] LABS: HEMATOCRIT 26.8 % (35.4-49); HEMOGLOBIN 9.2 GM/dL (11.7-16.9); MCH 32.2 pg (25.7-33.7); MCHC 34.3 g/dl (32.0-35.9); MEAN CELL VOLUME 94.1 fl (80-96); MEAN PLT VOLUME 7.8 fl (7.5-11.1); PLATELET COUNT 243 10^3/uL (134-434); RBC 2.84 M/mm3 (4.00-5.60); RDW 14.4 % (11.9-15.9); WHITE BLOOD COUNT 5.7 K/mm3 (4.0-10.0)
[2021-08-10 07:05] LABS: CALCIUM 8.2 mg/dL (8.5-10.1)
[2021-08-10 07:06] LABS: BLOOD UREA NITROGEN 12.7 mg/dL (7-18); MAGNESIUM 2.1 mg/dL (1.8-2.4)
[2021-08-10 07:09] LABS: CREATININE 0.8 mg/dL (0.55-1.3); PHOSPHOROUS 3.1 mg/dL (2.5-4.9)
[2021-08-10] MEDS: AMINO ACIDS/PROTEIN HYDROLYS 30 ML LIQUID.PKT PO SCH ×3 (09:04→17:07)
[2021-08-10] MEDS: POLYETHYLENE GLYCOL (HEALTHYLAX) 3350 17 GM PACKET PO SCH (09:05)
[2021-08-10] MEDS: ZINC SULFATE 220 MG CAPSULE (FP) PO SCH (09:05)
[2021-08-10] MEDS: PANTOPRAZOLE 40 MG TABLET PO SCH (09:06)
[2021-08-10] MEDS: ASCORBIC ACID 250 MG TABLET (FP) PO SCH ×2 (09:06→21:10)
[2021-08-10] MEDS: LACTATED RINGERS SOLUTION 1,000 ML/1,000 ML INFUS.BAG IV SCH (09:50)
[2021-08-10] MEDS: VITAMIN A 10,000 UNITS (3000 MCG) CAPSULE PO SCH (09:51)
[2021-08-10] MEDS: CYANOCOBALAMIN 1,000 MCG TABLET (FP) PO SCH (09:52)
[2021-08-10] MEDS: CHOLECALCIFEROL (VIT D3) 5000 UNITS (125 MCG) CAP PO SCH (09:52)
[2021-08-10] MEDS: COLLAGENASE CLOSTRIDIUM HIST. 30 GRAMS TUBE TP SCH (10:00)
[2021-08-10] MEDS: MUPIROCIN 2% TOPICAL OINTMENT 22 GM TUBE TP SCH ×2 (10:13→21:18)
[2021-08-10] MEDS ORDERED: VANCOMYCIN/WATER FOR INJ (PEG) 750 MG/150 ML BAG IVPB ONE (17:00)
[2021-08-10] MEDS: VANCOMYCIN PREMIX 1.5 GM 1,500 MG/300 ML BAG IVPB SCH (17:47)
[2021-08-11] MEDS ORDERED: ACETAMINOPHEN 325 MG TABLET (FP) PO PRN (00:29)
[2021-08-11] MEDS: NOREPINEPHRINE BITARTRATE 16,000 MCG in SODIUM CHLORIDE 484 ML IV SCH (01:15)
[2021-08-11] MEDS: VANCOMYCIN PREMIX 1.5 GM 1,500 MG/300 ML BAG IVPB SCH ×2 (01:58→15:09)
[2021-08-11] MEDS ORDERED: PREGABALIN 100 MG CAPSULE ONE ×3 (06:02→21:08)
[2021-08-11] MEDS ORDERED: PREGABALIN 50 MG CAPSULE ONE ×3 (06:02→21:08)
[2021-08-11] MEDS: MIDODRINE HCL 5 MG TABLET PO SCH ×3 (06:11→21:31)
[2021-08-11] MEDS: PREGABALIN PO SCH ×3 (06:11→21:30)
[2021-08-11] MEDS: HEPARIN NA (PORCINE) 5,000 UNITS/ML 1ML VIAL SQ SCH ×3 (06:14→21:31)
[2021-08-11] MEDS: LACTATED RINGERS SOLUTION 1,000 ML/1,000 ML INFUS.BAG IV SCH ×3 (06:14→21:33)
[2021-08-11] MEDS: INSULIN SLIDING SCALE (NOVOLOG) 1 VIAL SQ SCH ×3 (06:14→17:19)
[2021-08-11 08:51] LABS: HEMATOCRIT 28.4 % (35.4-49); HEMOGLOBIN 9.7 GM/dL (11.7-16.9); MCHC 34.2 g/dl (32.0-35.9); MEAN CELL VOLUME 93.5 fl (80-96); MEAN PLT VOLUME 7.9 fl (7.5-11.1); PLATELET COUNT 260 10^3/uL (134-434); RBC 3.04 M/mm3 (4.00-5.60); RDW 14.5 % (11.9-15.9); WHITE BLOOD COUNT 6.4 K/mm3 (4.0-10.0)
[2021-08-11 09:11] LABS: CALCIUM 8.4 mg/dL (8.5-10.1)
[2021-08-11 09:13] LABS: BLOOD UREA NITROGEN 12.8 mg/dL (7-18); MAGNESIUM 2.3 mg/dL (1.8-2.4)
[2021-08-11 09:16] LABS: CREATININE 0.8 mg/dL (0.55-1.3); PHOSPHOROUS 3.2 mg/dL (2.5-4.9)
[2021-08-11] MEDS: AMINO ACIDS/PROTEIN HYDROLYS 30 ML LIQUID.PKT PO SCH ×3 (10:00→17:20)
[2021-08-11] MEDS: CYANOCOBALAMIN 1,000 MCG TABLET (FP) PO SCH (10:44)
[2021-08-11] MEDS: ZINC SULFATE 220 MG CAPSULE (FP) PO SCH (10:44)
[2021-08-11] MEDS: PANTOPRAZOLE 40 MG TABLET PO SCH (10:44)
[2021-08-11] MEDS: POLYETHYLENE GLYCOL (HEALTHYLAX) 3350 17 GM PACKET PO SCH (10:44)
[2021-08-11] MEDS: MUPIROCIN 2% TOPICAL OINTMENT 22 GM TUBE TP SCH ×2 (10:48→21:42)
[2021-08-11] MEDS: COLLAGENASE CLOSTRIDIUM HIST. 30 GRAMS TUBE TP SCH (10:49)
[2021-08-11] MEDS: ASCORBIC ACID 250 MG TABLET (FP) PO SCH ×2 (12:40→21:30)
[2021-08-11] MEDS: CHOLECALCIFEROL (VIT D3) 5000 UNITS (125 MCG) CAP PO SCH (12:40)
[2021-08-11] MEDS: VITAMIN A 10,000 UNITS (3000 MCG) CAPSULE PO SCH (12:41)
[2021-08-12] MEDS ORDERED: VANCOMYCIN/WATER FOR INJ (PEG) 750 MG/150 ML BAG IVPB SCH (03:00)
[2021-08-12] MEDS: NOREPINEPHRINE BITARTRATE 16,000 MCG in SODIUM CHLORIDE 484 ML IV SCH (03:04)
[2021-08-12] MEDS ORDERED: PREGABALIN 50 MG CAPSULE ONE ×3 (05:26→22:42)
[2021-08-12] MEDS ORDERED: PREGABALIN 100 MG CAPSULE ONE ×3 (05:26→22:42)
[2021-08-12] MEDS: MIDODRINE HCL 5 MG TABLET PO SCH ×3 (05:30→22:49)
[2021-08-12] MEDS: LACTATED RINGERS SOLUTION 1,000 ML/1,000 ML INFUS.BAG IV SCH (05:30)
[2021-08-12] MEDS: PREGABALIN PO SCH ×3 (05:30→23:09)
[2021-08-12] MEDS: HEPARIN NA (PORCINE) 5,000 UNITS/ML 1ML VIAL SQ SCH ×3 (05:30→22:49)
[2021-08-12] MEDS: INSULIN SLIDING SCALE (NOVOLOG) 1 VIAL SQ SCH ×3 (06:03→18:02)
[2021-08-12 07:45] LABS: HEMATOCRIT 27.7 % (35.4-49); HEMOGLOBIN 9.6 GM/dL (11.7-16.9); MCH 32.5 pg (25.7-33.7); MCHC 34.7 g/dl (32.0-35.9); MEAN CELL VOLUME 93.6 fl (80-96); MEAN PLT VOLUME 7.8 fl (7.5-11.1); PLATELET COUNT 248 10^3/uL (134-434); RBC 2.96 M/mm3 (4.00-5.60); WHITE BLOOD COUNT 6.6 K/mm3 (4.0-10.0)
[2021-08-12 09:12] LABS: CALCIUM 8.7 mg/dL (8.5-10.1)
[2021-08-12 09:13] LABS: BLOOD UREA NITROGEN 12.6 mg/dL (7-18); MAGNESIUM 2.2 mg/dL (1.8-2.4)
[2021-08-12 09:15] LABS: CREATININE 0.8 mg/dL (0.55-1.3); PHOSPHOROUS 3.3 mg/dL (2.5-4.9)
[2021-08-12] MEDS: CYANOCOBALAMIN 1,000 MCG TABLET (FP) PO SCH (09:33)
[2021-08-12] MEDS: AMINO ACIDS/PROTEIN HYDROLYS 30 ML LIQUID.PKT PO SCH ×3 (09:33→18:10)
[2021-08-12] MEDS: PANTOPRAZOLE 40 MG TABLET PO SCH (09:33)
[2021-08-12] MEDS: ZINC SULFATE 220 MG CAPSULE (FP) PO SCH (09:33)
[2021-08-12] MEDS: ASCORBIC ACID 250 MG TABLET (FP) PO SCH ×2 (09:34→23:09)
[2021-08-12] MEDS: CHOLECALCIFEROL (VIT D3) 5000 UNITS (125 MCG) CAP PO SCH (09:34)
[2021-08-12] MEDS: VITAMIN A 10,000 UNITS (3000 MCG) CAPSULE PO SCH (09:34)
[2021-08-12] MEDS: POLYETHYLENE GLYCOL (HEALTHYLAX) 3350 17 GM PACKET PO SCH (09:38)
[2021-08-12] MEDS: MUPIROCIN 2% TOPICAL OINTMENT 22 GM TUBE TP SCH ×2 (09:39→22:50)
[2021-08-12] MEDS: COLLAGENASE CLOSTRIDIUM HIST. 30 GRAMS TUBE TP SCH (09:42)
[2021-08-12] MEDS: KCL 10 MEQ IVPB 10 MEQ/100 ML INFUS.BAG IVPB SCH ×3 (11:01→13:11)
[2021-08-12] MEDS ORDERED: ATORVASTATIN CA 20 MG TABLET (FP) PO SCH (22:00)
[2021-08-13] MEDS: LACTATED RINGERS SOLUTION 1,000 ML/1,000 ML INFUS.BAG IV SCH ×2 (01:30→12:50)
[2021-08-13] MEDS ORDERED: PREGABALIN 50 MG CAPSULE ONE ×3 (06:07→20:45)
[2021-08-13] MEDS ORDERED: PREGABALIN 100 MG CAPSULE ONE ×3 (06:08→20:45)
[2021-08-13] MEDS: MIDODRINE HCL 5 MG TABLET PO SCH (06:14)
[2021-08-13] MEDS: PREGABALIN PO SCH ×3 (06:14→21:02)
[2021-08-13] MEDS: INSULIN SLIDING SCALE (NOVOLOG) 1 VIAL SQ SCH ×3 (06:17→17:29)
[2021-08-13] MEDS ORDERED: DEXMEDETOMIDINE HCL 200 MCG/2 ML IVPB ONE ×2 (07:20→07:21)
[2021-08-13] MEDS: HEPARIN NA (PORCINE) 5,000 UNITS/ML 1ML VIAL SQ SCH ×3 (07:20→21:00)
[2021-08-13] MEDS ORDERED: ACETAMINOPHEN INJECTION 200 ML IVPB ONE (07:21)
[2021-08-13] MEDS ORDERED: ONDANSETRON 4 MG/2 ML VIAL ONE (07:34)
[2021-08-13] MEDS ORDERED: LIDOCAINE HCL/PF 2% SDV 5ML VIAL ONE (07:34)
[2021-08-13] MEDS ORDERED: PROPOFOL 20 ML ONE ×2 (07:35)
[2021-08-13 07:36] LABS: BASO % 0.3 % (0-2.0); EOS % 0.5 % (0-4.5); HEMATOCRIT 28.3 % (35.4-49); HEMOGLOBIN 9.5 GM/dL (11.7-16.9); LYMPH % 20.4 % (8-40); MCH 31.8 pg (25.7-33.7); MCHC 33.7 g/dl (32.0-35.9); MEAN CELL VOLUME 94.3 fl (80-96); MEAN PLT VOLUME 7.7 fl (7.5-11.1); MONO % 11.2 % (3.8-10.2); NEUT % 67.6 % (42.8-82.8); PLATELET COUNT 237 10^3/uL (134-434); WHITE BLOOD COUNT 6.5 K/mm3 (4.0-10.0)
[2021-08-13 07:52] LABS: BLOOD UREA NITROGEN 10.1 mg/dL (7-18); CALCIUM 8.3 mg/dL (8.5-10.1)
[2021-08-13 07:55] LABS: PHOSPHOROUS 3.2 mg/dL (2.5-4.9)
[2021-08-13 07:57] LABS: CREATININE 0.7 mg/dL (0.55-1.3)
[2021-08-13] MEDS ORDERED: ROCURONIUM BROMIDE 100 MG/10 ML VIAL ONE (08:45)
[2021-08-13] MEDS ORDERED: KETAMINE HCL 200 MG/20 ML VIAL ONE (08:46)
[2021-08-13] MEDS ORDERED: ETOMIDATE 20 MG/10 ML AMPUL IVPUSH ONE (08:47)
[2021-08-13] MEDS ORDERED: POTASSIUM CHLORIDE TABS 20 MEQ TABLET.ER (FP) PO ONE (10:08)
[2021-08-13] MEDS ORDERED: ePHEDrine SULFATE 50 MG/1 ML AMPULE IM ONE (11:40)
[2021-08-13] MEDS: PANTOPRAZOLE 40 MG TABLET PO SCH (12:17)
[2021-08-13] MEDS: ZINC SULFATE 220 MG CAPSULE (FP) PO SCH (12:17)
[2021-08-13] MEDS: POLYETHYLENE GLYCOL (HEALTHYLAX) 3350 17 GM PACKET PO SCH (12:17)
[2021-08-13] MEDS: AMINO ACIDS/PROTEIN HYDROLYS 30 ML LIQUID.PKT PO SCH ×2 (12:17→17:29)
[2021-08-13] MEDS: VITAMIN A 10,000 UNITS (3000 MCG) CAPSULE PO SCH (12:17)
[2021-08-13] MEDS: CHOLECALCIFEROL (VIT D3) 5000 UNITS (125 MCG) CAP PO SCH (12:18)
[2021-08-13] MEDS: ASCORBIC ACID 250 MG TABLET (FP) PO SCH ×2 (12:18→21:06)
[2021-08-13] MEDS: CYANOCOBALAMIN 1,000 MCG TABLET (FP) PO SCH (12:18)
[2021-08-13] MEDS: COLLAGENASE CLOSTRIDIUM HIST. 30 GRAMS TUBE TP SCH (12:18)
[2021-08-13] MEDS: VANCOMYCIN 750 MG in DEXTROSE 5%-WATER - 250 ML IVPB SCH (14:32)
[2021-08-13] MEDS: oxyCODONE HCL 5 MG TABLET PO PRN (21:01)
[2021-08-13] MEDS: ATORVASTATIN CA 20 MG TABLET (FP) PO SCH (21:06)
[2021-08-14] MEDS ORDERED: PREGABALIN 100 MG CAPSULE ONE ×3 (05:21→21:00)
[2021-08-14] MEDS ORDERED: PREGABALIN 50 MG CAPSULE ONE ×3 (05:21→20:59)
[2021-08-14] MEDS: oxyCODONE HCL 5 MG TABLET PO PRN ×3 (05:39→21:04)
[2021-08-14] MEDS: PREGABALIN PO SCH ×3 (05:40→21:09)
[2021-08-14] MEDS: HEPARIN NA (PORCINE) 5,000 UNITS/ML 1ML VIAL SQ SCH ×3 (05:41→21:11)
[2021-08-14] MEDS: INSULIN SLIDING SCALE (NOVOLOG) 1 VIAL SQ SCH ×3 (06:28→17:05)
[2021-08-14] MEDS: AMINO ACIDS/PROTEIN HYDROLYS 30 ML LIQUID.PKT PO SCH ×4 (07:55→17:18)
[2021-08-14 09:12] LABS: BASO % 0.4 % (0-2.0); EOS % 0.3 % (0-4.5); HEMATOCRIT 25.7 % (35.4-49); HEMOGLOBIN 8.8 GM/dL (11.7-16.9); LYMPH % 18.9 % (8-40); MCHC 34.1 g/dl (32.0-35.9); MEAN PLT VOLUME 7.8 fl (7.5-11.1); NEUT % 68.4 % (42.8-82.8); PLATELET COUNT 228 10^3/uL (134-434); RBC 2.73 M/mm3 (4.00-5.60); RDW 15.1 % (11.9-15.9); WHITE BLOOD COUNT 6.9 K/mm3 (4.0-10.0)
[2021-08-14 09:50] LABS: CALCIUM 8.1 mg/dL (8.5-10.1)
[2021-08-14 09:52] LABS: BLOOD UREA NITROGEN 8.4 mg/dL (7-18)
[2021-08-14 09:54] LABS: CREATININE 0.9 mg/dL (0.55-1.3)
[2021-08-14] MEDS: CYANOCOBALAMIN 1,000 MCG TABLET (FP) PO SCH (10:12)
[2021-08-14] MEDS: PANTOPRAZOLE 40 MG TABLET PO SCH (10:12)
[2021-08-14] MEDS: ZINC SULFATE 220 MG CAPSULE (FP) PO SCH (10:12)
[2021-08-14] MEDS: POLYETHYLENE GLYCOL (HEALTHYLAX) 3350 17 GM PACKET PO SCH (10:14)
[2021-08-14] MEDS: CHOLECALCIFEROL (VIT D3) 5000 UNITS (125 MCG) CAP PO SCH (11:14)
[2021-08-14] MEDS: VITAMIN A 10,000 UNITS (3000 MCG) CAPSULE PO SCH (11:14)
[2021-08-14] MEDS: ASCORBIC ACID 250 MG TABLET (FP) PO SCH ×2 (11:14→21:09)
[2021-08-14] MEDS: VANCOMYCIN 750 MG in DEXTROSE 5%-WATER - 250 ML IVPB SCH (11:19)
[2021-08-14] MEDS: LACTATED RINGERS SOLUTION 1,000 ML/1,000 ML INFUS.BAG IV SCH ×2 (13:37→16:00)
[2021-08-14] MEDS: ATORVASTATIN CA 20 MG TABLET (FP) PO SCH (21:08)
[2021-08-15] MEDS: LACTATED RINGERS SOLUTION 1,000 ML/1,000 ML INFUS.BAG IV SCH ×2 (03:13→12:57)
[2021-08-15] MEDS ORDERED: PREGABALIN 50 MG CAPSULE ONE ×3 (05:42→20:51)
[2021-08-15] MEDS ORDERED: PREGABALIN 100 MG CAPSULE ONE ×3 (05:43→20:51)
[2021-08-15] MEDS: PREGABALIN PO SCH ×3 (05:53→21:07)
[2021-08-15] MEDS: oxyCODONE HCL 5 MG TABLET PO PRN ×3 (05:53→15:39)
[2021-08-15] MEDS: HEPARIN NA (PORCINE) 5,000 UNITS/ML 1ML VIAL SQ SCH ×3 (05:57→21:07)
[2021-08-15] MEDS: INSULIN SLIDING SCALE (NOVOLOG) 1 VIAL SQ SCH ×3 (06:01→17:19)
[2021-08-15] MEDS: AMINO ACIDS/PROTEIN HYDROLYS 30 ML LIQUID.PKT PO SCH ×3 (08:49→17:20)
[2021-08-15] MEDS: ACETAMINOPHEN 325 MG TABLET (FP) PO PRN (09:06)
[2021-08-15] MEDS: ZINC SULFATE 220 MG CAPSULE (FP) PO SCH (09:06)
[2021-08-15] MEDS: PANTOPRAZOLE 40 MG TABLET PO SCH (09:06)
[2021-08-15] MEDS: CYANOCOBALAMIN 1,000 MCG TABLET (FP) PO SCH (09:06)
[2021-08-15] MEDS: POLYETHYLENE GLYCOL (HEALTHYLAX) 3350 17 GM PACKET PO SCH (09:09)
[2021-08-15] MEDS: VITAMIN A 10,000 UNITS (3000 MCG) CAPSULE PO SCH (09:09)
[2021-08-15] MEDS: ASCORBIC ACID 250 MG TABLET (FP) PO SCH (09:09)
[2021-08-15] MEDS: CHOLECALCIFEROL (VIT D3) 5000 UNITS (125 MCG) CAP PO SCH (09:10)
[2021-08-15 12:47] LABS: BASO % 0.2 % (0-2.0); EOS % 0.2 % (0-4.5); HEMATOCRIT 24.9 % (35.4-49); HEMOGLOBIN 8.6 GM/dL (11.7-16.9); LYMPH % 18.2 % (8-40); MCH 32.2 pg (25.7-33.7); MCHC 34.3 g/dl (32.0-35.9); MEAN CELL VOLUME 93.7 fl (80-96); MEAN PLT VOLUME 7.7 fl (7.5-11.1); NEUT % 69.4 % (42.8-82.8); PLATELET COUNT 230 10^3/uL (134-434); RBC 2.66 M/mm3 (4.00-5.60); RDW 14.8 % (11.9-15.9); WHITE BLOOD COUNT 8.2 K/mm3 (4.0-10.0)
[2021-08-15] MEDS: VANCOMYCIN 750 MG in DEXTROSE 5%-WATER - 250 ML IVPB SCH (12:57)
[2021-08-15 13:16] LABS: CALCIUM 8.1 mg/dL (8.5-10.1)
[2021-08-15 13:17] LABS: BLOOD UREA NITROGEN 10.2 mg/dL (7-18)
[2021-08-15 13:20] LABS: CREATININE 0.8 mg/dL (0.55-1.3)
[2021-08-15] MEDS: ATORVASTATIN CA 20 MG TABLET (FP) PO SCH (21:07)
[2021-08-15] MEDS: ASCORBIC ACID 500 MG TABLET (FP) PO SCH (21:07)
[2021-08-16] MEDS: LACTATED RINGERS SOLUTION 1,000 ML/1,000 ML INFUS.BAG IV SCH ×3 (00:56→16:02)
[2021-08-16] MEDS: oxyCODONE HCL 5 MG TABLET PO PRN ×5 (01:55→22:00)
[2021-08-16] MEDS ORDERED: PREGABALIN 100 MG CAPSULE ONE ×3 (05:18→21:02)
[2021-08-16] MEDS ORDERED: PREGABALIN 50 MG CAPSULE ONE ×3 (05:18→21:02)
[2021-08-16] MEDS: PREGABALIN PO SCH ×3 (05:42→21:21)
[2021-08-16] MEDS: HEPARIN NA (PORCINE) 5,000 UNITS/ML 1ML VIAL SQ SCH ×3 (05:44→21:21)
[2021-08-16] MEDS: INSULIN SLIDING SCALE (NOVOLOG) 1 VIAL SQ SCH ×3 (06:11→17:16)
[2021-08-16 09:37] LABS: BASO % 0.4 % (0-2.0); EOS % 0.4 % (0-4.5); HEMATOCRIT 24.7 % (35.4-49); HEMOGLOBIN 8.5 GM/dL (11.7-16.9); LYMPH % 17.4 % (8-40); MCH 32.1 pg (25.7-33.7); MCHC 34.3 g/dl (32.0-35.9); MEAN CELL VOLUME 93.6 fl (80-96); MEAN PLT VOLUME 7.8 fl (7.5-11.1); MONO % 11.5 % (3.8-10.2); NEUT % 70.3 % (42.8-82.8); PLATELET COUNT 220 10^3/uL (134-434); RBC 2.64 M/mm3 (4.00-5.60); RDW 14.7 % (11.9-15.9); WHITE BLOOD COUNT 7.6 K/mm3 (4.0-10.0)
[2021-08-16] MEDS: ZINC SULFATE 220 MG CAPSULE (FP) PO SCH (09:53)
[2021-08-16] MEDS: PANTOPRAZOLE 40 MG TABLET PO SCH (09:53)
[2021-08-16] MEDS: CHOLECALCIFEROL (VIT D3) 5000 UNITS (125 MCG) CAP PO SCH (09:53)
[2021-08-16] MEDS: VITAMIN A 10,000 UNITS (3000 MCG) CAPSULE PO SCH (09:53)
[2021-08-16] MEDS: ASCORBIC ACID 500 MG TABLET (FP) PO SCH ×2 (09:53→21:21)
[2021-08-16] MEDS: AMINO ACIDS/PROTEIN HYDROLYS 30 ML LIQUID.PKT PO SCH ×3 (09:53→17:16)
[2021-08-16] MEDS: CYANOCOBALAMIN 1,000 MCG TABLET (FP) PO SCH (09:53)
[2021-08-16] MEDS: POLYETHYLENE GLYCOL (HEALTHYLAX) 3350 17 GM PACKET PO SCH (09:54)
[2021-08-16 09:55] LABS: BLOOD UREA NITROGEN 10.7 mg/dL (7-18); CALCIUM 8.1 mg/dL (8.5-10.1)
[2021-08-16 09:58] LABS: CREATININE 0.8 mg/dL (0.55-1.3)
[2021-08-16] MEDS: VANCOMYCIN 750 MG in DEXTROSE 5%-WATER - 250 ML IVPB SCH (12:12)
[2021-08-16] MEDS ORDERED: VANCOMYCIN/WATER FOR INJ (PEG) 1,000 MG/200 ML BAG IVPB SCH (14:00)
[2021-08-16] MEDS ORDERED: IRON SUCROSE INJECTION 300 MG in SODIUM CHLORIDE 235 ML IVPB ONE (20:30)
[2021-08-16] MEDS: ATORVASTATIN CA 20 MG TABLET (FP) PO SCH (21:21)
[2021-08-17] MEDS: LACTATED RINGERS SOLUTION 1,000 ML/1,000 ML INFUS.BAG IV SCH ×2 (02:13→13:09)
[2021-08-17] MEDS: oxyCODONE HCL 5 MG TABLET PO PRN ×3 (02:24→10:28)
[2021-08-17] MEDS: ACETAMINOPHEN 325 MG TABLET (FP) PO PRN (02:25)
[2021-08-17] MEDS ORDERED: PREGABALIN 50 MG CAPSULE ONE ×2 (05:30→13:00)
[2021-08-17] MEDS ORDERED: PREGABALIN 100 MG CAPSULE ONE ×2 (05:30→13:00)
[2021-08-17] MEDS: PREGABALIN PO SCH ×2 (05:39→13:08)
[2021-08-17] MEDS: HEPARIN NA (PORCINE) 5,000 UNITS/ML 1ML VIAL SQ SCH ×2 (05:39→13:08)
[2021-08-17] MEDS: INSULIN SLIDING SCALE (NOVOLOG) 1 VIAL SQ SCH ×2 (06:00→11:48)
[2021-08-17 06:47] LABS: BASO % 0.4 % (0-2.0); EOS % 0.9 % (0-4.5); HEMATOCRIT 23.5 % (35.4-49); MCH 31.7 pg (25.7-33.7); MCHC 34.2 g/dl (32.0-35.9); MEAN CELL VOLUME 92.8 fl (80-96); MEAN PLT VOLUME 7.9 fl (7.5-11.1); MONO % 13.8 % (3.8-10.2); NEUT % 71.9 % (42.8-82.8); PLATELET COUNT 217 10^3/uL (134-434); RBC 2.53 M/mm3 (4.00-5.60); RDW 14.8 % (11.9-15.9); WHITE BLOOD COUNT 6.6 K/mm3 (4.0-10.0)
[2021-08-17 07:06] LABS: CALCIUM 7.8 mg/dL (8.5-10.1)
[2021-08-17 07:10] LABS: CREATININE 0.8 mg/dL (0.55-1.3)
[2021-08-17] MEDS: AMINO ACIDS/PROTEIN HYDROLYS 30 ML LIQUID.PKT PO SCH ×2 (08:10→12:20)
[2021-08-17] MEDS: KCL 10 MEQ IVPB 10 MEQ/100 ML INFUS.BAG IVPB SCH ×3 (10:08→12:19)
[2021-08-17] MEDS: ZINC SULFATE 220 MG CAPSULE (FP) PO SCH (10:09)
[2021-08-17] MEDS: PANTOPRAZOLE 40 MG TABLET PO SCH (10:09)
[2021-08-17] MEDS: POLYETHYLENE GLYCOL (HEALTHYLAX) 3350 17 GM PACKET PO SCH (10:09)
[2021-08-17] MEDS: ASCORBIC ACID 500 MG TABLET (FP) PO SCH (10:09)
[2021-08-17] MEDS: CYANOCOBALAMIN 1,000 MCG TABLET (FP) PO SCH (10:09)
[2021-08-17] MEDS: CHOLECALCIFEROL (VIT D3) 5000 UNITS (125 MCG) CAP PO SCH (10:09)
[2021-08-17] MEDS: VITAMIN A 10,000 UNITS (3000 MCG) CAPSULE PO SCH (10:09)
[2021-08-17 13:07] LABS: SARS-CoV-2 NAA Not Detected (Not Detected)
[2021-08-17 14:00] VITALS: BP 118/59; PULSE 80; TEMP 98.9
[2021-08-17] MEDS ORDERED: VANCOMYCIN/WATER FOR INJ (PEG) 1,000 MG/200 ML BAG IVPB SCH (23:00)
== END 2021-08-17 15:27 | DRG 853 ==
LOC: JER 17:35 → JERBED 21:31 → JICU 07-28 14:19 → J4S 08-11 00:28
PROVIDERS: ADMIT Internal Medicine; ATTEND Internal Medicine
PROC: 05HM33Z Insertion of Infusion Device into Right Internal Jugular Vein, Percutaneous Approach (ICD-10-PCS; 2021-07-29)
PROC: B543ZZA Ultrasonography of Right Jugular Veins, Guidance (ICD-10-PCS; 2021-07-29)
PROC: 0JB70ZZ Excision of Back Subcutaneous Tissue and Fascia, Open Approach (ICD-10-PCS; 2021-07-30)
PROC: 0KBN0ZZ Excision of Right Hip Muscle, Open Approach (ICD-10-PCS; 2021-08-02)
PROC: 0KBP0ZZ Excision of Left Hip Muscle, Open Approach (ICD-10-PCS; 2021-08-02)
PROC: 05HB33Z Insertion of Infusion Device into Right Basilic Vein, Percutaneous Approach (ICD-10-PCS; 2021-08-08)
PROC: 0KBN0ZZ Excision of Right Hip Muscle, Open Approach (ICD-10-PCS; 2021-08-13)
PROC: 0KBP0ZZ Excision of Left Hip Muscle, Open Approach (ICD-10-PCS; principal; 2021-08-13 08:00)
DX: A41.02 Sepsis due to Methicillin resistant Staphylococcus aureus (principal); L89.154 Pressure ulcer of sacral region, stage 4; R65.21 Severe sepsis with septic shock; G06.1 Intraspinal abscess and granuloma; E87.2 Acidosis; E87.1 Hypo-osmolality and hyponatremia; N39.0 Urinary tract infection, site not specified; G82.20 Paraplegia, unspecified; G83.4 Cauda equina syndrome; N17.9 Acute kidney failure, unspecified; L03.90 Cellulitis, unspecified; L89.300 Pressure ulcer of unspecified buttock, unstageable; D69.6 Thrombocytopenia, unspecified; I10 Essential (primary) hypertension; E78.5 Hyperlipidemia, unspecified; E87.6 Hypokalemia; E88.09 Other disorders of plasma-protein metabolism, not elsewhere classified; E53.8 Deficiency of other specified B group vitamins; D72.829 Elevated white blood cell count, unspecified; E66.9 Obesity, unspecified; Z68.35 Body mass index [BMI] 35.0-35.9, adult; E86.0 Dehydration; K59.00 Constipation, unspecified; D50.9 Iron deficiency anemia, unspecified; I95.9 Hypotension, unspecified; T83.091A Other mechanical complication of indwelling urethral catheter, initial encounter; R33.9 Retention of urine, unspecified; Y83.9 Surgical procedure, unspecified as the cause of abnormal reaction of the patient, or of later complication, without mention of misadventure at the time of the procedure
CPT/HCPCS: 36415; 71045-TC-FY; 72125-TC; 72128-TC; 72148-TC; 76604; 80048; 80053; 80061; 81003; 82728; 82962; 83036; 83540; 83550; 83605; 83735; 83880; 84100; 84443; 84484; 85025; 85027; 85610; 85730; 86850; 86900; 86901; 87040; 87070; 87075; 87076; 87077; 87086; 87106; 87186; 87205; 88304-TC; 93005; 93010; 93306-TC; 94760; 97162-GP; 99291; C9803-CS; G0480; J1644; J1756; U0003; U0005

== ENCOUNTER → 2021-09-01 | Day surgery (SDC) | payer OTHER | LOC: JRADIR 12:45 | PROVIDERS: ATTEND Internal Medicine | DX: A41.9 Sepsis, unspecified organism (principal) | CPT/HCPCS: 36569; 77001-TC-FY; C1751 ==

== ENCOUNTER 2021-09-07 10:40 | Emergency (ER) | payer OTHER ==
[2021-09-07 11:14] VITALS: BMI 29.0
[2021-09-07 13:57] VITALS: BP 109/54; PULSE 83; TEMP 98.1
== END 2021-09-07 15:45 ==
LOC: JER 10:40
DX: T82.898A Other specified complication of vascular prosthetic devices, implants and grafts, initial encounter (principal)
CPT/HCPCS: 36584; 71045-TC-FY; 73060-TC-RT-FY; 93005; 93010; 99284-25

== ENCOUNTER 2021-09-20 04:01 | Inpatient (IN) | payer OTHER ==
[2021-09-20] MEDS ORDERED: PROMETHAZINE HCL 25 MG/1 ML VIAL IVPUSH PRN (17:12)
[2021-09-20] MEDS ORDERED: ONDANSETRON 4 MG/2 ML VIAL IVPUSH PRN (17:12)
[2021-09-20] MEDS ORDERED: FENTANYL CITRATE/PF 50 MCG/ML VIAL ONE ×2 (18:27→21:22)
[2021-09-20] MEDS ORDERED: VANCOMYCIN/WATER FOR INJ (PEG) 750 MG/150 ML BAG IVPB ONE (21:30)
[2021-09-21] MEDS: LACTATED RINGERS SOLUTION 1,000 ML IV SCH ×3 (02:03→17:40)
[2021-09-21] MEDS: ACETAMINOPHEN 500 MG TABLET (FP) PO SCH ×5 (02:04→18:31)
[2021-09-21] MEDS: MIDODRINE HCL 5 MG TABLET PO SCH ×4 (02:04→18:24)
[2021-09-21] MEDS: BACLOFEN 10 MG TABLET (FP) PO SCH ×3 (02:05→21:49)
[2021-09-21] MEDS: ATORVASTATIN CA 20 MG TABLET (FP) PO SCH ×2 (02:05→21:49)
[2021-09-21] MEDS: LIDOCAINE 5% TOPICAL PATCH TP SCH (12:33)
[2021-09-21] MEDS: PANTOPRAZOLE 40 MG TABLET PO SCH (12:33)
[2021-09-21] MEDS: ASCORBIC ACID 500 MG TABLET (FP) PO SCH ×2 (12:33→21:50)
[2021-09-21] MEDS: ZINC SULFATE 220 MG CAPSULE (FP) PO SCH (12:33)
[2021-09-21] MEDS: POLYETHYLENE GLYCOL (HEALTHYLAX) 3350 17 GM PACKET PO SCH (12:35)
[2021-09-21] MEDS: VITAMIN A 10,000 UNITS (3000 MCG) CAPSULE PO SCH (13:09)
[2021-09-21] MEDS: CYANOCOBALAMIN 1,000 MCG TABLET (FP) PO SCH (13:09)
[2021-09-21] MEDS: CHOLECALCIFEROL (VIT D3) 5000 UNITS (125 MCG) CAP PO SCH (13:09)
[2021-09-21 13:49] LABS: BASO % 0.1 % (0-2.0); EOS % 0.2 % (0-4.5); HEMATOCRIT 28.7 % (35.4-49); HEMOGLOBIN 9.1 GM/dL (11.7-16.9); LYMPH % 9.8 % (8-40); MCH 28.5 pg (25.7-33.7); MCHC 31.8 g/dl (32.0-35.9); MEAN CELL VOLUME 89.6 fl (80-96); MEAN PLT VOLUME 7.1 fl (7.5-11.1); NEUT % 82.9 % (42.8-82.8); PLATELET COUNT 331 10^3/uL (134-434); RBC 3.21 M/mm3 (4.00-5.60); RDW 17.1 % (11.9-15.9); WHITE BLOOD COUNT 12.1 K/mm3 (4.0-10.0)
[2021-09-21 14:02] LABS: CALCIUM 8.7 mg/dL (8.5-10.1)
[2021-09-21 14:03] LABS: ALBUMIN 1.9 g/dl (3.4-5.0); BLOOD UREA NITROGEN 11.4 mg/dL (7-18)
[2021-09-21 14:06] LABS: CREATININE 0.6 mg/dL (0.55-1.3)
[2021-09-21 14:08] LABS: BILIRUBIN,TOTAL 0.6 mg/dL (0.2-1); TOT PROT 6.9 g/dl (6.4-8.2)
[2021-09-21] MEDS: oxyCODONE HCL 5 MG TABLET PO PRN ×3 (14:57→22:40)
[2021-09-21] MEDS: MULTIVITAMINS THER W-MINERALS COMBO TABLET (FP) PO SCH (14:57)
[2021-09-21] MEDS: PREGABALIN 100 MG CAPSULE PO SCH ×2 (14:57→21:49)
[2021-09-21] MEDS: HEPARIN NA (PORCINE) 5,000 UNITS/ML 1ML VIAL SQ SCH ×2 (15:03→21:49)
[2021-09-21] MEDS: INSULIN SLIDING SCALE (NOVOLOG) 1 VIAL SQ SCH (16:21)
[2021-09-21] MEDS: LIDOCAINE PATCH REMOVAL MC SCH (21:49)
[2021-09-22] MEDS: ACETAMINOPHEN 500 MG TABLET (FP) PO SCH ×3 (02:13→18:03)
[2021-09-22] MEDS: oxyCODONE HCL 5 MG TABLET PO PRN ×4 (03:00→23:09)
[2021-09-22] MEDS: HEPARIN NA (PORCINE) 5,000 UNITS/ML 1ML VIAL SQ SCH ×3 (06:09→21:42)
[2021-09-22] MEDS: PREGABALIN 100 MG CAPSULE PO SCH ×3 (06:09→21:42)
[2021-09-22] MEDS ORDERED: IRON SUCROSE INJECTION 300 MG in SODIUM CHLORIDE 235 ML IVPB ONE (06:35)
[2021-09-22] MEDS: INSULIN SLIDING SCALE (NOVOLOG) 1 VIAL SQ SCH ×2 (08:29→16:49)
[2021-09-22 09:11] LABS: BASO % 0.2 % (0-2.0); EOS % 0.6 % (0-4.5); HEMATOCRIT 28.8 % (35.4-49); HEMOGLOBIN 9.3 GM/dL (11.7-16.9); LYMPH % 16.6 % (8-40); MCHC 32.4 g/dl (32.0-35.9); MEAN CELL VOLUME 89.4 fl (80-96); MEAN PLT VOLUME 7.4 fl (7.5-11.1); MONO % 8.8 % (3.8-10.2); NEUT % 73.8 % (42.8-82.8); PLATELET COUNT 329 10^3/uL (134-434); RBC 3.22 M/mm3 (4.00-5.60); RDW 17.4 % (11.9-15.9); WHITE BLOOD COUNT 10.2 K/mm3 (4.0-10.0)
[2021-09-22] MEDS: BACLOFEN 10 MG TABLET (FP) PO SCH ×2 (10:37→21:42)
[2021-09-22] MEDS: POLYETHYLENE GLYCOL (HEALTHYLAX) 3350 17 GM PACKET PO SCH (10:37)
[2021-09-22] MEDS: PANTOPRAZOLE 40 MG TABLET PO SCH (10:38)
[2021-09-22] MEDS: MULTIVITAMINS THER W-MINERALS COMBO TABLET (FP) PO SCH (10:38)
[2021-09-22] MEDS: ZINC SULFATE 220 MG CAPSULE (FP) PO SCH (10:38)
[2021-09-22] MEDS: ASCORBIC ACID 500 MG TABLET (FP) PO SCH ×2 (10:38→21:42)
[2021-09-22] MEDS: CYANOCOBALAMIN 1,000 MCG TABLET (FP) PO SCH (10:42)
[2021-09-22] MEDS: MIDODRINE HCL 5 MG TABLET PO SCH ×3 (10:42→18:03)
[2021-09-22] MEDS: VITAMIN A 10,000 UNITS (3000 MCG) CAPSULE PO SCH (10:43)
[2021-09-22] MEDS: CHOLECALCIFEROL (VIT D3) 5000 UNITS (125 MCG) CAP PO SCH (10:43)
[2021-09-22] MEDS: LIDOCAINE 5% TOPICAL PATCH TP SCH (10:50)
[2021-09-22 10:57] LABS: CALCIUM 9.1 mg/dL (8.5-10.1)
[2021-09-22 10:58] LABS: BLOOD UREA NITROGEN 9.7 mg/dL (7-18)
[2021-09-22 11:01] LABS: CREATININE 0.6 mg/dL (0.55-1.3)
[2021-09-22 11:03] LABS: BILIRUBIN,TOTAL 0.4 mg/dL (0.2-1)
[2021-09-22] MEDS ORDERED: VANCOMYCIN HCL 1,500 MG in DEXTROSE 5%-WATER - 500 ML IVPB SCH (11:45)
[2021-09-22] MEDS: COLLAGENASE CLOSTRIDIUM HIST. 30 GRAMS TUBE TP SCH (14:02)
[2021-09-22] MEDS: LACTATED RINGERS SOLUTION 1,000 ML IV SCH (18:05)
[2021-09-22] MEDS: LIDOCAINE PATCH REMOVAL MC SCH (21:42)
[2021-09-22] MEDS: ATORVASTATIN CA 20 MG TABLET (FP) PO SCH (21:42)
[2021-09-23] MEDS: ACETAMINOPHEN 500 MG TABLET (FP) PO SCH ×3 (01:01→17:32)
[2021-09-23] MEDS: oxyCODONE HCL 5 MG TABLET PO PRN ×3 (06:40→20:47)
[2021-09-23] MEDS: HEPARIN NA (PORCINE) 5,000 UNITS/ML 1ML VIAL SQ SCH ×3 (06:40→21:59)
[2021-09-23] MEDS: PREGABALIN 100 MG CAPSULE PO SCH ×3 (06:40→21:59)
[2021-09-23] MEDS: INSULIN SLIDING SCALE (NOVOLOG) 1 VIAL SQ SCH ×2 (07:00→17:15)
[2021-09-23] MEDS: LIDOCAINE 5% TOPICAL PATCH TP SCH (09:21)
[2021-09-23] MEDS: POLYETHYLENE GLYCOL (HEALTHYLAX) 3350 17 GM PACKET PO SCH (09:22)
[2021-09-23] MEDS: ZINC SULFATE 220 MG CAPSULE (FP) PO SCH (09:22)
[2021-09-23] MEDS: PANTOPRAZOLE 40 MG TABLET PO SCH (09:24)
[2021-09-23] MEDS: MIDODRINE HCL 5 MG TABLET PO SCH ×3 (09:24→17:32)
[2021-09-23] MEDS: CYANOCOBALAMIN 1,000 MCG TABLET (FP) PO SCH (09:25)
[2021-09-23] MEDS: ASCORBIC ACID 500 MG TABLET (FP) PO SCH ×2 (09:25→21:59)
[2021-09-23] MEDS: BACLOFEN 10 MG TABLET (FP) PO SCH ×2 (09:25→21:59)
[2021-09-23] MEDS: MULTIVITAMINS THER W-MINERALS COMBO TABLET (FP) PO SCH (09:25)
[2021-09-23] MEDS: VITAMIN A 10,000 UNITS (3000 MCG) CAPSULE PO SCH (09:26)
[2021-09-23] MEDS: COLLAGENASE CLOSTRIDIUM HIST. 30 GRAMS TUBE TP SCH (09:26)
[2021-09-23] MEDS: CHOLECALCIFEROL (VIT D3) 5000 UNITS (125 MCG) CAP PO SCH (09:26)
[2021-09-23 10:27] LABS: BASO % 0.2 % (0-2.0); EOS % 0.4 % (0-4.5); HEMATOCRIT 26.5 % (35.4-49); HEMOGLOBIN 8.5 GM/dL (11.7-16.9); LYMPH % 12.4 % (8-40); MCH 28.8 pg (25.7-33.7); MCHC 32.2 g/dl (32.0-35.9); MEAN CELL VOLUME 89.7 fl (80-96); MEAN PLT VOLUME 7.6 fl (7.5-11.1); MONO % 6.5 % (3.8-10.2); NEUT % 80.5 % (42.8-82.8); PLATELET COUNT 314 10^3/uL (134-434); RBC 2.95 M/mm3 (4.00-5.60); RDW 17.6 % (11.9-15.9)
[2021-09-23 10:28] LABS: WHITE BLOOD COUNT 14.9 K/mm3 (4.0-10.0)
[2021-09-23 10:50] LABS: CALCIUM 8.9 mg/dL (8.5-10.1)
[2021-09-23 10:52] LABS: CREATININE 0.6 mg/dL (0.55-1.3)
[2021-09-23] MEDS: LACTATED RINGERS SOLUTION 1,000 ML IV SCH ×2 (17:15→22:02)
[2021-09-23] MEDS: ATORVASTATIN CA 20 MG TABLET (FP) PO SCH (21:59)
[2021-09-23] MEDS: LIDOCAINE PATCH REMOVAL MC SCH (22:01)
[2021-09-24] MEDS: ACETAMINOPHEN 500 MG TABLET (FP) PO SCH ×4 (02:58→18:29)
[2021-09-24] MEDS: PREGABALIN 100 MG CAPSULE PO SCH ×3 (06:07→22:52)
[2021-09-24] MEDS: HEPARIN NA (PORCINE) 5,000 UNITS/ML 1ML VIAL SQ SCH ×3 (06:07→22:52)
[2021-09-24] MEDS: INSULIN SLIDING SCALE (NOVOLOG) 1 VIAL SQ SCH ×3 (06:13→23:02)
[2021-09-24 09:07] LABS: BASO % 0.1 % (0-2.0); EOS % 0.3 % (0-4.5); HEMATOCRIT 26.1 % (35.4-49); HEMOGLOBIN 8.5 GM/dL (11.7-16.9); LYMPH % 15.3 % (8-40); MCH 29.2 pg (25.7-33.7); MCHC 32.7 g/dl (32.0-35.9); MEAN CELL VOLUME 89.1 fl (80-96); MEAN PLT VOLUME 7.1 fl (7.5-11.1); MONO % 8.5 % (3.8-10.2); NEUT % 75.8 % (42.8-82.8); PLATELET COUNT 317 10^3/uL (134-434); RBC 2.93 M/mm3 (4.00-5.60); RDW 17.1 % (11.9-15.9); WHITE BLOOD COUNT 10.1 K/mm3 (4.0-10.0)
[2021-09-24 09:33] LABS: CALCIUM 8.8 mg/dL (8.5-10.1)
[2021-09-24 09:34] LABS: BLOOD UREA NITROGEN 8.9 mg/dL (7-18)
[2021-09-24 09:37] LABS: CREATININE 0.7 mg/dL (0.55-1.3)
[2021-09-24] MEDS ORDERED: IRON SUCROSE INJECTION 300 MG in SODIUM CHLORIDE 235 ML IVPB ONE (10:00)
[2021-09-24] MEDS: LACTATED RINGERS SOLUTION 1,000 ML IV SCH (10:51)
[2021-09-24] MEDS: LIDOCAINE 5% TOPICAL PATCH TP SCH (10:51)
[2021-09-24] MEDS: oxyCODONE HCL 5 MG TABLET PO PRN ×3 (10:52→18:31)
[2021-09-24] MEDS: POLYETHYLENE GLYCOL (HEALTHYLAX) 3350 17 GM PACKET PO SCH (10:52)
[2021-09-24] MEDS: MULTIVITAMINS THER W-MINERALS COMBO TABLET (FP) PO SCH (10:55)
[2021-09-24] MEDS: BACLOFEN 10 MG TABLET (FP) PO SCH ×2 (10:55→22:52)
[2021-09-24] MEDS: VITAMIN A 10,000 UNITS (3000 MCG) CAPSULE PO SCH (10:55)
[2021-09-24] MEDS: CHOLECALCIFEROL (VIT D3) 5000 UNITS (125 MCG) CAP PO SCH (10:55)
[2021-09-24] MEDS: ASCORBIC ACID 500 MG TABLET (FP) PO SCH ×2 (10:55→22:52)
[2021-09-24] MEDS: CYANOCOBALAMIN 1,000 MCG TABLET (FP) PO SCH (10:55)
[2021-09-24] MEDS: MIDODRINE HCL 5 MG TABLET PO SCH ×3 (10:56→19:00)
[2021-09-24] MEDS: PANTOPRAZOLE 40 MG TABLET PO SCH (10:56)
[2021-09-24] MEDS: ZINC SULFATE 220 MG CAPSULE (FP) PO SCH (10:56)
[2021-09-24] MEDS: COLLAGENASE CLOSTRIDIUM HIST. 30 GRAMS TUBE TP SCH (10:57)
[2021-09-24] MEDS ORDERED: DEXTROSE 5%-WATER - 50 ML IVPB ONE ×2 (13:08→17:39)
[2021-09-24] MEDS ORDERED: PIPERACILLIN/TAZOBACTAM 3.375 GM VIAL IVPB ONE ×2 (13:08→17:38)
[2021-09-24] MEDS: PIPERACILLIN/TAZOB 3.375 GM 3.375 GM in DEXTROSE 5%-WATER - 50 ML IVPB SCH ×2 (13:43→18:26)
[2021-09-24] MEDS ORDERED: INSULIN SLIDING SCALE (NOVOLOG) 1 VIAL SQ SCH (22:00)
[2021-09-24] MEDS: ATORVASTATIN CA 20 MG TABLET (FP) PO SCH (22:52)
[2021-09-24] MEDS: LIDOCAINE PATCH REMOVAL MC SCH (22:53)
[2021-09-25] MEDS ORDERED: DEXTROSE 5%-WATER - 50 ML IVPB ONE ×3 (01:24→17:52)
[2021-09-25] MEDS ORDERED: PIPERACILLIN/TAZOBACTAM 3.375 GM VIAL IVPB ONE ×3 (01:24→17:51)
[2021-09-25] MEDS: PIPERACILLIN/TAZOB 3.375 GM 3.375 GM in DEXTROSE 5%-WATER - 50 ML IVPB SCH ×3 (01:28→18:07)
[2021-09-25] MEDS: LACTATED RINGERS SOLUTION 1,000 ML IV SCH ×2 (02:27→16:58)
[2021-09-25] MEDS: ACETAMINOPHEN 500 MG TABLET (FP) PO SCH ×3 (02:28→18:07)
[2021-09-25] MEDS: PREGABALIN 100 MG CAPSULE PO SCH ×3 (05:46→21:51)
[2021-09-25] MEDS: oxyCODONE HCL 5 MG TABLET PO PRN ×3 (05:46→20:09)
[2021-09-25] MEDS: HEPARIN NA (PORCINE) 5,000 UNITS/ML 1ML VIAL SQ SCH ×3 (05:47→21:50)
[2021-09-25] MEDS: INSULIN SLIDING SCALE (NOVOLOG) 1 VIAL SQ SCH ×4 (07:00→21:57)
[2021-09-25 10:00] LABS: BASO % 0.3 % (0-2.0); EOS % 0.3 % (0-4.5); HEMATOCRIT 27.4 % (35.4-49); LYMPH % 14.1 % (8-40); MCH 29.5 pg (25.7-33.7); MCHC 32.7 g/dl (32.0-35.9); MEAN CELL VOLUME 90.1 fl (80-96); MEAN PLT VOLUME 6.9 fl (7.5-11.1); MONO % 7.4 % (3.8-10.2); NEUT % 77.9 % (42.8-82.8); PLATELET COUNT 295 10^3/uL (134-434); RBC 3.04 M/mm3 (4.00-5.60); RDW 17.4 % (11.9-15.9); WHITE BLOOD COUNT 11.6 K/mm3 (4.0-10.0)
[2021-09-25 10:20] LABS: BLOOD UREA NITROGEN 9.2 mg/dL (7-18); CALCIUM 8.7 mg/dL (8.5-10.1)
[2021-09-25 10:24] LABS: CREATININE 0.7 mg/dL (0.55-1.3)
[2021-09-25] MEDS: LIDOCAINE 5% TOPICAL PATCH TP SCH (10:26)
[2021-09-25] MEDS: VITAMIN A 10,000 UNITS (3000 MCG) CAPSULE PO SCH (10:26)
[2021-09-25] MEDS: POLYETHYLENE GLYCOL (HEALTHYLAX) 3350 17 GM PACKET PO SCH ×2 (10:26→10:41)
[2021-09-25] MEDS: ZINC SULFATE 220 MG CAPSULE (FP) PO SCH (10:27)
[2021-09-25] MEDS: ASCORBIC ACID 500 MG TABLET (FP) PO SCH ×2 (10:27→21:51)
[2021-09-25] MEDS: PANTOPRAZOLE 40 MG TABLET PO SCH (10:28)
[2021-09-25] MEDS: MULTIVITAMINS THER W-MINERALS COMBO TABLET (FP) PO SCH (10:28)
[2021-09-25] MEDS: MIDODRINE HCL 5 MG TABLET PO SCH ×3 (10:28→18:06)
[2021-09-25] MEDS: BACLOFEN 10 MG TABLET (FP) PO SCH ×2 (10:28→21:51)
[2021-09-25] MEDS: CYANOCOBALAMIN 1,000 MCG TABLET (FP) PO SCH (10:29)
[2021-09-25] MEDS: CHOLECALCIFEROL (VIT D3) 5000 UNITS (125 MCG) CAP PO SCH (10:29)
[2021-09-25] MEDS: COLLAGENASE CLOSTRIDIUM HIST. 30 GRAMS TUBE TP SCH (10:30)
[2021-09-25] MEDS: LIDOCAINE PATCH REMOVAL MC SCH (21:51)
[2021-09-25] MEDS: ATORVASTATIN CA 20 MG TABLET (FP) PO SCH (21:51)
[2021-09-26] MEDS ORDERED: PIPERACILLIN/TAZOBACTAM 3.375 GM VIAL IVPB ONE ×3 (01:29→16:43)
[2021-09-26] MEDS ORDERED: DEXTROSE 5%-WATER - 50 ML IVPB ONE ×3 (01:30→16:43)
[2021-09-26] MEDS: PIPERACILLIN/TAZOB 3.375 GM 3.375 GM in DEXTROSE 5%-WATER - 50 ML IVPB SCH ×3 (01:44→17:56)
[2021-09-26] MEDS: ACETAMINOPHEN 500 MG TABLET (FP) PO SCH ×3 (01:45→17:53)
[2021-09-26] MEDS: HEPARIN NA (PORCINE) 5,000 UNITS/ML 1ML VIAL SQ SCH ×3 (06:13→21:10)
[2021-09-26] MEDS: PREGABALIN 100 MG CAPSULE PO SCH ×3 (06:13→21:11)
[2021-09-26] MEDS: INSULIN SLIDING SCALE (NOVOLOG) 1 VIAL SQ SCH ×2 (06:17→10:30)
[2021-09-26] MEDS: LACTATED RINGERS SOLUTION 1,000 ML IV SCH ×2 (06:17→17:54)
[2021-09-26] MEDS: oxyCODONE HCL 5 MG TABLET PO PRN ×4 (08:26→21:58)
[2021-09-26] MEDS ORDERED: INSULIN (NOVOLOG) ASPART 100 UNITS/ML 10ML VIAL ONE (10:12)
[2021-09-26] MEDS: LIDOCAINE 5% TOPICAL PATCH TP SCH (10:27)
[2021-09-26] MEDS: ZINC SULFATE 220 MG CAPSULE (FP) PO SCH (10:28)
[2021-09-26] MEDS: ASCORBIC ACID 500 MG TABLET (FP) PO SCH ×2 (10:28→21:11)
[2021-09-26] MEDS: BACLOFEN 10 MG TABLET (FP) PO SCH ×2 (10:28→21:11)
[2021-09-26] MEDS: MULTIVITAMINS THER W-MINERALS COMBO TABLET (FP) PO SCH (10:28)
[2021-09-26] MEDS: PANTOPRAZOLE 40 MG TABLET PO SCH (10:28)
[2021-09-26] MEDS: CHOLECALCIFEROL (VIT D3) 5000 UNITS (125 MCG) CAP PO SCH (10:29)
[2021-09-26] MEDS: CYANOCOBALAMIN 1,000 MCG TABLET (FP) PO SCH (10:29)
[2021-09-26] MEDS: MIDODRINE HCL 5 MG TABLET PO SCH ×3 (10:29→17:53)
[2021-09-26] MEDS: VITAMIN A 10,000 UNITS (3000 MCG) CAPSULE PO SCH (10:29)
[2021-09-26] MEDS: POLYETHYLENE GLYCOL (HEALTHYLAX) 3350 17 GM PACKET PO SCH (10:30)
[2021-09-26] MEDS: COLLAGENASE CLOSTRIDIUM HIST. 30 GRAMS TUBE TP SCH (10:30)
[2021-09-26 10:38] LABS: BASO % 0.2 % (0-2.0); EOS % 0.5 % (0-4.5); HEMATOCRIT 23.4 % (35.4-49); HEMOGLOBIN 7.6 GM/dL (11.7-16.9); LYMPH % 13.7 % (8-40); MCHC 32.6 g/dl (32.0-35.9); MEAN CELL VOLUME 89.1 fl (80-96); MEAN PLT VOLUME 6.9 fl (7.5-11.1); MONO % 7.2 % (3.8-10.2); NEUT % 78.4 % (42.8-82.8); PLATELET COUNT 327 10^3/uL (134-434); RBC 2.62 M/mm3 (4.00-5.60); RDW 17.1 % (11.9-15.9); WHITE BLOOD COUNT 9.1 K/mm3 (4.0-10.0)
[2021-09-26 10:45] LABS: BLOOD UREA NITROGEN 8.9 mg/dL (7-18)
[2021-09-26 10:48] LABS: CALCIUM 8.5 mg/dL (8.5-10.1); CREATININE 0.7 mg/dL (0.55-1.3)
[2021-09-26] MEDS ORDERED: IRON SUCROSE INJECTION 300 MG in SODIUM CHLORIDE 235 ML IVPB ONE (12:36)
[2021-09-26] MEDS ORDERED: EPOETIN ALFA-EPBX 20,000 UNIT/ML VIAL SQ ONE (14:00)
[2021-09-26] MEDS: LIDOCAINE PATCH REMOVAL MC SCH (21:11)
[2021-09-26] MEDS: ATORVASTATIN CA 20 MG TABLET (FP) PO SCH (21:11)
[2021-09-27] MEDS ORDERED: DEXTROSE 5%-WATER - 50 ML IVPB ONE ×3 (01:24→17:07)
[2021-09-27] MEDS ORDERED: PIPERACILLIN/TAZOBACTAM 3.375 GM VIAL IVPB ONE ×3 (01:24→17:06)
[2021-09-27] MEDS: LACTATED RINGERS SOLUTION 1,000 ML IV SCH ×2 (01:31→17:10)
[2021-09-27] MEDS: PIPERACILLIN/TAZOB 3.375 GM 3.375 GM in DEXTROSE 5%-WATER - 50 ML IVPB SCH ×3 (01:31→17:12)
[2021-09-27] MEDS: ACETAMINOPHEN 500 MG TABLET (FP) PO SCH ×3 (01:41→17:11)
[2021-09-27] MEDS: oxyCODONE HCL 5 MG TABLET PO PRN ×4 (01:44→21:56)
[2021-09-27] MEDS: PREGABALIN 100 MG CAPSULE PO SCH ×3 (06:25→21:48)
[2021-09-27] MEDS: HEPARIN NA (PORCINE) 5,000 UNITS/ML 1ML VIAL SQ SCH ×3 (06:25→21:47)
[2021-09-27] MEDS ORDERED: INSULIN (NOVOLOG) ASPART 100 UNITS/ML 10ML VIAL ONE (09:40)
[2021-09-27] MEDS: PANTOPRAZOLE 40 MG TABLET PO SCH (09:54)
[2021-09-27] MEDS: MULTIVITAMINS THER W-MINERALS COMBO TABLET (FP) PO SCH (09:54)
[2021-09-27] MEDS: ZINC SULFATE 220 MG CAPSULE (FP) PO SCH (09:54)
[2021-09-27] MEDS: CHOLECALCIFEROL (VIT D3) 5000 UNITS (125 MCG) CAP PO SCH (09:55)
[2021-09-27] MEDS: MIDODRINE HCL 5 MG TABLET PO SCH ×3 (09:55→17:11)
[2021-09-27] MEDS: BACLOFEN 10 MG TABLET (FP) PO SCH ×2 (09:55→21:47)
[2021-09-27] MEDS: CYANOCOBALAMIN 1,000 MCG TABLET (FP) PO SCH (09:55)
[2021-09-27] MEDS: ASCORBIC ACID 500 MG TABLET (FP) PO SCH ×2 (09:55→21:47)
[2021-09-27] MEDS: POLYETHYLENE GLYCOL (HEALTHYLAX) 3350 17 GM PACKET PO SCH (09:56)
[2021-09-27] MEDS: INSULIN SLIDING SCALE (NOVOLOG) 1 VIAL SQ SCH (09:56)
[2021-09-27] MEDS: LIDOCAINE 5% TOPICAL PATCH TP SCH (09:56)
[2021-09-27] MEDS: VITAMIN A 10,000 UNITS (3000 MCG) CAPSULE PO SCH (09:56)
[2021-09-27] MEDS ORDERED: EPOETIN ALFA-EPBX 20,000 UNIT/ML VIAL SQ ONE (10:00)
[2021-09-27 10:45] LABS: BASO % 0.4 % (0-2.0); EOS % 0.9 % (0-4.5); HEMATOCRIT 28.3 % (35.4-49); HEMOGLOBIN 9.1 GM/dL (11.7-16.9); LYMPH % 19.7 % (8-40); MCH 29.3 pg (25.7-33.7); MCHC 32.3 g/dl (32.0-35.9); MEAN CELL VOLUME 90.9 fl (80-96); MEAN PLT VOLUME 6.8 fl (7.5-11.1); MONO % 8.2 % (3.8-10.2); NEUT % 70.8 % (42.8-82.8); PLATELET COUNT 333 10^3/uL (134-434); RBC 3.11 M/mm3 (4.00-5.60); RDW 17.8 % (11.9-15.9)
[2021-09-27 11:19] LABS: CALCIUM 8.8 mg/dL (8.5-10.1)
[2021-09-27 11:20] LABS: BLOOD UREA NITROGEN 9.8 mg/dL (7-18)
[2021-09-27 11:23] LABS: CREATININE 0.7 mg/dL (0.55-1.3)
[2021-09-27] MEDS: COLLAGENASE CLOSTRIDIUM HIST. 30 GRAMS TUBE TP SCH (15:36)
[2021-09-27] MEDS: AMINO ACIDS/PROTEIN HYDROLYS 30 ML LIQUID.PKT PO SCH (17:10)
[2021-09-27 20:11] VITALS: BMI 32.8
[2021-09-27] MEDS: ATORVASTATIN CA 20 MG TABLET (FP) PO SCH (21:47)
[2021-09-27] MEDS: LIDOCAINE PATCH REMOVAL MC SCH (21:56)
[2021-09-28] MEDS ORDERED: PIPERACILLIN/TAZOBACTAM 3.375 GM VIAL IVPB ONE ×3 (01:19→17:36)
[2021-09-28] MEDS ORDERED: DEXTROSE 5%-WATER - 50 ML IVPB ONE ×3 (01:20→17:36)
[2021-09-28] MEDS: PIPERACILLIN/TAZOB 3.375 GM 3.375 GM in DEXTROSE 5%-WATER - 50 ML IVPB SCH ×3 (01:23→17:46)
[2021-09-28] MEDS: ACETAMINOPHEN 500 MG TABLET (FP) PO SCH ×3 (01:23→17:46)
[2021-09-28] MEDS: PREGABALIN 100 MG CAPSULE PO SCH ×3 (06:12→21:46)
[2021-09-28] MEDS: LACTATED RINGERS SOLUTION 1,000 ML IV SCH ×2 (06:12→16:03)
[2021-09-28] MEDS: HEPARIN NA (PORCINE) 5,000 UNITS/ML 1ML VIAL SQ SCH ×3 (06:13→21:46)
[2021-09-28] MEDS: oxyCODONE HCL 5 MG TABLET PO PRN ×4 (08:09→21:45)
[2021-09-28] MEDS: AMINO ACIDS/PROTEIN HYDROLYS 30 ML LIQUID.PKT PO SCH ×2 (08:10→17:46)
[2021-09-28] MEDS: LIDOCAINE 5% TOPICAL PATCH TP SCH (09:47)
[2021-09-28] MEDS: ZINC SULFATE 220 MG CAPSULE (FP) PO SCH (09:48)
[2021-09-28] MEDS: POLYETHYLENE GLYCOL (HEALTHYLAX) 3350 17 GM PACKET PO SCH (09:48)
[2021-09-28] MEDS: CHOLECALCIFEROL (VIT D3) 5000 UNITS (125 MCG) CAP PO SCH (09:48)
[2021-09-28] MEDS: BACLOFEN 10 MG TABLET (FP) PO SCH ×2 (09:49→21:46)
[2021-09-28] MEDS: VITAMIN A 10,000 UNITS (3000 MCG) CAPSULE PO SCH (09:49)
[2021-09-28] MEDS: PANTOPRAZOLE 40 MG TABLET PO SCH (09:49)
[2021-09-28] MEDS: ASCORBIC ACID 500 MG TABLET (FP) PO SCH ×2 (09:49→21:46)
[2021-09-28] MEDS: MIDODRINE HCL 5 MG TABLET PO SCH ×3 (09:50→17:47)
[2021-09-28] MEDS: COLLAGENASE CLOSTRIDIUM HIST. 30 GRAMS TUBE TP SCH (09:50)
[2021-09-28] MEDS: MULTIVITAMINS THER W-MINERALS COMBO TABLET (FP) PO SCH (09:50)
[2021-09-28] MEDS: CYANOCOBALAMIN 1,000 MCG TABLET (FP) PO SCH (09:51)
[2021-09-28 10:06] LABS: BASO % 0.6 % (0-2.0); EOS % 0.6 % (0-4.5); HEMATOCRIT 26.8 % (35.4-49); HEMOGLOBIN 8.9 GM/dL (11.7-16.9); LYMPH % 16.1 % (8-40); MCH 29.7 pg (25.7-33.7); MCHC 33.1 g/dl (32.0-35.9); MEAN CELL VOLUME 89.7 fl (80-96); MEAN PLT VOLUME 6.6 fl (7.5-11.1); MONO % 7.3 % (3.8-10.2); NEUT % 75.4 % (42.8-82.8); PLATELET COUNT 328 10^3/uL (134-434); RBC 2.99 M/mm3 (4.00-5.60); RDW 17.5 % (11.9-15.9); WHITE BLOOD COUNT 8.4 K/mm3 (4.0-10.0)
[2021-09-28] MEDS: INSULIN SLIDING SCALE (NOVOLOG) 1 VIAL SQ SCH (10:32)
[2021-09-28 10:34] LABS: CALCIUM 8.9 mg/dL (8.5-10.1)
[2021-09-28 10:35] LABS: BLOOD UREA NITROGEN 9.8 mg/dL (7-18)
[2021-09-28 10:38] LABS: CREATININE 0.6 mg/dL (0.55-1.3)
[2021-09-28 16:26] LABS: SARS-CoV-2 NAA Not Detected (Not Detected)
[2021-09-28] MEDS: ATORVASTATIN CA 20 MG TABLET (FP) PO SCH (21:46)
[2021-09-28] MEDS: LIDOCAINE PATCH REMOVAL MC SCH (21:46)
[2021-09-29] MEDS ORDERED: DEXTROSE 5%-WATER - 50 ML IVPB ONE ×2 (01:24→09:26)
[2021-09-29] MEDS ORDERED: PIPERACILLIN/TAZOBACTAM 3.375 GM VIAL IVPB ONE ×2 (01:24→09:26)
[2021-09-29] MEDS: ACETAMINOPHEN 500 MG TABLET (FP) PO SCH ×2 (01:32→09:28)
[2021-09-29] MEDS: PIPERACILLIN/TAZOB 3.375 GM 3.375 GM in DEXTROSE 5%-WATER - 50 ML IVPB SCH ×2 (01:32→09:29)
[2021-09-29] MEDS: LACTATED RINGERS SOLUTION 1,000 ML IV SCH (01:51)
[2021-09-29] MEDS: HEPARIN NA (PORCINE) 5,000 UNITS/ML 1ML VIAL SQ SCH (06:02)
[2021-09-29] MEDS: oxyCODONE HCL 5 MG TABLET PO PRN ×2 (06:02→10:38)
[2021-09-29] MEDS: PREGABALIN 100 MG CAPSULE PO SCH (06:03)
[2021-09-29] MEDS: AMINO ACIDS/PROTEIN HYDROLYS 30 ML LIQUID.PKT PO SCH (08:00)
[2021-09-29 08:54] VITALS: BP 105/52; PULSE 81; TEMP 98
[2021-09-29] MEDS: ZINC SULFATE 220 MG CAPSULE (FP) PO SCH (09:28)
[2021-09-29] MEDS: MULTIVITAMINS THER W-MINERALS COMBO TABLET (FP) PO SCH (09:29)
[2021-09-29] MEDS: BACLOFEN 10 MG TABLET (FP) PO SCH (09:29)
[2021-09-29] MEDS: CYANOCOBALAMIN 1,000 MCG TABLET (FP) PO SCH (09:29)
[2021-09-29] MEDS: PANTOPRAZOLE 40 MG TABLET PO SCH (09:29)
[2021-09-29] MEDS: ASCORBIC ACID 500 MG TABLET (FP) PO SCH (09:29)
[2021-09-29] MEDS: POLYETHYLENE GLYCOL (HEALTHYLAX) 3350 17 GM PACKET PO SCH (09:30)
[2021-09-29] MEDS: LIDOCAINE 5% TOPICAL PATCH TP SCH (09:30)
[2021-09-29] MEDS: MIDODRINE HCL 5 MG TABLET PO SCH (09:30)
[2021-09-29] MEDS: INSULIN SLIDING SCALE (NOVOLOG) 1 VIAL SQ SCH (09:30)
[2021-09-29] MEDS: VITAMIN A 10,000 UNITS (3000 MCG) CAPSULE PO SCH (09:30)
[2021-09-29] MEDS: CHOLECALCIFEROL (VIT D3) 5000 UNITS (125 MCG) CAP PO SCH (09:31)
[2021-09-29 09:36] LABS: BASO % 0.4 % (0-2.0); EOS % 0.9 % (0-4.5); HEMATOCRIT 26.9 % (35.4-49); HEMOGLOBIN 8.7 GM/dL (11.7-16.9); LYMPH % 16.9 % (8-40); MCH 28.9 pg (25.7-33.7); MCHC 32.1 g/dl (32.0-35.9); MEAN PLT VOLUME 6.7 fl (7.5-11.1); MONO % 7.2 % (3.8-10.2); NEUT % 74.6 % (42.8-82.8); PLATELET COUNT 363 10^3/uL (134-434); RBC 2.99 M/mm3 (4.00-5.60); RDW 17.6 % (11.9-15.9); WHITE BLOOD COUNT 8.6 K/mm3 (4.0-10.0)
[2021-09-29] MEDS ORDERED: EPOETIN ALFA-EPBX 20,000 UNIT/ML VIAL SQ ONE (09:48)
[2021-09-29] MEDS: COLLAGENASE CLOSTRIDIUM HIST. 30 GRAMS TUBE TP SCH (11:04)
== END 2021-09-29 12:52 | DRG 477 ==
LOC: JASUSAT 04:01 → JASU-SURG 04:01 → J6S 22:30
PROVIDERS: ADMIT Internal Medicine; ATTEND Internal Medicine
PROC: 0KBP0ZZ Excision of Left Hip Muscle, Open Approach (ICD-10-PCS; 2021-09-20)
PROC: 0KBN0ZZ Excision of Right Hip Muscle, Open Approach (ICD-10-PCS; 2021-09-20)
PROC: 0QBS0ZX Excision of Coccyx, Open Approach, Diagnostic (ICD-10-PCS; principal; 2021-09-20 14:00)
PROC: 0HBLXZZ Excision of Left Lower Leg Skin, External Approach (ICD-10-PCS; 2021-09-23)
DX: M46.28 Osteomyelitis of vertebra, sacral and sacrococcygeal region (principal); L89.154 Pressure ulcer of sacral region, stage 4; I96 Gangrene, not elsewhere classified; M48.061 Spinal stenosis, lumbar region without neurogenic claudication; E78.5 Hyperlipidemia, unspecified; N31.9 Neuromuscular dysfunction of bladder, unspecified; L89.626 Pressure-induced deep tissue damage of left heel; R33.9 Retention of urine, unspecified; E88.09 Other disorders of plasma-protein metabolism, not elsewhere classified; D50.9 Iron deficiency anemia, unspecified; D72.829 Elevated white blood cell count, unspecified; I95.9 Hypotension, unspecified; K59.00 Constipation, unspecified; E66.9 Obesity, unspecified; Z68.31 Body mass index [BMI] 31.0-31.9, adult
CPT/HCPCS: 36415; 80048; 80053; 82728; 82962; 83036; 83540; 83550; 85025; 87070; 87186; 87205; 88304-TC; 88305-TC; 88311-TC; 93005; 93010; 94760; 97161-GP; C9803-CS; J0475; J1644; J1756; U0003; U0005

== ENCOUNTER 2022-02-01 15:09 | Inpatient (IN) | payer OTHER ==
[2022-02-01 15:59] VITALS: BMI 29.8
[2022-02-01] MEDS ORDERED: TRANEXAMIC ACID 1000 MG/10 ML VIAL IVPUSH ONE (16:00)
[2022-02-01] MEDS ORDERED: TRANEXAMIC ACID 1000 MG/10 ML VIAL ONE (16:01)
[2022-02-01] MEDS ORDERED: SODIUM CHLORIDE 1,000 ML IV STA (16:38)
[2022-02-01] MEDS ORDERED: ACETAMINOPHEN 1000 MG/100 ML BAG IVPB ONE (16:38)
[2022-02-01 18:14] LABS: WHITE BLOOD COUNT 14.5 K/mm3 (4.0-10.0)
[2022-02-01 18:15] LABS: BASO % 0.2 % (0-2.0); EOS % 1.6 % (0-4.5); HEMATOCRIT 33.2 % (35.4-49); HEMOGLOBIN 10.6 GM/dL (11.7-16.9); LYMPH % 21.8 % (8-40); MCH 29.2 pg (25.7-33.7); MCHC 31.9 g/dl (32.0-35.9); MEAN CELL VOLUME 91.7 fl (80-96); MEAN PLT VOLUME 7.3 fl (7.5-11.1); MONO % 6.3 % (3.8-10.2); NEUT % 70.1 % (42.8-82.8); PLATELET COUNT 465 10^3/uL (134-434); RBC 3.62 M/mm3 (4.00-5.60); RDW 16.1 % (11.9-15.9)
[2022-02-01 18:21] LABS: INR 1.39 (0.83-1.09)
[2022-02-01 18:24] LABS: ACTIVATED PTT 34.1 SECONDS (25.2-36.5)
[2022-02-01 18:32] LABS: ALBUMIN 2.6 g/dl (3.4-5.0); BLOOD UREA NITROGEN 15.2 mg/dL (7-18); CALCIUM 9.4 mg/dL (8.5-10.1)
[2022-02-01 18:35] LABS: CREATININE 0.7 mg/dL (0.55-1.3)
[2022-02-01 18:37] LABS: BILIRUBIN,TOTAL 0.3 mg/dL (0.2-1); TOT PROT 7.9 g/dl (6.4-8.2)
[2022-02-01] MEDS ORDERED: ACETAMINOPHEN INJECTION 100 ML IVPB ONE (19:19)
[2022-02-01] MEDS ORDERED: MELATONIN 5 MG TABLETS PO PRN (21:50)
[2022-02-01] MEDS ORDERED: MELATONIN 5 MG TABLETS PO SCH (22:00)
[2022-02-01] MEDS: LACTATED RINGERS SOLUTION 1,000 ML/1,000 ML INFUS.BAG IV SCH (22:21)
[2022-02-01] MEDS ORDERED: BACLOFEN 10 MG TABLET (FP) ONE (22:28)
[2022-02-01] MEDS ORDERED: PREGABALIN 100 MG CAPSULE ONE (22:28)
[2022-02-01] MEDS ORDERED: ASCORBIC ACID 500 MG TABLET (FP) ONE (22:28)
[2022-02-01] MEDS: PREGABALIN 100 MG CAPSULE PO SCH (22:37)
[2022-02-01] MEDS: ASCORBIC ACID 250 MG TABLET (FP) PO SCH (22:37)
[2022-02-01] MEDS: BACLOFEN 10 MG TABLET (FP) PO SCH (22:37)
[2022-02-02] MEDS ORDERED: ACETAMINOPHEN 325 MG TABLET (FP) ONE (04:16)
[2022-02-02] MEDS ORDERED: oxyCODONE HCL 5 MG TABLET PO PRN ×2 (04:16→07:17)
[2022-02-02] MEDS ORDERED: oxyCODONE HCL 5 MG TABLET ONE ×5 (04:17→23:50)
[2022-02-02] MEDS: ACETAMINOPHEN 325 MG TABLET (FP) PO PRN (04:57)
[2022-02-02 05:48] LABS: EPI CELLS 1 /uL (0-25.1); HYALINE CASTS 8 /uL (0-3.1); PH,URINE 6.5 (5.0-8.0); URINE APPEARANCE CLOUDY; URINE BACTERIA >9,000 /uL (0-1359); URINE BILIRUBIN NEGATIVE (NEGATIVE); URINE COLOR YELLOW; URINE GLUCOSE (UA) NEGATIVE (NEGATIVE); URINE KETONE NEGATIVE (NEGATIVE); URINE LEUK ESTERASE 3+ (NEGATIVE); URINE NITRITE NEGATIVE (NEGATIVE); URINE PROTEIN 2+ (NEGATIVE); URINE RBC 154 /uL (0-23.9); URINE UROBILINOGEN 0.2 mg/dL (0.2-1.0); URINE WBC 1459 /uL (0-25.8)
[2022-02-02] MEDS ORDERED: PREGABALIN 100 MG CAPSULE ONE ×3 (08:58→21:32)
[2022-02-02] MEDS: PREGABALIN 100 MG CAPSULE PO SCH ×3 (09:00→22:01)
[2022-02-02 10:40] LABS: BASO % 0.2 % (0-2.0); EOS % 0.2 % (0-4.5); HEMATOCRIT 30.6 % (35.4-49); HEMOGLOBIN 9.7 GM/dL (11.7-16.9); LYMPH % 13.1 % (8-40); MCH 29.3 pg (25.7-33.7); MCHC 31.8 g/dl (32.0-35.9); MEAN CELL VOLUME 92.2 fl (80-96); MEAN PLT VOLUME 7.3 fl (7.5-11.1); MONO % 7.5 % (3.8-10.2); PLATELET COUNT 416 10^3/uL (134-434); RBC 3.31 M/mm3 (4.00-5.60); RDW 15.8 % (11.9-15.9); WHITE BLOOD COUNT 13.5 K/mm3 (4.0-10.0)
[2022-02-02] MEDS: BACLOFEN 10 MG TABLET (FP) PO SCH ×2 (11:12→22:01)
[2022-02-02] MEDS ORDERED: DOCUSATE SODIUM 100 MG CAPSULE (FP) PO ONE (11:17)
[2022-02-02] MEDS ORDERED: oxyCODONE HCL 5 MG TABLET PO ONE (11:18)
[2022-02-02] MEDS ORDERED: ASCORBIC ACID 500 MG TABLET (FP) ONE ×2 (11:26→21:32)
[2022-02-02] MEDS ORDERED: PANTOPRAZOLE 40 MG TABLET PO ONE (11:28)
[2022-02-02] MEDS ORDERED: BACLOFEN 10 MG TABLET (FP) ONE ×2 (11:29→21:32)
[2022-02-02] MEDS: oxyCODONE HCL 5 MG TABLET PO SCH ×4 (11:40→23:54)
[2022-02-02] MEDS: CYANOCOBALAMIN 1,000 MCG TABLET (FP) PO SCH (11:40)
[2022-02-02] MEDS: CHOLECALCIFEROL (VIT D3) 5000 UNITS (125 MCG) CAP PO SCH (11:40)
[2022-02-02] MEDS: MULTIVITAMINS THER W-MINERALS COMBO TABLET (FP) PO SCH (11:40)
[2022-02-02] MEDS: PANTOPRAZOLE 40 MG TABLET PO SCH (11:40)
[2022-02-02] MEDS: ASCORBIC ACID 250 MG TABLET (FP) PO SCH ×2 (11:40→22:01)
[2022-02-02] MEDS ORDERED: IRON SUCROSE INJECTION 300 MG in SODIUM CHLORIDE 235 ML IVPB ONE (12:00)
[2022-02-02] MEDS ORDERED: HEPARIN NA (PORCINE) 5,000 UNITS/ML 1ML VIAL ONE ×2 (13:46→21:33)
[2022-02-02] MEDS: HEPARIN NA (PORCINE) 5,000 UNITS/ML 1ML VIAL SQ SCH ×2 (13:54→22:01)
[2022-02-02] MEDS: LACTATED RINGERS SOLUTION 1,000 ML/1,000 ML INFUS.BAG IV SCH (22:01)
[2022-02-03] MEDS ORDERED: PREGABALIN 100 MG CAPSULE ONE (04:53)
[2022-02-03] MEDS ORDERED: HEPARIN NA (PORCINE) 5,000 UNITS/ML 1ML VIAL ONE (04:54)
[2022-02-03] MEDS ORDERED: ACETAMINOPHEN 325 MG TABLET (FP) ONE ×2 (04:54→08:12)
[2022-02-03] MEDS: ACETAMINOPHEN 325 MG TABLET (FP) PO PRN ×4 (05:00→19:39)
[2022-02-03] MEDS: PREGABALIN 100 MG CAPSULE PO SCH ×3 (05:00→22:15)
[2022-02-03] MEDS: HEPARIN NA (PORCINE) 5,000 UNITS/ML 1ML VIAL SQ SCH (05:00)
[2022-02-03] MEDS ORDERED: LACTATED RINGERS SOLUTION 1,000 ML/1,000 ML INFUS.BAG IV SCH ×2 (05:57→13:27)
[2022-02-03 07:15] LABS: BASO % 0.3 % (0-2.0); HEMATOCRIT 25.9 % (35.4-49); HEMOGLOBIN 8.7 GM/dL (11.7-16.9); LYMPH % 4.4 % (8-40); MCH 30.4 pg (25.7-33.7); MCHC 33.5 g/dl (32.0-35.9); MEAN CELL VOLUME 90.5 fl (80-96); MEAN PLT VOLUME 6.5 fl (7.5-11.1); MONO % 7.2 % (3.8-10.2); NEUT % 88.1 % (42.8-82.8); PLATELET COUNT 292 10^3/uL (134-434); RBC 2.86 M/mm3 (4.00-5.60); RDW 15.8 % (11.9-15.9); WHITE BLOOD COUNT 17.3 K/mm3 (4.0-10.0)
[2022-02-03] MEDS: oxyCODONE HCL 5 MG TABLET PO SCH ×4 (07:40→19:15)
[2022-02-03 07:44] LABS: CALCIUM 8.3 mg/dL (8.5-10.1)
[2022-02-03 07:45] LABS: BLOOD UREA NITROGEN 10.5 mg/dL (7-18)
[2022-02-03 07:50] LABS: CREATININE 0.8 mg/dL (0.55-1.3)
[2022-02-03] MEDS ORDERED: SODIUM CHLORIDE 0.9% 500 ML INFUS.BAG IV ONE (07:52)
[2022-02-03] MEDS ORDERED: PIPERACILLIN/TAZOB 3.375 GM 3.375 GM in DEXTROSE 5%-WATER - 50 ML IVPB ONE (08:19)
[2022-02-03] MEDS ORDERED: PIPERACILLIN/TAZOB 3.375 GM 3.375 GM/50 ML BAG IVPB ONE (08:26)
[2022-02-03] MEDS ORDERED: VANCOMYCIN/WATER FOR INJ (PEG) 1,000 MG/200 ML BAG IVPB ONE (08:26)
[2022-02-03] MEDS ORDERED: VANCOMYCIN 1 GM/200 ML PREMIX BAG IVPB ONE (08:30)
[2022-02-03] MEDS ORDERED: SODIUM CHLORIDE 1,000 ML IV STA (08:49)
[2022-02-03] MEDS ORDERED: IRON SUCROSE INJECTION 300 MG in SODIUM CHLORIDE 235 ML IVPB ONE (09:00)
[2022-02-03] MEDS ORDERED: ZINC SULFATE 220 MG CAPSULE (FP) ONE (09:37)
[2022-02-03] MEDS ORDERED: PANTOPRAZOLE 40 MG TABLET PO ONE (09:37)
[2022-02-03] MEDS ORDERED: BACLOFEN 10 MG TABLET (FP) ONE (09:38)
[2022-02-03] MEDS ORDERED: MULTIVITAMINS (DAILY MVI) TABLET (FP) ONE (09:38)
[2022-02-03] MEDS: MULTIVITAMINS THER W-MINERALS COMBO TABLET (FP) PO SCH (09:59)
[2022-02-03] MEDS: PANTOPRAZOLE 40 MG TABLET PO SCH (09:59)
[2022-02-03] MEDS: ASCORBIC ACID 250 MG TABLET (FP) PO SCH ×2 (09:59→22:16)
[2022-02-03] MEDS: BACLOFEN 10 MG TABLET (FP) PO SCH ×2 (09:59→22:15)
[2022-02-03] MEDS: CYANOCOBALAMIN 1,000 MCG TABLET (FP) PO SCH (09:59)
[2022-02-03] MEDS: CHOLECALCIFEROL (VIT D3) 5000 UNITS (125 MCG) CAP PO SCH (09:59)
[2022-02-03] MEDS ORDERED: MIDODRINE HCL 5 MG TABLET PO SCH (10:00)
[2022-02-03] MEDS ORDERED: VITAMIN A 10,000 UNITS (3000 MCG) CAPSULE PO SCH (10:00)
[2022-02-03] MEDS ORDERED: ZINC SULFATE 220 MG CAPSULE (FP) PO SCH (10:00)
[2022-02-03] MEDS ORDERED: DOCUSATE SODIUM 100 MG CAPSULE (FP) PO ONE (11:17)
[2022-02-03] MEDS ORDERED: ACETAMINOPHEN 1000 MG/100 ML BAG IVPB ONE (13:42)
[2022-02-03] MEDS ORDERED: HEPARIN NA (PORCINE) 5,000 UNITS/ML 1ML VIAL SQ SCH (14:00)
[2022-02-03] MEDS ORDERED: PATIENT'S OWN MEDICATION (NON-FORMULARY) (Midodrine Hcl [Midodrine Hcl] 10 MG Tablet) PO SCH (14:00)
[2022-02-03] MEDS: MIDODRINE HCL 5 MG TABLET PO SCH ×2 (14:59→17:50)
[2022-02-03] MEDS: MUPIROCIN 2% TOPICAL OINTMENT FOR DECOLONIZATION NS SCH ×2 (16:01→22:16)
[2022-02-03] MEDS ORDERED: NOREPINEPHRINE BITARTRATE 16,000 MCG in SODIUM CHLORIDE 484 ML IV SCH (16:30)
[2022-02-03] MEDS: PIPERACILLIN/TAZOB 3.375 GM 3.375 GM in DEXTROSE 5%-WATER - 50 ML IVPB SCH (17:51)
[2022-02-03] MEDS ORDERED: PIPERACILLIN/TAZOB 3.375 GM 3.375 GM in DEXTROSE 5%-WATER - 50 ML IVPB SCH (18:00)
[2022-02-03] MEDS: LACTATED RINGERS SOLUTION 1,000 ML/1,000 ML INFUS.BAG IV SCH (19:41)
[2022-02-03] MEDS ORDERED: MELATONIN 5 MG TABLETS PO PRN (22:00)
[2022-02-03] MEDS: CHLORHEXIDINE GLUCONATE 4% CLEANSER FOR DECOLONIZATION TP SCH (22:16)
[2022-02-03] MEDS ORDERED: ALBUMIN HUMAN 5% 250 ML IV SOLUTION IV ONE (22:20)
[2022-02-04] MEDS ORDERED: MIDODRINE HCL 5 MG TABLET PO ONE ×2 (00:05→22:19)
[2022-02-04] MEDS: VASOPRESSIN 40 UNITS/100 ML BAG IV SCH ×2 (00:59→23:02)
[2022-02-04] MEDS: PIPERACILLIN/TAZOB 3.375 GM 3.375 GM in DEXTROSE 5%-WATER - 50 ML IVPB SCH ×3 (01:10→18:04)
[2022-02-04] MEDS ORDERED: SODIUM CHLORIDE 500 ML IV STA (02:54)
[2022-02-04] MEDS: oxyCODONE HCL 5 MG TABLET PO SCH ×7 (02:57→22:59)
[2022-02-04] MEDS: PREGABALIN 100 MG CAPSULE PO SCH ×3 (06:13→22:11)
[2022-02-04] MEDS: LACTATED RINGERS SOLUTION 1,000 ML/1,000 ML INFUS.BAG IV SCH ×3 (06:13→23:02)
[2022-02-04 07:12] LABS: BASO % 0.2 % (0-2.0); EOS % 0.7 % (0-4.5); HEMATOCRIT 22.7 % (35.4-49); HEMOGLOBIN 7.4 GM/dL (11.7-16.9); LYMPH % 7.8 % (8-40); MCH 30.3 pg (25.7-33.7); MCHC 32.7 g/dl (32.0-35.9); MEAN CELL VOLUME 92.7 fl (80-96); MEAN PLT VOLUME 7.2 fl (7.5-11.1); MONO % 4.6 % (3.8-10.2); NEUT % 86.7 % (42.8-82.8); PLATELET COUNT 240 10^3/uL (134-434); RBC 2.45 M/mm3 (4.00-5.60); RDW 15.8 % (11.9-15.9); WHITE BLOOD COUNT 11.2 K/mm3 (4.0-10.0)
[2022-02-04 07:56] LABS: CALCIUM 8.1 mg/dL (8.5-10.1); MAGNESIUM 1.9 mg/dL (1.8-2.4)
[2022-02-04 07:58] LABS: BLOOD UREA NITROGEN 12.3 mg/dL (7-18)
[2022-02-04 07:59] LABS: CREATININE 0.7 mg/dL (0.55-1.3); PHOSPHOROUS 2.8 mg/dL (2.5-4.9)
[2022-02-04] MEDS: MIDODRINE HCL 5 MG TABLET PO SCH ×3 (08:08→22:59)
[2022-02-04] MEDS: PHENYLEPHRINE NS PREMIX 50,000 MCG/500 ML BAG IVPB SCH (08:09)
[2022-02-04] MEDS: ENOXAPARIN NA (PORCINE) 40 MG/0.4 ML DISP.SYRIN SQ SCH (09:35)
[2022-02-04] MEDS: BACLOFEN 10 MG TABLET (FP) PO SCH ×2 (09:36→22:12)
[2022-02-04] MEDS: MULTIVITAMINS THER W-MINERALS COMBO TABLET (FP) PO SCH (09:36)
[2022-02-04] MEDS: PANTOPRAZOLE 40 MG TABLET PO SCH (09:36)
[2022-02-04] MEDS: CYANOCOBALAMIN 1,000 MCG TABLET (FP) PO SCH (09:36)
[2022-02-04] MEDS: ASCORBIC ACID 250 MG TABLET (FP) PO SCH ×2 (09:36→22:11)
[2022-02-04] MEDS: CHOLECALCIFEROL (VIT D3) 5000 UNITS (125 MCG) CAP PO SCH (09:37)
[2022-02-04] MEDS: VITAMIN A 10,000 UNITS (3000 MCG) CAPSULE PO SCH (09:37)
[2022-02-04] MEDS: ZINC SULFATE 220 MG CAPSULE (FP) PO SCH (09:38)
[2022-02-04] MEDS: MUPIROCIN 2% TOPICAL OINTMENT FOR DECOLONIZATION NS SCH ×2 (09:38→22:11)
[2022-02-04] MEDS ORDERED: VANCOMYCIN 1,000 MG in DEXTROSE 5%-WATER - 250 ML IVPB SCH (10:00)
[2022-02-04] MEDS ORDERED: LACTATED RINGERS SOLUTION 1000 ML INFUS.BAG IV ONE (13:04)
[2022-02-04] MEDS: FLUDROCORTISONE ACETATE 0.1 MG TABLET (FP) PO SCH (14:34)
[2022-02-04] MEDS: HYDROCORTISONE SOD SUCCINATE 100 MG/2 ML VIAL IVPUSH SCH ×2 (14:35→18:01)
[2022-02-04] MEDS: AMINO ACIDS/PROTEIN HYDROLYS 30 ML LIQUID.PKT PO SCH (18:03)
[2022-02-04] MEDS: CHLORHEXIDINE GLUCONATE 4% CLEANSER FOR DECOLONIZATION TP SCH (22:11)
[2022-02-04] MEDS: ACETAMINOPHEN 325 MG TABLET (FP) PO PRN (22:12)
[2022-02-05] MEDS: VASOPRESSIN 40 UNITS/100 ML BAG IV SCH (01:02)
[2022-02-05] MEDS: PIPERACILLIN/TAZOB 3.375 GM 3.375 GM in DEXTROSE 5%-WATER - 50 ML IVPB SCH ×3 (01:11→17:45)
[2022-02-05] MEDS: HYDROCORTISONE SOD SUCCINATE 100 MG/2 ML VIAL IVPUSH SCH ×4 (01:12→17:45)
[2022-02-05] MEDS: ACETAMINOPHEN 325 MG TABLET (FP) PO PRN (01:13)
[2022-02-05] MEDS: oxyCODONE HCL 5 MG TABLET PO SCH ×6 (04:00→23:29)
[2022-02-05] MEDS: PREGABALIN 100 MG CAPSULE PO SCH ×3 (06:19→21:45)
[2022-02-05] MEDS: MIDODRINE HCL 5 MG TABLET PO SCH ×3 (07:11→23:29)
[2022-02-05] MEDS: PHENYLEPHRINE NS PREMIX 50,000 MCG/500 ML BAG IVPB SCH (07:17)
[2022-02-05 07:36] LABS: BASO % 0.1 % (0-2.0); HEMATOCRIT 24.8 % (35.4-49); LYMPH % 11.1 % (8-40); MCH 29.9 pg (25.7-33.7); MCHC 32.3 g/dl (32.0-35.9); MEAN CELL VOLUME 92.4 fl (80-96); MEAN PLT VOLUME 7.6 fl (7.5-11.1); MONO % 4.5 % (3.8-10.2); NEUT % 84.3 % (42.8-82.8); PLATELET COUNT 313 10^3/uL (134-434); RBC 2.69 M/mm3 (4.00-5.60); RDW 15.4 % (11.9-15.9); WHITE BLOOD COUNT 10.1 K/mm3 (4.0-10.0)
[2022-02-05 07:59] LABS: BLOOD UREA NITROGEN 12.9 mg/dL (7-18); CALCIUM 8.8 mg/dL (8.5-10.1); MAGNESIUM 2.4 mg/dL (1.8-2.4)
[2022-02-05 08:02] LABS: CREATININE 0.6 mg/dL (0.55-1.3); PHOSPHOROUS 2.9 mg/dL (2.5-4.9)
[2022-02-05] MEDS: ENOXAPARIN NA (PORCINE) 40 MG/0.4 ML DISP.SYRIN SQ SCH (09:45)
[2022-02-05] MEDS: VITAMIN A 10,000 UNITS (3000 MCG) CAPSULE PO SCH (09:45)
[2022-02-05] MEDS: BACLOFEN 10 MG TABLET (FP) PO SCH ×2 (09:46→21:45)
[2022-02-05] MEDS: ZINC SULFATE 220 MG CAPSULE (FP) PO SCH (09:46)
[2022-02-05] MEDS: CHOLECALCIFEROL (VIT D3) 5000 UNITS (125 MCG) CAP PO SCH (09:46)
[2022-02-05] MEDS: MULTIVITAMINS THER W-MINERALS COMBO TABLET (FP) PO SCH (09:46)
[2022-02-05] MEDS: CYANOCOBALAMIN 1,000 MCG TABLET (FP) PO SCH (09:46)
[2022-02-05] MEDS: PANTOPRAZOLE 40 MG TABLET PO SCH (09:46)
[2022-02-05] MEDS: FLUDROCORTISONE ACETATE 0.1 MG TABLET (FP) PO SCH (09:46)
[2022-02-05] MEDS: ASCORBIC ACID 250 MG TABLET (FP) PO SCH ×2 (09:46→21:45)
[2022-02-05] MEDS: AMINO ACIDS/PROTEIN HYDROLYS 30 ML LIQUID.PKT PO SCH ×2 (09:49→17:45)
[2022-02-05] MEDS: MUPIROCIN 2% TOPICAL OINTMENT FOR DECOLONIZATION NS SCH ×2 (09:49→21:45)
[2022-02-05] MEDS: CHLORHEXIDINE GLUCONATE 4% CLEANSER FOR DECOLONIZATION TP SCH (21:45)
[2022-02-06] MEDS: VASOPRESSIN 40 UNITS/100 ML BAG IV SCH (01:17)
[2022-02-06] MEDS: HYDROCORTISONE SOD SUCCINATE 100 MG/2 ML VIAL IVPUSH SCH ×3 (01:18→14:50)
[2022-02-06] MEDS: PIPERACILLIN/TAZOB 3.375 GM 3.375 GM in DEXTROSE 5%-WATER - 50 ML IVPB SCH ×3 (01:18→17:11)
[2022-02-06] MEDS: oxyCODONE HCL 5 MG TABLET PO SCH ×6 (03:15→23:31)
[2022-02-06] MEDS: MIDODRINE HCL 5 MG TABLET PO SCH ×3 (06:44→23:31)
[2022-02-06] MEDS: PREGABALIN 100 MG CAPSULE PO SCH ×3 (06:44→23:31)
[2022-02-06 08:05] LABS: BASO % 0.1 % (0-2.0); HEMATOCRIT 25.2 % (35.4-49); HEMOGLOBIN 8.3 GM/dL (11.7-16.9); LYMPH % 16.9 % (8-40); MCH 30.2 pg (25.7-33.7); MCHC 32.9 g/dl (32.0-35.9); MEAN CELL VOLUME 91.7 fl (80-96); MEAN PLT VOLUME 7.6 fl (7.5-11.1); MONO % 4.8 % (3.8-10.2); NEUT % 78.2 % (42.8-82.8); PLATELET COUNT 323 10^3/uL (134-434); RBC 2.75 M/mm3 (4.00-5.60); RDW 15.8 % (11.9-15.9); WHITE BLOOD COUNT 7.9 K/mm3 (4.0-10.0)
[2022-02-06 08:29] LABS: BLOOD UREA NITROGEN 12.6 mg/dL (7-18); CALCIUM 9.1 mg/dL (8.5-10.1)
[2022-02-06 08:32] LABS: CREATININE 0.6 mg/dL (0.55-1.3)
[2022-02-06] MEDS: ENOXAPARIN NA (PORCINE) 40 MG/0.4 ML DISP.SYRIN SQ SCH (09:21)
[2022-02-06] MEDS: ASCORBIC ACID 250 MG TABLET (FP) PO SCH ×2 (09:22→23:31)
[2022-02-06] MEDS: ZINC SULFATE 220 MG CAPSULE (FP) PO SCH (09:22)
[2022-02-06] MEDS: AMINO ACIDS/PROTEIN HYDROLYS 30 ML LIQUID.PKT PO SCH ×2 (09:22→17:11)
[2022-02-06] MEDS: PANTOPRAZOLE 40 MG TABLET PO SCH (09:22)
[2022-02-06] MEDS: MULTIVITAMINS THER W-MINERALS COMBO TABLET (FP) PO SCH (09:22)
[2022-02-06] MEDS: FLUDROCORTISONE ACETATE 0.1 MG TABLET (FP) PO SCH (09:22)
[2022-02-06] MEDS: VITAMIN A 10,000 UNITS (3000 MCG) CAPSULE PO SCH (09:25)
[2022-02-06] MEDS: MUPIROCIN 2% TOPICAL OINTMENT FOR DECOLONIZATION NS SCH ×2 (09:25→23:33)
[2022-02-06] MEDS: CHOLECALCIFEROL (VIT D3) 5000 UNITS (125 MCG) CAP PO SCH (09:25)
[2022-02-06] MEDS: CYANOCOBALAMIN 1,000 MCG TABLET (FP) PO SCH (09:25)
[2022-02-06] MEDS: BACLOFEN 10 MG TABLET (FP) PO SCH ×2 (09:25→23:33)
[2022-02-06] MEDS: LACTATED RINGERS SOLUTION 1,000 ML/1,000 ML INFUS.BAG IV SCH (14:59)
[2022-02-06] MEDS: CHLORHEXIDINE GLUCONATE 4% CLEANSER FOR DECOLONIZATION TP SCH (23:33)
[2022-02-07] MEDS: PIPERACILLIN/TAZOB 3.375 GM 3.375 GM in DEXTROSE 5%-WATER - 50 ML IVPB SCH ×3 (03:49→17:48)
[2022-02-07] MEDS: HYDROCORTISONE SOD SUCCINATE 100 MG/2 ML VIAL IVPUSH SCH ×2 (03:49→15:20)
[2022-02-07] MEDS: oxyCODONE HCL 5 MG TABLET PO SCH ×6 (03:49→23:13)
[2022-02-07] MEDS: PREGABALIN 100 MG CAPSULE PO SCH ×3 (06:16→22:26)
[2022-02-07] MEDS: MIDODRINE HCL 5 MG TABLET PO SCH ×3 (06:20→23:13)
[2022-02-07 07:41] LABS: BASO % 0.3 % (0-2.0); EOS % 0.3 % (0-4.5); HEMATOCRIT 27.3 % (35.4-49); HEMOGLOBIN 8.8 GM/dL (11.7-16.9); LYMPH % 28.5 % (8-40); MCH 29.9 pg (25.7-33.7); MCHC 32.3 g/dl (32.0-35.9); MEAN CELL VOLUME 92.4 fl (80-96); MEAN PLT VOLUME 7.3 fl (7.5-11.1); MONO % 8.4 % (3.8-10.2); NEUT % 62.5 % (42.8-82.8); PLATELET COUNT 348 10^3/uL (134-434); RBC 2.95 M/mm3 (4.00-5.60); RDW 15.6 % (11.9-15.9); WHITE BLOOD COUNT 8.3 K/mm3 (4.0-10.0)
[2022-02-07 08:05] LABS: BLOOD UREA NITROGEN 12.3 mg/dL (7-18); CALCIUM 8.4 mg/dL (8.5-10.1)
[2022-02-07 08:08] LABS: CREATININE 0.6 mg/dL (0.55-1.3)
[2022-02-07] MEDS: ENOXAPARIN NA (PORCINE) 40 MG/0.4 ML DISP.SYRIN SQ SCH (10:00)
[2022-02-07] MEDS: CYANOCOBALAMIN 1,000 MCG TABLET (FP) PO SCH (11:16)
[2022-02-07] MEDS: ASCORBIC ACID 250 MG TABLET (FP) PO SCH ×2 (11:16→22:26)
[2022-02-07] MEDS: CHOLECALCIFEROL (VIT D3) 5000 UNITS (125 MCG) CAP PO SCH (11:16)
[2022-02-07] MEDS: VITAMIN A 10,000 UNITS (3000 MCG) CAPSULE PO SCH (11:16)
[2022-02-07] MEDS: MULTIVITAMINS THER W-MINERALS COMBO TABLET (FP) PO SCH (11:16)
[2022-02-07] MEDS: PANTOPRAZOLE 40 MG TABLET PO SCH (11:16)
[2022-02-07] MEDS: FLUDROCORTISONE ACETATE 0.1 MG TABLET (FP) PO SCH (11:16)
[2022-02-07] MEDS: ZINC SULFATE 220 MG CAPSULE (FP) PO SCH (11:17)
[2022-02-07] MEDS: AMINO ACIDS/PROTEIN HYDROLYS 30 ML LIQUID.PKT PO SCH ×2 (11:17→17:48)
[2022-02-07] MEDS: BACLOFEN 10 MG TABLET (FP) PO SCH ×2 (11:17→22:26)
[2022-02-07] MEDS: MUPIROCIN 2% TOPICAL OINTMENT FOR DECOLONIZATION NS SCH ×2 (11:17→22:26)
[2022-02-07] MEDS: LACTATED RINGERS SOLUTION 1,000 ML/1,000 ML INFUS.BAG IV SCH ×2 (15:22→17:48)
[2022-02-07] MEDS: CHLORHEXIDINE GLUCONATE 4% CLEANSER FOR DECOLONIZATION TP SCH (22:26)
[2022-02-08] MEDS: PIPERACILLIN/TAZOB 3.375 GM 3.375 GM in DEXTROSE 5%-WATER - 50 ML IVPB SCH ×4 (01:02→17:37)
[2022-02-08] MEDS: HYDROCORTISONE SOD SUCCINATE 100 MG/2 ML VIAL IVPUSH SCH (01:16)
[2022-02-08] MEDS: oxyCODONE HCL 5 MG TABLET PO SCH ×6 (03:39→23:12)
[2022-02-08] MEDS: PREGABALIN 100 MG CAPSULE PO SCH ×3 (06:32→21:21)
[2022-02-08] MEDS: MIDODRINE HCL 5 MG TABLET PO SCH ×3 (06:33→18:40)
[2022-02-08 07:59] LABS: BASO % 0.2 % (0-2.0); EOS % 0.1 % (0-4.5); HEMATOCRIT 27.2 % (35.4-49); LYMPH % 17.3 % (8-40); MCH 30.6 pg (25.7-33.7); MCHC 33.2 g/dl (32.0-35.9); MEAN CELL VOLUME 92.4 fl (80-96); MEAN PLT VOLUME 7.1 fl (7.5-11.1); NEUT % 77.4 % (42.8-82.8); PLATELET COUNT 317 10^3/uL (134-434); RBC 2.94 M/mm3 (4.00-5.60); RDW 15.6 % (11.9-15.9); WHITE BLOOD COUNT 8.6 K/mm3 (4.0-10.0)
[2022-02-08 08:22] LABS: CALCIUM 8.8 mg/dL (8.5-10.1)
[2022-02-08 08:24] LABS: BLOOD UREA NITROGEN 10.2 mg/dL (7-18)
[2022-02-08 08:26] LABS: CREATININE 0.6 mg/dL (0.55-1.3)
[2022-02-08] MEDS: AMINO ACIDS/PROTEIN HYDROLYS 30 ML LIQUID.PKT PO SCH ×2 (10:30→17:21)
[2022-02-08] MEDS: PANTOPRAZOLE 40 MG TABLET PO SCH (10:31)
[2022-02-08] MEDS: MULTIVITAMINS THER W-MINERALS COMBO TABLET (FP) PO SCH (10:31)
[2022-02-08] MEDS: ZINC SULFATE 220 MG CAPSULE (FP) PO SCH (10:31)
[2022-02-08] MEDS: ENOXAPARIN NA (PORCINE) 40 MG/0.4 ML DISP.SYRIN SQ SCH (10:31)
[2022-02-08] MEDS: ASCORBIC ACID 250 MG TABLET (FP) PO SCH ×2 (10:32→21:21)
[2022-02-08] MEDS: FLUDROCORTISONE ACETATE 0.1 MG TABLET (FP) PO SCH (10:32)
[2022-02-08] MEDS: CYANOCOBALAMIN 1,000 MCG TABLET (FP) PO SCH (10:33)
[2022-02-08] MEDS: BACLOFEN 10 MG TABLET (FP) PO SCH ×2 (10:33→21:21)
[2022-02-08] MEDS: MUPIROCIN 2% TOPICAL OINTMENT FOR DECOLONIZATION NS SCH (10:34)
[2022-02-08] MEDS: VITAMIN A 10,000 UNITS (3000 MCG) CAPSULE PO SCH (11:39)
[2022-02-08] MEDS: CHOLECALCIFEROL (VIT D3) 5000 UNITS (125 MCG) CAP PO SCH (11:39)
[2022-02-08] MEDS: LACTATED RINGERS SOLUTION 1,000 ML/1,000 ML INFUS.BAG IV SCH (17:12)
[2022-02-08] MEDS ORDERED: ACETAMINOPHEN 325 MG TABLET (FP) PO PRN (17:23)
[2022-02-08] MEDS ORDERED: MELATONIN 5 MG TABLETS PO PRN (17:23)
[2022-02-08] MEDS ORDERED: CHLORHEXIDINE GLUCONATE 4% CLEANSER FOR DECOLONIZATION TP SCH (22:00)
[2022-02-09] MEDS: PIPERACILLIN/TAZOB 3.375 GM 3.375 GM in DEXTROSE 5%-WATER - 50 ML IVPB SCH ×3 (02:15→17:13)
[2022-02-09] MEDS: oxyCODONE HCL 5 MG TABLET PO SCH ×6 (03:56→22:19)
[2022-02-09] MEDS: PREGABALIN 100 MG CAPSULE PO SCH ×3 (06:20→22:19)
[2022-02-09 08:21] LABS: BASO % 0.7 % (0-2.0); EOS % 1.7 % (0-4.5); HEMATOCRIT 26.5 % (35.4-49); HEMOGLOBIN 8.7 GM/dL (11.7-16.9); LYMPH % 26.7 % (8-40); MCH 30.7 pg (25.7-33.7); MEAN CELL VOLUME 92.9 fl (80-96); MEAN PLT VOLUME 6.8 fl (7.5-11.1); NEUT % 63.9 % (42.8-82.8); PLATELET COUNT 281 10^3/uL (134-434); RBC 2.85 M/mm3 (4.00-5.60); RDW 15.9 % (11.9-15.9); WHITE BLOOD COUNT 8.1 K/mm3 (4.0-10.0)
[2022-02-09 08:49] LABS: BLOOD UREA NITROGEN 12.6 mg/dL (7-18); CALCIUM 8.5 mg/dL (8.5-10.1)
[2022-02-09 08:52] LABS: CREATININE 0.6 mg/dL (0.55-1.3)
[2022-02-09] MEDS: ZINC SULFATE 220 MG CAPSULE (FP) PO SCH (09:18)
[2022-02-09] MEDS: PANTOPRAZOLE 40 MG TABLET PO SCH (09:18)
[2022-02-09] MEDS: MIDODRINE HCL 5 MG TABLET PO SCH ×3 (09:18→17:13)
[2022-02-09] MEDS: CYANOCOBALAMIN 1,000 MCG TABLET (FP) PO SCH (09:19)
[2022-02-09] MEDS: MULTIVITAMINS THER W-MINERALS COMBO TABLET (FP) PO SCH (09:19)
[2022-02-09] MEDS: FLUDROCORTISONE ACETATE 0.1 MG TABLET (FP) PO SCH (09:19)
[2022-02-09] MEDS: VITAMIN A 10,000 UNITS (3000 MCG) CAPSULE PO SCH (09:20)
[2022-02-09] MEDS: ASCORBIC ACID 250 MG TABLET (FP) PO SCH ×2 (09:21→22:19)
[2022-02-09] MEDS: ENOXAPARIN NA (PORCINE) 40 MG/0.4 ML DISP.SYRIN SQ SCH (09:21)
[2022-02-09] MEDS: BACLOFEN 10 MG TABLET (FP) PO SCH ×2 (09:21→22:19)
[2022-02-09] MEDS: CHOLECALCIFEROL (VIT D3) 5000 UNITS (125 MCG) CAP PO SCH (09:22)
[2022-02-09] MEDS: KCL 10 MEQ IVPB 10 MEQ/100 ML INFUS.BAG IVPB SCH ×3 (10:07→12:18)
[2022-02-09] MEDS ORDERED: SODIUM HYPOCHLORITE 0.25%- 473 ML BULK BOTTLE TP SCH ×2 (12:22→12:30)
[2022-02-09] MEDS: LACTATED RINGERS SOLUTION 1,000 ML/1,000 ML INFUS.BAG IV SCH (13:49)
[2022-02-09] MEDS: SODIUM HYPOCHLORITE 0.5% 473 ML- BULK BOTTLE TP SCH (14:26)
[2022-02-09] MEDS ORDERED: LACTATED RINGERS SOLUTION 1,000 ML/1,000 ML INFUS.BAG IV SCH (16:21)
[2022-02-10] MEDS: PIPERACILLIN/TAZOB 3.375 GM 3.375 GM in DEXTROSE 5%-WATER - 50 ML IVPB SCH ×3 (01:12→17:38)
[2022-02-10] MEDS: oxyCODONE HCL 5 MG TABLET PO SCH ×6 (04:18→22:23)
[2022-02-10] MEDS: PREGABALIN 100 MG CAPSULE PO SCH ×3 (06:30→22:19)
[2022-02-10 06:47] LABS: BASO % 0.7 % (0-2.0); EOS % 1.6 % (0-4.5); HEMATOCRIT 26.2 % (35.4-49); HEMOGLOBIN 8.4 GM/dL (11.7-16.9); LYMPH % 25.9 % (8-40); MCHC 32.2 g/dl (32.0-35.9); MEAN CELL VOLUME 93.1 fl (80-96); MEAN PLT VOLUME 7.2 fl (7.5-11.1); NEUT % 65.8 % (42.8-82.8); PLATELET COUNT 292 10^3/uL (134-434); RBC 2.82 M/mm3 (4.00-5.60); RDW 16.5 % (11.9-15.9); WHITE BLOOD COUNT 8.9 K/mm3 (4.0-10.0)
[2022-02-10 07:10] LABS: CALCIUM 8.1 mg/dL (8.5-10.1)
[2022-02-10 07:14] LABS: CREATININE 0.6 mg/dL (0.55-1.3)
[2022-02-10] MEDS ORDERED: LACTATED RINGERS SOLUTION 1,000 ML/1,000 ML INFUS.BAG IV SCH (07:59)
[2022-02-10] MEDS: SODIUM HYPOCHLORITE 0.5% 473 ML- BULK BOTTLE TP SCH (10:39)
[2022-02-10] MEDS: PANTOPRAZOLE 40 MG TABLET PO SCH (10:58)
[2022-02-10] MEDS: VITAMIN A 10,000 UNITS (3000 MCG) CAPSULE PO SCH (10:58)
[2022-02-10] MEDS: MULTIVITAMINS THER W-MINERALS COMBO TABLET (FP) PO SCH (10:58)
[2022-02-10] MEDS: FLUDROCORTISONE ACETATE 0.1 MG TABLET (FP) PO SCH (10:58)
[2022-02-10] MEDS: BACLOFEN 10 MG TABLET (FP) PO SCH ×2 (10:59→22:19)
[2022-02-10] MEDS: ASCORBIC ACID 250 MG TABLET (FP) PO SCH ×2 (10:59→22:19)
[2022-02-10] MEDS: CHOLECALCIFEROL (VIT D3) 5000 UNITS (125 MCG) CAP PO SCH (10:59)
[2022-02-10] MEDS: CYANOCOBALAMIN 1,000 MCG TABLET (FP) PO SCH (10:59)
[2022-02-10] MEDS: MIDODRINE HCL 5 MG TABLET PO SCH ×3 (10:59→17:38)
[2022-02-10] MEDS: ZINC SULFATE 220 MG CAPSULE (FP) PO SCH (10:59)
[2022-02-10] MEDS: ENOXAPARIN NA (PORCINE) 40 MG/0.4 ML DISP.SYRIN SQ SCH (11:00)
[2022-02-10] MEDS: KCL 10 MEQ IVPB 10 MEQ/100 ML INFUS.BAG IVPB SCH ×3 (11:00→13:16)
[2022-02-10] MEDS: LACTATED RINGERS SOLUTION 1,000 ML/1,000 ML INFUS.BAG IV SCH (11:14)
[2022-02-11] MEDS: KCL 10 MEQ IVPB 10 MEQ/100 ML INFUS.BAG IVPB SCH ×3 (00:31→02:49)
[2022-02-11] MEDS: PIPERACILLIN/TAZOB 3.375 GM 3.375 GM in DEXTROSE 5%-WATER - 50 ML IVPB SCH ×3 (02:48→17:46)
[2022-02-11] MEDS: oxyCODONE HCL 5 MG TABLET PO SCH ×5 (02:59→19:54)
[2022-02-11] MEDS: PREGABALIN 100 MG CAPSULE PO SCH ×3 (05:19→21:12)
[2022-02-11 07:16] LABS: BASO % 0.4 % (0-2.0); EOS % 2.8 % (0-4.5); HEMOGLOBIN 9.7 GM/dL (11.7-16.9); LYMPH % 26.5 % (8-40); MCH 30.1 pg (25.7-33.7); MCHC 32.3 g/dl (32.0-35.9); MEAN CELL VOLUME 93.2 fl (80-96); MEAN PLT VOLUME 7.2 fl (7.5-11.1); MONO % 8.2 % (3.8-10.2); NEUT % 62.1 % (42.8-82.8); PLATELET COUNT 287 10^3/uL (134-434); RBC 3.22 M/mm3 (4.00-5.60); RDW 16.7 % (11.9-15.9); WHITE BLOOD COUNT 6.9 K/mm3 (4.0-10.0)
[2022-02-11 07:38] LABS: CALCIUM 8.6 mg/dL (8.5-10.1)
[2022-02-11 07:39] LABS: BLOOD UREA NITROGEN 8.5 mg/dL (7-18)
[2022-02-11 07:41] LABS: CREATININE 0.5 mg/dL (0.55-1.3)
[2022-02-11] MEDS: CYANOCOBALAMIN 1,000 MCG TABLET (FP) PO SCH (10:23)
[2022-02-11] MEDS: ASCORBIC ACID 250 MG TABLET (FP) PO SCH ×2 (10:23→21:12)
[2022-02-11] MEDS: MIDODRINE HCL 5 MG TABLET PO SCH ×3 (10:23→17:47)
[2022-02-11] MEDS: PANTOPRAZOLE 40 MG TABLET PO SCH (10:23)
[2022-02-11] MEDS: ENOXAPARIN NA (PORCINE) 40 MG/0.4 ML DISP.SYRIN SQ SCH (10:23)
[2022-02-11] MEDS: FLUDROCORTISONE ACETATE 0.1 MG TABLET (FP) PO SCH (10:24)
[2022-02-11] MEDS: CHOLECALCIFEROL (VIT D3) 5000 UNITS (125 MCG) CAP PO SCH (10:24)
[2022-02-11] MEDS: MULTIVITAMINS THER W-MINERALS COMBO TABLET (FP) PO SCH (10:24)
[2022-02-11] MEDS: BACLOFEN 10 MG TABLET (FP) PO SCH ×2 (10:24→21:12)
[2022-02-11] MEDS: VITAMIN A 10,000 UNITS (3000 MCG) CAPSULE PO SCH (10:25)
[2022-02-11] MEDS: SODIUM HYPOCHLORITE 0.5% 473 ML- BULK BOTTLE TP SCH (10:25)
[2022-02-11] MEDS: LACTATED RINGERS SOLUTION 1,000 ML/1,000 ML INFUS.BAG IV SCH (10:26)
[2022-02-11] MEDS: ZINC SULFATE 220 MG CAPSULE (FP) PO SCH (10:30)
[2022-02-11] MEDS: SIMETHICONE 80 MG TAB.CHEW (FP) PO SCH (22:52)
[2022-02-12] MEDS: oxyCODONE HCL 5 MG TABLET PO SCH ×7 (00:18→23:32)
[2022-02-12] MEDS: LACTATED RINGERS SOLUTION 1,000 ML/1,000 ML INFUS.BAG IV SCH (00:19)
[2022-02-12] MEDS: PIPERACILLIN/TAZOB 3.375 GM 3.375 GM in DEXTROSE 5%-WATER - 50 ML IVPB SCH ×3 (02:06→17:04)
[2022-02-12] MEDS: PREGABALIN 100 MG CAPSULE PO SCH ×3 (05:45→21:59)
[2022-02-12] MEDS: SIMETHICONE 80 MG TAB.CHEW (FP) PO SCH ×3 (05:45→21:59)
[2022-02-12] MEDS: ASCORBIC ACID 250 MG TABLET (FP) PO SCH ×2 (09:37→21:59)
[2022-02-12] MEDS: MIDODRINE HCL 5 MG TABLET PO SCH ×3 (09:37→17:04)
[2022-02-12] MEDS: ZINC SULFATE 220 MG CAPSULE (FP) PO SCH (09:37)
[2022-02-12] MEDS: CHOLECALCIFEROL (VIT D3) 5000 UNITS (125 MCG) CAP PO SCH (09:37)
[2022-02-12] MEDS: PANTOPRAZOLE 40 MG TABLET PO SCH (09:37)
[2022-02-12] MEDS: MULTIVITAMINS THER W-MINERALS COMBO TABLET (FP) PO SCH (09:37)
[2022-02-12] MEDS: BACLOFEN 10 MG TABLET (FP) PO SCH ×2 (09:37→21:59)
[2022-02-12] MEDS: CYANOCOBALAMIN 1,000 MCG TABLET (FP) PO SCH (09:37)
[2022-02-12] MEDS: VITAMIN A 10,000 UNITS (3000 MCG) CAPSULE PO SCH (09:37)
[2022-02-12] MEDS: SODIUM HYPOCHLORITE 0.5% 473 ML- BULK BOTTLE TP SCH (09:38)
[2022-02-12] MEDS: ENOXAPARIN NA (PORCINE) 40 MG/0.4 ML DISP.SYRIN SQ SCH (09:38)
[2022-02-13] MEDS: PIPERACILLIN/TAZOB 3.375 GM 3.375 GM in DEXTROSE 5%-WATER - 50 ML IVPB SCH ×4 (01:22→18:50)
[2022-02-13] MEDS: oxyCODONE HCL 5 MG TABLET PO SCH ×5 (04:00→18:51)
[2022-02-13] MEDS: PREGABALIN 100 MG CAPSULE PO SCH ×3 (06:28→21:22)
[2022-02-13] MEDS: SIMETHICONE 80 MG TAB.CHEW (FP) PO SCH ×3 (06:28→21:22)
[2022-02-13] MEDS: ENOXAPARIN NA (PORCINE) 40 MG/0.4 ML DISP.SYRIN SQ SCH (09:27)
[2022-02-13] MEDS: ZINC SULFATE 220 MG CAPSULE (FP) PO SCH (09:27)
[2022-02-13] MEDS: MIDODRINE HCL 5 MG TABLET PO SCH ×3 (09:28→17:50)
[2022-02-13] MEDS: CHOLECALCIFEROL (VIT D3) 5000 UNITS (125 MCG) CAP PO SCH (09:28)
[2022-02-13] MEDS: ASCORBIC ACID 250 MG TABLET (FP) PO SCH ×2 (09:28→21:22)
[2022-02-13] MEDS: CYANOCOBALAMIN 1,000 MCG TABLET (FP) PO SCH (09:28)
[2022-02-13] MEDS: PANTOPRAZOLE 40 MG TABLET PO SCH (09:28)
[2022-02-13] MEDS: MULTIVITAMINS THER W-MINERALS COMBO TABLET (FP) PO SCH (09:28)
[2022-02-13] MEDS: BACLOFEN 10 MG TABLET (FP) PO SCH ×2 (09:28→21:22)
[2022-02-13] MEDS: VITAMIN A 10,000 UNITS (3000 MCG) CAPSULE PO SCH (09:28)
[2022-02-13] MEDS: SODIUM HYPOCHLORITE 0.5% 473 ML- BULK BOTTLE TP SCH (09:55)
[2022-02-14] MEDS: oxyCODONE HCL 5 MG TABLET PO SCH ×4 (00:55→11:27)
[2022-02-14] MEDS: PIPERACILLIN/TAZOB 3.375 GM 3.375 GM in DEXTROSE 5%-WATER - 50 ML IVPB SCH ×2 (02:06→09:46)
[2022-02-14] MEDS: SIMETHICONE 80 MG TAB.CHEW (FP) PO SCH ×2 (06:10→13:37)
[2022-02-14] MEDS: PREGABALIN 100 MG CAPSULE PO SCH ×2 (06:11→13:37)
[2022-02-14 08:57] VITALS: RESP 18
[2022-02-14] MEDS: ENOXAPARIN NA (PORCINE) 40 MG/0.4 ML DISP.SYRIN SQ SCH (09:41)
[2022-02-14] MEDS: PANTOPRAZOLE 40 MG TABLET PO SCH (09:42)
[2022-02-14] MEDS: ZINC SULFATE 220 MG CAPSULE (FP) PO SCH (09:42)
[2022-02-14] MEDS: MIDODRINE HCL 5 MG TABLET PO SCH ×2 (09:42→13:37)
[2022-02-14] MEDS: CYANOCOBALAMIN 1,000 MCG TABLET (FP) PO SCH (09:42)
[2022-02-14] MEDS: CHOLECALCIFEROL (VIT D3) 5000 UNITS (125 MCG) CAP PO SCH (09:43)
[2022-02-14] MEDS: MULTIVITAMINS THER W-MINERALS COMBO TABLET (FP) PO SCH (09:44)
[2022-02-14] MEDS: BACLOFEN 10 MG TABLET (FP) PO SCH (09:44)
[2022-02-14] MEDS: ASCORBIC ACID 250 MG TABLET (FP) PO SCH (09:45)
[2022-02-14] MEDS: SODIUM HYPOCHLORITE 0.5% 473 ML- BULK BOTTLE TP SCH (09:45)
[2022-02-14] MEDS: VITAMIN A 10,000 UNITS (3000 MCG) CAPSULE PO SCH (09:45)
[2022-02-14 15:14] VITALS: BP 105/46; PULSE 66; TEMP 98.5
== END 2022-02-14 15:46 | DRG 871 ==
LOC: JER 15:09 → JERBED 18:34 → JICU 02-03 13:00 → OBSVTOIN 02-03 15:14 → J4S 02-08 16:58
PROVIDERS: ADMIT Internal Medicine; ATTEND Internal Medicine
PROC: 05HN33Z Insertion of Infusion Device into Left Internal Jugular Vein, Percutaneous Approach (ICD-10-PCS; 2022-02-03)
PROC: B544ZZA Ultrasonography of Left Jugular Veins, Guidance (ICD-10-PCS; 2022-02-03)
PROC: 05HB33Z Insertion of Infusion Device into Right Basilic Vein, Percutaneous Approach (ICD-10-PCS; principal; 2022-02-05)
DX: A41.59 Other Gram-negative sepsis (principal); L89.154 Pressure ulcer of sacral region, stage 4; R65.21 Severe sepsis with septic shock; G82.20 Paraplegia, unspecified; N39.0 Urinary tract infection, site not specified; L89.620 Pressure ulcer of left heel, unstageable; N31.9 Neuromuscular dysfunction of bladder, unspecified; M48.061 Spinal stenosis, lumbar region without neurogenic claudication; D50.9 Iron deficiency anemia, unspecified; E78.5 Hyperlipidemia, unspecified; N28.9 Disorder of kidney and ureter, unspecified; Z93.59 Other cystostomy status; I95.9 Hypotension, unspecified; R00.1 Bradycardia, unspecified; D72.829 Elevated white blood cell count, unspecified; E87.6 Hypokalemia; G62.9 Polyneuropathy, unspecified; E66.9 Obesity, unspecified; Z68.29 Body mass index [BMI] 29.0-29.9, adult; G47.00 Insomnia, unspecified
CPT/HCPCS: 36415; 71045-TC-FY; 72220-TC-FY; 80048; 80053; 81003; 82728; 82962; 83540; 83550; 83605; 83735; 84100; 84443; 85025; 85610; 85651; 85730; 86140; 86850; 86900; 86901; 87040; 87086; 87186; 93005; 93010; 93306-TC; 97162-GP; 99285-25; C9803-CS; G0378; G0463-25; J0475; J1644; J1756; J3490; U0003; U0005

== ENCOUNTER 2022-04-12 04:14 | Inpatient (IN) | payer OTHER ==
[2022-04-12] MEDS ORDERED: GENTAMICIN SO4 80 MG/2 ML VIAL ONE (16:19)
[2022-04-12] MEDS ORDERED: PHENYLEPHRINE HCL 10 MG/1 ML SINGLE DOSE VIAL ONE (17:36)
[2022-04-12] MEDS ORDERED: PROPOFOL 40 ML ONE (17:36)
[2022-04-12] MEDS ORDERED: LIDOCAINE HCL/PF 2% SDV 5ML VIAL ONE (17:36)
[2022-04-12] MEDS ORDERED: ROCURONIUM BROMIDE 50 MG/5 ML SYRINGE ONE (17:36)
[2022-04-12] MEDS ORDERED: FENTANYL CITRATE/PF 50 MCG/ML VIAL ONE ×4 (17:38→19:56)
[2022-04-12] MEDS ORDERED: ACETAMINOPHEN INJECTION 100 ML IVPB ONE (18:16)
[2022-04-12] MEDS ORDERED: ONDANSETRON 4 MG/2 ML VIAL ONE (19:15)
[2022-04-12] MEDS ORDERED: GENTAMICIN SO4 80 MG/2 ML VIAL IVPB ONE ×2 (19:15→19:45)
[2022-04-12] MEDS ORDERED: DEXAMETHASONE SOD PHOSPHATE 4 MG/1 ML VIAL ONE (19:15)
[2022-04-12] MEDS ORDERED: MINERAL OIL 25 ML OIL TP ONE (19:22)
[2022-04-12] MEDS ORDERED: GLYCOPYRROLATE 0.2 MG/1 ML VIAL ONE (19:23)
[2022-04-12] MEDS ORDERED: NEOSTIGMINE METHYLSULFATE 0.5 MG/ML - 10 ML MDV ONE (19:23)
[2022-04-12] MEDS ORDERED: oxyCODONE HCL 5 MG TABLET PO PRN (20:58)
[2022-04-12] MEDS ORDERED: PROMETHAZINE HCL 25 MG/1 ML VIAL IVPUSH PRN (20:58)
[2022-04-12] MEDS ORDERED: ONDANSETRON 4 MG/2 ML VIAL IVPUSH PRN (20:58)
[2022-04-12] MEDS ORDERED: LACTATED RINGERS SOLUTION 1,000 ML IV SCH (21:00)
[2022-04-12] MEDS ORDERED: ACETAMINOPHEN 325 MG TABLET (FP) PO PRN ×2 (21:28→22:33)
[2022-04-12 22:14] LABS: BASO % 0.2 % (0-2.0); EOS % 0.8 % (0-4.5); HEMATOCRIT 33.9 % (35.4-49); HEMOGLOBIN 11.2 GM/dL (11.7-16.9); MCH 29.8 pg (25.7-33.7); MCHC 32.9 g/dl (32.0-35.9); MEAN CELL VOLUME 90.4 fl (80-96); MONO % 2.1 % (3.8-10.2); NEUT % 88.9 % (42.8-82.8); PLATELET COUNT 303 10^3/uL (134-434); RBC 3.75 M/mm3 (4.00-5.60); RDW 15.7 % (11.9-15.9); WHITE BLOOD COUNT 10.4 K/mm3 (4.0-10.0)
[2022-04-12 22:35] LABS: ALBUMIN 2.6 g/dl (3.4-5.0); CALCIUM 8.8 mg/dL (8.5-10.1)
[2022-04-12 22:36] LABS: BLOOD UREA NITROGEN 14.3 mg/dL (7-18)
[2022-04-12 22:38] LABS: CREATININE 0.9 mg/dL (0.55-1.3)
[2022-04-12 22:40] LABS: BILIRUBIN,TOTAL 0.4 mg/dL (0.2-1)
[2022-04-12] MEDS: ENOXAPARIN NA (PORCINE) 40 MG/0.4 ML DISP.SYRIN SQ SCH (23:16)
[2022-04-12] MEDS: BACLOFEN 10 MG TABLET (FP) PO SCH (23:17)
[2022-04-12] MEDS: PREGABALIN 100 MG CAPSULE PO SCH (23:18)
[2022-04-12] MEDS: ASCORBIC ACID 250 MG TABLET (FP) PO SCH (23:18)
[2022-04-12] MEDS: INSULIN SLIDING SCALE (NOVOLOG) 1 VIAL SQ SCH (23:20)
[2022-04-13] MEDS: PANTOPRAZOLE 40 MG TABLET PO SCH ×2 (00:16→10:10)
[2022-04-13] MEDS: LACTATED RINGERS SOLUTION 1,000 ML IV SCH ×3 (00:17→22:55)
[2022-04-13] MEDS: MELATONIN 5 MG TABLETS PO PRN (00:19)
[2022-04-13] MEDS: oxyCODONE HCL 5 MG TABLET PO PRN ×2 (06:12→19:28)
[2022-04-13] MEDS: PREGABALIN 100 MG CAPSULE PO SCH ×3 (06:13→21:42)
[2022-04-13] MEDS: INSULIN SLIDING SCALE (NOVOLOG) 1 VIAL SQ SCH ×3 (06:14→17:27)
[2022-04-13] MEDS: oxyCODONE HCL 5 MG TABLET PO SCH ×4 (08:12→22:54)
[2022-04-13 09:52] LABS: EPI CELLS 4 /uL (0-25.1); HYALINE CASTS 3 /uL (0-3.1); PH,URINE 5.5 (5.0-8.0); URINE APPEARANCE TURBID; URINE BACTERIA >9,000 /uL (0-1359); URINE BILIRUBIN NEGATIVE (NEGATIVE); URINE COLOR YELLOW; URINE GLUCOSE (UA) NEGATIVE (NEGATIVE); URINE KETONE NEGATIVE (NEGATIVE); URINE LEUK ESTERASE 3+ (NEGATIVE); URINE NITRITE NEGATIVE (NEGATIVE); URINE PROTEIN 2+ (NEGATIVE); URINE RBC 113 /uL (0-23.9); URINE UROBILINOGEN 0.2 mg/dL (0.2-1.0); URINE WBC 2803 /uL (0-25.8)
[2022-04-13] MEDS: ENOXAPARIN NA (PORCINE) 40 MG/0.4 ML DISP.SYRIN SQ SCH (10:09)
[2022-04-13] MEDS: BACLOFEN 10 MG TABLET (FP) PO SCH ×2 (10:10→21:42)
[2022-04-13] MEDS: ZINC SULFATE 220 MG CAPSULE (FP) PO SCH (10:10)
[2022-04-13] MEDS: MIDODRINE HCL 5 MG TABLET PO SCH ×3 (10:10→18:27)
[2022-04-13] MEDS: MULTIVITAMINS THER W-MINERALS COMBO TABLET (FP) PO SCH (10:10)
[2022-04-13] MEDS: CYANOCOBALAMIN 1,000 MCG TABLET (FP) PO SCH (10:11)
[2022-04-13] MEDS: CHOLECALCIFEROL (VIT D3) 1,000 UNIT (25 MCG) TABLET PO SCH (10:11)
[2022-04-13] MEDS: ASCORBIC ACID 250 MG TABLET (FP) PO SCH ×2 (10:11→21:42)
[2022-04-13] MEDS: FLUDROCORTISONE ACETATE 0.1 MG TABLET (FP) PO SCH (10:12)
[2022-04-13] MEDS: VITAMIN A 10,000 UNITS (3000 MCG) CAPSULE PO SCH (10:14)
[2022-04-13 10:15] LABS: BASO % 0.2 % (0-2.0); HEMATOCRIT 33.5 % (35.4-49); LYMPH % 15.5 % (8-40); MCH 29.6 pg (25.7-33.7); MCHC 32.8 g/dl (32.0-35.9); MEAN CELL VOLUME 90.1 fl (80-96); MEAN PLT VOLUME 7.5 fl (7.5-11.1); MONO % 5.1 % (3.8-10.2); NEUT % 79.2 % (42.8-82.8); PLATELET COUNT 324 10^3/uL (134-434); RBC 3.72 M/mm3 (4.00-5.60); RDW 15.2 % (11.9-15.9); WHITE BLOOD COUNT 7.8 K/mm3 (4.0-10.0)
[2022-04-13 10:28] LABS: CALCIUM 9.3 mg/dL (8.5-10.1)
[2022-04-13 10:29] LABS: BLOOD UREA NITROGEN 14.7 mg/dL (7-18)
[2022-04-13 10:32] LABS: CREATININE 0.9 mg/dL (0.55-1.3)
[2022-04-14] MEDS: oxyCODONE HCL 5 MG TABLET PO SCH ×7 (00:16→20:36)
[2022-04-14] MEDS ORDERED: INSULIN (NOVOLOG) ASPART 100 UNITS/ML 10ML VIAL ONE (05:30)
[2022-04-14] MEDS: PREGABALIN 100 MG CAPSULE PO SCH ×3 (05:46→21:35)
[2022-04-14] MEDS: INSULIN SLIDING SCALE (NOVOLOG) 1 VIAL SQ SCH ×3 (06:12→17:37)
[2022-04-14] MEDS: ZINC SULFATE 220 MG CAPSULE (FP) PO SCH (10:37)
[2022-04-14] MEDS: ASCORBIC ACID 250 MG TABLET (FP) PO SCH ×2 (10:37→21:35)
[2022-04-14] MEDS: PANTOPRAZOLE 40 MG TABLET PO SCH (10:37)
[2022-04-14] MEDS: ENOXAPARIN NA (PORCINE) 40 MG/0.4 ML DISP.SYRIN SQ SCH (10:38)
[2022-04-14] MEDS: MULTIVITAMINS THER W-MINERALS COMBO TABLET (FP) PO SCH (10:38)
[2022-04-14] MEDS: MIDODRINE HCL 5 MG TABLET PO SCH ×3 (10:38→17:23)
[2022-04-14] MEDS: CHOLECALCIFEROL (VIT D3) 1,000 UNIT (25 MCG) TABLET PO SCH (10:38)
[2022-04-14] MEDS: CYANOCOBALAMIN 1,000 MCG TABLET (FP) PO SCH (10:38)
[2022-04-14] MEDS: FLUDROCORTISONE ACETATE 0.1 MG TABLET (FP) PO SCH (10:39)
[2022-04-14] MEDS: VITAMIN A 10,000 UNITS (3000 MCG) CAPSULE PO SCH (10:40)
[2022-04-14] MEDS: BACLOFEN 10 MG TABLET (FP) PO SCH ×2 (10:41→21:37)
[2022-04-14] MEDS: AMINO ACIDS/PROTEIN HYDROLYS 30 ML LIQUID.PKT PO SCH (17:49)
[2022-04-14] MEDS: LACTATED RINGERS SOLUTION 1,000 ML IV SCH (21:04)
[2022-04-15] MEDS: oxyCODONE HCL 5 MG TABLET PO SCH ×7 (00:08→21:21)
[2022-04-15] MEDS: PREGABALIN 100 MG CAPSULE PO SCH ×3 (05:48→21:21)
[2022-04-15] MEDS: INSULIN SLIDING SCALE (NOVOLOG) 1 VIAL SQ SCH ×3 (06:23→16:34)
[2022-04-15] MEDS: AMINO ACIDS/PROTEIN HYDROLYS 30 ML LIQUID.PKT PO SCH ×2 (08:43→17:22)
[2022-04-15] MEDS: ENOXAPARIN NA (PORCINE) 40 MG/0.4 ML DISP.SYRIN SQ SCH (09:28)
[2022-04-15] MEDS: CHOLECALCIFEROL (VIT D3) 1,000 UNIT (25 MCG) TABLET PO SCH (09:29)
[2022-04-15] MEDS: VITAMIN A 10,000 UNITS (3000 MCG) CAPSULE PO SCH (09:30)
[2022-04-15] MEDS: MULTIVITAMINS THER W-MINERALS COMBO TABLET (FP) PO SCH (09:30)
[2022-04-15] MEDS: BACLOFEN 10 MG TABLET (FP) PO SCH ×2 (09:30→21:23)
[2022-04-15] MEDS: FLUDROCORTISONE ACETATE 0.1 MG TABLET (FP) PO SCH (09:30)
[2022-04-15] MEDS: CYANOCOBALAMIN 1,000 MCG TABLET (FP) PO SCH (09:30)
[2022-04-15] MEDS: PANTOPRAZOLE 40 MG TABLET PO SCH (09:30)
[2022-04-15] MEDS: ASCORBIC ACID 250 MG TABLET (FP) PO SCH ×2 (09:30→21:21)
[2022-04-15] MEDS: MIDODRINE HCL 5 MG TABLET PO SCH ×3 (09:30→17:22)
[2022-04-15] MEDS: ZINC SULFATE 220 MG CAPSULE (FP) PO SCH (09:30)
[2022-04-15 10:36] LABS: BASO % 0.4 % (0-2.0); EOS % 4.2 % (0-4.5); HEMATOCRIT 33.5 % (35.4-49); HEMOGLOBIN 10.9 GM/dL (11.7-16.9); LYMPH % 28.7 % (8-40); MCH 29.3 pg (25.7-33.7); MCHC 32.7 g/dl (32.0-35.9); MEAN CELL VOLUME 89.8 fl (80-96); MEAN PLT VOLUME 7.2 fl (7.5-11.1); MONO % 9.4 % (3.8-10.2); NEUT % 57.3 % (42.8-82.8); PLATELET COUNT 311 10^3/uL (134-434); RBC 3.73 M/mm3 (4.00-5.60); RDW 15.9 % (11.9-15.9); WHITE BLOOD COUNT 7.5 K/mm3 (4.0-10.0)
[2022-04-15 11:38] LABS: CALCIUM 9.2 mg/dL (8.5-10.1); CREATININE 0.8 mg/dL (0.55-1.3)
[2022-04-15 11:39] LABS: BLOOD UREA NITROGEN 15.5 mg/dL (7-18)
[2022-04-15] MEDS: SILVER SULFADIAZINE 1% TOP CREAM 50 GM JAR TP SCH ×2 (14:26→22:37)
[2022-04-15] MEDS: LACTATED RINGERS SOLUTION 1,000 ML IV SCH (21:23)
[2022-04-16] MEDS: oxyCODONE HCL 5 MG TABLET PO SCH ×6 (00:24→19:25)
[2022-04-16] MEDS: INSULIN SLIDING SCALE (NOVOLOG) 1 VIAL SQ SCH ×3 (06:30→16:54)
[2022-04-16] MEDS: PREGABALIN 100 MG CAPSULE PO SCH ×3 (06:30→21:08)
[2022-04-16] MEDS: AMINO ACIDS/PROTEIN HYDROLYS 30 ML LIQUID.PKT PO SCH ×2 (08:49→17:10)
[2022-04-16] MEDS: ZINC SULFATE 220 MG CAPSULE (FP) PO SCH (09:21)
[2022-04-16] MEDS: FLUDROCORTISONE ACETATE 0.1 MG TABLET (FP) PO SCH (09:21)
[2022-04-16] MEDS: CHOLECALCIFEROL (VIT D3) 1,000 UNIT (25 MCG) TABLET PO SCH (09:21)
[2022-04-16] MEDS: MULTIVITAMINS THER W-MINERALS COMBO TABLET (FP) PO SCH (09:21)
[2022-04-16] MEDS: ENOXAPARIN NA (PORCINE) 40 MG/0.4 ML DISP.SYRIN SQ SCH (09:21)
[2022-04-16] MEDS: ASCORBIC ACID 250 MG TABLET (FP) PO SCH ×2 (09:21→21:08)
[2022-04-16] MEDS: BACLOFEN 10 MG TABLET (FP) PO SCH ×2 (09:21→21:08)
[2022-04-16] MEDS: PANTOPRAZOLE 40 MG TABLET PO SCH (09:21)
[2022-04-16] MEDS: SILVER SULFADIAZINE 1% TOP CREAM 50 GM JAR TP SCH ×2 (09:22→21:08)
[2022-04-16] MEDS: VITAMIN A 10,000 UNITS (3000 MCG) CAPSULE PO SCH (09:22)
[2022-04-16] MEDS: MIDODRINE HCL 5 MG TABLET PO SCH ×3 (09:22→17:10)
[2022-04-16] MEDS: CYANOCOBALAMIN 1,000 MCG TABLET (FP) PO SCH (09:22)
[2022-04-16 10:28] LABS: BASO % 0.3 % (0-2.0); HEMATOCRIT 36.5 % (35.4-49); LYMPH % 21.2 % (8-40); MCH 29.6 pg (25.7-33.7); MCHC 32.9 g/dl (32.0-35.9); MEAN CELL VOLUME 90.2 fl (80-96); MEAN PLT VOLUME 7.1 fl (7.5-11.1); MONO % 8.1 % (3.8-10.2); NEUT % 65.4 % (42.8-82.8); PLATELET COUNT 359 10^3/uL (134-434); RBC 4.04 M/mm3 (4.00-5.60); RDW 15.6 % (11.9-15.9); WHITE BLOOD COUNT 7.3 K/mm3 (4.0-10.0)
[2022-04-16 11:29] LABS: BLOOD UREA NITROGEN 14.4 mg/dL (7-18); CALCIUM 9.5 mg/dL (8.5-10.1)
[2022-04-16 11:33] LABS: CREATININE 0.8 mg/dL (0.55-1.3)
[2022-04-16] MEDS: LACTATED RINGERS SOLUTION 1,000 ML IV SCH (22:25)
[2022-04-17] MEDS: oxyCODONE HCL 5 MG TABLET PO SCH ×8 (00:18→21:09)
[2022-04-17] MEDS: PREGABALIN 100 MG CAPSULE PO SCH ×3 (06:06→21:08)
[2022-04-17] MEDS: INSULIN SLIDING SCALE (NOVOLOG) 1 VIAL SQ SCH ×3 (06:09→16:22)
[2022-04-17] MEDS: AMINO ACIDS/PROTEIN HYDROLYS 30 ML LIQUID.PKT PO SCH ×2 (08:38→17:28)
[2022-04-17 09:13] LABS: BASO % 0.5 % (0-2.0); EOS % 6.6 % (0-4.5); HEMATOCRIT 36.4 % (35.4-49); HEMOGLOBIN 11.9 GM/dL (11.7-16.9); LYMPH % 27.8 % (8-40); MCH 29.5 pg (25.7-33.7); MCHC 32.8 g/dl (32.0-35.9); MEAN CELL VOLUME 89.9 fl (80-96); MEAN PLT VOLUME 7.3 fl (7.5-11.1); MONO % 9.1 % (3.8-10.2); PLATELET COUNT 353 10^3/uL (134-434); RBC 4.04 M/mm3 (4.00-5.60); RDW 15.7 % (11.9-15.9); WHITE BLOOD COUNT 8.3 K/mm3 (4.0-10.0)
[2022-04-17] MEDS: VITAMIN A 10,000 UNITS (3000 MCG) CAPSULE PO SCH (09:52)
[2022-04-17] MEDS: FLUDROCORTISONE ACETATE 0.1 MG TABLET (FP) PO SCH (09:52)
[2022-04-17] MEDS: ZINC SULFATE 220 MG CAPSULE (FP) PO SCH (09:54)
[2022-04-17] MEDS: BACLOFEN 10 MG TABLET (FP) PO SCH ×2 (09:54→21:08)
[2022-04-17] MEDS: PANTOPRAZOLE 40 MG TABLET PO SCH (09:55)
[2022-04-17] MEDS: MIDODRINE HCL 5 MG TABLET PO SCH ×3 (09:55→17:27)
[2022-04-17] MEDS: CHOLECALCIFEROL (VIT D3) 1,000 UNIT (25 MCG) TABLET PO SCH (09:56)
[2022-04-17] MEDS: MULTIVITAMINS THER W-MINERALS COMBO TABLET (FP) PO SCH (09:56)
[2022-04-17] MEDS: ENOXAPARIN NA (PORCINE) 40 MG/0.4 ML DISP.SYRIN SQ SCH (09:57)
[2022-04-17] MEDS: CYANOCOBALAMIN 1,000 MCG TABLET (FP) PO SCH (09:58)
[2022-04-17] MEDS: ASCORBIC ACID 250 MG TABLET (FP) PO SCH ×2 (09:58→21:09)
[2022-04-17 10:16] LABS: CALCIUM 9.6 mg/dL (8.5-10.1)
[2022-04-17 10:17] LABS: CREATININE 0.8 mg/dL (0.55-1.3)
[2022-04-17] MEDS: SILVER SULFADIAZINE 1% TOP CREAM 50 GM JAR TP SCH ×2 (15:48→21:38)
[2022-04-17] MEDS: LACTATED RINGERS SOLUTION 1,000 ML IV SCH (21:10)
[2022-04-18] MEDS: oxyCODONE HCL 5 MG TABLET PO SCH ×6 (01:14→20:18)
[2022-04-18] MEDS: PREGABALIN 100 MG CAPSULE PO SCH ×3 (07:02→21:20)
[2022-04-18] MEDS: INSULIN SLIDING SCALE (NOVOLOG) 1 VIAL SQ SCH ×3 (07:02→16:43)
[2022-04-18] MEDS: AMINO ACIDS/PROTEIN HYDROLYS 30 ML LIQUID.PKT PO SCH ×2 (08:47→16:47)
[2022-04-18] MEDS: ENOXAPARIN NA (PORCINE) 40 MG/0.4 ML DISP.SYRIN SQ SCH (09:38)
[2022-04-18] MEDS: ASCORBIC ACID 250 MG TABLET (FP) PO SCH ×2 (09:38→21:20)
[2022-04-18] MEDS: CHOLECALCIFEROL (VIT D3) 1,000 UNIT (25 MCG) TABLET PO SCH (09:38)
[2022-04-18] MEDS: PANTOPRAZOLE 40 MG TABLET PO SCH (09:38)
[2022-04-18] MEDS: BACLOFEN 10 MG TABLET (FP) PO SCH ×2 (09:38→21:21)
[2022-04-18] MEDS: MULTIVITAMINS THER W-MINERALS COMBO TABLET (FP) PO SCH (09:38)
[2022-04-18] MEDS: ZINC SULFATE 220 MG CAPSULE (FP) PO SCH (09:38)
[2022-04-18] MEDS: FLUDROCORTISONE ACETATE 0.1 MG TABLET (FP) PO SCH (09:39)
[2022-04-18] MEDS: VITAMIN A 10,000 UNITS (3000 MCG) CAPSULE PO SCH (09:40)
[2022-04-18] MEDS: CYANOCOBALAMIN 1,000 MCG TABLET (FP) PO SCH (09:40)
[2022-04-18] MEDS: MIDODRINE HCL 5 MG TABLET PO SCH ×3 (09:40→17:50)
[2022-04-18 09:44] LABS: BASO % 0.6 % (0-2.0); EOS % 8.2 % (0-4.5); HEMATOCRIT 35.9 % (35.4-49); HEMOGLOBIN 11.6 GM/dL (11.7-16.9); LYMPH % 31.1 % (8-40); MCH 29.1 pg (25.7-33.7); MCHC 32.4 g/dl (32.0-35.9); MEAN PLT VOLUME 7.5 fl (7.5-11.1); MONO % 8.8 % (3.8-10.2); NEUT % 51.3 % (42.8-82.8); PLATELET COUNT 364 10^3/uL (134-434); RBC 3.99 M/mm3 (4.00-5.60); RDW 15.9 % (11.9-15.9); WHITE BLOOD COUNT 7.3 K/mm3 (4.0-10.0)
[2022-04-18 10:40] LABS: CALCIUM 9.3 mg/dL (8.5-10.1)
[2022-04-18 10:41] LABS: BLOOD UREA NITROGEN 18.7 mg/dL (7-18)
[2022-04-18 10:44] LABS: CREATININE 0.8 mg/dL (0.55-1.3)
[2022-04-18] MEDS: SILVER SULFADIAZINE 1% TOP CREAM 50 GM JAR TP SCH ×2 (13:08→21:21)
[2022-04-18] MEDS: LACTATED RINGERS SOLUTION 1,000 ML IV SCH (21:20)
[2022-04-18] MEDS: MELATONIN 5 MG TABLETS PO PRN (22:54)
[2022-04-19] MEDS: oxyCODONE HCL 5 MG TABLET PO SCH ×6 (00:15→20:53)
[2022-04-19] MEDS: PREGABALIN 100 MG CAPSULE PO SCH ×3 (05:40→22:49)
[2022-04-19] MEDS: INSULIN SLIDING SCALE (NOVOLOG) 1 VIAL SQ SCH ×3 (07:00→16:30)
[2022-04-19] MEDS: AMINO ACIDS/PROTEIN HYDROLYS 30 ML LIQUID.PKT PO SCH ×2 (08:12→18:11)
[2022-04-19 08:51] LABS: BASO % 0.3 % (0-2.0); EOS % 2.2 % (0-4.5); HEMATOCRIT 38.6 % (35.4-49); HEMOGLOBIN 12.4 GM/dL (11.7-16.9); LYMPH % 12.1 % (8-40); MCH 29.2 pg (25.7-33.7); MCHC 32.2 g/dl (32.0-35.9); MEAN CELL VOLUME 90.5 fl (80-96); MEAN PLT VOLUME 7.3 fl (7.5-11.1); MONO % 6.3 % (3.8-10.2); NEUT % 79.1 % (42.8-82.8); PLATELET COUNT 387 10^3/uL (134-434); RBC 4.27 M/mm3 (4.00-5.60); RDW 15.9 % (11.9-15.9); WHITE BLOOD COUNT 14.7 K/mm3 (4.0-10.0)
[2022-04-19 09:12] LABS: CALCIUM 9.1 mg/dL (8.5-10.1)
[2022-04-19 09:13] LABS: BLOOD UREA NITROGEN 21.1 mg/dL (7-18)
[2022-04-19 09:16] LABS: CREATININE 0.9 mg/dL (0.55-1.3)
[2022-04-19] MEDS: CHOLECALCIFEROL (VIT D3) 1,000 UNIT (25 MCG) TABLET PO SCH (10:40)
[2022-04-19] MEDS: ASCORBIC ACID 250 MG TABLET (FP) PO SCH ×2 (10:43→22:49)
[2022-04-19] MEDS: BACLOFEN 10 MG TABLET (FP) PO SCH ×2 (10:43→22:49)
[2022-04-19] MEDS: ZINC SULFATE 220 MG CAPSULE (FP) PO SCH (10:43)
[2022-04-19] MEDS: MULTIVITAMINS THER W-MINERALS COMBO TABLET (FP) PO SCH (10:43)
[2022-04-19] MEDS: PANTOPRAZOLE 40 MG TABLET PO SCH (10:43)
[2022-04-19] MEDS: FLUDROCORTISONE ACETATE 0.1 MG TABLET (FP) PO SCH (10:44)
[2022-04-19] MEDS: ENOXAPARIN NA (PORCINE) 40 MG/0.4 ML DISP.SYRIN SQ SCH (10:44)
[2022-04-19] MEDS: MIDODRINE HCL 5 MG TABLET PO SCH ×3 (10:44→18:11)
[2022-04-19] MEDS: VITAMIN A 10,000 UNITS (3000 MCG) CAPSULE PO SCH (10:45)
[2022-04-19] MEDS: CYANOCOBALAMIN 1,000 MCG TABLET (FP) PO SCH (10:45)
[2022-04-19] MEDS: SILVER SULFADIAZINE 1% TOP CREAM 50 GM JAR TP SCH ×2 (10:46→22:50)
[2022-04-19] MEDS: LACTATED RINGERS SOLUTION 1,000 ML IV SCH (22:38)
[2022-04-19 22:43] VITALS: BMI 27.2
[2022-04-20] MEDS: oxyCODONE HCL 5 MG TABLET PO SCH ×6 (01:04→21:11)
[2022-04-20] MEDS: PREGABALIN 100 MG CAPSULE PO SCH ×3 (06:43→21:12)
[2022-04-20] MEDS: INSULIN SLIDING SCALE (NOVOLOG) 1 VIAL SQ SCH (06:43)
[2022-04-20] MEDS: AMINO ACIDS/PROTEIN HYDROLYS 30 ML LIQUID.PKT PO SCH ×2 (08:45→17:24)
[2022-04-20] MEDS: ENOXAPARIN NA (PORCINE) 40 MG/0.4 ML DISP.SYRIN SQ SCH (09:01)
[2022-04-20] MEDS: ASCORBIC ACID 250 MG TABLET (FP) PO SCH ×2 (09:01→21:12)
[2022-04-20] MEDS: VITAMIN A 10,000 UNITS (3000 MCG) CAPSULE PO SCH (09:02)
[2022-04-20] MEDS: FLUDROCORTISONE ACETATE 0.1 MG TABLET (FP) PO SCH (09:02)
[2022-04-20] MEDS: MULTIVITAMINS THER W-MINERALS COMBO TABLET (FP) PO SCH (09:02)
[2022-04-20] MEDS: CHOLECALCIFEROL (VIT D3) 1,000 UNIT (25 MCG) TABLET PO SCH (09:04)
[2022-04-20] MEDS: BACLOFEN 10 MG TABLET (FP) PO SCH ×2 (09:04→21:12)
[2022-04-20] MEDS: MIDODRINE HCL 5 MG TABLET PO SCH ×3 (09:04→17:24)
[2022-04-20] MEDS: PANTOPRAZOLE 40 MG TABLET PO SCH (09:04)
[2022-04-20] MEDS: ZINC SULFATE 220 MG CAPSULE (FP) PO SCH (09:04)
[2022-04-20] MEDS: SILVER SULFADIAZINE 1% TOP CREAM 50 GM JAR TP SCH ×2 (09:04→23:06)
[2022-04-20] MEDS: CYANOCOBALAMIN 1,000 MCG TABLET (FP) PO SCH (09:05)
[2022-04-20 10:38] LABS: BASO % 0.2 % (0-2.0); EOS % 2.9 % (0-4.5); HEMATOCRIT 36.3 % (35.4-49); HEMOGLOBIN 11.8 GM/dL (11.7-16.9); LYMPH % 13.7 % (8-40); MCH 29.3 pg (25.7-33.7); MCHC 32.5 g/dl (32.0-35.9); MEAN PLT VOLUME 7.5 fl (7.5-11.1); MONO % 7.3 % (3.8-10.2); NEUT % 75.9 % (42.8-82.8); PLATELET COUNT 320 10^3/uL (134-434); RBC 4.03 M/mm3 (4.00-5.60); WHITE BLOOD COUNT 8.9 K/mm3 (4.0-10.0)
[2022-04-20 10:54] LABS: CALCIUM 8.6 mg/dL (8.5-10.1)
[2022-04-20 10:55] LABS: BLOOD UREA NITROGEN 17.3 mg/dL (7-18)
[2022-04-20 10:58] LABS: CREATININE 0.8 mg/dL (0.55-1.3)
[2022-04-20] MEDS: LACTATED RINGERS SOLUTION 1,000 ML IV SCH (21:12)
[2022-04-21] MEDS: oxyCODONE HCL 5 MG TABLET PO SCH ×6 (00:58→20:30)
[2022-04-21] MEDS: PREGABALIN 100 MG CAPSULE PO SCH ×3 (05:28→21:23)
[2022-04-21] MEDS: AMINO ACIDS/PROTEIN HYDROLYS 30 ML LIQUID.PKT PO SCH ×2 (08:32→17:06)
[2022-04-21 09:25] LABS: BASO % 0.5 % (0-2.0); EOS % 4.3 % (0-4.5); HEMATOCRIT 37.9 % (35.4-49); HEMOGLOBIN 12.2 GM/dL (11.7-16.9); LYMPH % 24.8 % (8-40); MCH 29.2 pg (25.7-33.7); MCHC 32.1 g/dl (32.0-35.9); MEAN CELL VOLUME 90.9 fl (80-96); MEAN PLT VOLUME 7.4 fl (7.5-11.1); MONO % 11.2 % (3.8-10.2); NEUT % 59.2 % (42.8-82.8); PLATELET COUNT 304 10^3/uL (134-434); RBC 4.16 M/mm3 (4.00-5.60); RDW 15.8 % (11.9-15.9); WHITE BLOOD COUNT 8.6 K/mm3 (4.0-10.0)
[2022-04-21] MEDS: CHOLECALCIFEROL (VIT D3) 1,000 UNIT (25 MCG) TABLET PO SCH (10:00)
[2022-04-21] MEDS: MULTIVITAMINS THER W-MINERALS COMBO TABLET (FP) PO SCH (10:23)
[2022-04-21] MEDS: PANTOPRAZOLE 40 MG TABLET PO SCH (10:23)
[2022-04-21] MEDS: ZINC SULFATE 220 MG CAPSULE (FP) PO SCH (10:23)
[2022-04-21] MEDS: ASCORBIC ACID 250 MG TABLET (FP) PO SCH ×2 (10:23→21:23)
[2022-04-21] MEDS: BACLOFEN 10 MG TABLET (FP) PO SCH ×2 (10:23→21:23)
[2022-04-21] MEDS: ENOXAPARIN NA (PORCINE) 40 MG/0.4 ML DISP.SYRIN SQ SCH (10:23)
[2022-04-21] MEDS: CYANOCOBALAMIN 1,000 MCG TABLET (FP) PO SCH (10:24)
[2022-04-21] MEDS: FLUDROCORTISONE ACETATE 0.1 MG TABLET (FP) PO SCH (10:24)
[2022-04-21] MEDS: MIDODRINE HCL 5 MG TABLET PO SCH ×3 (10:26→17:53)
[2022-04-21] MEDS: VITAMIN A 10,000 UNITS (3000 MCG) CAPSULE PO SCH (10:26)
[2022-04-21] MEDS: SILVER SULFADIAZINE 1% TOP CREAM 50 GM JAR TP SCH ×2 (12:01→21:23)
[2022-04-21] MEDS ORDERED: LACTATED RINGERS SOLUTION 1,000 ML IV SCH (16:25)
[2022-04-22] MEDS: oxyCODONE HCL 5 MG TABLET PO SCH ×7 (00:05→23:03)
[2022-04-22] MEDS: PREGABALIN 100 MG CAPSULE PO SCH ×3 (05:59→21:52)
[2022-04-22] MEDS: AMINO ACIDS/PROTEIN HYDROLYS 30 ML LIQUID.PKT PO SCH ×2 (09:12→16:59)
[2022-04-22] MEDS: VITAMIN A 10,000 UNITS (3000 MCG) CAPSULE PO SCH (09:31)
[2022-04-22] MEDS: FLUDROCORTISONE ACETATE 0.1 MG TABLET (FP) PO SCH (09:31)
[2022-04-22] MEDS: PANTOPRAZOLE 40 MG TABLET PO SCH (09:32)
[2022-04-22] MEDS: MIDODRINE HCL 5 MG TABLET PO SCH ×3 (09:32→17:28)
[2022-04-22] MEDS: ZINC SULFATE 220 MG CAPSULE (FP) PO SCH (09:32)
[2022-04-22] MEDS: MULTIVITAMINS THER W-MINERALS COMBO TABLET (FP) PO SCH (09:32)
[2022-04-22] MEDS: ASCORBIC ACID 250 MG TABLET (FP) PO SCH ×2 (09:32→21:51)
[2022-04-22] MEDS: BACLOFEN 10 MG TABLET (FP) PO SCH ×2 (09:32→21:52)
[2022-04-22] MEDS: CYANOCOBALAMIN 1,000 MCG TABLET (FP) PO SCH (09:32)
[2022-04-22] MEDS: CHOLECALCIFEROL (VIT D3) 1,000 UNIT (25 MCG) TABLET PO SCH (09:32)
[2022-04-22] MEDS ORDERED: MIDAZOLAM HCL 2 MG/2 ML SINGLE DOSE VIAL ONE (10:18)
[2022-04-22] MEDS ORDERED: PROPOFOL 20 ML ONE (10:18)
[2022-04-22] MEDS ORDERED: FENTANYL CITRATE/PF 50 MCG/ML VIAL ONE ×8 (10:18→15:13)
[2022-04-22] MEDS ORDERED: ROCURONIUM BROMIDE 50 MG/5 ML SYRINGE ONE ×2 (10:18→13:17)
[2022-04-22 10:58] LABS: BASO % 0.3 % (0-2.0); EOS % 3.3 % (0-4.5); HEMOGLOBIN 11.2 GM/dL (11.7-16.9); LYMPH % 19.6 % (8-40); MCH 29.5 pg (25.7-33.7); MCHC 32.8 g/dl (32.0-35.9); MEAN CELL VOLUME 89.9 fl (80-96); MEAN PLT VOLUME 7.4 fl (7.5-11.1); MONO % 10.3 % (3.8-10.2); NEUT % 66.5 % (42.8-82.8); PLATELET COUNT 329 10^3/uL (134-434); RBC 3.79 M/mm3 (4.00-5.60); WHITE BLOOD COUNT 8.9 K/mm3 (4.0-10.0)
[2022-04-22 11:10] LABS: CALCIUM 9.2 mg/dL (8.5-10.1)
[2022-04-22 11:16] LABS: CREATININE 0.8 mg/dL (0.55-1.3)
[2022-04-22] MEDS: SILVER SULFADIAZINE 1% TOP CREAM 50 GM JAR TP SCH ×2 (11:41→21:52)
[2022-04-22] MEDS ORDERED: cefOXitin SODIUM 2 GM VIAL (RESTRICTED TO ID) IVPB ONE ×2 (11:49→11:50)
[2022-04-22] MEDS ORDERED: HEPARIN NA (PORCINE) 5,000 UNITS/ML 1ML VIAL ONE (11:55)
[2022-04-22] MEDS ORDERED: DEXAMETHASONE SOD PHOSPHATE 4 MG/1 ML VIAL ONE (12:36)
[2022-04-22] MEDS ORDERED: INDOCYANINE GREEN 25 MG/10 ML VIAL IVPUSH ONE (13:12)
[2022-04-22] MEDS ORDERED: GLYCOPYRROLATE 0.2 MG/1 ML VIAL ONE ×3 (13:32→14:07)
[2022-04-22] MEDS ORDERED: NEOSTIGMINE METHYLSULFATE 0.5 MG/ML - 10 ML MDV ONE (13:32)
[2022-04-22] MEDS ORDERED: ONDANSETRON 4 MG/2 ML VIAL ONE (14:05)
[2022-04-22] MEDS ORDERED: ONDANSETRON 4 MG/2 ML VIAL IVPUSH PRN (14:51)
[2022-04-22] MEDS ORDERED: FENTANYL CITRATE/PF 50 MCG/ML VIAL IVPUSH PRN (14:51)
[2022-04-22] MEDS ORDERED: MELATONIN 5 MG TABLETS PO PRN (14:54)
[2022-04-22] MEDS: LACTATED RINGERS SOLUTION 1,000 ML IV SCH ×2 (16:00→16:47)
[2022-04-23] MEDS: oxyCODONE HCL 5 MG TABLET PO SCH ×5 (04:04→20:14)
[2022-04-23] MEDS: PREGABALIN 100 MG CAPSULE PO SCH ×3 (06:18→22:00)
[2022-04-23] MEDS: AMINO ACIDS/PROTEIN HYDROLYS 30 ML LIQUID.PKT PO SCH ×2 (09:00→17:11)
[2022-04-23] MEDS: CHOLECALCIFEROL (VIT D3) 1,000 UNIT (25 MCG) TABLET PO SCH (09:31)
[2022-04-23] MEDS: VITAMIN A 10,000 UNITS (3000 MCG) CAPSULE PO SCH (09:32)
[2022-04-23] MEDS: ZINC SULFATE 220 MG CAPSULE (FP) PO SCH (09:32)
[2022-04-23] MEDS: FLUDROCORTISONE ACETATE 0.1 MG TABLET (FP) PO SCH (09:33)
[2022-04-23] MEDS: CYANOCOBALAMIN 1,000 MCG TABLET (FP) PO SCH (09:33)
[2022-04-23] MEDS: MULTIVITAMINS THER W-MINERALS COMBO TABLET (FP) PO SCH (09:33)
[2022-04-23] MEDS: BACLOFEN 10 MG TABLET (FP) PO SCH ×2 (09:33→22:00)
[2022-04-23] MEDS: PANTOPRAZOLE 40 MG TABLET PO SCH (09:33)
[2022-04-23] MEDS: ASCORBIC ACID 250 MG TABLET (FP) PO SCH ×2 (09:33→22:00)
[2022-04-23] MEDS: MIDODRINE HCL 5 MG TABLET PO SCH ×3 (09:34→17:11)
[2022-04-23] MEDS: SILVER SULFADIAZINE 1% TOP CREAM 50 GM JAR TP SCH ×2 (09:34→22:01)
[2022-04-23 10:19] LABS: BASO % 0.1 % (0-2.0); EOS % 0.1 % (0-4.5); HEMATOCRIT 32.6 % (35.4-49); HEMOGLOBIN 10.9 GM/dL (11.7-16.9); LYMPH % 17.1 % (8-40); MCHC 33.6 g/dl (32.0-35.9); MEAN CELL VOLUME 89.4 fl (80-96); MEAN PLT VOLUME 7.2 fl (7.5-11.1); MONO % 7.9 % (3.8-10.2); NEUT % 74.8 % (42.8-82.8); PLATELET COUNT 319 10^3/uL (134-434); RBC 3.64 M/mm3 (4.00-5.60); RDW 15.5 % (11.9-15.9); WHITE BLOOD COUNT 8.2 K/mm3 (4.0-10.0)
[2022-04-23 10:41] LABS: CALCIUM 8.9 mg/dL (8.5-10.1)
[2022-04-23 10:42] LABS: BLOOD UREA NITROGEN 16.2 mg/dL (7-18)
[2022-04-23 10:48] LABS: CREATININE 0.9 mg/dL (0.55-1.3)
[2022-04-23] MEDS: LACTATED RINGERS SOLUTION 1,000 ML IV SCH ×2 (15:11→15:14)
[2022-04-23] MEDS ORDERED: INSULIN SLIDING SCALE (NOVOLOG) 1 VIAL SQ SCH (16:30)
[2022-04-24] MEDS: oxyCODONE HCL 5 MG TABLET PO SCH ×6 (00:08→21:33)
[2022-04-24] MEDS: SILVER SULFADIAZINE 1% TOP CREAM 50 GM JAR TP SCH ×3 (02:09→23:19)
[2022-04-24] MEDS: PREGABALIN 100 MG CAPSULE PO SCH ×3 (05:56→21:32)
[2022-04-24] MEDS: AMINO ACIDS/PROTEIN HYDROLYS 30 ML LIQUID.PKT PO SCH ×2 (08:12→17:19)
[2022-04-24] MEDS: MULTIVITAMINS THER W-MINERALS COMBO TABLET (FP) PO SCH (09:30)
[2022-04-24] MEDS: ZINC SULFATE 220 MG CAPSULE (FP) PO SCH (09:30)
[2022-04-24] MEDS: CHOLECALCIFEROL (VIT D3) 1,000 UNIT (25 MCG) TABLET PO SCH (09:30)
[2022-04-24] MEDS: PANTOPRAZOLE 40 MG TABLET PO SCH (09:30)
[2022-04-24] MEDS: BACLOFEN 10 MG TABLET (FP) PO SCH ×2 (09:30→21:33)
[2022-04-24] MEDS: ASCORBIC ACID 250 MG TABLET (FP) PO SCH ×2 (09:30→21:33)
[2022-04-24] MEDS: VITAMIN A 10,000 UNITS (3000 MCG) CAPSULE PO SCH (09:33)
[2022-04-24] MEDS: FLUDROCORTISONE ACETATE 0.1 MG TABLET (FP) PO SCH (09:34)
[2022-04-24] MEDS: MIDODRINE HCL 5 MG TABLET PO SCH ×3 (09:35→17:19)
[2022-04-24] MEDS: CYANOCOBALAMIN 1,000 MCG TABLET (FP) PO SCH (09:35)
[2022-04-24 09:50] LABS: BASO % 0.3 % (0-2.0); EOS % 1.8 % (0-4.5); HEMOGLOBIN 11.1 GM/dL (11.7-16.9); LYMPH % 19.1 % (8-40); MCH 29.2 pg (25.7-33.7); MCHC 32.6 g/dl (32.0-35.9); MEAN CELL VOLUME 89.6 fl (80-96); MEAN PLT VOLUME 7.3 fl (7.5-11.1); MONO % 8.1 % (3.8-10.2); NEUT % 70.7 % (42.8-82.8); PLATELET COUNT 325 10^3/uL (134-434); RBC 3.79 M/mm3 (4.00-5.60); RDW 15.4 % (11.9-15.9); WHITE BLOOD COUNT 8.8 K/mm3 (4.0-10.0)
[2022-04-24 10:14] LABS: CALCIUM 8.8 mg/dL (8.5-10.1)
[2022-04-24 10:15] LABS: BLOOD UREA NITROGEN 15.8 mg/dL (7-18)
[2022-04-24 10:18] LABS: CREATININE 0.8 mg/dL (0.55-1.3)
[2022-04-24] MEDS: KCL 10 MEQ IVPB 10 MEQ/100 ML INFUS.BAG IVPB SCH ×3 (12:29→14:17)
[2022-04-24] MEDS: LACTATED RINGERS SOLUTION 1,000 ML IV SCH ×2 (17:19)
[2022-04-25] MEDS: oxyCODONE HCL 5 MG TABLET PO SCH ×6 (00:01→21:31)
[2022-04-25] MEDS: PREGABALIN 100 MG CAPSULE PO SCH ×3 (05:17→21:31)
[2022-04-25] MEDS: AMINO ACIDS/PROTEIN HYDROLYS 30 ML LIQUID.PKT PO SCH ×2 (08:23→17:06)
[2022-04-25] MEDS: ASCORBIC ACID 250 MG TABLET (FP) PO SCH ×2 (09:32→21:30)
[2022-04-25] MEDS: CHOLECALCIFEROL (VIT D3) 1,000 UNIT (25 MCG) TABLET PO SCH (09:32)
[2022-04-25] MEDS: BACLOFEN 10 MG TABLET (FP) PO SCH ×2 (09:32→21:30)
[2022-04-25] MEDS: ZINC SULFATE 220 MG CAPSULE (FP) PO SCH (09:32)
[2022-04-25] MEDS: CYANOCOBALAMIN 1,000 MCG TABLET (FP) PO SCH (09:32)
[2022-04-25] MEDS: MULTIVITAMINS THER W-MINERALS COMBO TABLET (FP) PO SCH (09:32)
[2022-04-25] MEDS: MIDODRINE HCL 5 MG TABLET PO SCH ×3 (09:32→17:06)
[2022-04-25] MEDS: PANTOPRAZOLE 40 MG TABLET PO SCH (09:33)
[2022-04-25] MEDS: VITAMIN A 10,000 UNITS (3000 MCG) CAPSULE PO SCH (09:33)
[2022-04-25] MEDS: FLUDROCORTISONE ACETATE 0.1 MG TABLET (FP) PO SCH (09:33)
[2022-04-25] MEDS: SILVER SULFADIAZINE 1% TOP CREAM 50 GM JAR TP SCH ×2 (09:39→23:04)
[2022-04-25] MEDS: LACTATED RINGERS SOLUTION 1,000 ML IV SCH ×2 (15:16→15:17)
[2022-04-25] MEDS: COLLAGENASE CLOSTRIDIUM HIST. 30 GRAMS TUBE TP SCH (21:32)
[2022-04-26] MEDS: oxyCODONE HCL 5 MG TABLET PO SCH ×7 (00:03→23:52)
[2022-04-26] MEDS: PREGABALIN 100 MG CAPSULE PO SCH ×3 (05:45→21:06)
[2022-04-26] MEDS: AMINO ACIDS/PROTEIN HYDROLYS 30 ML LIQUID.PKT PO SCH ×2 (08:13→17:28)
[2022-04-26] MEDS: CHOLECALCIFEROL (VIT D3) 1,000 UNIT (25 MCG) TABLET PO SCH (10:17)
[2022-04-26] MEDS: FLUDROCORTISONE ACETATE 0.1 MG TABLET (FP) PO SCH (10:18)
[2022-04-26] MEDS: BACLOFEN 10 MG TABLET (FP) PO SCH ×2 (10:18→21:06)
[2022-04-26] MEDS: ASCORBIC ACID 250 MG TABLET (FP) PO SCH ×2 (10:18→21:06)
[2022-04-26] MEDS: PANTOPRAZOLE 40 MG TABLET PO SCH (10:18)
[2022-04-26] MEDS: ZINC SULFATE 220 MG CAPSULE (FP) PO SCH (10:18)
[2022-04-26] MEDS: VITAMIN A 10,000 UNITS (3000 MCG) CAPSULE PO SCH (10:19)
[2022-04-26] MEDS: MIDODRINE HCL 5 MG TABLET PO SCH ×3 (10:19→17:29)
[2022-04-26] MEDS: COLLAGENASE CLOSTRIDIUM HIST. 30 GRAMS TUBE TP SCH (10:20)
[2022-04-26] MEDS: MULTIVITAMINS THER W-MINERALS COMBO TABLET (FP) PO SCH (10:20)
[2022-04-26] MEDS: CYANOCOBALAMIN 1,000 MCG TABLET (FP) PO SCH (10:20)
[2022-04-26] MEDS: SILVER SULFADIAZINE 1% TOP CREAM 50 GM JAR TP SCH ×2 (10:21→21:06)
[2022-04-26 11:03] LABS: BASO % 0.2 % (0-2.0); EOS % 2.7 % (0-4.5); HEMATOCRIT 33.3 % (35.4-49); HEMOGLOBIN 10.8 GM/dL (11.7-16.9); LYMPH % 19.4 % (8-40); MCH 29.1 pg (25.7-33.7); MCHC 32.4 g/dl (32.0-35.9); MEAN PLT VOLUME 7.6 fl (7.5-11.1); MONO % 6.4 % (3.8-10.2); NEUT % 71.3 % (42.8-82.8); PLATELET COUNT 319 10^3/uL (134-434); RDW 15.2 % (11.9-15.9)
[2022-04-26 11:17] LABS: CALCIUM 8.7 mg/dL (8.5-10.1)
[2022-04-26 11:18] LABS: BLOOD UREA NITROGEN 15.9 mg/dL (7-18)
[2022-04-26 11:21] LABS: CREATININE 0.8 mg/dL (0.55-1.3)
[2022-04-26] MEDS: LACTATED RINGERS SOLUTION 1,000 ML IV SCH ×4 (13:34→23:52)
[2022-04-26] MEDS: KCL 10 MEQ IVPB 10 MEQ/100 ML INFUS.BAG IVPB SCH ×3 (19:00→21:00)
[2022-04-27] MEDS: oxyCODONE HCL 5 MG TABLET PO SCH ×5 (04:08→20:27)
[2022-04-27] MEDS: PREGABALIN 100 MG CAPSULE PO SCH ×3 (05:35→22:29)
[2022-04-27] MEDS: AMINO ACIDS/PROTEIN HYDROLYS 30 ML LIQUID.PKT PO SCH ×2 (08:06→17:11)
[2022-04-27] MEDS: ZINC SULFATE 220 MG CAPSULE (FP) PO SCH (09:42)
[2022-04-27] MEDS: BACLOFEN 10 MG TABLET (FP) PO SCH ×2 (09:42→22:29)
[2022-04-27] MEDS: CHOLECALCIFEROL (VIT D3) 1,000 UNIT (25 MCG) TABLET PO SCH (09:42)
[2022-04-27] MEDS: MULTIVITAMINS THER W-MINERALS COMBO TABLET (FP) PO SCH (09:42)
[2022-04-27] MEDS: PANTOPRAZOLE 40 MG TABLET PO SCH (09:42)
[2022-04-27] MEDS: ASCORBIC ACID 250 MG TABLET (FP) PO SCH ×2 (09:42→22:29)
[2022-04-27] MEDS: FLUDROCORTISONE ACETATE 0.1 MG TABLET (FP) PO SCH (09:43)
[2022-04-27] MEDS: VITAMIN A 10,000 UNITS (3000 MCG) CAPSULE PO SCH (09:43)
[2022-04-27] MEDS: MIDODRINE HCL 5 MG TABLET PO SCH ×3 (09:43→17:12)
[2022-04-27] MEDS: CYANOCOBALAMIN 1,000 MCG TABLET (FP) PO SCH (09:47)
[2022-04-27] MEDS: COLLAGENASE CLOSTRIDIUM HIST. 30 GRAMS TUBE TP SCH (09:57)
[2022-04-27] MEDS: SILVER SULFADIAZINE 1% TOP CREAM 50 GM JAR TP SCH ×2 (09:57→22:30)
[2022-04-27] MEDS: KCL 10 MEQ IVPB 10 MEQ/100 ML INFUS.BAG IVPB SCH ×3 (12:53→14:46)
[2022-04-27] MEDS: LACTATED RINGERS SOLUTION 1,000 ML IV SCH ×2 (15:10→17:11)
[2022-04-28] MEDS: oxyCODONE HCL 5 MG TABLET PO SCH ×6 (01:02→20:04)
[2022-04-28] MEDS: PREGABALIN 100 MG CAPSULE PO SCH ×3 (06:09→21:17)
[2022-04-28] MEDS: AMINO ACIDS/PROTEIN HYDROLYS 30 ML LIQUID.PKT PO SCH ×2 (07:48→16:59)
[2022-04-28] MEDS: ASCORBIC ACID 250 MG TABLET (FP) PO SCH ×2 (09:32→21:17)
[2022-04-28] MEDS: ZINC SULFATE 220 MG CAPSULE (FP) PO SCH (09:32)
[2022-04-28] MEDS: PANTOPRAZOLE 40 MG TABLET PO SCH (09:32)
[2022-04-28] MEDS: CHOLECALCIFEROL (VIT D3) 1,000 UNIT (25 MCG) TABLET PO SCH (09:32)
[2022-04-28] MEDS: BACLOFEN 10 MG TABLET (FP) PO SCH ×2 (09:32→21:17)
[2022-04-28] MEDS: MIDODRINE HCL 5 MG TABLET PO SCH ×3 (09:33→16:59)
[2022-04-28] MEDS: FLUDROCORTISONE ACETATE 0.1 MG TABLET (FP) PO SCH (09:33)
[2022-04-28] MEDS: CYANOCOBALAMIN 1,000 MCG TABLET (FP) PO SCH (09:34)
[2022-04-28] MEDS: VITAMIN A 10,000 UNITS (3000 MCG) CAPSULE PO SCH (09:34)
[2022-04-28] MEDS: MULTIVITAMINS THER W-MINERALS COMBO TABLET (FP) PO SCH (09:35)
[2022-04-28] MEDS: COLLAGENASE CLOSTRIDIUM HIST. 30 GRAMS TUBE TP SCH (09:36)
[2022-04-28] MEDS: SILVER SULFADIAZINE 1% TOP CREAM 50 GM JAR TP SCH ×2 (09:36→21:17)
[2022-04-28 11:50] LABS: BASO % 0.3 % (0-2.0); HEMATOCRIT 33.7 % (35.4-49); HEMOGLOBIN 11.1 GM/dL (11.7-16.9); MCH 29.4 pg (25.7-33.7); MEAN CELL VOLUME 89.2 fl (80-96); MEAN PLT VOLUME 7.7 fl (7.5-11.1); MONO % 9.2 % (3.8-10.2); NEUT % 69.5 % (42.8-82.8); PLATELET COUNT 311 10^3/uL (134-434); RBC 3.78 M/mm3 (4.00-5.60); RDW 15.5 % (11.9-15.9); WHITE BLOOD COUNT 9.1 K/mm3 (4.0-10.0)
[2022-04-28 12:15] LABS: CALCIUM 8.6 mg/dL (8.5-10.1)
[2022-04-28 12:32] LABS: CREATININE 0.8 mg/dL (0.55-1.3)
[2022-04-28] MEDS: LACTATED RINGERS SOLUTION 1,000 ML IV SCH ×2 (16:15)
[2022-04-29] MEDS: oxyCODONE HCL 5 MG TABLET PO SCH ×8 (00:18→21:00)
[2022-04-29] MEDS: LACTATED RINGERS SOLUTION 1,000 ML IV SCH (00:57)
[2022-04-29] MEDS: PREGABALIN 100 MG CAPSULE PO SCH ×3 (06:28→21:14)
[2022-04-29] MEDS: AMINO ACIDS/PROTEIN HYDROLYS 30 ML LIQUID.PKT PO SCH ×2 (08:16→17:14)
[2022-04-29] MEDS: ZINC SULFATE 220 MG CAPSULE (FP) PO SCH (09:28)
[2022-04-29] MEDS: MIDODRINE HCL 5 MG TABLET PO SCH ×3 (09:28→17:14)
[2022-04-29] MEDS: PANTOPRAZOLE 40 MG TABLET PO SCH (09:28)
[2022-04-29] MEDS: FLUDROCORTISONE ACETATE 0.1 MG TABLET (FP) PO SCH (09:28)
[2022-04-29] MEDS: VITAMIN A 10,000 UNITS (3000 MCG) CAPSULE PO SCH (09:28)
[2022-04-29] MEDS: BACLOFEN 10 MG TABLET (FP) PO SCH ×2 (09:28→21:14)
[2022-04-29] MEDS: ASCORBIC ACID 250 MG TABLET (FP) PO SCH ×2 (09:29→21:14)
[2022-04-29] MEDS: CYANOCOBALAMIN 1,000 MCG TABLET (FP) PO SCH (09:29)
[2022-04-29] MEDS: CHOLECALCIFEROL (VIT D3) 1,000 UNIT (25 MCG) TABLET PO SCH (09:29)
[2022-04-29] MEDS: MULTIVITAMINS THER W-MINERALS COMBO TABLET (FP) PO SCH (09:29)
[2022-04-29] MEDS: COLLAGENASE CLOSTRIDIUM HIST. 30 GRAMS TUBE TP SCH (09:31)
[2022-04-29] MEDS: SILVER SULFADIAZINE 1% TOP CREAM 50 GM JAR TP SCH ×2 (09:31→21:15)
[2022-04-29 12:23] LABS: BASO % 0.4 % (0-2.0); EOS % 2.8 % (0-4.5); MCH 29.1 pg (25.7-33.7); MCHC 32.5 g/dl (32.0-35.9); MEAN CELL VOLUME 89.6 fl (80-96); MEAN PLT VOLUME 7.6 fl (7.5-11.1); MONO % 9.8 % (3.8-10.2); PLATELET COUNT 305 10^3/uL (134-434); RBC 3.79 M/mm3 (4.00-5.60); RDW 15.2 % (11.9-15.9); WHITE BLOOD COUNT 8.9 K/mm3 (4.0-10.0)
[2022-04-29 12:49] LABS: BLOOD UREA NITROGEN 13.5 mg/dL (7-18)
[2022-04-29 12:52] LABS: CREATININE 0.8 mg/dL (0.55-1.3)
[2022-04-30] MEDS: oxyCODONE HCL 5 MG TABLET PO SCH ×6 (00:59→21:31)
[2022-04-30] MEDS: PREGABALIN 100 MG CAPSULE PO SCH ×3 (05:29→21:31)
[2022-04-30] MEDS: HEPARIN NA (PORCINE) 5,000 UNITS/ML 1ML VIAL SQ SCH ×3 (06:55→21:31)
[2022-04-30] MEDS: AMINO ACIDS/PROTEIN HYDROLYS 30 ML LIQUID.PKT PO SCH ×2 (07:57→17:11)
[2022-04-30] MEDS: BACLOFEN 10 MG TABLET (FP) PO SCH ×2 (09:22→21:31)
[2022-04-30] MEDS: PANTOPRAZOLE 40 MG TABLET PO SCH (09:22)
[2022-04-30] MEDS: ASCORBIC ACID 250 MG TABLET (FP) PO SCH ×2 (09:22→21:31)
[2022-04-30] MEDS: ZINC SULFATE 220 MG CAPSULE (FP) PO SCH (09:22)
[2022-04-30] MEDS: CHOLECALCIFEROL (VIT D3) 1,000 UNIT (25 MCG) TABLET PO SCH (09:22)
[2022-04-30] MEDS: CYANOCOBALAMIN 1,000 MCG TABLET (FP) PO SCH (09:23)
[2022-04-30] MEDS: VITAMIN A 10,000 UNITS (3000 MCG) CAPSULE PO SCH (09:23)
[2022-04-30] MEDS: MIDODRINE HCL 5 MG TABLET PO SCH ×3 (09:23→17:11)
[2022-04-30] MEDS: FLUDROCORTISONE ACETATE 0.1 MG TABLET (FP) PO SCH (09:24)
[2022-04-30] MEDS: MULTIVITAMINS THER W-MINERALS COMBO TABLET (FP) PO SCH (09:24)
[2022-04-30] MEDS: COLLAGENASE CLOSTRIDIUM HIST. 30 GRAMS TUBE TP SCH (09:25)
[2022-04-30] MEDS: SILVER SULFADIAZINE 1% TOP CREAM 50 GM JAR TP SCH ×2 (09:25→21:30)
[2022-05-01] MEDS: oxyCODONE HCL 5 MG TABLET PO SCH ×6 (00:42→21:06)
[2022-05-01] MEDS: AMINO ACIDS/PROTEIN HYDROLYS 30 ML LIQUID.PKT PO SCH ×2 (08:22→16:54)
[2022-05-01] MEDS: PANTOPRAZOLE 40 MG TABLET PO SCH (09:24)
[2022-05-01] MEDS: BACLOFEN 10 MG TABLET (FP) PO SCH ×2 (09:24→21:07)
[2022-05-01] MEDS: VITAMIN A 10,000 UNITS (3000 MCG) CAPSULE PO SCH (09:24)
[2022-05-01] MEDS: CHOLECALCIFEROL (VIT D3) 1,000 UNIT (25 MCG) TABLET PO SCH (09:24)
[2022-05-01] MEDS: ASCORBIC ACID 250 MG TABLET (FP) PO SCH ×2 (09:24→21:07)
[2022-05-01] MEDS: CYANOCOBALAMIN 1,000 MCG TABLET (FP) PO SCH (09:24)
[2022-05-01] MEDS: ZINC SULFATE 220 MG CAPSULE (FP) PO SCH (09:24)
[2022-05-01] MEDS: COLLAGENASE CLOSTRIDIUM HIST. 30 GRAMS TUBE TP SCH (09:25)
[2022-05-01] MEDS: MIDODRINE HCL 5 MG TABLET PO SCH ×3 (09:25→17:00)
[2022-05-01] MEDS: MULTIVITAMINS THER W-MINERALS COMBO TABLET (FP) PO SCH (09:25)
[2022-05-01] MEDS: FLUDROCORTISONE ACETATE 0.1 MG TABLET (FP) PO SCH (09:25)
[2022-05-01] MEDS: SILVER SULFADIAZINE 1% TOP CREAM 50 GM JAR TP SCH ×2 (09:26→22:00)
[2022-05-01] MEDS: PREGABALIN 100 MG CAPSULE PO SCH ×2 (13:14→21:07)
[2022-05-01] MEDS: HEPARIN NA (PORCINE) 5,000 UNITS/ML 1ML VIAL SQ SCH ×2 (15:00→22:00)
[2022-05-02] MEDS: oxyCODONE HCL 5 MG TABLET PO SCH ×6 (05:15→22:37)
[2022-05-02] MEDS: HEPARIN NA (PORCINE) 5,000 UNITS/ML 1ML VIAL SQ SCH ×4 (05:15→22:06)
[2022-05-02] MEDS: PREGABALIN 100 MG CAPSULE PO SCH ×4 (05:15→22:06)
[2022-05-02] MEDS: AMINO ACIDS/PROTEIN HYDROLYS 30 ML LIQUID.PKT PO SCH ×2 (08:56→16:44)
[2022-05-02] MEDS: VITAMIN A 10,000 UNITS (3000 MCG) CAPSULE PO SCH (10:08)
[2022-05-02] MEDS: CHOLECALCIFEROL (VIT D3) 1,000 UNIT (25 MCG) TABLET PO SCH (10:08)
[2022-05-02] MEDS: CYANOCOBALAMIN 1,000 MCG TABLET (FP) PO SCH (10:09)
[2022-05-02] MEDS: FLUDROCORTISONE ACETATE 0.1 MG TABLET (FP) PO SCH (10:09)
[2022-05-02] MEDS: MIDODRINE HCL 5 MG TABLET PO SCH ×3 (10:09→17:25)
[2022-05-02] MEDS: ASCORBIC ACID 250 MG TABLET (FP) PO SCH ×2 (10:09→22:06)
[2022-05-02] MEDS: PANTOPRAZOLE 40 MG TABLET PO SCH (10:10)
[2022-05-02] MEDS: ZINC SULFATE 220 MG CAPSULE (FP) PO SCH (10:10)
[2022-05-02] MEDS: COLLAGENASE CLOSTRIDIUM HIST. 30 GRAMS TUBE TP SCH (10:10)
[2022-05-02] MEDS: BACLOFEN 10 MG TABLET (FP) PO SCH ×2 (10:10→22:06)
[2022-05-02] MEDS: SILVER SULFADIAZINE 1% TOP CREAM 50 GM JAR TP SCH ×2 (10:10→22:09)
[2022-05-02] MEDS: MULTIVITAMINS THER W-MINERALS COMBO TABLET (FP) PO SCH (10:15)
[2022-05-02] MEDS: ACETAMINOPHEN 325 MG TABLET (FP) PO PRN (13:48)
[2022-05-03] MEDS: oxyCODONE HCL 5 MG TABLET PO SCH ×7 (00:57→21:00)
[2022-05-03] MEDS: ACETAMINOPHEN 325 MG TABLET (FP) PO PRN (06:32)
[2022-05-03] MEDS: PREGABALIN 100 MG CAPSULE PO SCH ×3 (06:32→21:05)
[2022-05-03] MEDS: HEPARIN NA (PORCINE) 5,000 UNITS/ML 1ML VIAL SQ SCH ×3 (06:32→21:03)
[2022-05-03] MEDS: AMINO ACIDS/PROTEIN HYDROLYS 30 ML LIQUID.PKT PO SCH ×2 (10:49→17:24)
[2022-05-03] MEDS: VITAMIN A 10,000 UNITS (3000 MCG) CAPSULE PO SCH (10:51)
[2022-05-03] MEDS: FLUDROCORTISONE ACETATE 0.1 MG TABLET (FP) PO SCH (10:51)
[2022-05-03] MEDS: CYANOCOBALAMIN 1,000 MCG TABLET (FP) PO SCH (10:51)
[2022-05-03] MEDS: PANTOPRAZOLE 40 MG TABLET PO SCH (10:54)
[2022-05-03] MEDS: ASCORBIC ACID 250 MG TABLET (FP) PO SCH ×2 (10:54→21:05)
[2022-05-03] MEDS: ZINC SULFATE 220 MG CAPSULE (FP) PO SCH (10:54)
[2022-05-03] MEDS: CHOLECALCIFEROL (VIT D3) 1,000 UNIT (25 MCG) TABLET PO SCH (10:54)
[2022-05-03] MEDS: BACLOFEN 10 MG TABLET (FP) PO SCH ×2 (10:54→21:04)
[2022-05-03] MEDS: MIDODRINE HCL 5 MG TABLET PO SCH ×3 (10:54→19:32)
[2022-05-03] MEDS: MULTIVITAMINS THER W-MINERALS COMBO TABLET (FP) PO SCH (10:55)
[2022-05-03] MEDS: COLLAGENASE CLOSTRIDIUM HIST. 30 GRAMS TUBE TP SCH (13:44)
[2022-05-03] MEDS: SILVER SULFADIAZINE 1% TOP CREAM 50 GM JAR TP SCH ×2 (17:24→21:05)
[2022-05-04] MEDS: oxyCODONE HCL 5 MG TABLET PO SCH ×6 (00:38→21:47)
[2022-05-04] MEDS: PREGABALIN 100 MG CAPSULE PO SCH ×3 (06:28→21:46)
[2022-05-04] MEDS: AMINO ACIDS/PROTEIN HYDROLYS 30 ML LIQUID.PKT PO SCH ×2 (11:17→16:52)
[2022-05-04] MEDS: FLUDROCORTISONE ACETATE 0.1 MG TABLET (FP) PO SCH (11:18)
[2022-05-04] MEDS: BACLOFEN 10 MG TABLET (FP) PO SCH ×2 (11:18→21:47)
[2022-05-04] MEDS: VITAMIN A 10,000 UNITS (3000 MCG) CAPSULE PO SCH (11:18)
[2022-05-04] MEDS: ZINC SULFATE 220 MG CAPSULE (FP) PO SCH (11:18)
[2022-05-04] MEDS: MULTIVITAMINS THER W-MINERALS COMBO TABLET (FP) PO SCH (11:19)
[2022-05-04] MEDS: PANTOPRAZOLE 40 MG TABLET PO SCH (11:19)
[2022-05-04] MEDS: ASCORBIC ACID 250 MG TABLET (FP) PO SCH ×2 (11:19→21:47)
[2022-05-04] MEDS: CYANOCOBALAMIN 1,000 MCG TABLET (FP) PO SCH (11:19)
[2022-05-04] MEDS: MIDODRINE HCL 5 MG TABLET PO SCH ×3 (11:19→17:43)
[2022-05-04] MEDS: CHOLECALCIFEROL (VIT D3) 1,000 UNIT (25 MCG) TABLET PO SCH (11:20)
[2022-05-04] MEDS ORDERED: FENTANYL CITRATE/PF 50 MCG/ML VIAL ONE (12:51)
[2022-05-04] MEDS ORDERED: PROPOFOL 20 ML ONE ×3 (12:51→14:31)
[2022-05-04] MEDS ORDERED: DEXAMETHASONE SOD PHOSPHATE 4 MG/1 ML VIAL ONE (12:52)
[2022-05-04] MEDS ORDERED: ONDANSETRON 4 MG/2 ML VIAL ONE (12:52)
[2022-05-04] MEDS ORDERED: LIDOCAINE HCL/PF 2% SDV 5ML VIAL ONE (12:52)
[2022-05-04] MEDS ORDERED: CLINDAMYCIN 600MG PREMIX IVPB 600 MG/50 ML BAG IVPB ONE (13:15)
[2022-05-04] MEDS ORDERED: CLINDAMYCIN 600 MG PREMIX BAG IVPB ONE (13:18)
[2022-05-04] MEDS ORDERED: BACITRACIN 15 GM TUBE TOPICAL OINTMENT TP ONE (13:40)
[2022-05-04] MEDS ORDERED: BACITRACIN 15 GM TUBE TOPICAL OINTMENT ONE (13:52)
[2022-05-04] MEDS ORDERED: ACETAMINOPHEN 325 MG TABLET (FP) PO PRN (14:22)
[2022-05-04] MEDS: SILVER SULFADIAZINE 1% TOP CREAM 50 GM JAR TP SCH ×2 (16:15→21:04)
[2022-05-04] MEDS: COLLAGENASE CLOSTRIDIUM HIST. 30 GRAMS TUBE TP SCH (18:06)
[2022-05-04] MEDS: HEPARIN NA (PORCINE) 5,000 UNITS/ML 1ML VIAL SQ SCH (21:48)
[2022-05-05] MEDS: oxyCODONE HCL 5 MG TABLET PO SCH ×6 (01:03→21:17)
[2022-05-05] MEDS: MELATONIN 5 MG TABLETS PO PRN ×2 (01:03→21:16)
[2022-05-05] MEDS: PREGABALIN 100 MG CAPSULE PO SCH ×3 (06:03→21:16)
[2022-05-05] MEDS: HEPARIN NA (PORCINE) 5,000 UNITS/ML 1ML VIAL SQ SCH ×3 (06:04→21:17)
[2022-05-05] MEDS: AMINO ACIDS/PROTEIN HYDROLYS 30 ML LIQUID.PKT PO SCH ×2 (09:30→17:32)
[2022-05-05] MEDS: MIDODRINE HCL 5 MG TABLET PO SCH ×3 (09:36→17:34)
[2022-05-05] MEDS: BACLOFEN 10 MG TABLET (FP) PO SCH ×2 (09:36→21:16)
[2022-05-05] MEDS: ASCORBIC ACID 250 MG TABLET (FP) PO SCH ×2 (09:36→21:16)
[2022-05-05] MEDS ORDERED: CHOLECALCIFEROL (VIT D3) 5000 UNITS (125 MCG) CAP PO SCH (10:00)
[2022-05-05] MEDS ORDERED: MULTIVITAMINS THER W-MINERALS COMBO TABLET (FP) PO SCH (10:00)
[2022-05-05] MEDS ORDERED: VITAMIN A 10,000 UNITS (3000 MCG) CAPSULE PO SCH (10:00)
[2022-05-05] MEDS ORDERED: FLUDROCORTISONE ACETATE 0.1 MG TABLET (FP) PO SCH (10:00)
[2022-05-05] MEDS ORDERED: PANTOPRAZOLE 40 MG TABLET PO SCH (10:00)
[2022-05-05] MEDS ORDERED: CYANOCOBALAMIN 1,000 MCG TABLET (FP) PO SCH (10:00)
[2022-05-05] MEDS ORDERED: ZINC SULFATE 220 MG CAPSULE (FP) PO SCH (10:00)
[2022-05-05] MEDS: COLLAGENASE CLOSTRIDIUM HIST. 30 GRAMS TUBE TP SCH ×2 (13:42→19:58)
[2022-05-05] MEDS: SILVER SULFADIAZINE 1% TOP CREAM 50 GM JAR TP SCH ×4 (13:43→22:04)
[2022-05-06] MEDS: oxyCODONE HCL 5 MG TABLET PO SCH ×3 (01:04→10:44)
[2022-05-06] MEDS: HEPARIN NA (PORCINE) 5,000 UNITS/ML 1ML VIAL SQ SCH (05:00)
[2022-05-06] MEDS: PREGABALIN 100 MG CAPSULE PO SCH (05:00)
[2022-05-06 10:25] VITALS: BP 97/57; PULSE 54; RESP 18; TEMP 97.8
== END 2022-05-06 11:43 | DRG 574 ==
LOC: JASUSAT 04:14 → JASU-SURG 04:14 → J2C 21:32 → J8W 22:11 → J6S 04-15 02:00
PROVIDERS: ADMIT Plastic Surgery; ATTEND Plastic Surgery
PROC: 0HR6XK3 Replacement of Back Skin with Nonautologous Tissue Substitute, Full Thickness, External Approach (ICD-10-PCS; 2022-04-12)
PROC: 0KBN0ZZ Excision of Right Hip Muscle, Open Approach (ICD-10-PCS; 2022-04-12)
PROC: 2W15X6Z Compression of Back using Pressure Dressing (ICD-10-PCS; 2022-04-12)
PROC: 0KBP0ZZ Excision of Left Hip Muscle, Open Approach (ICD-10-PCS; principal; 2022-04-12 16:00)
PROC: 0D1N0Z4 Bypass Sigmoid Colon to Cutaneous, Open Approach (ICD-10-PCS; 2022-04-22)
PROC: 8E0W0CZ Robotic Assisted Procedure of Trunk Region, Open Approach (ICD-10-PCS; 2022-04-22)
PROC: 0T9B00Z Drainage of Bladder with Drainage Device, Open Approach (ICD-10-PCS; 2022-05-04)
PROC: 0TJB8ZZ Inspection of Bladder, Via Natural or Artificial Opening Endoscopic (ICD-10-PCS; 2022-05-04)
DX: L89.154 Pressure ulcer of sacral region, stage 4 (principal); G82.20 Paraplegia, unspecified; M46.28 Osteomyelitis of vertebra, sacral and sacrococcygeal region; N39.0 Urinary tract infection, site not specified; D50.9 Iron deficiency anemia, unspecified; E53.8 Deficiency of other specified B group vitamins; G62.9 Polyneuropathy, unspecified; E78.5 Hyperlipidemia, unspecified; N31.9 Neuromuscular dysfunction of bladder, unspecified; M48.062 Spinal stenosis, lumbar region with neurogenic claudication; E88.09 Other disorders of plasma-protein metabolism, not elsewhere classified; L89.620 Pressure ulcer of left heel, unstageable; R73.9 Hyperglycemia, unspecified; D72.829 Elevated white blood cell count, unspecified; I48.91 Unspecified atrial fibrillation; N40.0 Benign prostatic hyperplasia without lower urinary tract symptoms; M54.50 Low back pain, unspecified; B96.1 Klebsiella pneumoniae [K. pneumoniae] as the cause of diseases classified elsewhere
CPT/HCPCS: 36415; 74176-TC; 76775-TC; 76856-TC; 80048; 80053; 81003; 82962; 84484; 85025; 85651; 86140; 87070; 87075; 87086; 87186; 87205; 88304-TC; 94760; 97116-GP; 97161-GP; C9803-CS; J0475; J1644; U0003; U0005

== ENCOUNTER 2022-12-28 04:32 | Inpatient (IN) | payer OTHER ==
[2022-12-28] MEDS ORDERED: BUPIVACAINE HCL/PF 0.5% (5MG/ML) 10 ML VIAL ONE (09:46)
[2022-12-28] MEDS ORDERED: GENTAMICIN SO4 80 MG/2 ML VIAL ONE (09:46)
[2022-12-28] MEDS ORDERED: BUPIVACAINE HCL/PF 0.25% (2.5MG/ML) 10 ML VIAL ONE (09:46)
[2022-12-28] MEDS ORDERED: VANCOMYCIN 1,000 MG VIAL (RESTRICTED TO ID ONLY) ONE (10:42)
[2022-12-28] MEDS ORDERED: LIDOCAINE HCL/PF 2% SDV 5ML VIAL ONE (10:42)
[2022-12-28] MEDS ORDERED: PROPOFOL 20 ML ONE (10:43)
[2022-12-28] MEDS ORDERED: MIDAZOLAM HCL 2 MG/2 ML SINGLE DOSE VIAL ONE (10:43)
[2022-12-28] MEDS ORDERED: GENTAMICIN SO4 80 MG/2 ML VIAL IVPB ONE (11:10)
[2022-12-28] MEDS ORDERED: VANCOMYCIN 1,000 MG VIAL (RESTRICTED TO ID ONLY) IVPB ONE (11:10)
[2022-12-28] MEDS ORDERED: ONDANSETRON 4 MG/2 ML VIAL ONE (11:13)
[2022-12-28] MEDS ORDERED: DEXAMETHASONE SOD PHOSPHATE 4 MG/1 ML VIAL ONE (11:13)
[2022-12-28] MEDS ORDERED: ACETAMINOPHEN 1000 MG/100 ML BAG IVPB PRN (13:15)
[2022-12-28] MEDS ORDERED: ONDANSETRON 4 MG/2 ML VIAL IVPUSH PRN (13:15)
[2022-12-28] MEDS ORDERED: LACTATED RINGERS SOLUTION 1,000 ML IV SCH (13:15)
[2022-12-28] MEDS ORDERED: ACETAMINOPHEN 325 MG TABLET (FP) PO PRN (14:14)
[2022-12-28] MEDS ORDERED: oxyCODONE HCL 5 MG TABLET ONE (16:37)
[2022-12-28] MEDS: oxyCODONE HCL 5 MG TABLET PO PRN ×2 (17:01→21:19)
[2022-12-28] MEDS: MIDODRINE HCL 5 MG TABLET PO SCH (17:08)
[2022-12-28] MEDS: LACTATED RINGERS SOLUTION 1,000 ML/1,000 ML INFUS.BAG IV SCH ×2 (20:30→21:18)
[2022-12-28] MEDS: ASCORBIC ACID 500 MG TABLET (FP) PO SCH (21:19)
[2022-12-28] MEDS: PREGABALIN 100 MG CAPSULE PO SCH (21:19)
[2022-12-28] MEDS: BACLOFEN 10 MG TABLET (FP) PO SCH (21:19)
[2022-12-28] MEDS: MELATONIN 5 MG TABLETS PO PRN (21:20)
[2022-12-28] MEDS: INSULIN (NOVOLOG) ASPART 100 UNITS/ML 10ML VIAL SQ SCH (21:26)
[2022-12-28] MEDS: NYSTATIN 100,000 UNIT/GM TOPICAL CREAM 15 GM TUBE TP SCH (23:05)
[2022-12-29] MEDS: oxyCODONE HCL 5 MG TABLET PO PRN ×4 (01:35→21:40)
[2022-12-29] MEDS: LACTATED RINGERS SOLUTION 1,000 ML/1,000 ML INFUS.BAG IV SCH (06:22)
[2022-12-29] MEDS: INSULIN (NOVOLOG) ASPART 100 UNITS/ML 10ML VIAL SQ SCH ×3 (06:29→16:32)
[2022-12-29] MEDS: ENOXAPARIN NA (PORCINE) 40 MG/0.4 ML DISP.SYRIN SQ SCH (09:50)
[2022-12-29] MEDS: ASCORBIC ACID 500 MG TABLET (FP) PO SCH ×2 (09:51→21:42)
[2022-12-29] MEDS: BACLOFEN 10 MG TABLET (FP) PO SCH ×2 (09:51→21:42)
[2022-12-29] MEDS: PANTOPRAZOLE 40 MG TABLET PO SCH (09:52)
[2022-12-29] MEDS: ZINC SULFATE 220 MG CAPSULE (FP) PO SCH (09:52)
[2022-12-29] MEDS: MIDODRINE HCL 5 MG TABLET PO SCH ×3 (09:52→18:53)
[2022-12-29] MEDS: PREGABALIN 100 MG CAPSULE PO SCH ×2 (09:52→21:40)
[2022-12-29] MEDS: CHOLECALCIFEROL (VIT D3) 5000 UNITS (125 MCG) CAP PO SCH (09:57)
[2022-12-29] MEDS: FLUDROCORTISONE ACETATE 0.1 MG TABLET (FP) PO SCH (09:57)
[2022-12-29] MEDS: NYSTATIN 100,000 UNIT/GM TOPICAL CREAM 15 GM TUBE TP SCH ×2 (10:00→22:05)
[2022-12-29] MEDS ORDERED: VANCOMYCIN/WATER FOR INJ (PEG) 1,000 MG/200 ML BAG IVPB ONE (11:00)
[2022-12-29 13:04] LABS: BASO % 0.4 % (0-2.0); EOS % 0.5 % (0-4.5); HEMATOCRIT 35.5 % (35.4-49); HEMOGLOBIN 12.1 GM/dL (11.7-16.9); LYMPH % 25.6 % (8-40); MCH 29.7 pg (25.7-33.7); MEAN CELL VOLUME 87.3 fl (80-96); MEAN PLT VOLUME 7.1 fl (7.5-11.1); MONO % 7.2 % (3.8-10.2); NEUT % 66.3 % (42.8-82.8); PLATELET COUNT 306 10^3/uL (134-434); RBC 4.06 M/mm3 (4.00-5.60); RDW 14.1 % (11.9-15.9); WHITE BLOOD COUNT 10.5 K/mm3 (4.0-10.0)
[2022-12-29 13:31] LABS: POTASSIUM 4.1 mmol/L (3.5-5.1)
[2022-12-29 13:33] LABS: ALBUMIN 2.9 g/dl (3.4-5.0); BLOOD UREA NITROGEN 22.5 mg/dL (7-18); CALCIUM 8.9 mg/dL (8.5-10.1)
[2022-12-29 13:36] LABS: CREATININE 1.1 mg/dL (0.55-1.3)
[2022-12-29] MEDS: CEFTRIAXONE 2 GM in DEXTROSE 5%-WATER 100 ML IVPB SCH (13:37)
[2022-12-29 13:38] LABS: BILIRUBIN,TOTAL 0.3 mg/dL (0.2-1); TOT PROT 7.1 g/dl (6.4-8.2)
[2022-12-30] MEDS: oxyCODONE HCL 5 MG TABLET PO PRN ×4 (04:41→22:53)
[2022-12-30] MEDS: INSULIN (NOVOLOG) ASPART 100 UNITS/ML 10ML VIAL SQ SCH ×2 (07:21→12:33)
[2022-12-30] MEDS: ENOXAPARIN NA (PORCINE) 40 MG/0.4 ML DISP.SYRIN SQ SCH (10:19)
[2022-12-30] MEDS: MIDODRINE HCL 5 MG TABLET PO SCH ×3 (10:20→17:53)
[2022-12-30] MEDS: PANTOPRAZOLE 40 MG TABLET PO SCH (10:20)
[2022-12-30] MEDS: ASCORBIC ACID 500 MG TABLET (FP) PO SCH ×2 (10:20→22:54)
[2022-12-30] MEDS: PREGABALIN 100 MG CAPSULE PO SCH ×2 (10:20→22:52)
[2022-12-30] MEDS: CHOLECALCIFEROL (VIT D3) 5000 UNITS (125 MCG) CAP PO SCH (10:20)
[2022-12-30] MEDS: FLUDROCORTISONE ACETATE 0.1 MG TABLET (FP) PO SCH (10:20)
[2022-12-30] MEDS: BACLOFEN 10 MG TABLET (FP) PO SCH ×2 (10:20→22:54)
[2022-12-30] MEDS: ZINC SULFATE 220 MG CAPSULE (FP) PO SCH (10:20)
[2022-12-30] MEDS: NYSTATIN 100,000 UNIT/GM TOPICAL CREAM 15 GM TUBE TP SCH (10:21)
[2022-12-30] MEDS ORDERED: LACTATED RINGERS SOLUTION 1,000 ML/1,000 ML INFUS.BAG IV SCH (10:45)
[2022-12-30] MEDS: CEFTRIAXONE 2 GM in DEXTROSE 5%-WATER 100 ML IVPB SCH (10:48)
[2022-12-30] MEDS: LACTATED RINGERS SOLUTION 1,000 ML/1,000 ML INFUS.BAG IV SCH (22:50)
[2022-12-31] MEDS: NYSTATIN 100,000 UNIT/GM TOPICAL CREAM 15 GM TUBE TP SCH ×3 (00:33→22:29)
[2022-12-31] MEDS: oxyCODONE HCL 5 MG TABLET PO PRN ×4 (05:23→22:26)
[2022-12-31] MEDS: CEFTRIAXONE 2 GM in DEXTROSE 5%-WATER 100 ML IVPB SCH (10:01)
[2022-12-31 10:05] LABS: BASO % 0.6 % (0-2.0); EOS % 2.2 % (0-4.5); HEMATOCRIT 36.6 % (35.4-49); HEMOGLOBIN 12.1 GM/dL (11.7-16.9); LYMPH % 27.7 % (8-40); MCH 29.2 pg (25.7-33.7); MCHC 33.1 g/dl (32.0-35.9); MEAN CELL VOLUME 88.1 fl (80-96); MEAN PLT VOLUME 7.2 fl (7.5-11.1); NEUT % 59.5 % (42.8-82.8); PLATELET COUNT 279 10^3/uL (134-434); RBC 4.16 M/mm3 (4.00-5.60); WHITE BLOOD COUNT 6.5 K/mm3 (4.0-10.0)
[2022-12-31] MEDS: MIDODRINE HCL 5 MG TABLET PO SCH ×3 (10:12→18:02)
[2022-12-31] MEDS: ZINC SULFATE 220 MG CAPSULE (FP) PO SCH (10:12)
[2022-12-31] MEDS: BACLOFEN 10 MG TABLET (FP) PO SCH ×2 (10:12→22:25)
[2022-12-31] MEDS: CHOLECALCIFEROL (VIT D3) 5000 UNITS (125 MCG) CAP PO SCH (10:12)
[2022-12-31] MEDS: PREGABALIN 100 MG CAPSULE PO SCH ×2 (10:12→22:25)
[2022-12-31] MEDS: FLUDROCORTISONE ACETATE 0.1 MG TABLET (FP) PO SCH (10:12)
[2022-12-31] MEDS: PANTOPRAZOLE 40 MG TABLET PO SCH (10:12)
[2022-12-31] MEDS: ENOXAPARIN NA (PORCINE) 40 MG/0.4 ML DISP.SYRIN SQ SCH (10:13)
[2022-12-31] MEDS: ASCORBIC ACID 500 MG TABLET (FP) PO SCH ×2 (10:20→22:26)
[2022-12-31 10:25] LABS: POTASSIUM 3.9 mmol/L (3.5-5.1)
[2022-12-31 10:33] LABS: CALCIUM 9.1 mg/dL (8.5-10.1)
[2022-12-31 10:34] LABS: BLOOD UREA NITROGEN 19.3 mg/dL (7-18)
[2022-12-31 10:36] LABS: CREATININE 1.1 mg/dL (0.55-1.3)
[2022-12-31] MEDS: LACTATED RINGERS SOLUTION 1,000 ML/1,000 ML INFUS.BAG IV SCH (22:29)
[2023-01-01] MEDS: oxyCODONE HCL 5 MG TABLET PO PRN ×3 (04:16→22:30)
[2023-01-01 08:37] LABS: BASO % 0.4 % (0-2.0); EOS % 2.7 % (0-4.5); HEMATOCRIT 35.9 % (35.4-49); HEMOGLOBIN 12.4 GM/dL (11.7-16.9); LYMPH % 24.6 % (8-40); MCH 29.7 pg (25.7-33.7); MCHC 34.6 g/dl (32.0-35.9); MEAN CELL VOLUME 85.7 fl (80-96); MEAN PLT VOLUME 7.2 fl (7.5-11.1); MONO % 10.9 % (3.8-10.2); NEUT % 61.4 % (42.8-82.8); PLATELET COUNT 259 10^3/uL (134-434); RBC 4.19 M/mm3 (4.00-5.60); WHITE BLOOD COUNT 7.4 K/mm3 (4.0-10.0)
[2023-01-01 08:59] LABS: CALCIUM 8.6 mg/dL (8.5-10.1)
[2023-01-01] MEDS: MIDODRINE HCL 5 MG TABLET PO SCH ×3 (09:00→17:30)
[2023-01-01] MEDS: CEFTRIAXONE 2 GM in DEXTROSE 5%-WATER 100 ML IVPB SCH (09:00)
[2023-01-01 09:01] LABS: BLOOD UREA NITROGEN 19.3 mg/dL (7-18); MAGNESIUM 1.8 mg/dL (1.8-2.4)
[2023-01-01] MEDS: PREGABALIN 100 MG CAPSULE PO SCH ×2 (09:01→22:29)
[2023-01-01] MEDS: BACLOFEN 10 MG TABLET (FP) PO SCH ×2 (09:01→22:30)
[2023-01-01] MEDS: PANTOPRAZOLE 40 MG TABLET PO SCH (09:01)
[2023-01-01] MEDS: NYSTATIN 100,000 UNIT/GM TOPICAL CREAM 15 GM TUBE TP SCH ×2 (09:01→22:32)
[2023-01-01] MEDS: ASCORBIC ACID 500 MG TABLET (FP) PO SCH ×2 (09:01→22:30)
[2023-01-01] MEDS: ENOXAPARIN NA (PORCINE) 40 MG/0.4 ML DISP.SYRIN SQ SCH (09:01)
[2023-01-01] MEDS: ZINC SULFATE 220 MG CAPSULE (FP) PO SCH (09:01)
[2023-01-01 09:02] LABS: CREATININE 1.1 mg/dL (0.55-1.3)
[2023-01-01] MEDS: CHOLECALCIFEROL (VIT D3) 5000 UNITS (125 MCG) CAP PO SCH (09:08)
[2023-01-01] MEDS: FLUDROCORTISONE ACETATE 0.1 MG TABLET (FP) PO SCH (09:10)
[2023-01-01] MEDS ORDERED: MAGNESIUM 1GM/D5W 100ML - 100 ML IVPB IVPB ONE (09:15)
[2023-01-02] MEDS: LACTATED RINGERS SOLUTION 1,000 ML/1,000 ML INFUS.BAG IV SCH ×2 (01:45→11:15)
[2023-01-02] MEDS: oxyCODONE HCL 5 MG TABLET PO PRN ×3 (03:50→19:46)
[2023-01-02] MEDS: MIDODRINE HCL 5 MG TABLET PO SCH ×3 (09:55→19:10)
[2023-01-02] MEDS: PREGABALIN 100 MG CAPSULE PO SCH ×2 (09:57→22:08)
[2023-01-02] MEDS: ASCORBIC ACID 500 MG TABLET (FP) PO SCH ×2 (09:57→22:08)
[2023-01-02] MEDS: ZINC SULFATE 220 MG CAPSULE (FP) PO SCH (09:57)
[2023-01-02] MEDS: PANTOPRAZOLE 40 MG TABLET PO SCH (09:57)
[2023-01-02] MEDS: BACLOFEN 10 MG TABLET (FP) PO SCH ×2 (09:57→22:09)
[2023-01-02] MEDS: FLUDROCORTISONE ACETATE 0.1 MG TABLET (FP) PO SCH (09:58)
[2023-01-02] MEDS: CHOLECALCIFEROL (VIT D3) 5000 UNITS (125 MCG) CAP PO SCH (09:58)
[2023-01-02] MEDS: CEFTRIAXONE 2 GM in DEXTROSE 5%-WATER 100 ML IVPB SCH (10:03)
[2023-01-02 10:04] LABS: BASO % 0.4 % (0-2.0); EOS % 3.1 % (0-4.5); HEMOGLOBIN 12.3 GM/dL (11.7-16.9); LYMPH % 23.2 % (8-40); MCH 29.6 pg (25.7-33.7); MCHC 34.1 g/dl (32.0-35.9); MEAN CELL VOLUME 86.8 fl (80-96); MEAN PLT VOLUME 7.4 fl (7.5-11.1); MONO % 10.7 % (3.8-10.2); NEUT % 62.6 % (42.8-82.8); PLATELET COUNT 251 10^3/uL (134-434); RBC 4.15 M/mm3 (4.00-5.60); RDW 13.9 % (11.9-15.9); WHITE BLOOD COUNT 7.1 K/mm3 (4.0-10.0)
[2023-01-02] MEDS: ENOXAPARIN NA (PORCINE) 40 MG/0.4 ML DISP.SYRIN SQ SCH (10:14)
[2023-01-02 10:27] LABS: POTASSIUM 4.3 mmol/L (3.5-5.1)
[2023-01-02 10:33] LABS: CALCIUM 8.6 mg/dL (8.5-10.1)
[2023-01-02 10:34] LABS: BLOOD UREA NITROGEN 16.6 mg/dL (7-18)
[2023-01-02] MEDS: NYSTATIN 100,000 UNIT/GM TOPICAL CREAM 15 GM TUBE TP SCH ×2 (15:02→22:09)
[2023-01-03] MEDS: oxyCODONE HCL 5 MG TABLET PO PRN ×4 (01:00→21:48)
[2023-01-03 09:38] LABS: BASO % 0.6 % (0-2.0); EOS % 3.6 % (0-4.5); HEMATOCRIT 37.8 % (35.4-49); HEMOGLOBIN 12.6 GM/dL (11.7-16.9); LYMPH % 23.5 % (8-40); MCH 29.3 pg (25.7-33.7); MCHC 33.2 g/dl (32.0-35.9); MEAN CELL VOLUME 88.3 fl (80-96); MEAN PLT VOLUME 7.6 fl (7.5-11.1); MONO % 8.5 % (3.8-10.2); NEUT % 63.8 % (42.8-82.8); PLATELET COUNT 259 10^3/uL (134-434); RBC 4.28 M/mm3 (4.00-5.60); RDW 14.2 % (11.9-15.9); WHITE BLOOD COUNT 7.5 K/mm3 (4.0-10.0)
[2023-01-03] MEDS: PREGABALIN 100 MG CAPSULE PO SCH ×2 (10:05→21:42)
[2023-01-03] MEDS: ENOXAPARIN NA (PORCINE) 40 MG/0.4 ML DISP.SYRIN SQ SCH (10:08)
[2023-01-03] MEDS: CEFTRIAXONE 2 GM in DEXTROSE 5%-WATER 100 ML IVPB SCH (10:08)
[2023-01-03] MEDS: MIDODRINE HCL 5 MG TABLET PO SCH ×3 (10:09→17:30)
[2023-01-03] MEDS: FLUDROCORTISONE ACETATE 0.1 MG TABLET (FP) PO SCH (10:10)
[2023-01-03] MEDS: BACLOFEN 10 MG TABLET (FP) PO SCH ×2 (10:10→21:43)
[2023-01-03] MEDS: ZINC SULFATE 220 MG CAPSULE (FP) PO SCH (10:10)
[2023-01-03] MEDS: PANTOPRAZOLE 40 MG TABLET PO SCH (10:10)
[2023-01-03] MEDS: NYSTATIN 100,000 UNIT/GM TOPICAL CREAM 15 GM TUBE TP SCH ×3 (10:10→21:52)
[2023-01-03] MEDS: CHOLECALCIFEROL (VIT D3) 5000 UNITS (125 MCG) CAP PO SCH (10:10)
[2023-01-03] MEDS: ASCORBIC ACID 500 MG TABLET (FP) PO SCH ×2 (10:10→21:43)
[2023-01-03 10:13] LABS: POTASSIUM 4.1 mmol/L (3.5-5.1)
[2023-01-03 10:19] LABS: CALCIUM 8.8 mg/dL (8.5-10.1)
[2023-01-03 10:20] LABS: BLOOD UREA NITROGEN 17.4 mg/dL (7-18)
[2023-01-03 12:43] VITALS: BMI 30.2
[2023-01-03] MEDS: LACTATED RINGERS SOLUTION 1,000 ML/1,000 ML INFUS.BAG IV SCH ×2 (16:37→21:06)
[2023-01-03] MEDS: AMINO ACIDS/PROTEIN HYDROLYS 30 ML LIQUID.PKT PO SCH ×2 (18:39→18:41)
[2023-01-03] MEDS: MELATONIN 5 MG TABLETS PO PRN (21:44)
[2023-01-04] MEDS: LACTATED RINGERS SOLUTION 1,000 ML/1,000 ML INFUS.BAG IV SCH (01:11)
[2023-01-04] MEDS: oxyCODONE HCL 5 MG TABLET PO PRN ×3 (06:58→21:36)
[2023-01-04 10:18] LABS: BASO % 0.4 % (0-2.0); EOS % 2.2 % (0-4.5); HEMATOCRIT 35.8 % (35.4-49); HEMOGLOBIN 12.1 GM/dL (11.7-16.9); MCH 29.3 pg (25.7-33.7); MCHC 33.9 g/dl (32.0-35.9); MEAN CELL VOLUME 86.5 fl (80-96); MEAN PLT VOLUME 7.4 fl (7.5-11.1); MONO % 9.8 % (3.8-10.2); NEUT % 69.6 % (42.8-82.8); PLATELET COUNT 231 10^3/uL (134-434); RBC 4.14 M/mm3 (4.00-5.60); RDW 14.3 % (11.9-15.9); WHITE BLOOD COUNT 7.7 K/mm3 (4.0-10.0)
[2023-01-04] MEDS: FLUDROCORTISONE ACETATE 0.1 MG TABLET (FP) PO SCH (10:29)
[2023-01-04] MEDS: AMINO ACIDS/PROTEIN HYDROLYS 30 ML LIQUID.PKT PO SCH ×2 (10:29→18:19)
[2023-01-04] MEDS: ZINC SULFATE 220 MG CAPSULE (FP) PO SCH (10:30)
[2023-01-04] MEDS: PREGABALIN 100 MG CAPSULE PO SCH ×2 (10:30→21:36)
[2023-01-04] MEDS: CEFTRIAXONE 2 GM in DEXTROSE 5%-WATER 100 ML IVPB SCH (10:30)
[2023-01-04] MEDS: ENOXAPARIN NA (PORCINE) 40 MG/0.4 ML DISP.SYRIN SQ SCH (10:30)
[2023-01-04] MEDS: PANTOPRAZOLE 40 MG TABLET PO SCH (10:30)
[2023-01-04] MEDS: MULTIVITAMINS (DAILY MVI) TABLET (FP) PO SCH (10:30)
[2023-01-04 10:31] LABS: POTASSIUM 4.2 mmol/L (3.5-5.1)
[2023-01-04] MEDS: BACLOFEN 10 MG TABLET (FP) PO SCH ×2 (10:31→21:36)
[2023-01-04] MEDS: ASCORBIC ACID 500 MG TABLET (FP) PO SCH ×2 (10:31→21:36)
[2023-01-04] MEDS: CHOLECALCIFEROL (VIT D3) 5000 UNITS (125 MCG) CAP PO SCH (10:31)
[2023-01-04] MEDS: MIDODRINE HCL 5 MG TABLET PO SCH ×3 (10:31→18:19)
[2023-01-04 10:35] LABS: BLOOD UREA NITROGEN 17.5 mg/dL (7-18); CALCIUM 8.8 mg/dL (8.5-10.1)
[2023-01-04] MEDS: NYSTATIN 100,000 UNIT/GM TOPICAL CREAM 15 GM TUBE TP SCH ×2 (10:41→22:39)
[2023-01-04] MEDS: SILVER SULFADIAZINE 1% TOP CREAM 50 GM JAR TP SCH (18:20)
[2023-01-04] MEDS: MELATONIN 5 MG TABLETS PO PRN (21:39)
[2023-01-05] MEDS: oxyCODONE HCL 5 MG TABLET PO PRN ×3 (02:35→21:40)
[2023-01-05] MEDS: PREGABALIN 100 MG CAPSULE PO SCH ×2 (09:59→21:38)
[2023-01-05] MEDS: MULTIVITAMINS (DAILY MVI) TABLET (FP) PO SCH (09:59)
[2023-01-05] MEDS: MIDODRINE HCL 5 MG TABLET PO SCH ×3 (09:59→17:29)
[2023-01-05] MEDS: ENOXAPARIN NA (PORCINE) 40 MG/0.4 ML DISP.SYRIN SQ SCH (09:59)
[2023-01-05] MEDS: CEFTRIAXONE 2 GM in DEXTROSE 5%-WATER 100 ML IVPB SCH (09:59)
[2023-01-05] MEDS: ASCORBIC ACID 500 MG TABLET (FP) PO SCH ×2 (10:00→21:38)
[2023-01-05] MEDS: PANTOPRAZOLE 40 MG TABLET PO SCH (10:00)
[2023-01-05] MEDS: ZINC SULFATE 220 MG CAPSULE (FP) PO SCH (10:00)
[2023-01-05] MEDS: AMINO ACIDS/PROTEIN HYDROLYS 30 ML LIQUID.PKT PO SCH ×3 (10:00→17:31)
[2023-01-05] MEDS: BACLOFEN 10 MG TABLET (FP) PO SCH ×2 (10:00→21:38)
[2023-01-05] MEDS: SILVER SULFADIAZINE 1% TOP CREAM 50 GM JAR TP SCH (10:01)
[2023-01-05] MEDS: CHOLECALCIFEROL (VIT D3) 5000 UNITS (125 MCG) CAP PO SCH (10:01)
[2023-01-05] MEDS: NYSTATIN 100,000 UNIT/GM TOPICAL CREAM 15 GM TUBE TP SCH ×2 (10:02→23:03)
[2023-01-05] MEDS: FLUDROCORTISONE ACETATE 0.1 MG TABLET (FP) PO SCH (10:14)
[2023-01-06] MEDS: oxyCODONE HCL 5 MG TABLET PO PRN (04:54)
[2023-01-06] MEDS: PREGABALIN 100 MG CAPSULE PO SCH (09:07)
[2023-01-06] MEDS: BACLOFEN 10 MG TABLET (FP) PO SCH (09:07)
[2023-01-06] MEDS: FLUDROCORTISONE ACETATE 0.1 MG TABLET (FP) PO SCH (09:08)
[2023-01-06] MEDS: PANTOPRAZOLE 40 MG TABLET PO SCH (09:08)
[2023-01-06] MEDS: ZINC SULFATE 220 MG CAPSULE (FP) PO SCH (09:08)
[2023-01-06] MEDS: MIDODRINE HCL 5 MG TABLET PO SCH ×2 (09:08→14:07)
[2023-01-06] MEDS: ASCORBIC ACID 500 MG TABLET (FP) PO SCH (09:08)
[2023-01-06] MEDS: MULTIVITAMINS (DAILY MVI) TABLET (FP) PO SCH (09:08)
[2023-01-06] MEDS: ENOXAPARIN NA (PORCINE) 40 MG/0.4 ML DISP.SYRIN SQ SCH (09:08)
[2023-01-06] MEDS: CHOLECALCIFEROL (VIT D3) 5000 UNITS (125 MCG) CAP PO SCH (09:09)
[2023-01-06] MEDS: NYSTATIN 100,000 UNIT/GM TOPICAL CREAM 15 GM TUBE TP SCH (09:14)
[2023-01-06] MEDS: AMINO ACIDS/PROTEIN HYDROLYS 30 ML LIQUID.PKT PO SCH (09:14)
[2023-01-06] MEDS: SILVER SULFADIAZINE 1% TOP CREAM 50 GM JAR TP SCH (11:07)
[2023-01-06] MEDS ORDERED: PIPERACILLIN/TAZOB 3.375 GM 3.375 GM in DEXTROSE 5%-WATER - 50 ML IVPB SCH (12:15)
[2023-01-06 15:26] VITALS: BP 124/58; PULSE 58; RESP 18; TEMP 98
== END 2023-01-06 16:46 | DRG 622 ==
LOC: JASU-SURG 04:32 → J2C 13:08 → J8W 20:56
PROVIDERS: ADMIT Plastic Surgery; ATTEND Internal Medicine
PROC: 0JB70ZZ Excision of Back Subcutaneous Tissue and Fascia, Open Approach (ICD-10-PCS; 2022-12-28)
PROC: 0QB10ZX Excision of Sacrum, Open Approach, Diagnostic (ICD-10-PCS; 2022-12-28)
PROC: 02HV33Z Insertion of Infusion Device into Superior Vena Cava, Percutaneous Approach (ICD-10-PCS; 2022-12-28)
PROC: B548ZZA Ultrasonography of Superior Vena Cava, Guidance (ICD-10-PCS; 2022-12-28)
PROC: 0HR6X74 Replacement of Back Skin with Autologous Tissue Substitute, Partial Thickness, External Approach (ICD-10-PCS; principal; 2022-12-28 10:00)
DX: E11.622 Type 2 diabetes mellitus with other skin ulcer (principal); L89.154 Pressure ulcer of sacral region, stage 4; M46.28 Osteomyelitis of vertebra, sacral and sacrococcygeal region; T86.821 Skin graft (allograft) (autograft) failure; R53.2 Functional quadriplegia; E11.69 Type 2 diabetes mellitus with other specified complication; E88.09 Other disorders of plasma-protein metabolism, not elsewhere classified; N40.0 Benign prostatic hyperplasia without lower urinary tract symptoms; I10 Essential (primary) hypertension; E78.5 Hyperlipidemia, unspecified; K21.9 Gastro-esophageal reflux disease without esophagitis; E66.9 Obesity, unspecified; D64.9 Anemia, unspecified; Z68.29 Body mass index [BMI] 29.0-29.9, adult; G47.00 Insomnia, unspecified; L89.620 Pressure ulcer of left heel, unstageable; Y83.8 Other surgical procedures as the cause of abnormal reaction of the patient, or of later complication, without mention of misadventure at the time of the procedure; Z93.3 Colostomy status
CPT/HCPCS: 36415; 36569; 77001-TC-FY; 80048; 80053; 82962; 83735; 85025; 87635; 88304-TC; 88305-TC; 88311-TC; 94760; 97116-GP; 97161-GP; C1751; J0475; Q4121

== ENCOUNTER 2023-08-10 11:28 | Inpatient (IN) | payer OTHER ==
[2023-08-10] MEDS ORDERED: ACETAMINOPHEN 325 MG TABLET (FP) ONE (12:24)
[2023-08-10] MEDS: ACETAMINOPHEN 500 MG TABLET (FP) PO ONE (12:35)
[2023-08-10 12:56] LABS: PH,URINE 8.5 (5.0-8.0); URINE APPEARANCE TURBID; URINE BILIRUBIN NEGATIVE (NEGATIVE); URINE COLOR YELLOW; URINE GLUCOSE (UA) NEGATIVE (NEGATIVE); URINE KETONE NEGATIVE (NEGATIVE); URINE PROTEIN 1+ (NEGATIVE); URINE UROBILINOGEN 0.2 mg/dL (0.2-1.0)
[2023-08-10 12:57] LABS: EPI CELLS 9 /uL (0-25.1); HYALINE CASTS 6 /uL (0-3.1); URINE BACTERIA 5015 /uL (0-1359); URINE LEUK ESTERASE 2+ (NEGATIVE); URINE NITRITE POSITIVE (NEGATIVE); URINE WBC 712 /uL (0-25.8)
[2023-08-10 14:15] LABS: URINE RBC 62 /uL (0-23.9)
[2023-08-10] MEDS ORDERED: CEFTRIAXONE 1 GM/50 ML BAG ONE (14:44)
[2023-08-10] MEDS: CEFTRIAXONE 1,000 MG in DEXTROSE 5%-WATER - 50 ML IVPB ONE (14:49)
[2023-08-10 14:55] LABS: BASO % 0.5 % (0-2.0); EOS % 1.8 % (0-4.5); HEMATOCRIT 39.5 % (35.4-49); HEMOGLOBIN 13.4 GM/dL (11.7-16.9); LYMPH % 23.4 % (8-40); MCH 29.8 pg (25.7-33.7); MCHC 33.8 g/dl (32.0-35.9); MEAN CELL VOLUME 88.1 fl (80-96); MEAN PLT VOLUME 7.1 fl (7.5-11.1); MONO % 8.4 % (3.8-10.2); NEUT % 65.9 % (42.8-82.8); PLATELET COUNT 321 10^3/uL (134-434); RBC 4.48 M/mm3 (4.00-5.60); RDW 15.9 % (11.9-15.9); WHITE BLOOD COUNT 10.5 K/mm3 (4.0-10.0)
[2023-08-10 15:15] LABS: POTASSIUM 4.1 mmol/L (3.5-5.1)
[2023-08-10 15:17] LABS: ALBUMIN 2.9 g/dl (3.4-5.0); BLOOD UREA NITROGEN 18.6 mg/dL (7-18); CALCIUM 9.1 mg/dL (8.5-10.1)
[2023-08-10 15:22] LABS: BILIRUBIN,TOTAL 0.2 mg/dL (0.2-1)
[2023-08-10] MEDS ORDERED: MELATONIN 5 MG TABLETS PO PRN (16:07)
[2023-08-10] MEDS ORDERED: PANTOPRAZOLE 40 MG TABLET PO ONE (16:25)
[2023-08-10] MEDS ORDERED: ENOXAPARIN NA (PORCINE) 40 MG/0.4 ML DISP.SYRIN SQ ONE (16:25)
[2023-08-10] MEDS: LACTATED RINGERS SOLUTION 1,000 ML/1,000 ML INFUS.BAG IV SCH (16:32)
[2023-08-10] MEDS: PANTOPRAZOLE 40 MG TABLET PO SCH (16:32)
[2023-08-10] MEDS: ENOXAPARIN NA (PORCINE) 40 MG/0.4 ML DISP.SYRIN SQ SCH (16:32)
[2023-08-10] MEDS: MIDODRINE HCL 5 MG TABLET PO SCH (18:11)
[2023-08-10] MEDS: AMINO ACIDS/PROTEIN HYDROLYS 30 ML LIQUID.PKT PO SCH (18:11)
[2023-08-10] MEDS: oxyCODONE HCL 5 MG TABLET PO PRN (19:39)
[2023-08-10] MEDS: FLUDROCORTISONE ACETATE 0.1 MG TABLET (FP) PO SCH (19:43)
[2023-08-10] MEDS: PREGABALIN 100 MG CAPSULE PO SCH (21:35)
[2023-08-10] MEDS: BACLOFEN 10 MG TABLET (FP) PO SCH (21:35)
[2023-08-10] MEDS: ASCORBIC ACID 500 MG TABLET (FP) PO SCH (21:36)
[2023-08-10] MEDS: ACETAMINOPHEN 325 MG TABLET (FP) PO PRN (21:36)
[2023-08-10] MEDS ORDERED: PREGABALIN 100 MG CAPSULE PO SCH (22:00)
[2023-08-10] MEDS: NYSTATIN 100,000 UNIT/GM TOPICAL CREAM 15 GM TUBE TP SCH (23:35)
[2023-08-11 07:36] LABS: BASO % 0.5 % (0-2.0); EOS % 1.6 % (0-4.5); HEMATOCRIT 37.2 % (35.4-49); HEMOGLOBIN 12.1 GM/dL (11.7-16.9); LYMPH % 18.6 % (8-40); MCH 28.9 pg (25.7-33.7); MCHC 32.5 g/dl (32.0-35.9); MEAN CELL VOLUME 88.8 fl (80-96); MEAN PLT VOLUME 7.3 fl (7.5-11.1); NEUT % 67.3 % (42.8-82.8); PLATELET COUNT 256 10^3/uL (134-434); RBC 4.19 M/mm3 (4.00-5.60); RDW 15.5 % (11.9-15.9)
[2023-08-11 08:01] LABS: POTASSIUM 3.9 mmol/L (3.5-5.1)
[2023-08-11 08:56] LABS: CALCIUM 8.7 mg/dL (8.5-10.1)
[2023-08-11 08:57] LABS: BLOOD UREA NITROGEN 15.2 mg/dL (7-18)
[2023-08-11 09:00] LABS: CREATININE 0.9 mg/dL (0.55-1.3)
[2023-08-11] MEDS: ZINC SULFATE 220 MG CAPSULE (FP) PO SCH (09:55)
[2023-08-11] MEDS: CHOLECALCIFEROL (VIT D3) 5000 UNITS (125 MCG) CAP PO SCH (09:55)
[2023-08-11] MEDS: MULTIVITAMINS THER W-MINERALS COMBO TABLET (FP) PO SCH (09:56)
[2023-08-11] MEDS: CYANOCOBALAMIN 1,000 MCG TABLET (FP) PO SCH (09:56)
[2023-08-11 14:45] VITALS: BMI 30.1
[2023-08-11] MEDS: PIPERACILLIN/TAZOB 3.375 GM 3.375 GM in DEXTROSE 5%-WATER - 50 ML IVPB SCH (18:26)
[2023-08-12 09:09] LABS: BASO % 0.3 % (0-2.0); EOS % 1.3 % (0-4.5); HEMATOCRIT 37.6 % (35.4-49); HEMOGLOBIN 12.5 GM/dL (11.7-16.9); LYMPH % 9.5 % (8-40); MCH 29.5 pg (25.7-33.7); MCHC 33.2 g/dl (32.0-35.9); MEAN CELL VOLUME 88.8 fl (80-96); MEAN PLT VOLUME 7.2 fl (7.5-11.1); MONO % 7.7 % (3.8-10.2); NEUT % 81.2 % (42.8-82.8); PLATELET COUNT 245 10^3/uL (134-434); RBC 4.23 M/mm3 (4.00-5.60); RDW 15.4 % (11.9-15.9); WHITE BLOOD COUNT 7.6 K/mm3 (4.0-10.0)
[2023-08-12 09:29] LABS: POTASSIUM 3.9 mmol/L (3.5-5.1)
[2023-08-12 09:35] LABS: CALCIUM 8.7 mg/dL (8.5-10.1)
[2023-08-12 09:36] LABS: BLOOD UREA NITROGEN 15.5 mg/dL (7-18)
[2023-08-12 09:39] LABS: CREATININE 0.8 mg/dL (0.55-1.3)
[2023-08-14 15:42] VITALS: BP 107/53; PULSE 53; RESP 18; TEMP 97.7
== END 2023-08-14 16:59 | DRG 727 ==
LOC: JER 11:28 → JERBED 15:36 → J8W 17:50
PROVIDERS: ADMIT Internal Medicine; ATTEND Internal Medicine
DX: N45.1 Epididymitis (principal); L89.154 Pressure ulcer of sacral region, stage 4; R53.2 Functional quadriplegia; N39.0 Urinary tract infection, site not specified; B96.4 Proteus (mirabilis) (morganii) as the cause of diseases classified elsewhere; N31.9 Neuromuscular dysfunction of bladder, unspecified; E78.00 Pure hypercholesterolemia, unspecified; D64.9 Anemia, unspecified; M48.00 Spinal stenosis, site unspecified; E11.42 Type 2 diabetes mellitus with diabetic polyneuropathy; I48.91 Unspecified atrial fibrillation; M62.81 Muscle weakness (generalized); M54.9 Dorsalgia, unspecified; N40.0 Benign prostatic hyperplasia without lower urinary tract symptoms; R26.89 Other abnormalities of gait and mobility; D72.829 Elevated white blood cell count, unspecified; G47.00 Insomnia, unspecified; Z43.3 Encounter for attention to colostomy; Z43.5 Encounter for attention to cystostomy
CPT/HCPCS: 36415; 76870-TC; 80048; 80053; 81003; 85025; 87040; 87086; 87186; 87635; 93005; 93010; 97116-GP; 97161-GP; 99285-25; J0475